=== PATIENT | female | born 1975 | race Caucasian/White ===

== ENCOUNTER → 2016-03-19 | Outpatient (CLI) | payer OTHER ==
--- NOTE | 2016-03-19 15:20 | P.PN ---
Progress Note - Text Patient returns for followup for chronic abdominal pain with some radiation to left flank, and fairly new-onset paravertebral pain that can radiate as high as her mid-thoracic spine and feels like a burning sensation. Patient continues on Marquette medication (1 pill/day) for pain with good relief. Patient denies adverse drug effects from medications. Today, pt denies new-onset weakness, bowel/bladder incontinence, or any other signs or symptoms of cauda equina syndrome. There are no signs of acute intoxication, and no indications of medication diversion or overuse. In addition to above, 13-point review of systems is also negative for chest pain , shortness of breath, changes in vision, changes in hearing, new onset weakness , abdominal pain, diarrhea, extreme fatigue, malaise, fever, skin changes, homicidal or suicidal ideation, or bowel or bladder incontinence. Vital Signs: Reviewed in EMR Gen: WDWN, AAOx3, NAD HEENT: NCAT, EOMI, hearing grossly normal Pulm: resp unlabored Abd: soft, TTP over left abdomen, worst LLQ, no rebound or guarding Neck: supple, trachea midline ROM lumbar spine: full in flexion/extension Facet loading: + R side SIJ tenderness: neg Master's: neg Neuro: CN II-XII grossly intact, muscle strength lower extremities PRESERVED Imaging: Reviewed in EMR Assessment: 1. rectus sheath cutaneous nerve entrapment 2. chronic pain syndrome 3. lumbago Plan: 1. Explanation: Opioid and psychological risk scores were reviewed. Diagnoses , prognoses, and multiple treatment options including but not limited to physical therapy, interventional therapies, adjuvant medical therapies, narcotic medication therapies, and surgery were discussed with the patient and all questions were answered to the patient's satisfaction. 2. Opioid agreement: Patient has previously signed narcotic agreement, and was orally counseled to not overuse, abuse, divert, or cell medications, and to take them as prescribed by only 1 healthcare provider. The patient was also counseled to store opioid medications in a safe and preferably locked location. Patient was also counseled against driving while using narcotic medications and also to not use alcohol or any illicit or recreational drugs. The patient verbalized understanding that lack of compliance with any of the above and likely result in failure to renew narcotic prescriptions, possible discharge from the clinic, and possible legal ramifications thereafter if indicated. 3. Counseling: The patient was counseled extensively on BODY MASS INDEX, EXERCISE. Specifically, the patient was instructed regarding the importance of obesity, and exercise in the context of both chronic pain and overall health. 4. Procedures: none for now 5. Consultations: None 6. Investigations: MRI lumbar spine if pain does not resolve with Zanaflex addition 7. Medications: Marquette #60 for 2 months supply; add zanaflex 4 mg BID for spasm 8. Disposition: f/u 8 weeks for re-eval PQRS measures: 1-Patient's medications are documented in the chart. 2-Tobacco use is negative 3-Patient has had a pneumococcal vaccine. 4-Advanced care planning discussed, patient unable to give. 5-Opioid contract signed with the patient. 6-Pain positive, follow-up visit or procedure scheduled 7-Patient's blood pressure measured and documented, and WNL. 8-Patient's weight was measured, and body mass index ABOVE the normal limits, and counseling was done. Patient instructed to follow up with PCP. 9-Patient WAS NOT identified as an unhealthy alcohol user.
== END ==
CPT/HCPCS: 99211

== ENCOUNTER 2016-03-20 21:54 | Emergency (ER) | payer OTHER ==
[2016-03-20 21:58] VITALS: TEMP 97.2
[2016-03-20] MEDS ORDERED: RX INFO: IV CONTRAST WAS GIVEN 1 EACH MISC MISCELLANE PRN (22:32)
[2016-03-20] MEDS ORDERED: DICYCLOMINE 10 MG/ML 2 ML AMP IM STA (22:32)
[2016-03-20] MEDS ORDERED: SODIUM CHLORIDE 0.9% 1,000 ML IV STA (22:32)
[2016-03-20] MEDS ORDERED: METOCLOPRAMIDE 5 MG/ML 2 ML VIAL IVP STA (22:32)
--- NOTE | 2016-03-20 22:48 | ED ---
Abdominal Pain HPI - General Chief Complaint: Abdominal Pain Stated Complaint: abdominal pain Time Seen by Provider: 03/20/16 22:18 Source: patient, RN notes reviewed Mode of arrival: ambulatory - History of Present Illness Initial Comments: 40-year-old female presents to the emergency department with a chief complaint abdominal pain. Patient states ever since she had a few pieces of chicken and kyrgyz fries she just had this epigastric abdominal pain. Patient states that there is a break in her stomach. Patient states she had a few episodes of vomiting with this. Patient states however this did not seem to make her feel better. Patient does admit to a history of a Renee-en-Y with multiple surgeries following due to complications. Patient states that she has not had any problems since her most recent surgery which was started November but today it just started. Patient denies any fever or chills this. He denies any cough cold runny nose. Patient states she was concerned due to the pain so she thought that she should be evaluated. Patient denies any recent fever, chills, shortness of breath, chest pain, back pain, numbness or tingling, dysuria or hematuria, constipation or diarrhea, headaches or visual changes, or any other current symptoms. - Related Data Home Medications Medication Instructions Recorded Confirmed Dextroamphetamine/Amphetamine 20 mg PO TID 10/05/13 03/19/16 [Adderall] Multivitamins, Thera [Multivitamin] 1 tab PO DAILY 11/22/13 03/19/16 Cyanocobalamin [Vitamin B-12 1,000 mcg SQ QMONTH 03/15/14 03/19/16 Injection] Albuterol Inhaler [Ventolin Hfa 2 puff INHALATION RT-Q6H PRN 04/21/14 03/19/16 Inhaler] Ergocalciferol [Vitamin D2 50,000 unit PO TU 04/22/14 03/19/16 (DRISDOL)] Cyanocobalamin (Vitamin B-12) 2,500 mcg PO DAILY 10/02/15 03/19/16 [Vitamin B12] Previous Rx's Medication Instructions Recorded Calcium Carbonate [Calcium] 600 mg PO BID #60 tablet 04/30/15 Magnesium Oxide [Mag-Ox] 400 mg PO BID #28 tablet 10/08/15 HYDROcodone/APAP 7.5-325MG [[place] 1 tab PO DAILY PRN #60 tab 03/19/16 7.5-325] tiZANidine HCL [Zanaflex] 4 mg PO BID #60 tab 03/19/16 Dicyclomine HCl [Bentyl] 20 mg PO QID #20 tab 03/21/16 Ondansetron Odt [Zofran ODT] 4 mg PO Q8HR PRN #20 tab 03/21/16 predniSONE 50 mg PO DAILY #5 tab 03/21/16 Allergies Allergy/AdvReac Type Severity Reaction Status Date / Time cephalexin monohydrate Allergy Severe Rash/Hives, Verified 03/20/16 21:58 [From Keflex] nausea,sweats,chills morphine Allergy Severe Itching, Verified 03/20/16 21:58 migraines,states "does not help with pain." Penicillins Allergy Severe Rash/Hives, Verified 03/20/16 21:58 nausea,lethargic almond oil Allergy Unknown Verified 03/20/16 21:58 [place] And Derivatives Allergy Unknown Verified 03/20/16 21:58 [[place]] gluten Allergy Unknown Verified 03/20/16 21:58 niacin AdvReac Abdominal Verified 03/20/16 21:58 Pain Review of Systems ROS Statement: Those systems with pertinent positive or pertinent negative responses have been documented in the HPI. ROS Other: All systems not noted in ROS Statement are negative. Past Medical History Past Medical History: Asthma, Cancer, Chest Pain / Angina, GERD/Reflux, Pulmonary Embolus (PE) Additional Past Medical History / Comment(s): HYPOGLYCEMIC. diverticulitis, hypotension, hx pneumonia, migraines, "food getting stuck"-needs balloon dilation every couple months,hx uterine cancer, colitis, urinary retention post op, History of Any Multi-Drug Resistant Organisms: None Reported Past Surgical History: Appendectomy, Bariatric Surgery, Section, Cholecystectomy, Hernia Repair, Hysterectomy, Orthopedic Surgery Additional Past Surgical History / Comment(s): renee-y gastric bypass with adhesions, rt arm-plate and screws, laparoscopy, umbilical hernia repair, I&D of abd wound,SCOPE RT SHOULDER. swallow study 08/29/15, 10/18/15 Revision of RNY r/t complications Past Anesthesia/Blood Transfusion Reactions: Family History of Problems w/ Anesthesia, Motion Sickness, Postoperative Nausea & Vomiting (PONV) Additional Past Anesthesia/Blood Transfusion Reaction / Comment(s): mother has asthma attacks post-op Past Psychological History: ADD/ADHD, Anxiety Smoking Status: Former smoker Past Alcohol Use History: Rare Additional Past Alcohol Use History / Comment(s): quit smoking 2012, started smoking at age 23 Past Drug Use History: None Reported - Past Family History Father Additional Family Medical History / Comment(s): BRAIN ANUERYSM Mother Family Medical History: AFIB, AICD/Pacemaker, Asthma, Cancer Additional Family Medical History / Comment(s): bladder General Exam - General Exam Comments Initial Comments: General: The patient is awake and alert, in no distress, and does not appear acutely ill. Eye: Pupils are equal, round and reactive to light, extra-ocular movements are intact; there is normal conjunctiva bilaterally. No signs of icterus. Ears, nose, mouth and throat: There are moist mucous membranes and no oral lesions. Neck: The neck is supple, there is no tenderness. Cardiovascular: There is a regular rate and rhythm. No murmur, rub or gallop is appreciated. Respiratory: Lungs are clear to auscultation, respirations are non-labored, breath sounds are equal. No wheezes, stridor, rales, or rhonchi. Gastrointestinal: Soft, non-distended, non-tender abdomen without masses or organomegaly noted. There is no rebound or guarding present. No CVA tenderness. Bowel sounds are unremarkable. Back: There is no tenderness to palpation in the midline. There is no obvious deformity. No rashes noted. Musculoskeletal: Normal ROM, no tenderness, There is no pedal edema. There is no calf tenderness or swelling. Sensation intact. Pulses equal bilaterally 2+. Neurological: CN II-XII intact, There are no obvious motor or sensory deficits. Coordination appears grossly intact. Speech is normal. Skin: Skin is warm and dry and no rashes or lesions are noted. Psychiatric: Cooperative, appropriate mood & affect, normal judgment. Course Vital Signs 03/20/16 03/20/16 21:55 23:00 Temperature 97.2 F L Pulse Rate 102 H Respiratory 18 18 Rate Blood Pressure 110/72 O2 Sat by Pulse 97 Oximetry Medical Decision Making - Medical Decision Making 40-year-old female presents to emergency room chief complaint of abdominal pain with history of your Renee-en-Y. At this time the patient for a colitis. Patient is informed of this we'll start her on steroids and Bentyl. We did discuss that she needs to follow-up with GI because she needs to have this colitis investigated. The patient stated that she understood. She was given Dr. Vo's information. We did discuss return parameters. We did discuss that this could worsen and she could need hospitalization. She was offered hospital he said at this time but she states she would like to go home we will resepct the patient's choice. At this time all the patient's questions have been answered. She will discharge. - Lab Data Result diagrams: 03/20/16 22:35 03/20/16 22:35 Lab Results 03/20/16 03/20/16 Range/Units 22:35 22:35 WBC 6.5 (3.8-10.6) k/uL RBC 4.38 (3.80-5.40) m/uL Hgb 12.0 (11.4-16.0) gm/dL Hct 36.7 (34.0-46.0) % MCV 83.7 (80.0-100.0) fL MCH 27.3 (25.0-35.0) pg MCHC 32.6 (31.0-37.0) g/dL RDW 13.7 (11.5-15.5) % Plt Count 299 (150-450) k/uL Neutrophils % 57 % Lymphocytes % 30 % Monocytes % 8 % Eosinophils % 2 % Basophils % 0 % Neutrophils # 3.7 (1.3-7.7) k/uL Lymphocytes # 2.0 (1.0-4.8) k/uL Monocytes # 0.5 (0-1.0) k/uL Eosinophils # 0.1 (0-0.7) k/uL Basophils # 0.0 (0-0.2) k/uL Hyperchromasia Marked Anisocytosis Slight Macrocytosis Marked Sodium 138 (137-145) mmol/L Potassium 4.3 (3.5-5.1) mmol/L Chloride 105 (98-107) mmol/L Carbon Dioxide 24 (22-30) mmol/L Anion Gap 9 mmol/L BUN 9 (7-17) mg/dL Creatinine 0.61 (0.52-1.04) mg/dL Est GFR (MDRD) Af Amer >60 (>60 ml/min/1.73 sqM) Est GFR (MDRD) Non-Af >60 (>60 ml/min/1.73 sqM) Glucose 98 (74-99) mg/dL Calcium 9.0 (8.4-10.2) mg/dL Total Bilirubin 0.3 (0.2-1.3) mg/dL AST 19 (14-36) U/L ALT 37 (9-52) U/L Alkaline Phosphatase 80 (38-126) U/L Total Protein 7.2 (6.3-8.2) g/dL Albumin 4.1 (3.5-5.0) g/dL Amylase 54 (30-110) U/L Lipase 199 (23-300) U/L Disposition Clinical Impression: Colitis, Abdominal pain Disposition: HOME SELF-CARE Condition: Stable Instructions: Colitis (ED) Additional Instructions: Please use medication as discussed. Please follow up with family doctor if symptoms have not improved over the next two days. Please return to the emergency room if your symptoms increase or worsen or for any other concerns. Please follow up with GI as discussed. 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 Prescriptions: Dicyclomine HCl [Bentyl] 20 mg PO QID #20 tab Ondansetron Odt [Zofran ODT] 4 mg PO Q8HR PRN #20 tab PRN Reason: Nausea predniSONE 50 mg PO DAILY #5 tab Referrals: Mikaela Rojas MD [Primary Care Provider] - 1-2 days Ernesto Garcia MD [STAFF PHYSICIAN] - 1-2 days Time of Disposition: 01:06
[2016-03-20 22:58] LABS: Anisocytosis Slight; Hyperchromasia Marked; Immature Gran Flag Marked; Macrocytosis Marked
[2016-03-20 23:00] LABS: Basophils % (A) 0 %; CH 27.5; Eosinophils # (A) 0.1 k/uL (0-0.7); Eosinophils % (A) 2 %; HCT 36.7 % (34.0-46.0); HDW 2.76; Luc # (Auto) 0.19; Luc % (Auto) 3; Lymphocytes % (A) 30 %; MCH 27.3 pg (25.0-35.0); MCHC 32.6 g/dL (31.0-37.0); MCV 83.7 fL (80.0-100.0); Mean Platelet Volume 6.9; Monocytes # (A) 0.5 k/uL (0-1.0); Monocytes % (A) 8 %; Neutrophils # (A) 3.7 k/uL (1.3-7.7); Neutrophils % (A) 57 %; RBC 4.38 m/uL (3.80-5.40); RDW 13.7 % (11.5-15.5); WBC 6.5 k/uL (3.8-10.6); WBC (Perox) 6.55
[2016-03-20 23:02] LABS: ALT 37 U/L (9-52); AST 19 U/L (14-36); Alkaline Phosphatase 80 U/L (38-126); Amylase 54 U/L (30-110); Anion Gap 9 mmol/L; Blood Urea Nitrogen 9 mg/dL (7-17); Carbon Dioxide 24 mmol/L (22-30); Chloride 105 mmol/L (98-107); Glucose 98 mg/dL (74-99); Non-African American GFR(MDRD) >60 (>60 ml/min/1.73 sqM); Potassium 4.3 mmol/L (3.5-5.1); Sodium 138 mmol/L (137-145); Total Bilirubin 0.3 mg/dL (0.2-1.3); Total Protein 7.2 g/dL (6.3-8.2)
--- NOTE | 2016-03-20 23:43 | CT ---
EXAMINATION TYPE: CT abdomen pelvis w con DATE OF EXAM: 03/20/2016 11:22 PM COMPARISON: 10/22/2015 HISTORY: Abd pain after eating. History of bariatric surgery. CT DLP: 501.70 mGycm Automated exposure control for dose reduction was used. TECHNIQUE: Helical acquisition of images was performed from the lung bases through the pelvis. CONTRAST: Performed with Oral Contrast and with IV Contrast, patient injected with 100 mL of Omnipaque 300. FINDINGS: LUNG BASES: No significant abnormality is appreciated. LIVER/GB: No significant abnormality is appreciated in the liver. Cholecystectomy changes are present . PANCREAS: No significant abnormality is seen. SPLEEN: No significant abnormality is seen. ADRENALS: Right adrenal gland appears unremarkable. There is stable mild nodularity in the left adren al gland with small benign-appearing left adrenal adenoma changes. KIDNEYS: There is possibility of tiny nonobstructing stones in both kidneys. No hydronephrosis is not ed bilaterally. REPRODUCTIVE ORGANS: Uterus is not well visualized. Uterus is somewhat tilted towards left. Ovaries a re not well visualized. URINARY BLADDER: No significant abnormality is seen. PELVIC ADENOPATHY: None visualized. OSSEOUS STRUCTURES: No significant abnormality is seen. BOWEL: There is postsurgical changes of Renee-en-Y bariatric surgery changes involving stomach. Contr ast is noted in the small bowel loops without significant small bowel obstruction changes. The termin al ileum showed increasing mucosal wall thickening as visualized in the coronal image 33 and axial im age 59 and is suspicious for inflammatory bowel disease changes or Crohn's disease changes. No signif icant fistula formation or free fluid collections are noted in the area of terminal ileum. Colonic bowel loops showed mild gas and fecal distention without significant obstruction. IMPRESSION: 1. SUSPECTED INFLAMMATORY BOWEL DISEASE OR CROHN'S DISEASE CHANGES INVOLVING TERMINAL ILEUM WITH INCR EASING MUCOSAL THICKENING. 2. Postsurgical changes of Renee-en-Y bariatric surgery without significant bowel obstruction changes. There is only partial opacification of small bowel loops with contrast material. 3. Cholecystectomy changes. 4. 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
[2016-03-21 01:04] VITALS: BP 90/51; PULSE 85; RESP 16
[2016-03-21] MEDS: IOHEXOL 350 MG/ML 25 ML BOTTLE (ORAL USE) PO PRN (01:05)
[2016-03-21] MEDS ORDERED: methylPREDNISolone SOD SUCCI 125 MG/2 ML VIAL IV STA (01:07)
== END 2016-03-21 01:21 | disposition home or self-care (01) ==
LOC: EC 21:54
DX: K52.9 Noninfective gastroenteritis and colitis, unspecified (principal); F90.9 Attention-deficit hyperactivity disorder, unspecified type; J44.9 Chronic obstructive pulmonary disease, unspecified; Z79.899 Other long term (current) drug therapy; Z88.1 Allergy status to other antibiotic agents; Z88.5 Allergy status to narcotic agent; Z88.0 Allergy status to penicillin; Z91.018 Allergy to other foods; Z86.711 Personal history of pulmonary embolism; Z87.891 Personal history of nicotine dependence; Z98.84 Bariatric surgery status
CPT/HCPCS: 96374 ×2; 96372; 96361 ×2; 99284; 36415; 80053; 82150; 83690; 85025; 74177; J0500; J2765; J2930; Q9967

== ENCOUNTER 2016-04-14 18:53 | Emergency (ER) | payer OTHER ==
[2016-04-14] MEDS ORDERED: IPRATROPIUM-ALBUTEROL 3 ML NEB INHALATION STA (20:25)
--- NOTE | 2016-04-14 20:28 | ED ---
URI HPI - General Chief Complaint: Upper Respiratory Infection Stated Complaint: Cough/congestion Time Seen by Provider: 04/14/16 20:11 Source: patient, RN notes reviewed Mode of arrival: ambulatory Limitations: no limitations - History of Present Illness Initial Comments: 40-year-old female presented emergency department with chief complaint cough and congestion last 2 weeks. Patient states progressively getting worse last 6 days. Patient states she's had, fever, chills, sweats. Patient states prior to this last week she took a Z-Ramiro from her primary care physician in which she states helped. She states it started as sinus congestion, runny no sore throat. Patient states that hurts to cough that she's been coughing so much. States her cough is productive. She states that she has to take shallow breaths to help reduce her coughing. She states she's been trying some over-the -counter medication no relief. Patient is a nonsmoker. Patient did she does have a history of exercise-induced asthma. Patient denies any headache, dizziness. Patient had no nausea vomiting. - Related Data Home Medications Medication Instructions Recorded Confirmed Dextroamphetamine/Amphetamine 20 mg PO TID 10/05/13 04/14/16 [Adderall] Multivitamins, Thera [Multivitamin] 1 tab PO DAILY 11/22/13 04/14/16 Cyanocobalamin [Vitamin B-12 1,000 mcg SQ QMONTH 03/15/14 04/14/16 Injection] Albuterol Inhaler [Ventolin Hfa 2 puff INHALATION RT-Q6H PRN 04/21/14 04/14/16 Inhaler] Ergocalciferol [Vitamin D2 50,000 unit PO TU 04/22/14 04/14/16 (DRISDOL)] Cyanocobalamin (Vitamin B-12) 2,500 mcg PO DAILY 10/02/15 04/14/16 [Vitamin B12] Previous Rx's Medication Instructions Recorded Calcium Carbonate [Calcium] 600 mg PO BID #60 tablet 04/30/15 Magnesium Oxide [Mag-Ox] 400 mg PO BID #28 tablet 10/08/15 HYDROcodone/APAP 7.5-325MG [[facility] 1 tab PO DAILY PRN #60 tab 03/19/16 7.5-325] tiZANidine HCL [Zanaflex] 4 mg PO BID #60 tab 03/19/16 Albuterol Sulfate [Proair Hfa] 1 - 2 puff INHALATION Q4HR PRN #1 04/14/16 inhaler CHLORPHEN-HYDROcod 8-10mg/5ml 5 ml PO Q12HR #100 ml 04/14/16 [Tussionex] Levofloxacin [Levaquin] 500 mg PO DAILY #10 tab 04/14/16 Allergies Allergy/AdvReac Type Severity Reaction Status Date / Time cephalexin monohydrate Allergy Severe Rash/Hives, Verified 04/14/16 20:32 [From Keflex] nausea,sweats,chills morphine Allergy Severe Itching, Verified 04/14/16 20:32 migraines,states "does not help with pain." Penicillins Allergy Severe Rash/Hives, Verified 04/14/16 20:32 nausea,lethargic almond oil Allergy Unknown Verified 04/14/16 20:32 [place] And Derivatives Allergy Unknown Verified 04/14/16 20:32 [[place]] gluten Allergy Unknown Verified 04/14/16 20:32 niacin AdvReac Abdominal Verified 04/14/16 20:32 Pain Review of Systems ROS Statement: Those systems with pertinent positive or pertinent negative responses have been documented in the HPI. ROS Other: All systems not noted in ROS Statement are negative. Past Medical History Past Medical History: Asthma, Cancer, Chest Pain / Angina, GERD/Reflux, Pulmonary Embolus (PE) Additional Past Medical History / Comment(s): HYPOGLYCEMIC. diverticulitis, hypotension, hx pneumonia, migraines, "food getting stuck"-needs balloon dilation every couple months,hx uterine cancer, colitis, urinary retention post op, History of Any Multi-Drug Resistant Organisms: None Reported Past Surgical History: Appendectomy, Bariatric Surgery, Section, Cholecystectomy, Hernia Repair, Hysterectomy, Orthopedic Surgery Additional Past Surgical History / Comment(s): reyna-y gastric bypass with adhesions, rt arm-plate and screws, laparoscopy, umbilical hernia repair, I&D of abd wound,SCOPE RT SHOULDER. swallow study 08/29/15, 10/18/15 Revision of RNY r/t complications Past Anesthesia/Blood Transfusion Reactions: Family History of Problems w/ Anesthesia, Motion Sickness, Postoperative Nausea & Vomiting (PONV) Additional Past Anesthesia/Blood Transfusion Reaction / Comment(s): mother has asthma attacks post-op Past Psychological History: ADD/ADHD, Anxiety Smoking Status: Former smoker Past Alcohol Use History: Rare Additional Past Alcohol Use History / Comment(s): quit smoking 2013, started smoking at age 23 Past Drug Use History: None Reported - Past Family History Father Additional Family Medical History / Comment(s): BRAIN ANUERYSM Mother Family Medical History: AFIB, AICD/Pacemaker, Asthma, Cancer Additional Family Medical History / Comment(s): bladder General Exam Limitations: no limitations General appearance: alert, in no apparent distress Head exam: Present: atraumatic, normocephalic, normal inspection Eye exam: Present: normal appearance, PERRL, EOMI. Absent: scleral icterus, conjunctival injection, periorbital swelling ENT exam: Present: normal exam, normal oropharynx, mucous membranes moist, TM's normal bilaterally Neck exam: Present: normal inspection, full ROM. Absent: tenderness, meningismus, lymphadenopathy Respiratory exam: Present: wheezes, rhonchi. Absent: normal lung sounds bilaterally, respiratory distress, rales, stridor Cardiovascular Exam: Present: regular rate, normal rhythm, normal heart sounds. Absent: systolic murmur, diastolic murmur, rubs, gallop, clicks GI/Abdominal exam: Present: soft, normal bowel sounds. Absent: distended, tenderness, guarding, rebound, rigid Course Vital Signs 04/14/16 04/14/16 04/14/16 18:56 20:32 20:33 Temperature 97.5 F L 97.9 F Pulse Rate 88 88 Respiratory 18 22 Rate Blood Pressure 117/81 O2 Sat by Pulse 95 96 Oximetry 04/14/16 04/14/16 20:36 20:43 Temperature Pulse Rate 78 78 Respiratory Rate Blood Pressure O2 Sat by Pulse Oximetry Medical Decision Making - Medical Decision Making 40-year-old female presented for cough congestion. Patient does have early signs of pneumonia on x-ray. Patient does do much improved after DuoNeb treatment. Patient's complaining of lower rib pain from coughing. Patient requested a KUB for possible abdominal issues though there is no acute abnormality. Return parameters were discussed. - Lab Data Lab Results 04/14/16 Range/Units 20:29 Influenza Type A RNA Not Detected (Not Detectd) Influenza Type B (PCR) Not Detected (Not Detectd) Disposition Clinical Impression: Pneumonia Disposition: HOME SELF-CARE Condition: Stable Instructions: Pneumonia (ED) Additional Instructions: Please return to the Emergency Department if symptoms worsen or any other concerns. Prescriptions: Albuterol Sulfate [Proair Hfa] 1 - 2 puff INHALATION Q4HR PRN #1 inhaler PRN Reason: difficulty in breathing CHLORPHEN-HYDROcod 8-10mg/5ml [Tussionex] 5 ml PO Q12HR #100 ml Levofloxacin [Levaquin] 500 mg PO DAILY #10 tab Time of Disposition: 21:52
--- NOTE | 2016-04-14 21:17 | XR ---
EXAMINATION TYPE: XR chest 2V DATE OF EXAM: 04/14/2016 8:58 PM COMPARISON: Prior chest x-ray 27 June 2015 HISTORY: Cough and pain TECHNIQUE: Frontal and lateral views of the chest are obtained. FINDINGS: There is no pleural effusion, or pneumothorax seen. The cardiac silhouette size is within normal limits. Question some minimal airspace disease possibly in the right middle lobe although th e patient is rotated. The osseous structures are intact. IMPRESSION: Difficult to exclude pneumonia. Patient is rotated. Follow-up as indicated.
[2016-04-14] MEDS ORDERED: CHLORPHEN-HYDROcod 8-10mg/5ml 5 ML ORAL.SYRG PO STA (21:31)
--- NOTE | 2016-04-14 21:46 | XR ---
Abdomen HISTORY: Pain Frontal view of the abdomen submitted on 2 images correlated to previous 02 October 2015 No interval change. IMPRESSION: No acute abnormalities evident, postop changes, follow-up as indicated
[2016-04-14 22:01] VITALS: BP 101/52; PULSE 85; RESP 16; TEMP 98.4
== END 2016-04-14 22:05 | disposition home or self-care (01) ==
LOC: EC 18:53
DX: J18.9 Pneumonia, unspecified organism (principal); R07.81 Pleurodynia; J45.990 Exercise induced bronchospasm; F90.9 Attention-deficit hyperactivity disorder, unspecified type; Z79.899 Other long term (current) drug therapy; Z88.0 Allergy status to penicillin; Z88.1 Allergy status to other antibiotic agents; Z88.5 Allergy status to narcotic agent; Z86.711 Personal history of pulmonary embolism; Z87.891 Personal history of nicotine dependence
CPT/HCPCS: 71020; 74000; 87502; 94640; 99284

== ENCOUNTER → 2016-05-28 | Outpatient (CLI) | payer OTHER ==
[2016-05-28 12:58] VITALS: BP 104/75; PULSE 99; TEMP 98.3; BMI 27.8
--- NOTE | 2016-07-02 06:19 | P.PN ---
Progress Note - Text DATE OF SERVICE: 05/28/2016. CHIEF COMPLAINT: Panniculitis. HISTORY OF PRESENT ILLNESS: Dorie Morales is a 41 -year-old female who comes in with history of chronic lower back pain, including chronic pain from her pannus. At her height of 5 foot 5 pounds, her ideal body weight is 149 pounds. Her highest personal weight was actually 268 pounds. Today she comes in weighing 167 pounds. Maintained weight loss is 101 pounds. Her percent excess weight loss lifetime is 85%. Body mass index is reduced from 44.7 down to 27.9. She only 18 pounds overweight. She has been evaluated by the pain specialist. She reports getting a pain shot to control her abdominal pain as well. PAST MEDICAL HISTORY: 1. ADHD. 2. Chronic abdominal pain. 3. History of morbid obesity. 4. Gastroesophageal reflux disease, resolved. 5. Vitamin B12 deficiency. 6. History of uterine tumor. 7. Colitis. 8. Panniculitis. PAST SURGICAL HISTORY: 1. Hysterectomy. 2. Upper endoscopy. 3. Renee-en-Y gastric bypass October 2012. 4. Drainage of abdominal wall abscess. 5. Appendectomy. 6. EGD with balloon dilatation. 7. Diagnostic laparoscopy. 8. Revision of jejunojejunostomy. MEDICATIONS: 1. Zanaflex. 2. Multivitamin. 3. Magnesium oxide. 4. [place] 7.5. 5. Vitamin D. 6. Adderall. 7. Vitamin B12. 8. Calcium. 9. ProAir. 10. Ventolin inhaler. ALLERGIES: 1. KEFLEX. 2. MORPHINE. 3. PENICILLIN. 4. ALMOND OIL. 5. CITRUS. 6. FENTANYL. 7. GLUTEN. SOCIAL HISTORY: Remote tobacco user. Denies any active alcohol use. FAMILY HISTORY: Pertinent for morbid obesity including gastroesophageal reflux disease. REVIEW OF SYSTEMS: CONSTITUTIONAL: Highest personal weight of 268 pounds. Present weight of 167 pounds. Total weight loss of 101 pounds. Percent weight loss 85%. She has lost an additional 8 pounds since her last visit a year ago. Body mass index reduced from 44.7 down to 27.9. Total body mass index point reduction is 16.8. NEURO: History of chronic pain, lower back, including of the pannus. She sees a pain specialist for steroid injections. ENDOCRINE: History of thyroid goiter. GASTROINTESTINAL: Reports intolerance to solid foods. Also reports chronic abdominal pain, location epigastrium and left upper quadrant. HEENT: No troubles with vision or hearing. RESPIRATORY: Denies any dyspnea on exertion or obstructive sleep apnea. CARDIOVASCULAR: Denies any chest pain or palpitations. MUSCULOSKELETAL: History of lower back pain. Denies any joint pain. SKIN: History of erythema including irritation from her pannus. PSYCH: History of ADHD. Denies depression. HEMATOLOGIC: Denies any easy bruising or bleeding. PHYSICAL EXAM: VITAL SIGNS: 98.3, 99, 104/75, 5 foot 5, 167 pounds. Body mass index is a 27.9. ABDOMEN: Moderate-sized pannus which hangs over pubis by over 5 cm. Hyperemia identified and tenderness to touch consistent with panniculitis. GENERAL: Well-developed female no acute distress. HEENT: No scleral icterus. Extraocular movements grossly intact. NECK: Supple without lymphadenopathy. CHEST: Unlabored respirations. Equal bilateral excursions. CARDIOVASCULAR: Regular rate and rhythm. MUSCULOSKELETAL: No clubbing, cyanosis, or edema. NEURO: No focal or lateralizing signs. Cranial nerves II through XII grossly intact. LABS: No new labs at this time. ASSESSMENT: 1. Morbid obesity due to excess calories, resolved. 2. Body mass index reduced from 44.7 down to 27.9. 3. Status post Renee-en-Y gastric bypass. 4. Status post jejunojejunostomy revision. 5. Prior history of chronic abdominal pain. 6. High risk for multiple emergency room admissions. 7. Dietary surveillance and counseling. 8. History of thyroid goiter. 9. History of vitamin B12 deficiency. 10. History of chronic abdominal pain. 11. Overweight. 12. Chronic pain syndrome. 13. Panniculitis of the abdomen. 14. Lifetime weight loss 101 pounds. 15. Lower back pain. PLAN: 1. She has had long-standing history of her pannus including chronic pain. Recommend panniculectomy. 2. With her history of chronic pain, recommend further evaluation with the pain specialist. 3. Panniculectomy packet was reviewed including risk of bleeding, infection, anemia, flap failure, cosmetic deformity, as well as seroma requiring drainage. 4. Inpatient hospitalization overnight advised. 5. Personal history of obstructive uropathy following surgery which will be monitored and treated. 6. Recommend a high protein diet pre-operatively including for her recovery.
== END | disposition home or self-care (01) ==
LOC: BARWHC3 10:31
PROVIDERS: ATTEND Surgery Plastic and Reconstructive Surgery
DX: Z48.815 Encounter for surgical aftercare following surgery on the digestive system (principal); E66.01 Morbid (severe) obesity due to excess calories; Z98.84 Bariatric surgery status; Z68.27 Body mass index [BMI] 27.0-27.9, adult
CPT/HCPCS: 99211

== ENCOUNTER 2016-07-02 16:24 | Emergency (ER) | payer OTHER ==
[2016-07-02 16:36] VITALS: BP 127/84; PULSE 87; RESP 18; TEMP 98.4
--- NOTE | 2016-07-02 16:57 | ED ---
General Adult HPI - General Chief complaint: Extremity Problem,Nontraumatic Stated complaint: rt arm injury Time Seen by Provider: 07/02/16 16:39 Source: patient, RN notes reviewed, old records reviewed Mode of arrival: ambulatory Limitations: no limitations - History of Present Illness Initial comments: Patient is a 41-year-old female with chief complaint of right forearm pain. 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 She states that she's had a plate in her arm before from previous fractures. She states that she wasn't certain way and that is shooting pain went down her forearm to her hand. She reports having difficulty her hand flexing sending her wrist. She denies any specific trauma that could've caused this. Patient states that she's noticed some swelling bruising around the area. She is right-handed.Patient denies any recent fever, chills, shortness of breath, chest pain, back pain, abdominal pain , nausea vomiting, numbness or tingling, dysuria or hematuria, constipation or diarrhea, headaches or visual changes, or any other current symptoms - Related Data Home Medications Medication Instructions Recorded Confirmed Dextroamphetamine/Amphetamine 20 mg PO TID 10/05/13 05/28/16 [Adderall] Multivitamins, Thera [Multivitamin 1 tab PO DAILY 11/22/13 05/28/16 (formulary)] Cyanocobalamin [Vitamin B-12 1,000 mcg SQ QMONTH 03/15/14 05/28/16 Injection] Albuterol Inhaler [Ventolin Hfa 2 puff INHALATION RT-Q6H PRN 04/21/14 05/28/16 Inhaler] Ergocalciferol [Vitamin D2 50,000 unit PO TU 04/22/14 05/28/16 (DRISDOL)] Cyanocobalamin (Vitamin B-12) 2,500 mcg PO DAILY 10/02/15 05/28/16 [Vitamin B12] Previous Rx's Medication Instructions Recorded Calcium Carbonate [Calcium] 600 mg PO BID #60 tablet 04/30/15 Magnesium Oxide [Mag-Ox] 400 mg PO BID #28 tablet 10/08/15 HYDROcodone/APAP 7.5-325MG [[place] 1 tab PO DAILY PRN #60 tab 01/05/17 7.5-325] tiZANidine HCL [Zanaflex] 4 mg PO BID #60 tab 03/19/16 Albuterol Sulfate [Proair Hfa] 1 - 2 puff INHALATION Q4HR PRN #1 04/14/16 inhaler Ibuprofen [Motrin] 800 mg PO Q6HR PRN #20 tab 07/02/16 traMADol HCl [Ultram] 50 mg PO Q4H PRN #12 tab 07/02/16 Allergies Allergy/AdvReac Type Severity Reaction Status Date / Time cephalexin monohydrate Allergy Severe Rash/Hives, Verified 07/02/16 16:36 [From Keflex] nausea,sweats,chills morphine Allergy Severe Itching, Verified 07/02/16 16:36 migraines,states "does not help with pain." Penicillins Allergy Severe Rash/Hives, Verified 07/02/16 16:36 nausea,lethargic almond oil Allergy Unknown Verified 07/02/16 16:36 [place] And Derivatives Allergy Unknown Verified 07/02/16 16:36 [[place]] gluten Allergy Unknown Verified 07/02/16 16:36 niacin AdvReac Abdominal Verified 07/02/16 16:36 Pain Review of Systems ROS Statement: Those systems with pertinent positive or pertinent negative responses have been documented in the HPI. ROS Other: All systems not noted in ROS Statement are negative. Past Medical History Past Medical History: Asthma, Cancer, Chest Pain / Angina, Deep Vein Thrombosis (DVT), GERD/Reflux, Osteoarthritis (OA), Pulmonary Embolus (PE) Additional Past Medical History / Comment(s): HYPOGLYCEMIC. diverticulitis, hypotension, migraines, "food getting stuck"-needs balloon dilation every 6-12 months, hx uterine cancer, colitis, possible crohns, nodule on adrenal gland. History of Any Multi-Drug Resistant Organisms: None Reported Past Surgical History: Appendectomy, Bariatric Surgery, Section, Cholecystectomy, Hernia Repair, Hysterectomy, Orthopedic Surgery Additional Past Surgical History / Comment(s): reyna-y gastric bypass with adhesions, rt arm-plate and screws, laparoscopy, umbilical hernia repair, I&D of abd wound,SCOPE RT SHOULDER. swallow study. Revision of RNY r/t complications Past Anesthesia/Blood Transfusion Reactions: Family History of Problems w/ Anesthesia, Motion Sickness, Postoperative Nausea & Vomiting (PONV) Additional Past Anesthesia/Blood Transfusion Reaction / Comment(s): mother has asthma attacks post-op Past Psychological History: ADD/ADHD, Anxiety Smoking Status: Former smoker Past Alcohol Use History: Rare Additional Past Alcohol Use History / Comment(s): quit smoking 2012, started smoking in 1998. Past Drug Use History: None Reported - Past Family History Father Additional Family Medical History / Comment(s): BRAIN ANUERYSM Mother Family Medical History: AFIB, AICD/Pacemaker, Asthma, Cancer Additional Family Medical History / Comment(s): bladder General Exam - General Exam Comments Initial Comments: Well-appearing 41-year-old female. No distress. Limitations: no limitations General appearance: alert, in no apparent distress Head exam: Present: atraumatic, normocephalic, normal inspection Eye exam: Present: normal appearance, PERRL, EOMI. Absent: scleral icterus, conjunctival injection, periorbital swelling ENT exam: Present: normal exam, mucous membranes moist Neck exam: Present: normal inspection. Absent: tenderness, meningismus, lymphadenopathy Respiratory exam: Present: normal lung sounds bilaterally. Absent: respiratory distress, wheezes, rales, rhonchi, stridor Cardiovascular Exam: Present: regular rate, normal rhythm, normal heart sounds. Absent: systolic murmur, diastolic murmur, rubs, gallop, clicks GI/Abdominal exam: Present: soft, normal bowel sounds. Absent: distended, tenderness, guarding, rebound, rigid Extremities exam: Present: normal inspection, full ROM, normal capillary refill. Absent: tenderness, pedal edema, joint swelling, calf tenderness Back exam: Present: normal inspection Neurological exam: Present: alert, oriented X3, CN II-XII intact Psychiatric exam: Present: normal affect, normal mood Skin exam: Present: warm, dry, intact, normal color. Absent: rash Course Vital Signs 07/02/16 16:33 Temperature 98.4 F Pulse Rate 87 Respiratory 18 Rate Blood Pressure 127/84 O2 Sat by Pulse 98 Oximetry Medical Decision Making - Medical Decision Making Patient is a pleasant 41-year-old female. No distress. Patient states that she has some right arm pain after work today. She states that it occurred. She is having difficulty flexing sending her wrist. She she's had a previous plate and screw. Patient's x-rays reviewed and negative. Patient will be discharged home as directed. Discussed follow-up with orthopedic physician if symptoms continue persist. Patient understands treatment plan will comply. - Radiology Data Radiology results: report reviewed Uncomplicated appearance a plate and screw fixation to the mid and distal third radial shaft. Tiny 2.5 mm bone fragment, probable and accessory ossicle and to her toes at the ulnocarpal joint is unchanged. No acute osseous abnormality seen. Disposition Clinical Impression: Right forearm pain Disposition: HOME SELF-CARE Condition: Good Instructions: Arm Pain (ED), Paresthesia (ED) Additional Instructions: Patient advised to follow-up with orthopedic physician. Return to the emergency department if any alarming signs or symptoms occur. Prescriptions: Ibuprofen [Motrin] 800 mg PO Q6HR PRN #20 tab PRN Reason: Pain traMADol HCl [Ultram] 50 mg PO Q4H PRN #12 tab PRN Reason: Pain Referrals: Mikaela Rojas MD [Primary Care Provider] - 1-2 days Time of Disposition: 17:27
--- NOTE | 2016-07-02 17:08 | XR ---
EXAMINATION TYPE: XR forearm RT DATE OF EXAM: 07/02/2016 4:58 PM COMPARISON: Hand 12/10/2014 HISTORY: 41-year-old female sharp pain today without injury. TECHNIQUE: 2 views FINDINGS: Stable 2.5 mm ossicle interposed at the ulnocarpal joint likely accessory ossicle. Plate and screw fi xation along the lateral mid to distal third radial shaft appears uncomplicated. No periostitis or os teolysis. No acute fracture or dislocation. No significant elbow joint effusion. IMPRESSION: Uncomplicated appearance to the plate and screw fixation of the mid to distal third radial shaft. Tin y 2.5 mm bone fragment, probable an accessory ossicle interposed at the ulnocarpal joint is unchanged . No acute osseous abnormality seen.
== END 2016-07-02 17:30 | disposition home or self-care (01) ==
LOC: EC 16:24
DX: M79.631 Pain in right forearm (principal); F90.9 Attention-deficit hyperactivity disorder, unspecified type; M19.90 Unspecified osteoarthritis, unspecified site; F41.9 Anxiety disorder, unspecified; Z87.891 Personal history of nicotine dependence; Z79.899 Other long term (current) drug therapy; Z88.1 Allergy status to other antibiotic agents; Z88.5 Allergy status to narcotic agent; Z91.018 Allergy to other foods; Z88.8 Allergy status to other drugs, medicaments and biological substances; Z91.048 Other nonmedicinal substance allergy status; Z98.890 Other specified postprocedural states
CPT/HCPCS: 99284

== ENCOUNTER → 2016-08-26 | Outpatient (CLI) | payer OTHER ==
[2016-08-26 13:37] VITALS: BP 117/70; PULSE 95; RESP 16; TEMP 97.6; BMI 25.6
--- NOTE | 2016-09-15 17:02 | P.PN ---
Progress Note - Text DATE OF SERVICE: 08/26/2016. CHIEF COMPLAINT: Panniculitis. HISTORY OF PRESENT ILLNESS: Dorie Morales is a 41 -year-old female who comes in with history of chronic lower back pain, including chronic pain from her pannus. At her height of 5 foot 5 pounds, her ideal body weight is 149 pounds. Her highest personal weight was actually 268 pounds. Today she comes in weighing 154 pounds. She is also on the 14 pounds in 3 months. She reports difficulty eating raw foods. Her portions are fairly small. She has adapted to a gluten-free diet. She reports intermittent abdominal pain including dysphagia. She has a personal history of a gastric bypass from October 2012. She is now almost 4 years out. Maintained weight loss is 114 pounds. Her percent excess weight loss lifetime is 96%. Body mass index is reduced from 44.7 down to 25.6. She 5 pounds overweight. She reports chronic abdominal pain from the weight of her pannus including intermittent ulcers and redness from panniculitis. Now she presents for evaluation for dysphagia as well as for panniculectomy. PAST MEDICAL HISTORY: 1. ADHD. 2. Chronic abdominal pain. 3. History of morbid obesity. 4. Gastroesophageal reflux disease, resolved. 5. Vitamin B12 deficiency. 6. History of uterine tumor. 7. Colitis. 8. Panniculitis. PAST SURGICAL HISTORY: 1. Hysterectomy. 2. Upper endoscopy. 3. Renee-en-Y gastric bypass October 2012. 4. Drainage of abdominal wall abscess. 5. Appendectomy. 6. EGD with balloon dilatation. 7. Diagnostic laparoscopy. 8. Revision of jejunojejunostomy. MEDICATIONS: 1. Zanaflex. 2. Multivitamin. 3. Magnesium oxide. 4. [place] 7.5. 5. Vitamin D. 6. Adderall. 7. Vitamin B12. 8. Calcium. 9. ProAir. 10. Ventolin inhaler. ALLERGIES: 1. KEFLEX. 2. MORPHINE. 3. PENICILLIN. 4. ALMOND OIL. 5. CITRUS. 6. FENTANYL. 7. GLUTEN. SOCIAL HISTORY: Remote tobacco user. Denies any active alcohol use. FAMILY HISTORY: Pertinent for morbid obesity including gastroesophageal reflux disease. REVIEW OF SYSTEMS: CONSTITUTIONAL: At her height of 5 foot 5 pounds, her ideal body weight is 149 pounds. Her highest personal weight was actually 268 pounds. Today she comes in weighing 154 pounds. She is also on the 14 pounds in 3 months. Maintained weight loss is 114 pounds. Her percent excess weight loss lifetime is 96%. Body mass index is reduced from 44.7 down to 25.6. She 5 pounds overweight. NEURO: History of chronic pain, lower back, including of the pannus. She sees a pain specialist for steroid injections. ENDOCRINE: History of thyroid goiter. No reports of diabetes. GASTROINTESTINAL: Reports intolerance to solid foods. Also reports chronic abdominal pain along the pannus epigastrium. HEENT: No troubles with vision or hearing. RESPIRATORY: Denies any dyspnea on exertion or obstructive sleep apnea. CARDIOVASCULAR: Denies any chest pain or palpitations. MUSCULOSKELETAL: History of lower back pain. Denies any joint pain. SKIN: History of erythema including irritation from her pannus. PSYCH: History of ADHD. Denies depression. HEMATOLOGIC: Denies any easy bruising or bleeding. PHYSICAL EXAM: VITAL SIGNS: 5 foot 5, 154 pounds. Body mass index is 25.6. Vital Signs Temp 97.6 F 08/26/16 13:28 Pulse 95 08/26/16 13:28 Resp 16 08/26/16 13:28 BP 117/70 08/26/16 13:28 Pulse Ox ABDOMEN: Moderate-sized pannus which hangs over pubis by over 5 cm. Hyperemia identified and tenderness to touch consistent with panniculitis. GENERAL: Well-developed female no acute distress. HEENT: No scleral icterus. Extraocular movements grossly intact. NECK: Supple without lymphadenopathy. CHEST: Unlabored respirations. Equal bilateral excursions. CARDIOVASCULAR: Regular rate and rhythm. MUSCULOSKELETAL: No clubbing, cyanosis, or edema. NEURO: No focal or lateralizing signs. Cranial nerves II through XII grossly intact. LABS: No new labs at this time. ASSESSMENT: 1. Morbid obesity due to excess calories, resolved. 2. Body mass index reduced from 44.7 down to 25.6. 3. Status post Renee-en-Y gastric bypass. 4. Status post jejunojejunostomy revision. 5. Prior history of chronic abdominal pain. 6. Dysphagia. 7. Dietary surveillance and counseling. 8. History of thyroid goiter. 9. History of vitamin B12 deficiency. 10. Chronic pain syndrome. 11. Panniculitis of the abdomen. 12. Lifetime weight loss 114 pounds. 13. Lower back pain secondary to panniculitis. PLAN: 1. She has dysphagia magically to solid foods. May benefit from upper endoscopy with possible balloon dilatation. 2. Also recommend evaluation for panniculectomy. She has maintained over 100+ pound weight loss in 4 years. She has been severely symptomatic for several years with chronic pain as well as redness and limitations of her pannus. 3. Benefits and risks of panniculectomy including bleeding, infection, pain, risk of flap failure, postoperative seroma, need for further surgery were described in detail. 4. DVT prophylaxis. 5. Antibiotic prophylaxis. 6. Inpatient hospitalization over night described. 7. Recommend correction of nutritional deficiencies prior to proceeding with surgical intervention.
== END | disposition home or self-care (01) ==
LOC: BARWHC3 12:53
PROVIDERS: ATTEND Surgery Plastic and Reconstructive Surgery
DX: M79.3 Panniculitis, unspecified (principal); G89.4 Chronic pain syndrome; F90.9 Attention-deficit hyperactivity disorder, unspecified type; E53.8 Deficiency of other specified B group vitamins; Z98.84 Bariatric surgery status; Z79.899 Other long term (current) drug therapy; Z88.1 Allergy status to other antibiotic agents; Z88.5 Allergy status to narcotic agent; Z88.0 Allergy status to penicillin; Z88.8 Allergy status to other drugs, medicaments and biological substances; Z91.018 Allergy to other foods; Z91.02 Food additives allergy status
CPT/HCPCS: 99211

== ENCOUNTER 2016-08-28 06:53 | Day surgery (SDC) | payer OTHER ==
--- NOTE | 2016-08-28 06:58 | P.GSHP ---
History of Present Illness H&P Date: 08/28/16 CHIEF COMPLAINT: GERD HISTORY OF PRESENT ILLNESS: The patient is a 41-year-old female who presents reports gastroesophageal reflux disease. Upper endoscopy was offered for further evaluation and management. PAST MEDICAL HISTORY: Please see list. PAST SURGICAL HISTORY: Please see list. MEDICATIONS: Please see list. ALLERGIES: Please see list. SOCIAL HISTORY: No illicit drug use FAMILY HISTORY: No reports of Crohn disease or ulcerative colitis. REVIEW OF ORGAN SYSTEMS: CONSTITUTIONAL: No reports of fevers or chills. GI: Denies any blood in stools or constipation. PHYSICAL EXAM: VITAL SIGNS: Stable GENERAL: Well-developed and pleasant in no acute distress. HEENT: No scleral icterus. Extraocular movements grossly intact. Moist buccal mucosa. NECK: Supple without lymphadenopathy. CHEST: Unlabored respirations. Equal bilateral excursions. CARDIOVASCULAR: Regular rate and rhythm. Distal 2+ pulses. ABDOMEN: Soft, nondistended. MUSCULOSKELETAL: No clubbing, cyanosis, or edema. ASSESSMENT: 1. Gastroesophageal reflux disease PLAN: 1. Recommend proceeding with an upper endoscopy Past Medical History Past Medical History: Asthma, Cancer, Chest Pain / Angina, Deep Vein Thrombosis (DVT), GERD/Reflux, Osteoarthritis (OA), Pulmonary Embolus (PE) Additional Past Medical History / Comment(s): HYPOGLYCEMIC. diverticulitis, hypotension, migraines, "food getting stuck"-needs balloon dilation every 6-12 months, hx uterine cancer, colitis, possible crohns, nodule on adrenal gland. History of Any Multi-Drug Resistant Organisms: None Reported Past Surgical History: Appendectomy, Bariatric Surgery, Section, Cholecystectomy, Hernia Repair, Hysterectomy, Orthopedic Surgery Additional Past Surgical History / Comment(s): reyna-y gastric bypass with adhesions, rt arm-plate and screws, laparoscopy, umbilical hernia repair, I&D of abd wound,SCOPE RT SHOULDER. swallow study. Revision of RNY r/t complications Past Anesthesia/Blood Transfusion Reactions: Family History of Problems w/ Anesthesia, Motion Sickness, Postoperative Nausea & Vomiting (PONV) Additional Past Anesthesia/Blood Transfusion Reaction / Comment(s): mother has asthma attacks post-op Smoking Status: Former smoker - Past Family History Father Additional Family Medical History / Comment(s): BRAIN ANUERYSM Mother Family Medical History: AFIB, AICD/Pacemaker, Asthma, Cancer Additional Family Medical History / Comment(s): bladder Medications and Allergies Home Medications Medication Instructions Recorded Confirmed Type Dextroamphetamine/Amphetamine 20 mg PO TID 10/05/13 08/26/16 History [Adderall] Multivitamins, Thera [Multivitamin 1 tab PO DAILY 11/22/13 08/26/16 History (formulary)] Cyanocobalamin [Vitamin B-12 1,000 mcg SQ QMONTH 03/15/14 08/26/16 History Injection] Albuterol Inhaler [Ventolin Hfa 2 puff INHALATION RT-Q6H PRN 04/21/14 08/26/16 History Inhaler] Ergocalciferol [Vitamin D2 50,000 unit PO TU 04/22/14 08/26/16 History (DRISDOL)] Cyanocobalamin (Vitamin B-12) 2,500 mcg PO DAILY 10/02/15 08/26/16 History [Vitamin B12] Allergies Allergy/AdvReac Type Severity Reaction Status Date / Time cephalexin monohydrate Allergy Severe Rash/Hives, Verified 08/26/16 13:28 [From Keflex] nausea,sweats,chills morphine Allergy Severe Itching, Verified 08/26/16 13:28 migraines,states "does not help with pain." Penicillins Allergy Severe Rash/Hives, Verified 08/26/16 13:28 nausea,lethargic almond oil Allergy Unknown Verified 08/26/16 13:28 [place] And Derivatives Allergy Unknown Verified 08/26/16 13:28 [[place]] gluten Allergy Unknown Verified 08/26/16 13:28 niacin AdvReac Abdominal Verified 08/26/16 13:28 Pain
[2016-08-28 07:04] VITALS: RESP 16; TEMP 98
[2016-08-28] MEDS ORDERED: LACTATED RINGERS 1,000 ML IV ONE (07:12)
[2016-08-28] MEDS ORDERED: PROPOFOL 10 MG/ML 20 ML VIAL IV ONE (07:28)
--- NOTE | 2016-08-28 07:42 | P.PCN ---
Date of Procedure: 08/28/16 Preoperative Diagnosis: Postoperative Diagnosis: Procedure(s) Performed: Implants: Indications for Procedure: Operative Findings: Description of Procedure: PREOPERATIVE DIAGNOSIS: Dysphagia. Epigastric abdominal pain. Nausea with vomiting. POSTOPERATIVE DIAGNOSIS: Dysphagia. Epigastric abdominal pain. Nausea with vomiting. OPERATION: Esophagogastrojejunoscopy with balloon dilatation, 20 mm. SURGEON: Hortencia Bangura MD ANESTHESIA: MAC. INDICATIONS: The patient is a 41-year-old female who presents with a history of dysphagia, gastric bypass including epigastric abdominal pain. Benefits and risks of the procedure were described. Informed consent was obtained. DESCRIPTION: The patient was brought into the endoscopy suite and laid in the left lateral decubitus position. After a timeout was confirmed, the procedure was initiated. An Olympus gastroscope was passed along the posterior oropharynx down to the distal esophagus where the squamocolumnar junction was unremarkable. The gastric pouch was entered. 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 A WhoJam balloon dilator was placed through the scope. Final insufflation up to 20 mm was performed with a total of 2 minutes. The scope was advanced up to 60 cm from the incisors into the Renee limb. The mucosa of the gastrojejunal anastomosis was intact. No chronic gastrojejunal marginal ulcer was encountered. No full-thickness injury was encountered. The GI tract was desufflated. The patient tolerated the procedure well. FINDINGS: [place] grade A erosive esophagitis. 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 No chronic gastrojejunal ulceration encountered. Successful balloon dilatation to 20 mm. RECOMMENDATIONS: Upper endoscopy as needed. Plan - Discharge Summary New Discharge Prescriptions: No Action Dextroamphetamine/Amphetamine [Adderall] 20 mg PO TID Multivitamins, Thera [Multivitamin (formulary)] 1 tab PO DAILY Cyanocobalamin [Vitamin B-12 Injection] 1,000 mcg SQ QMONTH Albuterol Inhaler [Ventolin Hfa Inhaler] 2 puff INHALATION RT-Q6H PRN PRN Reason: Shortness Of Breath Ergocalciferol [Vitamin D2 (DRISDOL)] 50,000 unit PO TU Calcium Carbonate [Calcium] 600 mg PO BID #60 tablet Cyanocobalamin (Vitamin B-12) [Vitamin B12] 2,500 mcg PO DAILY Magnesium Oxide [Mag-Ox] 400 mg PO BID #28 tablet HYDROcodone/APAP 7.5-325MG [[place] 7.5-325] 1 tab PO DAILY PRN #60 tab PRN Reason: Pain tiZANidine HCL [Zanaflex] 4 mg PO BID #60 tab Albuterol Sulfate [Proair Hfa] 1 - 2 puff INHALATION Q4HR PRN #1 inhaler PRN Reason: difficulty in breathing traMADol HCl [Ultram] 50 mg PO Q4H PRN #12 tab PRN Reason: Pain Discharge Medication List Dextroamphetamine/Amphetamine [Adderall] 20 mg PO TID 10/05/13 [History] Multivitamins, Thera [Multivitamin (formulary)] 1 tab PO DAILY 11/22/13 [History ] Cyanocobalamin [Vitamin B-12 Injection] 1,000 mcg SQ QMONTH 03/15/14 [History] Albuterol Inhaler [Ventolin Hfa Inhaler] 2 puff INHALATION RT-Q6H PRN 04/21/14 [ History] Ergocalciferol [Vitamin D2 (DRISDOL)] 50,000 unit PO TU 04/22/14 [History] Calcium Carbonate [Calcium] 600 mg PO BID #60 tablet 04/30/15 [Rx] Cyanocobalamin (Vitamin B-12) [Vitamin B12] 2,500 mcg PO DAILY 10/02/15 [History ] Magnesium Oxide [Mag-Ox] 400 mg PO BID #28 tablet 10/08/15 [Rx] HYDROcodone/APAP 7.5-325MG [[place] 7.5-325] 1 tab PO DAILY PRN #60 tab 03/19/16 [ Rx] tiZANidine HCL [Zanaflex] 4 mg PO BID #60 tab 03/19/16 [Rx] Albuterol Sulfate [Proair Hfa] 1 - 2 puff INHALATION Q4HR PRN #1 inhaler [Rx] traMADol HCl [Ultram] 50 mg PO Q4H PRN #12 tab 07/02/16 [Rx]
[2016-08-28 08:00] VITALS: BP 102/74; PULSE 78
== END 2016-08-28 09:08 | disposition home or self-care (01) ==
LOC: ORWHC2ENDO 06:53
PROVIDERS: ATTEND Surgery Plastic and Reconstructive Surgery
DX: K31.89 Other diseases of stomach and duodenum (principal); K21.0 Gastro-esophageal reflux disease with esophagitis; K22.2 Esophageal obstruction; Z98.84 Bariatric surgery status; J45.909 Unspecified asthma, uncomplicated; M19.90 Unspecified osteoarthritis, unspecified site; F90.9 Attention-deficit hyperactivity disorder, unspecified type; Z86.718 Personal history of other venous thrombosis and embolism; Z86.711 Personal history of pulmonary embolism; Z79.891 Long term (current) use of opiate analgesic; Z79.899 Other long term (current) drug therapy; Z88.1 Allergy status to other antibiotic agents; Z88.5 Allergy status to narcotic agent; Z88.0 Allergy status to penicillin; Z91.018 Allergy to other foods; Z87.891 Personal history of nicotine dependence
CPT/HCPCS: 43249; J2704

== ENCOUNTER 2016-11-11 05:26 | Emergency (ER) | payer OTHER ==
[2016-11-11] MEDS ORDERED: ONDANSETRON 4 MG/2 ML VIAL IVP STA (06:17)
[2016-11-11] MEDS ORDERED: HYDROmorphone 1 MG/ML 1 ML SYRINGE IVP STA ×2 (06:17→07:50)
[2016-11-11 06:19] LABS: Basophils % (A) 1 %; CH 25.9; CHCM 32.3; Eosinophils # (A) 0.2 k/uL (0-0.7); Eosinophils % (A) 3 %; HCT 41.5 % (34.0-46.0); HDW 2.93; HGB 13.9 gm/dL (11.4-16.0); Luc # (Auto) 0.16; Luc % (Auto) 3; Lymphocytes # (A) 2.5 k/uL (1.0-4.8); Lymphocytes % (A) 47 %; MCHC 33.4 g/dL (31.0-37.0); MCV 80.8 fL (80.0-100.0); Mean Platelet Volume 7.2; Monocytes # (A) 0.4 k/uL (0-1.0); Monocytes % (A) 7 %; Neutrophils # (A) 2.1 k/uL (1.3-7.7); Neutrophils % (A) 40 %; RBC 5.14 m/uL (3.80-5.40); RDW 14.6 % (11.5-15.5); WBC 5.3 k/uL (3.8-10.6); WBC (Perox) 5.32
[2016-11-11 06:21] LABS: Appearance,Urine Clear (Clear); Bilirubin,Urine Negative (Negative); Glucose,Urine (UA) Negative (Negative); Ketones,Urine Negative (Negative); Leukocyte Esterase,Urine Negative (Negative); Nitrite,Urine Negative (Negative); PH, Urine 5.5 (5.0-8.0); Protein,Urine Negative (Negative); Specific Gravity,Urine 1.009 (1.001-1.035); UA Billing (MACRO vs. MICRO) CHEM; Urobilinogen,Urine <2.0 mg/dL (<2.0)
--- NOTE | 2016-11-11 06:23 | ED ---
Abdominal Pain HPI - General Chief Complaint: Abdominal Pain Stated Complaint: Abd pain Time Seen by Provider: 11/11/16 06:02 Source: patient Mode of arrival: ambulatory Limitations: no limitations - History of Present Illness Initial Comments: This patient is a 41-year-old woman who presents with left upper quadrant pain, nausea and vomiting. She states that these symptoms have been going on since yesterday in the afternoon or evening and they have worsened over the course of the night. She states that she was trying to stay home to go see Dr. Gamez 1 her clinic opened, but the pain and vomiting worsened. She states this reminds her of previous episodes in which she has had complications related to her Renee-en-Y surgery. She describes having "scar tissue," removed from her abdomen on a couple of occasions. MD Complaint: abdominal pain Onset/Timin -: days(s) Location: [facility] Radiation: none Migration to: no migration Severity: severe Quality: cramping, aching Consistency: constant Improves With: nothing Worsens With: nothing Associated Symptoms: nausea, vomiting - Related Data Home Medications Medication Instructions Recorded Confirmed Dextroamphetamine/Amphetamine 20 mg PO TID 10/05/13 08/28/16 [Adderall] Multivitamins, Thera [Multivitamin 1 tab PO DAILY 11/22/13 08/28/16 (formulary)] Cyanocobalamin [Vitamin B-12 1,000 mcg SQ QMONTH 03/15/14 08/28/16 Injection] Albuterol Inhaler [Ventolin Hfa 2 puff INHALATION RT-Q6H PRN 04/21/14 08/28/16 Inhaler] Ergocalciferol [Vitamin D2 50,000 unit PO TU 04/22/14 08/28/16 (DRISDOL)] Cyanocobalamin (Vitamin B-12) 2,500 mcg PO DAILY 10/02/15 08/28/16 [Vitamin B12] Previous Rx's Medication Instructions Recorded Calcium Carbonate [Calcium] 600 mg PO BID #60 tablet 04/30/15 Magnesium Oxide [Mag-Ox] 400 mg PO BID #28 tablet 10/08/15 HYDROcodone/APAP 7.5-325MG [[place] 1 tab PO DAILY PRN #60 tab 03/19/16 7.5-325] tiZANidine HCL [Zanaflex] 4 mg PO BID #60 tab 03/19/16 Albuterol Sulfate [Proair Hfa] 1 - 2 puff INHALATION Q4HR PRN #1 04/14/16 inhaler traMADol HCl [Ultram] 50 mg PO Q4H PRN #12 tab 07/02/16 Ondansetron Odt [Zofran ODT] 4 mg PO Q8HR PRN #10 tab 11/11/16 Allergies Allergy/AdvReac Type Severity Reaction Status Date / Time cephalexin monohydrate Allergy Severe Rash/Hives, Verified 11/11/16 05:33 [From Keflex] nausea,sweats,chills morphine Allergy Severe Itching, Verified 11/11/16 05:33 migraines,states "does not help with pain." Penicillins Allergy Severe Rash/Hives, Verified 11/11/16 05:33 nausea,lethargic almond oil Allergy Unknown Verified 11/11/16 05:33 [place] And Derivatives Allergy Unknown Verified 11/11/16 05:33 [[place]] gluten Allergy Unknown Verified 11/11/16 05:33 niacin AdvReac Abdominal Verified 11/11/16 05:33 Pain Review of Systems ROS Statement: Those systems with pertinent positive or pertinent negative responses have been documented in the HPI. ROS Other: All systems not noted in ROS Statement are negative. Constitutional: Denies: fever, chills Respiratory: Denies: cough, dyspnea Cardiovascular: Denies: chest pain, palpitations, syncope Gastrointestinal: Reports: abdominal pain, nausea, vomiting. Denies: diarrhea, constipation, hematemesis, melena, hematochezia Genitourinary: Denies: dysuria, hematuria Musculoskeletal: Denies: back pain Skin: Denies: rash Neurological: Denies: headache, weakness, numbness Past Medical History Past Medical History: Asthma, Cancer, Chest Pain / Angina, Deep Vein Thrombosis (DVT), GERD/Reflux, Osteoarthritis (OA), Pulmonary Embolus (PE) Additional Past Medical History / Comment(s): HYPOGLYCEMIC. diverticulitis, hypotension, migraines, "food getting stuck"-needs balloon dilation every 6-12 months, hx uterine cancer, colitis, possible crohns, nodule on adrenal gland. History of Any Multi-Drug Resistant Organisms: None Reported Past Surgical History: Appendectomy, Bariatric Surgery, Section, Cholecystectomy, Hernia Repair, Hysterectomy, Orthopedic Surgery Additional Past Surgical History / Comment(s): renee-y gastric bypass with adhesions, rt arm-plate and screws, laparoscopy, umbilical hernia repair, I&D of abd wound,SCOPE RT SHOULDER. swallow study. Revision of RNY r/t complications Past Anesthesia/Blood Transfusion Reactions: Family History of Problems w/ Anesthesia, Motion Sickness, Postoperative Nausea & Vomiting (PONV) Additional Past Anesthesia/Blood Transfusion Reaction / Comment(s): mother has asthma attacks post-op Past Psychological History: ADD/ADHD, Anxiety Smoking Status: Current some day smoker Past Alcohol Use History: Rare Past Drug Use History: None Reported - Past Family History Father Additional Family Medical History / Comment(s): BRAIN ANUERYSM Mother Family Medical History: AFIB, AICD/Pacemaker, Asthma, Cancer Additional Family Medical History / Comment(s): bladder General Exam Limitations: no limitations General appearance: alert, in no apparent distress Head exam: Present: atraumatic, normocephalic Eye exam: Present: normal appearance. Absent: scleral icterus, conjunctival injection ENT exam: Present: normal oropharynx Respiratory exam: Present: normal lung sounds bilaterally. Absent: respiratory distress, wheezes, rales, rhonchi, stridor Cardiovascular Exam: Present: regular rate, normal rhythm, normal heart sounds. Absent: systolic murmur, diastolic murmur, rubs, gallop GI/Abdominal exam: Present: soft, tenderness (Mild left upper quadrant tenderness without rebound or guarding), diminished bowel sounds. Absent: distended, guarding, rebound, hyperactive bowel sounds, hypoactive bowel sounds , pulsatile mass, hernia Extremities exam: Present: normal inspection, normal capillary refill. Absent: pedal edema, calf tenderness Back exam: Present: normal inspection. Absent: CVA tenderness (R), CVA tenderness (L) Neurological exam: Present: alert Skin exam: Present: warm, dry, intact, normal color. Absent: rash Course Vital Signs 11/11/16 11/11/16 05:28 06:29 Temperature 97.3 F L Pulse Rate 79 76 Respiratory 16 17 Rate Blood Pressure 106/71 106/58 O2 Sat by Pulse 98 96 Oximetry Medical Decision Making - Lab Data Result diagrams: 11/11/16 05:51 11/11/16 05:51 Lab Results 11/11/16 11/11/16 11/11/16 Range/Units 05:51 05:51 05:51 WBC 5.3 (3.8-10.6) k/uL RBC 5.14 (3.80-5.40) m/uL Hgb 13.9 (11.4-16.0) gm/dL Hct 41.5 (34.0-46.0) % MCV 80.8 (80.0-100.0) fL MCH 27.0 (25.0-35.0) pg MCHC 33.4 (31.0-37.0) g/dL RDW 14.6 (11.5-15.5) % Plt Count 340 (150-450) k/uL Neutrophils % 40 % Lymphocytes % 47 % Monocytes % 7 % Eosinophils % 3 % Basophils % 1 % Neutrophils # 2.1 (1.3-7.7) k/uL Lymphocytes # 2.5 (1.0-4.8) k/uL Monocytes # 0.4 (0-1.0) k/uL Eosinophils # 0.2 (0-0.7) k/uL Basophils # 0.0 (0-0.2) k/uL Sodium 141 (137-145) mmol/L Potassium 4.4 (3.5-5.1) mmol/L Chloride 108 H (98-107) mmol/L Carbon Dioxide 23 (22-30) mmol/L Anion Gap 10 mmol/L BUN 5 L (7-17) mg/dL Creatinine 0.67 (0.52-1.04) mg/dL Est GFR (MDRD) Af Amer >60 (>60 ml/min/1.73 sqM) Est GFR (MDRD) Non-Af >60 (>60 ml/min/1.73 sqM) Glucose 80 (74-99) mg/dL Calcium 9.1 (8.4-10.2) mg/dL Total Bilirubin 0.5 (0.2-1.3) mg/dL AST 19 (14-36) U/L ALT 28 (9-52) U/L Alkaline Phosphatase 61 (38-126) U/L Total Protein 7.3 (6.3-8.2) g/dL Albumin 4.2 (3.5-5.0) g/dL Amylase 43 (30-110) U/L Lipase 140 (23-300) U/L Urine Color Yellow Urine Appearance Clear (Clear) Urine pH 5.5 (5.0-8.0) Ur Specific [place] 1.009 (1.001-1.035) Urine Protein Negative (Negative) Urine Glucose (UA) Negative (Negative) Urine Ketones Negative (Negative) Urine Blood Negative (Negative) Urine Nitrite Negative (Negative) Urine Bilirubin Negative (Negative) Urine Urobilinogen <2.0 (<2.0) mg/dL Ur Leukocyte Esterase Negative (Negative) Urine HCG, Qual (Not Detectd) 11/11/16 Range/Units 05:51 WBC (3.8-10.6) k/uL RBC (3.80-5.40) m/uL Hgb (11.4-16.0) gm/dL Hct (34.0-46.0) % MCV (80.0-100.0) fL MCH (25.0-35.0) pg MCHC (31.0-37.0) g/dL RDW (11.5-15.5) % Plt Count (150-450) k/uL Neutrophils % % Lymphocytes % % Monocytes % % Eosinophils % % Basophils % % Neutrophils # (1.3-7.7) k/uL Lymphocytes # (1.0-4.8) k/uL Monocytes # (0-1.0) k/uL Eosinophils # (0-0.7) k/uL Basophils # (0-0.2) k/uL Sodium (137-145) mmol/L Potassium (3.5-5.1) mmol/L Chloride (98-107) mmol/L Carbon Dioxide (22-30) mmol/L Anion Gap mmol/L BUN (7-17) mg/dL Creatinine (0.52-1.04) mg/dL Est GFR (MDRD) Af Amer (>60 ml/min/1.73 sqM) Est GFR (MDRD) Non-Af (>60 ml/min/1.73 sqM) Glucose (74-99) mg/dL Calcium (8.4-10.2) mg/dL Total Bilirubin (0.2-1.3) mg/dL AST (14-36) U/L ALT (9-52) U/L Alkaline Phosphatase (38-126) U/L Total Protein (6.3-8.2) g/dL Albumin (3.5-5.0) g/dL Amylase (30-110) U/L Lipase (23-300) U/L Urine Color Urine Appearance (Clear) Urine pH (5.0-8.0) Ur Specific [place] (1.001-1.035) Urine Protein (Negative) Urine Glucose (UA) (Negative) Urine Ketones (Negative) Urine Blood (Negative) Urine Nitrite (Negative) Urine Bilirubin (Negative) Urine Urobilinogen (<2.0) mg/dL Ur Leukocyte Esterase (Negative) Urine HCG, Qual Not Detected (Not Detectd) Disposition Clinical Impression: Abdominal pain, Nausea and vomiting in adult Disposition: HOME SELF-CARE Condition: Fair Instructions: Abdominal Pain (ED) Prescriptions: Ondansetron Odt [Zofran ODT] 4 mg PO Q8HR PRN #10 tab PRN Reason: Nausea Referrals: Mikaela Rojas MD [Primary Care Provider] - 1-2 days Hortencia Bangura MD [STAFF PHYSICIAN] - 1-2 days
[2016-11-11 06:29] LABS: ALT 28 U/L (9-52); AST 19 U/L (14-36); Alkaline Phosphatase 61 U/L (38-126); Amylase 43 U/L (30-110); Anion Gap 10 mmol/L; Blood Urea Nitrogen 5 mg/dL (7-17); Calcium 9.1 mg/dL (8.4-10.2); Carbon Dioxide 23 mmol/L (22-30); Chloride 108 mmol/L (98-107); Glucose 80 mg/dL (74-99); Non-African American GFR(MDRD) >60 (>60 ml/min/1.73 sqM); Potassium 4.4 mmol/L (3.5-5.1); Sodium 141 mmol/L (137-145); Total Bilirubin 0.5 mg/dL (0.2-1.3); Total Protein 7.3 g/dL (6.3-8.2)
--- NOTE | 2016-11-11 07:20 | XR ---
PROCEDURE: FILM KUB HISTORY: 41-year-old male with abdominal pain. COMPARISON: Abdominal radiograph 04/14/2016 TECHNIQUE: Frontal upright view of the abdomen was obtained. FINDINGS: Lung bases are clear. No evidence of free air under the diaphragm. Nonobstructive bowel gas pattern. Surgical clips project over the right upper quadrant. Surgical suture projects over the left upper quadrant and left mid abdomen. Bones are unremarkable for age. IMPRESSION: No evidence of free air under the diaphragm. Nonobstructive bowel gas pattern.
[2016-11-11 07:59] VITALS: BP 97/65; PULSE 70; RESP 20; TEMP 97.5
== END 2016-11-11 07:59 | disposition home or self-care (01) ==
LOC: EC 05:26
DX: R10.12 Left upper quadrant pain (principal); R11.2 Nausea with vomiting, unspecified; J45.909 Unspecified asthma, uncomplicated; M19.90 Unspecified osteoarthritis, unspecified site; F90.9 Attention-deficit hyperactivity disorder, unspecified type; F17.200 Nicotine dependence, unspecified, uncomplicated; Z88.5 Allergy status to narcotic agent; Z88.0 Allergy status to penicillin; Z91.018 Allergy to other foods; Z79.899 Other long term (current) drug therapy; Z98.84 Bariatric surgery status; Z85.42 Personal history of malignant neoplasm of other parts of uterus; Z86.718 Personal history of other venous thrombosis and embolism
CPT/HCPCS: 36415; 80053; 82150; 83690; 85025; 81003; 81025; 74000; 99284; 96374; 96375; 96376; J2405; J1170

== ENCOUNTER → 2016-11-25 | Outpatient (CLI) | payer OTHER ==
[2016-11-25 14:23] VITALS: BP 110/69; PULSE 97; RESP 16; TEMP 98.9; BMI 25.0
--- NOTE | 2016-12-12 23:52 | P.PN ---
Progress Note - Text DATE OF SERVICE: 11/25/2016. CHIEF COMPLAINT: Abdominal pain. HISTORY OF PRESENT ILLNESS: Dorie Morales is a 41 -year-old female with history of a gastric bypass in October 2012. She presented to the ER approximately 1 month ago with left upper abdominal pain. She came off her previous pain meds such asNorco. She had gone to the pain clinic for localized pain treatment however she's discontinue that. She reports severe pain along her pannus from panniculitis. Despite conservative treatment with prescription powders, she has functional debilitation from her pannus that interferes with her work. In the last 7 years she has achieved 100 pound weight loss as her highest personal weight was 268 pounds. She reports lower back pain from her pannus as well. At her height of 5 foot 5 pounds, her ideal body weight is 149 pounds. Her highest personal weight was 268 pounds. Today she comes in weighing 150 pounds. She lost 4 pounds in 3 months. She reports troubles with eating dried meats. Maintained weight loss is 118 pounds. Her percent excess weight loss lifetime is 99%. Body mass index is reduced from 44.7 down to 25.0. She presents for evaluation of her abdominal pain including panniculitis. PAST MEDICAL HISTORY: 1. ADHD. 2. Chronic abdominal pain. 3. History of morbid obesity. 4. Gastroesophageal reflux disease, resolved. 5. Vitamin B12 deficiency. 6. History of uterine tumor. 7. Colitis. 8. Panniculitis. PAST SURGICAL HISTORY: 1. Hysterectomy. 2. Upper endoscopy. 3. Renee-en-Y gastric bypass October 2012. 4. Drainage of abdominal wall abscess. 5. Appendectomy. 6. EGD with balloon dilatation. 7. Diagnostic laparoscopy. 8. Revision of jejunojejunostomy. MEDICATIONS: 1. Zanaflex. 2. Multivitamin. 3. Magnesium oxide. 4. [place] 7.5, discontinued. 5. Vitamin D. 6. Adderall. 7. Vitamin B12. 8. Calcium. 9. ProAir. 10. Ventolin inhaler. ALLERGIES: 1. KEFLEX. 2. MORPHINE. 3. PENICILLIN. 4. ALMOND OIL. 5. CITRUS. 6. FENTANYL. 7. GLUTEN. SOCIAL HISTORY: Remote tobacco user. Denies any active alcohol use. FAMILY HISTORY: Pertinent for morbid obesity including gastroesophageal reflux disease. REVIEW OF SYSTEMS: CONSTITUTIONAL: At her height of 5 foot 5 pounds, her ideal body weight is 149 pounds. Her highest personal weight was 268 pounds. Today she comes in weighing 150 pounds. Maintained weight loss is 118 pounds. Her percent excess weight loss lifetime is 99%. Body mass index is reduced from 44.7 down to 25.0. She lost 4 pounds in 3 months. NEURO: History of chronic pain, lower back, including of the pannus. She sees a pain specialist for steroid injections. ENDOCRINE: History of thyroid goiter. No reports of diabetes. GASTROINTESTINAL: Reports intolerance to solid foods. Also reports chronic abdominal pain along the pannus epigastrium. HEENT: No troubles with vision or hearing. RESPIRATORY: Denies any dyspnea on exertion or obstructive sleep apnea. CARDIOVASCULAR: Denies any chest pain or palpitations. MUSCULOSKELETAL: History of lower back pain. Denies any joint pain. SKIN: History of erythema including irritation from her pannus. PSYCH: History of ADHD. Denies depression. HEMATOLOGIC: Denies any easy bruising or bleeding. PHYSICAL EXAM: VITAL SIGNS: 5 foot 5, 150 pounds. Body mass index is 25.0. Vital Signs Temp 98.9 F 11/25/16 14:21 Pulse 97 11/25/16 14:21 Resp 16 11/25/16 14:21 BP 110/69 11/25/16 14:21 Pulse Ox ABDOMEN: Moderate-sized pannus which hangs over pubis by over 5 cm. Hyperemia identified and tenderness to touch consistent with panniculitis. GENERAL: Well-developed female no acute distress. HEENT: No scleral icterus. Extraocular movements grossly intact. NECK: Supple without lymphadenopathy. CHEST: Unlabored respirations. Equal bilateral excursions. CARDIOVASCULAR: Regular rate and rhythm. MUSCULOSKELETAL: No clubbing, cyanosis, or edema. NEURO: No focal or lateralizing signs. Cranial nerves II through XII grossly intact. SKIN: Well perfused. Good skin turgor. LABS: No new labs at this time. ASSESSMENT: 1. Morbid obesity due to excess calories, resolved. 2. Body mass index reduced from 44.7 down to 25.0. 3. Status post Renee-en-Y gastric bypass. 4. Status post jejunojejunostomy revision. 5. Prior history of chronic abdominal pain. 6. Dysphagia. 7. Dietary surveillance and counseling. 8. History of thyroid goiter. 9. History of vitamin B12 deficiency. 10. Chronic pain syndrome. 11. Panniculitis of the abdomen. 12. Lifetime weight loss 118 pounds. 13. Lower back pain secondary to panniculitis. PLAN: 1. Recommend upper GI for evaluation of jejunojejunostomy and left upper quadrant abdominal pain. 2. She has had chronic panniculitis for over 34 years. She has achieved over 100 pound weight loss including long-standing treatment for panniculitis. Recommend surgical evaluation with panniculectomy. Anticipated skin removal of over 5 pounds. 3. DVT prophylaxis. 4. Antibiotic prophylaxis. 5. Benefits and risks of panniculectomy including bleeding, infection, chronic pain, postoperative seroma, flap failure, and cosmetic deformity were reviewed. 6. No lifting over 4 pounds in 4 weeks advised.
== END | disposition home or self-care (01) ==
LOC: BARWHC3 14:08
PROVIDERS: ATTEND Surgery Plastic and Reconstructive Surgery
DX: R10.9 Unspecified abdominal pain (principal); R13.10 Dysphagia, unspecified; G89.4 Chronic pain syndrome; M79.3 Panniculitis, unspecified; Z71.3 Dietary counseling and surveillance; Z79.899 Other long term (current) drug therapy; Z88.1 Allergy status to other antibiotic agents; Z88.0 Allergy status to penicillin; Z98.84 Bariatric surgery status
CPT/HCPCS: 99211

== ENCOUNTER → 2016-11-27 | Outpatient (CLI) | payer OTHER ==
--- NOTE | 2016-11-27 12:06 | FL ---
EXAMINATION TYPE: FL small bowel follow through DATE OF EXAM: 11/27/2016 CLINICAL HISTORY: Abdominal pain after eating. Prior Renee-en-Y gastric bypass and revision. TECHNIQUE: A single contrast small bowel follow through is performed utilizing barium. COMPARISON: None FINDINGS: Custom Seamstress image of the abdomen shows no dilated loops of bowel. Cholecystectomy clips and anas tomotic sutures are seen within the abdomen. The small bowel study shows normal transit to the colon in less than 60 minutes. There is a normal m ucosal fold pattern throughout the small bowel. There is no evidence of any stricture or filling def ect noted. Copious amount of stool throughout the colon limits evaluation of the cecum for polyps or masses. The terminal ileum is spotted and appears unremarkable. IMPRESSION: Postsurgical change of Renee-en-Y procedure and revision with normal small bowel fold apple roxane and motility.
== END ==
LOC: RADFLMAIN 08:53
PROVIDERS: ATTEND Surgery Plastic and Reconstructive Surgery
DX: R13.10 Dysphagia, unspecified (principal); R10.84 Generalized abdominal pain; Z87.19 Personal history of other diseases of the digestive system
CPT/HCPCS: 74250

== ENCOUNTER → 2017-05-05 | Outpatient (CLI) | payer OTHER ==
[2017-05-05 16:27] VITALS: BP 116/78; PULSE 87; RESP 16; TEMP 98.2; BMI 26.4
--- NOTE | 2017-07-08 14:16 | P.PN ---
Subjective Progress Note Date: 05/05/17 DATE OF SERVICE: 05/05/2017 CHIEF COMPLAINT: Follow up gastric bypass HISTORY OF PRESENT ILLNESS: Dorie Morales is a 42-year-old female with history of a gastric bypass in October 2012, now almost 5 years ago. She going to the emergency room over 2 months ago after eating textured foods. Her pain however did resolve. She complains mostly of pain of the left upper quadrant at her previous scar and from the weight of her pannus. She's had multiple abdominal surgeries with exception of panniculectomy. She reports a symptomatic pannus which causes chronic lower abdominal pain and back pain. Overall pain from her pannus affects her daily living. Separately, she reports increased difficulty with eating textured foods. At her height of 5 foot 5 pounds, her ideal body weight is 149 pounds. Her highest personal weight was 268 pounds. Today she comes in weighing 158 pounds. She gained 8 pounds in 5 months. Maintained weight loss is 110 pounds. Her percent excess weight loss lifetime is 92%. Body mass index is reduced from 44.7 down to 26.4. PAST MEDICAL HISTORY: 1. ADHD. 2. Chronic abdominal pain. 3. History of morbid obesity. 4. Gastroesophageal reflux disease, resolved. 5. Vitamin B12 deficiency. 6. History of uterine tumor. 7. Colitis. 8. Panniculitis. PAST SURGICAL HISTORY: 1. Hysterectomy. 2. Upper endoscopy. 3. Renee-en-Y gastric bypass October 2012. 4. Drainage of abdominal wall abscess. 5. Appendectomy. 6. EGD with balloon dilatation. 7. Diagnostic laparoscopy. 8. Revision of jejunojejunostomy. MEDICATIONS: 1. Zanaflex. 2. Multivitamin. 3. Magnesium oxide. 4. [place] 7.5, discontinued. 5. Vitamin D. 6. Adderall. 7. Vitamin B12. 8. Calcium. 9. ProAir. 10. Ventolin inhaler. ALLERGIES: 1. KEFLEX. 2. MORPHINE. 3. PENICILLIN. 4. ALMOND OIL. 5. CITRUS. 6. FENTANYL. 7. GLUTEN. SOCIAL HISTORY: Remote tobacco user. Denies any active alcohol use. FAMILY HISTORY: Pertinent for morbid obesity including gastroesophageal reflux disease. REVIEW OF SYSTEMS: CONSTITUTIONAL: At her height of 5 foot 5 pounds, her ideal body weight is 149 pounds. Her highest personal weight was 268 pounds. Today she comes in weighing 158 pounds. She gained 8 pounds in 5 months. Maintained weight loss is 110 pounds. Her percent excess weight loss lifetime is 92%. Body mass index is reduced from 44.7 down to 26.4. NEURO: History of chronic pain, lower back, from her pannus. ENDOCRINE: History of thyroid goiter. No reports of diabetes. GASTROINTESTINAL: Reports intolerance to solid foods. No dumping syndrome. HEENT: No troubles with vision or hearing. RESPIRATORY: Denies any dyspnea on exertion or obstructive sleep apnea. CARDIOVASCULAR: Denies any chest pain or palpitations. MUSCULOSKELETAL: History of lower back pain. Denies any joint pain. SKIN: History of erythema including irritation from her pannus. PSYCH: History of ADHD. Denies depression. HEMATOLOGIC: Denies any easy bruising or bleeding. PHYSICAL EXAM: VITAL SIGNS: 5 foot 5, 158 pounds. Body mass index is 26.4 Vital Signs Temp 98.2 F 05/05/17 16:24 Pulse 87 05/05/17 16:24 Resp 16 05/05/17 16:24 BP 116/78 05/05/17 16:24 Pulse Ox ABDOMEN: Moderate-sized pannus with hyperemia. Weight of pannus over 5 pounds. Soft, nondistended. Minimal tenderness epigastrium. GENERAL: Well-developed female no acute distress. HEENT: No scleral icterus. Extraocular movements grossly intact. NECK: Supple without lymphadenopathy. CHEST: Unlabored respirations. Equal bilateral excursions. CARDIOVASCULAR: Regular rate and rhythm. MUSCULOSKELETAL: No clubbing, cyanosis, or edema. NEURO: No focal or lateralizing signs. Cranial nerves II through XII grossly intact. SKIN: Well perfused. Good skin turgor. ASSESSMENT: 1. Morbid obesity due to excess calories, resolved. 2. Body mass index reduced from 44.7 down to 26.4. 3. Status post Renee-en-Y gastric bypass. 4. Status post jejunojejunostomy revision. 5. Prior history of chronic abdominal pain. 6. Dysphagia. 7. Dietary surveillance and counseling. 8. History of thyroid goiter. 9. History of vitamin B12 deficiency. 10. Chronic pain syndrome. 11. Panniculitis of the abdomen. 12. Lower back pain secondary to panniculitis. PLAN: 1. Recommend upper endoscopy for evaluation of gastrojejunal stricture 2. She has maintained moderate weight loss over 100 pounds from her procedure over 5+ years ago. Additionally, she has symptomatic lower back pain affecting her daily living including moderate-sized pannus. Local skin care as well as nystatin powder therapies have been completed for over 3+ years. Recommend panniculectomy. 3. Will need correction of any nutritional deficiencies prior to panniculectomy. 4. DVT prophylaxis. 5. Antibiotic prophylaxis. Objective - Vital Signs Vital signs: Vital Signs Temp 98.2 F 05/05/17 16:24 Pulse 87 05/05/17 16:24 Resp 16 05/05/17 16:24 BP 116/78 05/05/17 16:24 Pulse Ox Intake & Output 05/04/17 05/05/17 05/05/17 18:59 06:59 18:59 Weight 71.923 kg
== END | disposition home or self-care (01) ==
LOC: BARWHC3 14:36
PROVIDERS: ATTEND Surgery Plastic and Reconstructive Surgery
DX: Z09 Encounter for follow-up examination after completed treatment for conditions other than malignant neoplasm (principal); R13.10 Dysphagia, unspecified; Z86.39 Personal history of other endocrine, nutritional and metabolic disease; G89.4 Chronic pain syndrome; E65 Localized adiposity; M54.5 Low back pain; Z98.84 Bariatric surgery status; Z71.3 Dietary counseling and surveillance; Z88.1 Allergy status to other antibiotic agents; Z88.0 Allergy status to penicillin; Z91.048 Other nonmedicinal substance allergy status; Z88.8 Allergy status to other drugs, medicaments and biological substances; Z88.5 Allergy status to narcotic agent; Z79.899 Other long term (current) drug therapy
CPT/HCPCS: 99211

== ENCOUNTER 2017-05-13 11:15 | Day surgery (SDC) | payer OTHER ==
[2017-05-12 09:26] VITALS: BMI 24.6
[~2017-05-13 11:15] MED LIST: LACTATED RINGERS 1,000 ML IV SCH
[2017-05-13 11:52] VITALS: RESP 16; TEMP 98.1
--- NOTE | 2017-05-13 12:25 | P.GSHP ---
History of Present Illness H&P Date: 05/13/17 CHIEF COMPLAINT: GERD HISTORY OF PRESENT ILLNESS: The patient is a 42-year-old female who presents reports gastroesophageal reflux disease. Upper endoscopy was offered for further evaluation and management. PAST MEDICAL HISTORY: Please see list. PAST SURGICAL HISTORY: Please see list. MEDICATIONS: Please see list. ALLERGIES: Please see list. SOCIAL HISTORY: No illicit drug use FAMILY HISTORY: No reports of Crohn disease or ulcerative colitis. REVIEW OF ORGAN SYSTEMS: CONSTITUTIONAL: No reports of fevers or chills. GI: Denies any blood in stools or constipation. PHYSICAL EXAM: VITAL SIGNS: Stable GENERAL: Well-developed and pleasant in no acute distress. HEENT: No scleral icterus. Extraocular movements grossly intact. Moist buccal mucosa. NECK: Supple without lymphadenopathy. CHEST: Unlabored respirations. Equal bilateral excursions. CARDIOVASCULAR: Regular rate and rhythm. Distal 2+ pulses. ABDOMEN: Soft, nondistended. MUSCULOSKELETAL: No clubbing, cyanosis, or edema. ASSESSMENT: 1. Gastroesophageal reflux disease PLAN: 1. Recommend proceeding with an upper endoscopy Past Medical History Past Medical History: Asthma, Cancer, Chest Pain / Angina, Deep Vein Thrombosis (DVT), GERD/Reflux, Osteoarthritis (OA), Pulmonary Embolus (PE) Additional Past Medical History / Comment(s): HYPOGLYCEMIC. diverticulitis, hypotension, migraines, "food getting stuck"-needs balloon dilation every 6-12 months, hx uterine cancer, colitis, possible crohns, nodule on adrenal gland. History of Any Multi-Drug Resistant Organisms: None Reported Past Surgical History: Appendectomy, Bariatric Surgery, Section, Cholecystectomy, Hernia Repair, Hysterectomy, Orthopedic Surgery Additional Past Surgical History / Comment(s): reyna-y gastric bypass with adhesions, rt arm-plate and screws, laparoscopy, umbilical hernia repair, I&D of abd wound,SCOPE RT SHOULDER. swallow study. Revision of RNY r/t complications Past Anesthesia/Blood Transfusion Reactions: Family History of Problems w/ Anesthesia, Motion Sickness, Postoperative Nausea & Vomiting (PONV) Additional Past Anesthesia/Blood Transfusion Reaction / Comment(s): mother has asthma attacks post-op Smoking Status: Current some day smoker - Past Family History Father Additional Family Medical History / Comment(s): BRAIN ANUERYSM Mother Family Medical History: AFIB, AICD/Pacemaker, Asthma, Cancer Additional Family Medical History / Comment(s): bladder Medications and Allergies Home Medications Medication Instructions Recorded Confirmed Type Dextroamphetamine/Amphetamine 20 mg PO TID 10/05/13 05/12/17 History [Adderall] Multivitamins, Thera [Multivitamin 1 tab PO DAILY 11/22/13 05/12/17 History (formulary)] Cyanocobalamin [Vitamin B-12 1,000 mcg SQ QMONTH 03/15/14 05/12/17 History Injection] Ergocalciferol [Vitamin D2 50,000 unit PO TU 04/22/14 05/12/17 History (DRISDOL)] Ondansetron Odt [Zofran ODT] 4 mg PO Q8HR PRN #10 tab 11/11/16 05/12/17 Rx Albuterol Inhaler [Ventolin Hfa 2 puff INHALATION RT-Q6H PRN 02/14/17 05/13/17 History Inhaler] Magnesium 200 mg PO DAILY 02/14/17 05/12/17 History Cyanocobalamin (Vitamin B-12) 2,500 mcg PO DAILY 05/12/17 05/12/17 History [Vitamin B12] Allergies Allergy/AdvReac Type Severity Reaction Status Date / Time cephalexin monohydrate Allergy Severe Rash/Hives, Verified 05/13/17 11:59 [From Keflex] nausea,sweats,chills morphine Allergy Severe Itching, Verified 05/13/17 11:59 migraines,states "does not help with pain." Penicillins Allergy Severe Rash/Hives, Verified 05/13/17 11:59 nausea,lethargic almond Allergy Anaphylaxis Verified 05/13/17 11:59 almond oil Allergy Anaphylaxis Verified 05/13/17 11:59 Victoria And Derivatives Allergy Nausea & Verified 05/13/17 11:59 [Victoria] Vomiting gluten Allergy Abdominal Verified 05/13/17 11:59 Pain mustard Allergy Anaphylaxis Verified 05/13/17 11:59 walnut Allergy Anaphylaxis Verified 05/13/17 11:59 niacin AdvReac hives to Verified 05/13/17 11:59 face Surgical - Exam Vital Signs Temp Pulse Resp BP Pulse Ox 98.1 F 97 16 101/71 98 05/13/17 11:51 05/13/17 11:51 05/13/17 11:51 05/13/17 11:51 05/13/17 11:51
--- NOTE | 2017-05-13 12:35 | P.PCN ---
Date of Procedure: 05/13/17 Description of Procedure: PREOPERATIVE DIAGNOSIS: Dysphagia. Epigastric abdominal pain. Nausea with vomiting. POSTOPERATIVE DIAGNOSIS: Dysphagia. Epigastric abdominal pain. Nausea with vomiting. OPERATION: Esophagogastrojejunoscopy with balloon dilatation, 20 mm. SURGEON: Hortencia Bangura MD ANESTHESIA: MAC. INDICATIONS: The patient is a 42-year-old female who presents with a history of dysphagia, gastric bypass including epigastric abdominal pain. Benefits and risks of the procedure were described. Informed consent was obtained. DESCRIPTION: The patient was brought into the endoscopy suite and laid in the left lateral decubitus position. After a timeout was confirmed, the procedure was initiated. An Olympus gastroscope was passed along the posterior oropharynx down to the distal esophagus where the squamocolumnar junction was unremarkable. The gastric pouch was entered. 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 A [employer] balloon dilator was placed through the scope. Final insufflation up to 20 mm was performed with a total of 2 minutes. The scope was advanced up to 50 cm from the incisors into the Renee limb. The mucosa of the gastrojejunal anastomosis was intact. No chronic gastrojejunal marginal ulcer was encountered. No full-thickness injury was encountered. The GI tract was desufflated. The patient tolerated the procedure well. 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 No chronic gastrojejunal ulceration encountered. Successful balloon dilatation to 20 mm. RECOMMENDATIONS: Upper endoscopy as needed. Plan - Discharge Summary New Discharge Prescriptions: No Action Dextroamphetamine/Amphetamine [Adderall] 20 mg PO TID Multivitamins, Thera [Multivitamin (formulary)] 1 tab PO DAILY Cyanocobalamin [Vitamin B-12 Injection] 1,000 mcg SQ QMONTH Ergocalciferol [Vitamin D2 (DRISDOL)] 50,000 unit PO TU Ondansetron Odt [Zofran ODT] 4 mg PO Q8HR PRN #10 tab PRN Reason: Nausea Magnesium 200 mg PO DAILY Albuterol Inhaler [Ventolin Hfa Inhaler] 2 puff INHALATION RT-Q6H PRN PRN Reason: Shortness Of Breath Cyanocobalamin (Vitamin B-12) [Vitamin B12] 2,500 mcg PO DAILY Discharge Medication List Dextroamphetamine/Amphetamine [Adderall] 20 mg PO TID 10/05/13 [History] Multivitamins, Thera [Multivitamin (formulary)] 1 tab PO DAILY 11/22/13 [History ] Cyanocobalamin [Vitamin B-12 Injection] 1,000 mcg SQ QMONTH 03/15/14 [History] Ergocalciferol [Vitamin D2 (DRISDOL)] 50,000 unit PO TU 04/22/14 [History] Ondansetron Odt [Zofran ODT] 4 mg PO Q8HR PRN #10 tab 11/11/16 [Rx] Albuterol Inhaler [Ventolin Hfa Inhaler] 2 puff INHALATION RT-Q6H PRN 02/14/17 [ History] Magnesium 200 mg PO DAILY 02/14/17 [History] Cyanocobalamin (Vitamin B-12) [Vitamin B12] 2,500 mcg PO DAILY 05/12/17 [History ]
[2017-05-13 12:54] VITALS: BP 94/63; PULSE 94
== END 2017-05-13 13:48 | disposition home or self-care (01) ==
LOC: ORWHC2ENDO 11:15
PROVIDERS: ATTEND Surgery Plastic and Reconstructive Surgery
DX: K31.89 Other diseases of stomach and duodenum (principal); K21.9 Gastro-esophageal reflux disease without esophagitis; F17.200 Nicotine dependence, unspecified, uncomplicated; J45.909 Unspecified asthma, uncomplicated; M19.90 Unspecified osteoarthritis, unspecified site; Z88.1 Allergy status to other antibiotic agents; Z88.0 Allergy status to penicillin; Z88.5 Allergy status to narcotic agent; Z86.711 Personal history of pulmonary embolism; Z86.718 Personal history of other venous thrombosis and embolism; Z98.84 Bariatric surgery status; Z85.42 Personal history of malignant neoplasm of other parts of uterus; Z90.49 Acquired absence of other specified parts of digestive tract; Z79.899 Other long term (current) drug therapy; Z90.710 Acquired absence of both cervix and uterus; Z82.5 Family history of asthma and other chronic lower respiratory diseases; Z91.018 Allergy to other foods; Z91.048 Other nonmedicinal substance allergy status
CPT/HCPCS: 43245; C1726

== ENCOUNTER → 2017-05-26 | Outpatient (CLI) | payer OTHER ==
[2017-05-26 13:23] VITALS: BP 104/74; PULSE 83; TEMP 98.2; BMI 26.9
[2017-05-26 15:08] VITALS: RESP 15
--- NOTE | 2017-07-08 18:58 | P.PN ---
Subjective Progress Note Date: 05/26/17 DATE OF SERVICE: 05/26/2017 CHIEF COMPLAINT: Follow up gastric bypass HISTORY OF PRESENT ILLNESS: Dorie Morales is a 42-year-old female with history of a gastric bypass in October 2012, over 4 to 5 years ago. She reported epigastric abdominal pain with textured food. She completed her upper endoscopy with improvement of her symptoms. Epigastric abdominal pain is resolved. She comes in with persistent complaints of increasing difficulty with her pannus. She reports a functional deficit with working including bending, squatting, and performing activities of daily living. The pain from her pannus has become increasingly debilitative. She reports moderate pulling of the skin. She is no longer able to exercise as a result. She reports her pannus also affects her posture as she cannot raise her hands over her head without severe pain from her pannus. At her height of 5 foot 5 pounds, her ideal body weight is 149 pounds. Her highest personal weight was 268 pounds. Today she comes in weighing 162 pounds. She gained 3 pounds in 1 month. Maintained weight loss is 106 pounds for the last 4 going on 5 years. Her percent excess weight loss lifetime is 89%. Body mass index is reduced from 44.7 down to 26.9. PAST MEDICAL HISTORY: 1. ADHD. 2. Chronic abdominal pain. 3. History of morbid obesity. 4. Gastroesophageal reflux disease, resolved. 5. Vitamin B12 deficiency. 6. History of uterine tumor. 7. Colitis. 8. Panniculitis. PAST SURGICAL HISTORY: 1. Hysterectomy. 2. Upper endoscopy. 3. Renee-en-Y gastric bypass October 2012. 4. Drainage of abdominal wall abscess. 5. Appendectomy. 6. EGD with balloon dilatation. 7. Diagnostic laparoscopy. 8. Revision of jejunojejunostomy. MEDICATIONS: 1. Zanaflex. 2. Multivitamin. 3. Magnesium oxide. 4. [place] 7.5, discontinued. 5. Vitamin D. 6. Adderall. 7. Vitamin B12. 8. Calcium. 9. ProAir. 10. Ventolin inhaler. ALLERGIES: 1. KEFLEX. 2. MORPHINE. 3. PENICILLIN. 4. ALMOND OIL. 5. CITRUS. 6. FENTANYL. 7. GLUTEN. SOCIAL HISTORY: Remote tobacco user. Denies any active alcohol use. FAMILY HISTORY: Pertinent for morbid obesity including gastroesophageal reflux disease. REVIEW OF SYSTEMS: CONSTITUTIONAL: At her height of 5 foot 5 pounds, her ideal body weight is 149 pounds. Her highest personal weight was 268 pounds. Today she comes in weighing 162 pounds. She gained 3 pounds in 1 month. Maintained weight loss is 106 pounds for the last 4 going on 5 years. Her percent excess weight loss lifetime is 89%. Body mass index is reduced from 44.7 down to 26.9. NEURO: History of chronic pain, lower back, from her pannus. ENDOCRINE: History of thyroid goiter. No reports of diabetes. GASTROINTESTINAL: Reports intolerance to solid foods. No dumping syndrome. HEENT: No troubles with vision or hearing. RESPIRATORY: Denies any dyspnea on exertion or obstructive sleep apnea. CARDIOVASCULAR: Denies any chest pain or palpitations. MUSCULOSKELETAL: History of lower back pain. Denies any joint pain. SKIN: History of erythema including irritation from her pannus. Limited activities of daily living secondary to chronic pain from pannus. PSYCH: History of ADHD. Denies depression. HEMATOLOGIC: Denies any easy bruising or bleeding. PHYSICAL EXAM: VITAL SIGNS: 5 foot 5, 162 pounds. Body mass index is 26.9 Vital Signs Temp 98.2 F 05/26/17 15:00 Pulse 83 05/26/17 15:00 Resp 15 05/26/17 15:00 BP 104/74 05/26/17 15:00 Pulse Ox ABDOMEN: Moderate-sized pannus tenderness along skin indentation at left upper quadrant. Soft, nondistended. Pannus hangs over pubis. Weight of pannus over 5 pounds. GENERAL: Well-developed female no acute distress. HEENT: No scleral icterus. Extraocular movements grossly intact. NECK: Supple without lymphadenopathy. CHEST: Unlabored respirations. Equal bilateral excursions. CARDIOVASCULAR: Regular rate and rhythm. MUSCULOSKELETAL: No clubbing, cyanosis, or edema. NEURO: No focal or lateralizing signs. Cranial nerves II through XII grossly intact. SKIN: Well perfused. Good skin turgor. ASSESSMENT: 1. Morbid obesity due to excess calories, resolved. 2. Body mass index reduced from 44.7 down to 26.9 3. Status post Renee-en-Y gastric bypass. 4. Status post jejunojejunostomy revision. 5. Prior history of chronic abdominal pain. 6. Dysphagia, resolved. 7. Dietary surveillance and counseling. 8. History of thyroid goiter. 9. History of vitamin B12 deficiency. 10. Chronic pain syndrome. 11. Panniculitis of the abdomen, refractory to treatment. 12. Lower back pain secondary to panniculitis. PLAN: 1. She completed an upper endoscopy with dilatation with improvement of her epigastric abdominal pain and dysphagia. 2. She has been closely followed for 4 to 5 years where her pannus is severely limiting her daily activities. Despite treatments including pain management and local skin care, recommend panniculectomy. 3. Benefits and risks including bleeding, infection, need for further surgery, Yang May deformity were reviewed. Placement of drains were also described. 4. DVT prophylaxis. 5. Antibiotic prophylaxis. Objective - Vital Signs Vital signs: Vital Signs Temp 98.2 F 05/26/17 13:17 Pulse 83 05/26/17 13:17 Resp BP 104/74 05/26/17 13:17 Pulse Ox Intake & Output 05/25/17 05/26/17 05/26/17 18:59 06:59 18:59 Weight 73.437 kg
== END | disposition home or self-care (01) ==
LOC: BARWHC3 13:00
PROVIDERS: ATTEND Surgery Plastic and Reconstructive Surgery
DX: Z09 Encounter for follow-up examination after completed treatment for conditions other than malignant neoplasm (principal); M79.3 Panniculitis, unspecified; M54.5 Low back pain; G89.4 Chronic pain syndrome; Z86.39 Personal history of other endocrine, nutritional and metabolic disease; Z98.84 Bariatric surgery status; Z88.1 Allergy status to other antibiotic agents; Z88.5 Allergy status to narcotic agent; Z88.0 Allergy status to penicillin; Z91.09 Other allergy status, other than to drugs and biological substances; Z88.8 Allergy status to other drugs, medicaments and biological substances; Z79.899 Other long term (current) drug therapy
CPT/HCPCS: 99211

== ENCOUNTER 2017-06-08 22:45 | Observation (INO) | payer OTHER ==
[2017-06-08] MEDS ORDERED: RX INFO: IV CONTRAST WAS GIVEN 1 EACH MISC MISCELLANE PRN (23:18)
[2017-06-08] MEDS ORDERED: SODIUM CHLORIDE 0.9% 1,000 ML IV STA (23:18)
[2017-06-08] MEDS ORDERED: ONDANSETRON 4 MG/2 ML VIAL IVP STA (23:18)
[2017-06-08] MEDS ORDERED: FAMOTIDINE 20 MG/2 ML VIAL IV STA (23:18)
--- NOTE | 2017-06-08 23:25 | ED ---
General Adult HPI - General Source: patient, RN notes reviewed Mode of arrival: ambulatory Limitations: no limitations <Negra Spencer - Last Filed: 06/08/17 23:38> <Kelechi Moya - Last Filed: 06/09/17 01:52> - General Chief complaint: Abdominal Pain Stated complaint: Abd pain Time Seen by Provider: 06/08/17 23:10 - History of Present Illness Initial comments: 42-year-old female presents to the emergency department with a chief complaint of left-sided abdominal pain. She's had abdominal pain for the last week. She states she's had nausea vomiting and she is only able to tolerate a few crackers. She states every time she eats she vomits. She states that she has been passing gas with normal bowel movements. She denies any fever chills with this. She's had multiple surgeries on the abdomen by Dr. Gamez multiple scar tissue surgeries. She states this is different than her normal abdominal pain. She states that she just does not seem to know is going on and tender she touches the left side of the abdomen as well so she thought that she should be seen. She tried calling the physician but she never received a phone call back. Patient states she has a history of terrible acid reflux as well but doesn't seem like that. Patient denies any recent fever, chills, shortness of breath, chest pain, back pain, numbness or tingling, dysuria or hematuria, constipation or diarrhea, headaches or visual changes, or any other current symptoms. (Negra Spencer) - Related Data Home Medications Medication Instructions Recorded Confirmed Dextroamphetamine/Amphetamine 20 mg PO TID 10/05/13 06/08/17 [Adderall] Multivitamins, Thera [Multivitamin 1 tab PO DAILY 11/22/13 06/08/17 (formulary)] Cyanocobalamin [Vitamin B-12 1,000 mcg SQ QMONTH 03/15/14 06/08/17 Injection] Ergocalciferol [Vitamin D2 50,000 unit PO TU 04/22/14 06/08/17 (DRISDOL)] Magnesium 200 mg PO DAILY 02/14/17 06/08/17 Cyanocobalamin (Vitamin B-12) 2,500 mcg PO DAILY 02/28/18 03/27/18 [Vitamin B12] Allergies Allergy/AdvReac Type Severity Reaction Status Date / Time cephalexin monohydrate Allergy Severe Rash/Hives, Verified 06/08/17 23:19 [From Keflex] nausea,sweats,chills morphine Allergy Severe Itching, Verified 06/08/17 23:19 migraines,states "does not help with pain." Penicillins Allergy Severe Rash/Hives, Verified 06/08/17 23:19 nausea,lethargic almond Allergy Anaphylaxis Verified 06/08/17 23:19 almond oil Allergy Anaphylaxis Verified 06/08/17 23:19 Henry And Derivatives Allergy Nausea & Verified 06/08/17 23:19 [Henry] Vomiting gluten Allergy Abdominal Verified 06/08/17 23:19 Pain mustard Allergy Anaphylaxis Verified 06/08/17 23:19 walnut Allergy Anaphylaxis Verified 06/08/17 23:19 niacin AdvReac hives to Verified 06/08/17 23:19 face Review of Systems ROS Other: All systems not noted in ROS Statement are negative. <Negra Spencer - Last Filed: 06/08/17 23:38> ROS Other: All systems not noted in ROS Statement are negative. <Kelechi Moya - Last Filed: 06/09/17 01:52> ROS Statement: Those systems with pertinent positive or pertinent negative responses have been documented in the HPI. Past Medical History Past Medical History: Asthma, Cancer, Chest Pain / Angina, Deep Vein Thrombosis (DVT), GERD/Reflux, Osteoarthritis (OA), Pulmonary Embolus (PE) Additional Past Medical History / Comment(s): HYPOGLYCEMIC. diverticulitis, hypotension, migraines, "food getting stuck"-needs balloon dilation every 6-12 months, hx uterine cancer, colitis, possible crohns, nodule on adrenal gland. History of Any Multi-Drug Resistant Organisms: None Reported Past Surgical History: Appendectomy, Bariatric Surgery, Section, Cholecystectomy, Hernia Repair, Hysterectomy, Orthopedic Surgery Additional Past Surgical History / Comment(s): reyna-y gastric bypass with adhesions, rt arm-plate and screws, laparoscopy, umbilical hernia repair, I&D of abd wound,SCOPE RT SHOULDER. swallow study. Revision of RNY r/t complications Past Anesthesia/Blood Transfusion Reactions: Family History of Problems w/ Anesthesia, Motion Sickness, Postoperative Nausea & Vomiting (PONV) Additional Past Anesthesia/Blood Transfusion Reaction / Comment(s): mother has asthma attacks post-op Past Psychological History: ADD/ADHD, Anxiety Smoking Status: Current some day smoker Past Alcohol Use History: Rare Past Drug Use History: None Reported - Past Family History Father Additional Family Medical History / Comment(s): BRAIN ANUERYSM Mother Family Medical History: AFIB, AICD/Pacemaker, Asthma, Cancer Additional Family Medical History / Comment(s): bladder <Negra Spencer - Last Filed: 06/08/17 23:38> General Exam Limitations: no limitations <Negra Spencer - Last Filed: 06/08/17 23:38> <Kelechi Moya - Last Filed: 06/09/17 01:52> - General Exam Comments Initial Comments: General: The patient is awake and alert, in no distress, and does not appear acutely ill. Eye: Pupils are equal, round and reactive to light, extra-ocular movements are intact; there is normal conjunctiva bilaterally. No signs of icterus. Ears, nose, mouth and throat: There are moist mucous membranes. Neck: The neck is supple, there is no tenderness. Cardiovascular: There is a regular rate and rhythm. No murmur, rub or gallop is appreciated. Respiratory: Lungs are clear to auscultation, respirations are non-labored, breath sounds are equal. No wheezes, stridor, rales, or rhonchi. Gastrointestinal: Soft, non-distended, mild tenderness to left side of the abdomen without masses or organomegaly noted. There is no rebound or guarding present. No CVA tenderness. Bowel sounds are unremarkable. Back: There is no tenderness to palpation in the midline. There is no obvious deformity. No rashes noted. Musculoskeletal: Normal ROM, no tenderness, There is no pedal edema. There is no calf tenderness or swelling. Sensation intact. Pulses equal bilaterally 2+. Neurological: CN II-XII intact, There are no obvious motor or sensory deficits. Coordination appears grossly intact. Speech is normal. Skin: Skin is warm and dry and no rashes or lesions are noted. Psychiatric: Cooperative, appropriate mood & affect, normal judgment. (Negra Spencer) Course <Negra Spencer - Last Filed: 06/08/17 23:38> <Kelechi Moya - Last Filed: 06/09/17 01:52> Vital Signs 06/08/17 06/09/17 22:48 00:36 Temperature 98.7 F Pulse Rate 100 80 Respiratory 18 16 Rate Blood Pressure 101/73 90/55 O2 Sat by Pulse 97 97 Oximetry - Reevaluation(s) Reevaluation #1: 06/08/17 23:38 This case will be signed out to Dr. Moya. (Negra Spencer) Medical Decision Making <Negra Spencer - Last Filed: 06/08/17 23:38> - Lab Data Result diagrams: 06/08/17 23:40 06/08/17 23:40 - Radiology Data Radiology results: image reviewed (Computed tomography scan shows postoperative changes without acute abnormality) <Kelechi Moya - Last Filed: 06/09/17 01:52> - Medical Decision Making 42-year-old female presents for left-sided abdominal pain. (Negra Spencer) Patient reevaluated and resting comfortably in bed. Nausea has resolved however patient still has discomfort. Abdomen is soft with mild tenderness in the epigastrium. Patient updated on results and plan. Case was discussed in detail with Dr. Donald, no admit for Dr. Gamez. (Kelechi Moya) - Lab Data Lab Results 06/08/17 06/08/17 06/08/17 Range/Units 23:40 23:40 23:40 WBC 5.9 (3.8-10.6) k/uL RBC 4.51 (3.80-5.40) m/uL Hgb 11.5 (11.4-16.0) gm/dL Hct 35.8 (34.0-46.0) % MCV 79.6 L (80.0-100.0) fL MCH 25.4 (25.0-35.0) pg MCHC 31.9 (31.0-37.0) g/dL RDW 13.6 (11.5-15.5) % Plt Count 290 (150-450) k/uL Neutrophils % 54 % Lymphocytes % 34 % Monocytes % 7 % Eosinophils % 3 % Basophils % 0 % Neutrophils # 3.2 (1.3-7.7) k/uL Lymphocytes # 2.0 (1.0-4.8) k/uL Monocytes # 0.4 (0-1.0) k/uL Eosinophils # 0.2 (0-0.7) k/uL Basophils # 0.0 (0-0.2) k/uL PT (9.0-12.0) sec INR (<1.2) APTT (22.0-30.0) sec Sodium 138 (137-145) mmol/L Potassium 4.0 (3.5-5.1) mmol/L Chloride 105 (98-107) mmol/L Carbon Dioxide 22 (22-30) mmol/L Anion Gap 11 mmol/L BUN 15 (7-17) mg/dL Creatinine 0.50 L (0.52-1.04) mg/dL Est GFR (CKD-EPI)AfAm >90 (>60 ml/min/1.73 sqM) Est GFR (CKD-EPI)NonAf >90 (>60 ml/min/1.73 sqM) Glucose 96 (74-99) mg/dL Plasma Lactic Acid Shlomo <0.5 L (0.7-2.0) mmol/L Calcium 9.2 (8.4-10.2) mg/dL Phosphorus 4.4 (2.5-4.5) mg/dL Magnesium 1.8 (1.6-2.3) mg/dL Total Bilirubin 0.3 (0.2-1.3) mg/dL AST 20 (14-36) U/L ALT 28 (9-52) U/L Alkaline Phosphatase 63 (38-126) U/L Total Protein 6.7 (6.3-8.2) g/dL Albumin 3.8 (3.5-5.0) g/dL Amylase 54 (30-110) U/L Lipase 161 (23-300) U/L Urine Color Urine Appearance (Clear) Urine pH (5.0-8.0) Ur Specific [place] (1.001-1.035) Urine Protein (Negative) Urine Glucose (UA) (Negative) Urine Ketones (Negative) Urine Blood (Negative) Urine Nitrite (Negative) Urine Bilirubin (Negative) Urine Urobilinogen (<2.0) mg/dL Ur Leukocyte Esterase (Negative) 06/09/17 06/09/17 Range/Units 00:35 01:24 WBC (3.8-10.6) k/uL RBC (3.80-5.40) m/uL Hgb (11.4-16.0) gm/dL Hct (34.0-46.0) % MCV (80.0-100.0) fL MCH (25.0-35.0) pg MCHC (31.0-37.0) g/dL RDW (11.5-15.5) % Plt Count (150-450) k/uL Neutrophils % % Lymphocytes % % Monocytes % % Eosinophils % % Basophils % % Neutrophils # (1.3-7.7) k/uL Lymphocytes # (1.0-4.8) k/uL Monocytes # (0-1.0) k/uL Eosinophils # (0-0.7) k/uL Basophils # (0-0.2) k/uL PT 9.6 (9.0-12.0) sec INR 1.0 (<1.2) APTT 21.9 L (22.0-30.0) sec Sodium (137-145) mmol/L Potassium (3.5-5.1) mmol/L Chloride (98-107) mmol/L Carbon Dioxide (22-30) mmol/L Anion Gap mmol/L BUN (7-17) mg/dL Creatinine (0.52-1.04) mg/dL Est GFR (CKD-EPI)AfAm (>60 ml/min/1.73 sqM) Est GFR (CKD-EPI)NonAf (>60 ml/min/1.73 sqM) Glucose (74-99) mg/dL Plasma Lactic Acid Shlomo (0.7-2.0) mmol/L Calcium (8.4-10.2) mg/dL Phosphorus (2.5-4.5) mg/dL Magnesium (1.6-2.3) mg/dL Total Bilirubin (0.2-1.3) mg/dL AST (14-36) U/L ALT (9-52) U/L Alkaline Phosphatase (38-126) U/L Total Protein (6.3-8.2) g/dL Albumin (3.5-5.0) g/dL Amylase (30-110) U/L Lipase (23-300) U/L Urine Color Yellow Urine Appearance Clear (Clear) Urine pH 6.0 (5.0-8.0) Ur Specific [place] 1.049 H (1.001-1.035) Urine Protein Negative (Negative) Urine Glucose (UA) Negative (Negative) Urine Ketones Negative (Negative) Urine Blood Negative (Negative) Urine Nitrite Negative (Negative) Urine Bilirubin Negative (Negative) Urine Urobilinogen <2.0 (<2.0) mg/dL Ur Leukocyte Esterase Negative (Negative) Disposition <Negra Spencer - Last Filed: 06/08/17 23:38> Decision Time: 01:52 <Kelechi Moya - Last Filed: 06/09/17 01:52> Clinical Impression: Abdominal pain Disposition: ADMITTED IP TO THIS HOSP Referrals: Mikaela Rojas MD [Primary Care Provider] - 1-2 days
[2017-06-09 00:05] LABS: Basophils % (A) 0 %; Eosinophils # (A) 0.2 k/uL (0-0.7); Eosinophils % (A) 3 %; HCT 35.8 % (34.0-46.0); HGB 11.5 gm/dL (11.4-16.0); Lymphocytes % (A) 34 %; MCH 25.4 pg (25.0-35.0); MCHC 31.9 g/dL (31.0-37.0); MCV 79.6 fL (80.0-100.0); Mean Platelet Volume 7.5; Monocytes # (A) 0.4 k/uL (0-1.0); Monocytes % (A) 7 %; Neutrophils # (A) 3.2 k/uL (1.3-7.7); Neutrophils % (A) 54 %; Platelet Count 290 k/uL (150-450); RBC 4.51 m/uL (3.80-5.40); RDW 13.6 % (11.5-15.5); WBC 5.9 k/uL (3.8-10.6)
[2017-06-09 00:16] LABS: ALT 28 U/L (9-52); AST 20 U/L (14-36); Albumin 3.8 g/dL (3.5-5.0); Alkaline Phosphatase 63 U/L (38-126); Amylase 54 U/L (30-110); Anion Gap 11 mmol/L; Blood Urea Nitrogen 15 mg/dL (7-17); Calcium 9.2 mg/dL (8.4-10.2); Carbon Dioxide 22 mmol/L (22-30); Chloride 105 mmol/L (98-107); Glucose 96 mg/dL (74-99); Lipase 161 U/L (23-300); Magnesium 1.8 mg/dL (1.6-2.3); Phosphorus 4.4 mg/dL (2.5-4.5); Sodium 138 mmol/L (137-145); Total Bilirubin 0.3 mg/dL (0.2-1.3); Total Protein 6.7 g/dL (6.3-8.2)
--- NOTE | 2017-06-09 00:48 | CT ---
EXAMINATION TYPE: CT abdomen pelvis w con DATE OF EXAM: 06/09/2017 COMPARISON: 10/22/2015 HISTORY: Left flank pain CT DLP: 630.50 mGycm Automated exposure control for dose reduction was used. TECHNIQUE: Helical acquisition of images was performed from the lung bases through the pelvis. CONTRAST: Performed with Oral Contrast and with IV Contrast, patient injected with 100 mL of Isovue 300. FINDINGS: Lung bases are clear. There is no pleural effusion. Heart size is normal. There is no pericardial eff usion. Liver spleen pancreas appear normal. There are clips from cholecystectomy. Bile ducts are not dilated . There is no adrenal mass. Kidneys show satisfactory contrast opacification. There is no hydronephro sis. Ureters are not dilated. There is no retroperitoneal adenopathy. There is no ascites. There is n o intestinal wall thickening. There is no sign of free air. Bladder distends smoothly. There is no ev idence of a pelvic mass. I see no bony destructive process. There are surgical clips at the gastric f undus. Appendix is not definitely seen. There is no sign of appendicitis. I see no evidence of a rebeka l obstruction. There is no intestinal wall thickening. IMPRESSION: PREVIOUS BARIATRIC SURGERY. NO SIGN OF ACUTE ABDOMEN AND PELVIS. NO ADVERSE CHANGE COMPARED TO OLD EX AM. NO EVIDENCE OF RENAL OBSTRUCTION.
[2017-06-09 01:04] LABS: Appearance,Urine Clear (Clear); Bilirubin,Urine Negative (Negative); Blood,Urine Negative (Negative); Color,Urine Yellow; Glucose,Urine (UA) Negative (Negative); Ketones,Urine Negative (Negative); Leukocyte Esterase,Urine Negative (Negative); Nitrite,Urine Negative (Negative); Protein,Urine Negative (Negative); Urobilinogen,Urine <2.0 mg/dL (<2.0)
[2017-06-09 01:06] LABS: Specific Gravity,Urine 1.049 (1.001-1.035)
[2017-06-09 01:37] LABS: Partial Thromboplastin Time 21.9 sec (22.0-30.0); Prothrombin Time 9.6 sec (9.0-12.0)
[2017-06-09] MEDS ORDERED: fentaNYL (PF) 50 MCG/ML 2 ML AMP IV PRN ×2 (01:48→01:51)
[2017-06-09] MEDS ORDERED: ONDANSETRON 4 MG/2 ML VIAL IVP PRN (01:53)
[2017-06-09] MEDS ORDERED: NALOXONE 0.4 MG/ML 1 ML VIAL IV PRN (01:53)
[2017-06-09] MEDS: fentaNYL (PF) 50 MCG/ML 2 ML AMP IM PRN ×2 (02:18→08:16)
[2017-06-09] MEDS: SODIUM CHLORIDE 0.9% 1,000 ML IV SCH ×4 (02:19→13:01)
[2017-06-09 03:26] VITALS: BMI 25.6
[2017-06-09 07:58] VITALS: BP 89/54; PULSE 76; RESP 12; TEMP 98.8
[2017-06-09] MEDS ORDERED: PANTOPRAZOLE 40 MG/10 ML VIAL IV SCH (09:00)
--- NOTE | 2017-06-09 12:19 | P.GSHP ---
<Sofia Corral - Last Filed: 06/09/17 11:55> History of Present Illness H&P Date: 06/09/17 Chief Complaint: Left-sided abdominal pain with nausea vomiting inability to keep fluids yumiko Very pleasant 42-year-old female presented on the day of admission to the emergency room to be evaluated for a chief complaint of having left-sided abdominal pain. Patient stated the pain originally started a week ago felt nauseated with no appetite with persistent pain in the midepigastric area radiating to the left upper quadrant. Patient stated became nauseated started vomiting could not keep any liquids down had a difficult time eating would vomit. Patient stated this had been ongoing for at least a week. The day that she came into the emergency room felt dizzy lightheaded felt that it was due to "I was dehydrated had not been eating. Patient stated the day she came into the emergency room "I knew I had to get something in so I drank 4 ounces of muscle milk and ate a few crackers started to vomit could not keep it down decided I needed to come into the emergency room to be evaluated. Fluid bolus was given patient indicates a noted improvement. White count 5.9 afebrile heart rate in the 80s Patient does have a significant surgical history [id number] bypass, cholecystectomy, , orthopedic procedures, hernia repair a recent esophageal dilatation done 2-3 weeks ago Past medical history significant for esophageal reflux disease, diverticulosis, osteoarthritis, pulmonary emboli Computed tomography scan of the abdomen pelvis with contrast report reviewed indicates previous bariatric surgery. No signs of an acute abdomen or pelvis no evidence of obstruction - Review of Systems Comment: Essentially unremarkable except mentioned in the present illness Past Medical History Past Medical History: Asthma, Cancer, Chest Pain / Angina, Deep Vein Thrombosis (DVT), GERD/Reflux, Osteoarthritis (OA), Pulmonary Embolus (PE) Additional Past Medical History / Comment(s): HYPOGLYCEMIC. diverticulitis, hypotension, migraines, "food getting stuck"-needs balloon dilation every 6-12 months, hx uterine cancer, colitis, possible crohns, nodule on adrenal gland. History of Any Multi-Drug Resistant Organisms: None Reported Past Surgical History: Appendectomy, Bariatric Surgery, Section, Cholecystectomy, Hernia Repair, Hysterectomy, Orthopedic Surgery Additional Past Surgical History / Comment(s): reyna-y gastric bypass with adhesions, rt arm-plate and screws, laparoscopy, umbilical hernia repair, I&D of abd wound,SCOPE RT SHOULDER. swallow study. Revision of RNY r/t complications Past Anesthesia/Blood Transfusion Reactions: Family History of Problems w/ Anesthesia, Motion Sickness, Postoperative Nausea & Vomiting (PONV) Additional Past Anesthesia/Blood Transfusion Reaction / Comment(s): mother has asthma attacks post-op Past Psychological History: ADD/ADHD, Anxiety Smoking Status: Current some day smoker Past Alcohol Use History: Rare Additional Past Alcohol Use History / Comment(s): quit smoking 2012, started smoking in 1998. Past Drug Use History: None Reported - Past Family History Father Additional Family Medical History / Comment(s): BRAIN ANUERYSM Mother Family Medical History: AFIB, AICD/Pacemaker, Asthma, Cancer Additional Family Medical History / Comment(s): bladder Medications and Allergies Home Medications Medication Instructions Recorded Confirmed Type Dextroamphetamine/Amphetamine 20 mg PO TID 10/05/13 06/08/17 History [Adderall] Multivitamins, Thera [Multivitamin 1 tab PO DAILY 11/22/13 06/08/17 History (formulary)] Cyanocobalamin [Vitamin B-12 1,000 mcg SQ QMONTH 03/15/14 06/08/17 History Injection] Ergocalciferol [Vitamin D2 50,000 unit PO TU 04/22/14 06/08/17 History (DRISDOL)] Magnesium 200 mg PO DAILY 02/14/17 06/08/17 History Cyanocobalamin (Vitamin B-12) 2,500 mcg PO DAILY 05/12/17 06/08/17 History [Vitamin B12] Allergies Allergy/AdvReac Type Severity Reaction Status Date / Time cephalexin monohydrate Allergy Severe Rash/Hives, Verified 06/08/17 23:19 [From Keflex] nausea,sweats,chills morphine Allergy Severe Itching, Verified 06/08/17 23:19 migraines,states "does not help with pain." Penicillins Allergy Severe Rash/Hives, Verified 06/08/17 23:19 nausea,lethargic almond Allergy Anaphylaxis Verified 06/08/17 23:19 almond oil Allergy Anaphylaxis Verified 06/08/17 23:19 Marathon And Derivatives Allergy Nausea & Verified 06/08/17 23:19 [Marathon] Vomiting gluten Allergy Abdominal Verified 06/08/17 23:19 Pain mustard Allergy Anaphylaxis Verified 06/08/17 23:19 walnut Allergy Anaphylaxis Verified 06/08/17 23:19 niacin AdvReac hives to Verified 06/08/17 23:19 face Surgical - Exam Vital Signs Temp Pulse Resp BP Pulse Ox 98.7 F 100 18 101/73 97 06/08/17 22:48 06/08/17 22:48 06/08/17 22:48 06/08/17 22:48 06/08/17 22:48 GENERAL APPEARANCE: 42 year old female is alert, oriented in no acute distress. Sitting up in bed VITAL SIGNS: Reviewed HEENT: Head is normocephalic and atraumatic. Pupils are equal and reactive. The nares are patent. Oropharynx is clear without lesions. NECK: Supple without lymphadenopathy. Traches midline. HEART: S1, S2. Regular rate and rhythm. No murmur noted denying chest pain LUNGS: No crackles or wheezes are heard. On room air sats 93% ABDOMEN: Soft, mild tenderness left upper quadrant states that has improved nondistended with good bowel sounds. No peritoneal signs. No palpable organomegaly or masses. Reports nausea sensation improving EXTREMITIES: Normal skin color and turgor. No cyanosis, rash, ulceration, clubbing or edema. Radial pedal pulses are 2/4 bilaterally. NEUROLOGICAL: No focal deficits. Strength and sensation are grossly intact. Results - Labs 06/08/17 23:40 06/08/17 23:40 Abnormal Lab Results - Last 24 Hours (Table) 06/08/17 06/08/17 06/08/17 Range/Units 23:40 23:40 23:40 MCV 79.6 L (80.0-100.0) fL APTT (22.0-30.0) sec Creatinine 0.50 L (0.52-1.04) mg/dL Plasma Lactic Acid Shlomo <0.5 L (0.7-2.0) mmol/L Ur Specific [place] (1.001-1.035) 06/09/17 06/09/17 Range/Units 00:35 01:24 MCV (80.0-100.0) fL APTT 21.9 L (22.0-30.0) sec Creatinine (0.52-1.04) mg/dL Plasma Lactic Acid Shlomo (0.7-2.0) mmol/L Ur Specific [place] 1.049 H (1.001-1.035) Microbiology - Last 24 Hours (Table) 06/09/17 00:35 Urine Culture - Preliminary Urine,Voided Diabetes panel 06/08/17 Range/Units 23:40 Sodium 138 (137-145) mmol/L Potassium 4.0 (3.5-5.1) mmol/L Chloride 105 (98-107) mmol/L Carbon Dioxide 22 (22-30) mmol/L BUN 15 (7-17) mg/dL Creatinine 0.50 L (0.52-1.04) mg/dL Glucose 96 (74-99) mg/dL Calcium 9.2 (8.4-10.2) mg/dL AST 20 (14-36) U/L ALT 28 (9-52) U/L Alkaline Phosphatase 63 (38-126) U/L Total Protein 6.7 (6.3-8.2) g/dL Albumin 3.8 (3.5-5.0) g/dL Calcium panel 06/08/17 Range/Units 23:40 Calcium 9.2 (8.4-10.2) mg/dL Phosphorus 4.4 (2.5-4.5) mg/dL Albumin 3.8 (3.5-5.0) g/dL Pituitary panel 06/08/17 Range/Units 23:40 Sodium 138 (137-145) mmol/L Potassium 4.0 (3.5-5.1) mmol/L Chloride 105 (98-107) mmol/L Carbon Dioxide 22 (22-30) mmol/L BUN 15 (7-17) mg/dL Creatinine 0.50 L (0.52-1.04) mg/dL Glucose 96 (74-99) mg/dL Calcium 9.2 (8.4-10.2) mg/dL Adrenal panel 06/08/17 Range/Units 23:40 Sodium 138 (137-145) mmol/L Potassium 4.0 (3.5-5.1) mmol/L Chloride 105 (98-107) mmol/L Carbon Dioxide 22 (22-30) mmol/L BUN 15 (7-17) mg/dL Creatinine 0.50 L (0.52-1.04) mg/dL Glucose 96 (74-99) mg/dL Calcium 9.2 (8.4-10.2) mg/dL Total Bilirubin 0.3 (0.2-1.3) mg/dL AST 20 (14-36) U/L ALT 28 (9-52) U/L Alkaline Phosphatase 63 (38-126) U/L Total Protein 6.7 (6.3-8.2) g/dL Albumin 3.8 (3.5-5.0) g/dL Assessment and Plan Assessment: Impression Present on admission left sided abdominal pain onset 1 week prior Present on admission dizziness lightheadedness suspect due to dehydration poor oral intake secondary to persistent nausea vomiting Recent balloon dilatation esophageal 2 weeks prior History of bariatric surgery [id number] bypass with adhesions done in 2013 Chronic abdominal pain status post multiple abdominal surgeries Plan 2 L fluid bolus now hydration Home meds as appropriate DVT and GI prophylaxis Further recommendations pending No evidence of an acute surgical abdomen at this time The above impression and plan of care have been discussed and directed by signing physician. Sofia Corral nurse practitioner acting as scribe for signing physician. <Hortencia Bangura N - Last Filed: 06/09/17 15:56> Surgical - Exam Vital Signs Temp Pulse Resp BP Pulse Ox 98.7 F 100 18 101/73 97 06/08/17 22:48 06/08/17 22:48 06/08/17 22:48 06/08/17 22:48 06/08/17 22:48 Results - Labs 06/08/17 23:40 06/08/17 23:40 Abnormal Lab Results - Last 24 Hours (Table) 06/08/17 06/08/17 06/08/17 Range/Units 23:40 23:40 23:40 MCV 79.6 L (80.0-100.0) fL APTT (22.0-30.0) sec Creatinine 0.50 L (0.52-1.04) mg/dL Plasma Lactic Acid Shlomo <0.5 L (0.7-2.0) mmol/L Ur Specific [place] (1.001-1.035) 06/09/17 06/09/17 Range/Units 00:35 01:24 MCV (80.0-100.0) fL APTT 21.9 L (22.0-30.0) sec Creatinine (0.52-1.04) mg/dL Plasma Lactic Acid Shlomo (0.7-2.0) mmol/L Ur Specific [place] 1.049 H (1.001-1.035) Microbiology - Last 24 Hours (Table) 06/09/17 00:35 Urine Culture - Preliminary Urine,Voided Diabetes panel 06/08/17 Range/Units 23:40 Sodium 138 (137-145) mmol/L Potassium 4.0 (3.5-5.1) mmol/L Chloride 105 (98-107) mmol/L Carbon Dioxide 22 (22-30) mmol/L BUN 15 (7-17) mg/dL Creatinine 0.50 L (0.52-1.04) mg/dL Glucose 96 (74-99) mg/dL Calcium 9.2 (8.4-10.2) mg/dL AST 20 (14-36) U/L ALT 28 (9-52) U/L Alkaline Phosphatase 63 (38-126) U/L Total Protein 6.7 (6.3-8.2) g/dL Albumin 3.8 (3.5-5.0) g/dL Calcium panel 06/08/17 Range/Units 23:40 Calcium 9.2 (8.4-10.2) mg/dL Phosphorus 4.4 (2.5-4.5) mg/dL Albumin 3.8 (3.5-5.0) g/dL Pituitary panel 06/08/17 Range/Units 23:40 Sodium 138 (137-145) mmol/L Potassium 4.0 (3.5-5.1) mmol/L Chloride 105 (98-107) mmol/L Carbon Dioxide 22 (22-30) mmol/L BUN 15 (7-17) mg/dL Creatinine 0.50 L (0.52-1.04) mg/dL Glucose 96 (74-99) mg/dL Calcium 9.2 (8.4-10.2) mg/dL Adrenal panel 06/08/17 Range/Units 23:40 Sodium 138 (137-145) mmol/L Potassium 4.0 (3.5-5.1) mmol/L Chloride 105 (98-107) mmol/L Carbon Dioxide 22 (22-30) mmol/L BUN 15 (7-17) mg/dL Creatinine 0.50 L (0.52-1.04) mg/dL Glucose 96 (74-99) mg/dL Calcium 9.2 (8.4-10.2) mg/dL Total Bilirubin 0.3 (0.2-1.3) mg/dL AST 20 (14-36) U/L ALT 28 (9-52) U/L Alkaline Phosphatase 63 (38-126) U/L Total Protein 6.7 (6.3-8.2) g/dL Albumin 3.8 (3.5-5.0) g/dL
--- NOTE | 2017-06-09 13:54 | P.DS ---
Providers Date of admission: 06/09/17 01:52 Expected date of discharge: 06/09/17 Attending physician: Hortencia Bangura Primary care physician: [facility] [place] [facility] Course: A 42-year-old female well known to Dr. Bangura service presented on the day of admission to the emergency room with a chief complaint of developing intractable nausea vomiting and inability to keep fluids down for 7 days. . Patient states she normally has chronic discomfort in the left area. There were no other sick members in the family. Patient stated that she could not advance her diet without getting sick came into the emergency room stated that she'll most passed out at home patient came into the emergency room was given a fluid bolus 1 L and [address] to Dr[address] Bangura service. Another 2 L of fluid were given. Patient stated that she felt significantly improved was anxious to be discharged patient was tolerating clear liquids no nausea no vomiting. Patient stated that she had not been experiencing any fever chills at home and was not experiencing any loose stools patient was seen by Dr. Bangura felt to be stable and appropriate proceed with a discharge to home Impression Present on admission left sided abdominal pain onset 1 week prior Present on admission dizziness lightheadedness suspect due to dehydration related to poor oral intake secondary to persistent nausea vomiting Recent balloon dilatation esophageal 2 weeks prior History of bariatric surgery [id number] bypass with adhesions done in 2012 Chronic abdominal pain status post multiple abdominal surgeries The above impression and plan of care have been discussed and directed by signing physician. Sofia Corral nurse practitioner acting as scribe for signing physician. Plan - Discharge Summary Discharge Rx Participant: Yes New Discharge Prescriptions: Continue RX: Dextroamphetamine/Amphetamine [Adderall] 20 mg PO TID RX: Multivitamins, Thera [Multivitamin (formulary)] 1 tab PO DAILY RX: Cyanocobalamin [Vitamin B-12 Injection] 1,000 mcg SQ QMONTH RX: Ergocalciferol [Vitamin D2 (DRISDOL)] 50,000 unit PO TU RX: Magnesium 200 mg PO DAILY RX: Cyanocobalamin (Vitamin B-12) [Vitamin B12] 2,500 mcg PO DAILY Discharge Medication List RX: Dextroamphetamine/Amphetamine [Adderall] 20 mg PO TID 10/05/13 [History] RX: Multivitamins, Thera [Multivitamin (formulary)] 1 tab PO DAILY 11/22/13 [ History] RX: Cyanocobalamin [Vitamin B-12 Injection] 1,000 mcg SQ QMONTH 03/15/14 [ History] RX: Ergocalciferol [Vitamin D2 (DRISDOL)] 50,000 unit PO TU 04/22/14 [History] RX: Magnesium 200 mg PO DAILY 02/14/17 [History] RX: Cyanocobalamin (Vitamin B-12) [Vitamin B12] 2,500 mcg PO DAILY 05/12/17 [ History] Follow up Appointment(s)/Referral(s): Mikaela Rojas MD [Primary Care Provider] - 06/10/17 11:50 am Hortencia Bangura MD [STAFF PHYSICIAN] - 06/16/17 1:20 pm Patient Instructions/Handouts: Dehydration (DC) Activity/Diet/Wound Care/Special Instructions: Patient is to follow-up in the [facility] June Resume diet as directed Discharge Disposition: HOME SELF-CARE
== END 2017-06-09 14:19 | disposition home or self-care (01) ==
LOC: EC 22:45 → 3SUR 06-09 01:52
PROVIDERS: ADMIT Surgery Plastic and Reconstructive Surgery; ATTEND Surgery Plastic and Reconstructive Surgery
DX: R10.9 Unspecified abdominal pain (principal); R11.2 Nausea with vomiting, unspecified; R42 Dizziness and giddiness; G89.29 Other chronic pain; K21.9 Gastro-esophageal reflux disease without esophagitis; F17.200 Nicotine dependence, unspecified, uncomplicated; F90.9 Attention-deficit hyperactivity disorder, unspecified type; F41.9 Anxiety disorder, unspecified; G43.909 Migraine, unspecified, not intractable, without status migrainosus; M19.90 Unspecified osteoarthritis, unspecified site; K57.90 Diverticulosis of intestine, part unspecified, without perforation or abscess without bleeding; Z85.42 Personal history of malignant neoplasm of other parts of uterus; Z98.84 Bariatric surgery status; Z90.49 Acquired absence of other specified parts of digestive tract; Z88.0 Allergy status to penicillin; Z88.1 Allergy status to other antibiotic agents; Z88.5 Allergy status to narcotic agent; Z91.018 Allergy to other foods; Z88.8 Allergy status to other drugs, medicaments and biological substances; Z91.048 Other nonmedicinal substance allergy status; Z98.890 Other specified postprocedural states; Z79.899 Other long term (current) drug therapy; Z86.711 Personal history of pulmonary embolism; Z86.718 Personal history of other venous thrombosis and embolism; Z82.5 Family history of asthma and other chronic lower respiratory diseases; Z82.49 Family history of ischemic heart disease and other diseases of the circulatory system; Z80.9 Family history of malignant neoplasm, unspecified; J45.909 Unspecified asthma, uncomplicated
CPT/HCPCS: 96372 ×3; 96374 ×2; 96375 ×3; 99285 ×2; 36415; 80053; 82150; 83605; 83690; 83735; 84100; 85025; 85610; 85730; 81003; 87040; 87086; 74177; G0378; J2405; J3010; C9113; Q9967; 96365

== ENCOUNTER 2017-11-28 14:09 | Emergency (ER) | payer OTHER ==
[2017-11-28 14:22] VITALS: BP 120/81; PULSE 99; RESP 16; TEMP 97.7
--- NOTE | 2017-11-28 14:50 | ED ---
General Adult HPI - General Chief complaint: Dental/Oral Stated complaint: Dental pain Time Seen by Provider: 11/28/17 14:24 Source: patient, RN notes reviewed Mode of arrival: ambulatory Limitations: no limitations - History of Present Illness Initial comments: 42-year-old female presents to the emergency department for a chief complaint of thumb pain 6 days. Patient states that 6 days ago she had 6 front teeth pulled. She states she also had a frenulectomy at that time. She denies pain in the teeth but states where she had the frenectomy has been painful. Patient states she has been taking Motrin 600 and Tylenol for the pain. Patient states that yesterday pain worsened and she started to notice a purulent material. Patient is concerned that she may have infection of the site. Patient states she has had a fever of 100 over the past 2 days. Patient denies headache. Patient denies neck pain or stiffness. Patient states all pain is over frenectomy site. Patient has a appointment with the oral surgeon in 3 days. She states she is planning on contacting the surgeon tomorrow about this problem. However, she wanted to start antibiotics before then. Patient did drive to the emergency department today and last had Motrin 600 3 hours ago. Patient has no other complaints at this time including shortness of breath, chest pain, abdominal pain, nausea or vomiting, headache, or visual changes. - Related Data Home Medications Medication Instructions Recorded Confirmed Dextroamphetamine/Amphetamine 20 mg PO TID 10/05/13 06/08/17 [Adderall] Multivitamins, Thera [Multivitamin 1 tab PO DAILY 11/22/13 06/08/17 (formulary)] Cyanocobalamin [Vitamin B-12 1,000 mcg SQ QMONTH 03/15/14 06/08/17 Injection] Ergocalciferol [Vitamin D2 50,000 unit PO TU 04/22/14 06/08/17 (DRISDOL)] Magnesium 200 mg PO DAILY 02/14/17 06/08/17 Cyanocobalamin (Vitamin B-12) 2,500 mcg PO DAILY 05/12/17 06/08/17 [Vitamin B12] Previous Rx's Medication Instructions Recorded Clindamycin [Cleocin] 450 mg PO Q8H 10 Days capsule 11/28/17 Allergies Allergy/AdvReac Type Severity Reaction Status Date / Time cephalexin monohydrate Allergy Severe Rash/Hives, Verified 11/28/17 14:22 [From Keflex] nausea,sweats,chills morphine Allergy Severe Itching, Verified 11/28/17 14:22 migraines,states "does not help with pain." Penicillins Allergy Severe Rash/Hives, Verified 11/28/17 14:22 nausea,lethargic almond Allergy Anaphylaxis Verified 11/28/17 14:22 almond oil Allergy Anaphylaxis Verified 11/28/17 14:22 [place] And Derivatives Allergy Nausea & Verified 11/28/17 14:22 [[place]] Vomiting gluten Allergy Abdominal Verified 11/28/17 14:22 Pain mustard Allergy Anaphylaxis Verified 11/28/17 14:22 walnut Allergy Anaphylaxis Verified 11/28/17 14:22 niacin AdvReac hives to Verified 11/28/17 14:22 face Review of Systems ROS Statement: Those systems with pertinent positive or pertinent negative responses have been documented in the HPI. ROS Other: All systems not noted in ROS Statement are negative. Past Medical History Past Medical History: Asthma, Cancer, Chest Pain / Angina, Deep Vein Thrombosis (DVT), GERD/Reflux, Osteoarthritis (OA), Pulmonary Embolus (PE) Additional Past Medical History / Comment(s): HYPOGLYCEMIC. diverticulitis, hypotension, migraines, "food getting stuck"-needs balloon dilation every 6-12 months, hx uterine cancer, colitis, possible crohns, nodule on adrenal gland. History of Any Multi-Drug Resistant Organisms: None Reported Past Surgical History: Appendectomy, Bariatric Surgery, Section, Cholecystectomy, Hernia Repair, Hysterectomy, Orthopedic Surgery Additional Past Surgical History / Comment(s): reyna-y gastric bypass with adhesions, rt arm-plate and screws, laparoscopy, umbilical hernia repair, I&D of abd wound,SCOPE RT SHOULDER. swallow study. Revision of RNY r/t complications, Oral surgery Past Anesthesia/Blood Transfusion Reactions: Family History of Problems w/ Anesthesia, Motion Sickness, Postoperative Nausea & Vomiting (PONV) Additional Past Anesthesia/Blood Transfusion Reaction / Comment(s): mother has asthma attacks post-op Past Psychological History: ADD/ADHD, Anxiety Smoking Status: Former smoker Past Alcohol Use History: Rare Past Drug Use History: None Reported - Past Family History Father Additional Family Medical History / Comment(s): BRAIN ANUERYSM Mother Family Medical History: AFIB, AICD/Pacemaker, Asthma, Cancer Additional Family Medical History / Comment(s): bladder General Exam Limitations: no limitations General appearance: alert, in no apparent distress Head exam: Present: atraumatic, normocephalic, normal inspection Eye exam: Present: normal appearance, PERRL, EOMI. Absent: scleral icterus, conjunctival injection ENT exam: Present: mucous membranes moist, TM's normal bilaterally, normal external ear exam. Absent: normal oropharynx (Patient refuses to take out plate containing false teeth. Patient does appear to have purulent material around frenectomy about 0.5 cm x 0.5 cm. otherwise normal exam of tongue, lower mouth. Unable to visualize upper gum line and palate as patient refuses to remove plate.) Neck exam: Present: normal inspection, full ROM. Absent: tenderness, meningismus, lymphadenopathy Respiratory exam: Present: normal lung sounds bilaterally. Absent: respiratory distress, wheezes, rales, rhonchi, stridor Cardiovascular Exam: Present: regular rate, normal rhythm, normal heart sounds. Absent: systolic murmur, diastolic murmur, rubs, gallop, clicks Neurological exam: Present: alert, oriented X3, CN II-XII intact, normal gait, other (Normal speech). Absent: motor sensory deficit, reflexes normal Psychiatric exam: Present: normal affect, normal mood Skin exam: Present: warm, dry, intact, normal color. Absent: rash Course Vital Signs 11/28/17 14:18 Temperature 97.7 F Pulse Rate 99 Respiratory 16 Rate Blood Pressure 120/81 O2 Sat by Pulse 97 Oximetry Medical Decision Making - Medical Decision Making 42-year-old female presents to the emergency department for a chief complaint of oral pain 6 days. Patient had a frenulectomy 6 days ago as well as 6 teeth extracted. Patient denies pain at extraction sites but states the frenulectomy site is painful. She states she noticed a purulent material to it 2 days ago. She did admit to a temp of 100 at home, no fever in the emergency department. Patient refuses to take out dentures as she states it is painful to replace. I did tell patient that it was important for me to be able to see the entire mouth but she refuses to remove plate and states it is just the frenulectomy that is painful. There is a purulent material over frenulectomy site that is likely consistent with healing of mucous membranes. However as patient did have a fever and is concerned for infection she will be treated with clindamycin as she is penicillin ALLERGIC. She will continue Motrin and Tylenol. She will call her dentist tomorrow and attend her appointment on Wednesday with her dentist. She will return if she has any worsening symptoms or high fevers. Disposition Clinical Impression: History of lingual frenulectomy Disposition: HOME SELF-CARE Condition: Good Instructions: Toothache (ED) Additional Instructions: Please take antibiotic as directed. Please follow-up with dentist tomorrow. Attend your scheduled appointment Wednesday. Return to the emergency department if you've any worsening symptoms or high fevers. Prescriptions: Clindamycin [Cleocin] 450 mg PO Q8H 10 Days capsule Is patient prescribed a controlled substance at d/c from ED?: No Referrals: Mikaela Rojas MD [Primary Care Provider] - 1-2 days Time of Disposition: 15:03
[2017-11-28] MEDS ORDERED: CLINDAMYCIN 150 MG CAP PO STA (15:00)
== END 2017-11-28 15:14 | disposition home or self-care (01) ==
LOC: EC 14:09
DX: K13.79 Other lesions of oral mucosa (principal); R50.9 Fever, unspecified; F90.9 Attention-deficit hyperactivity disorder, unspecified type; Z87.891 Personal history of nicotine dependence; Z88.0 Allergy status to penicillin; Z88.1 Allergy status to other antibiotic agents; Z88.5 Allergy status to narcotic agent; Z88.8 Allergy status to other drugs, medicaments and biological substances; Z91.02 Food additives allergy status; Z91.018 Allergy to other foods; Z79.899 Other long term (current) drug therapy; Z98.890 Other specified postprocedural states; Z85.42 Personal history of malignant neoplasm of other parts of uterus; Z90.710 Acquired absence of both cervix and uterus
CPT/HCPCS: 99282

== ENCOUNTER → 2018-02-16 | Outpatient (CLI) | payer OTHER ==
[2018-02-16 13:21] VITALS: BP 136/70; PULSE 109; RESP 16; TEMP 98.2; BMI 26.9
--- NOTE | 2018-02-16 13:22 | P.PN ---
Subjective Progress Note Date: 02/16/18 HPI: She was down to a size 4 in August, now 6 months ago. She has been trying to gain weight. She has gained 12 pounds from last year. She reports stricture. She has pain at the epigastrium. She is smoking. ABDOMEN: Pain along the left upper quadrant. A/P: 1. Recommend tobacco cessation 2. Recommend upper endoscopy for stricture.
== END ==
LOC: BARWHC3 12:50
PROVIDERS: ATTEND Surgery Plastic and Reconstructive Surgery
DX: R10.13 Epigastric pain (principal); R10.12 Left upper quadrant pain; R63.5 Abnormal weight gain; F17.200 Nicotine dependence, unspecified, uncomplicated
CPT/HCPCS: 99211

== ENCOUNTER → 2018-12-09 | Outpatient (CLI) | payer OTHER ==
--- NOTE | 2018-12-09 14:33 | CT ---
EXAMINATION TYPE: CT abdomen pelvis w con DATE OF EXAM: 12/09/2018 COMPARISON: CT 06/09/2017 HISTORY: History of small bowel obstruction. CT DLP: 1115 mGycm Automated exposure control for dose reduction was used. TECHNIQUE: Helical acquisition of images from the lung bases through the pelvis have been completed. CONTRAST: Performed with Oral Contrast and with IV Contrast, patient injected with 100 mL of Isovue M300. FINDINGS: Postop changes are noted at the gastroesophageal junction, stomach, suspect gastric bypass surgery. LUNG BASES: No significant abnormality is appreciated. AORTA: No significant abnormality is appreciated. LIVER/GB: No significant interval change is appreciated. Patient is post cholecystectomy. Liver shows a stable appearance. PANCREAS: No significant abnormality is seen. SPLEEN: No significant abnormality is seen. ADRENALS: Stable, there is possibly adrenal adenoma associated with the left gland. KIDNEYS: No significant abnormality is seen. REPRODUCTIVE ORGANS: Uterus is not seen, suspect the ovary on the left is present along the sidewall of the pelvis, right ovary not seen definitively. BOWEL: There is some dilated loops of small bowel in the left upper quadrant. Contrast is coursing t hrough the small bowel to the level of the terminal ileum. Small bowel also shows postop change, sutu re line. FREE AIR: No Free Air visible. ASCITES: Minimal free fluid present in the cul-de-sac region.. PELVIC ADENOPATHY: None visualized. RETROPERITONEAL ADENOPATHY: No Retroperitoneal Adenopathy visible. URINARY BLADDER: No significant abnormality is seen. OSSEOUS STRUCTURES: No significant abnormality is seen. IMPRESSION: POSTOP CHANGES. MILDLY PROMINENT SMALL BOWEL LOOP LEFT UPPER QUADRANT.
== END | disposition home or self-care (01) ==
LOC: RADCTMAIN 12:18
PROVIDERS: ATTEND Surgery Plastic and Reconstructive Surgery
DX: K56.600 Partial intestinal obstruction, unspecified as to cause (principal); Z98.890 Other specified postprocedural states; Z88.0 Allergy status to penicillin; Z88.1 Allergy status to other antibiotic agents
CPT/HCPCS: 74177; Q9967 ×2

== ENCOUNTER 2018-12-28 08:25 | Day surgery (SDC) | payer OTHER ==
[2018-12-26 10:31] VITALS: BMI 25.6
--- NOTE | 2018-12-28 08:19 | P.GSHP ---
History of Present Illness H&P Date: 12/28/18 CHIEF COMPLAINT: GERD HISTORY OF PRESENT ILLNESS: The patient is a 43-year-old female who presents reports gastroesophageal reflux disease. Upper endoscopy was offered for further evaluation and management. PAST MEDICAL HISTORY: Please see list. PAST SURGICAL HISTORY: Please see list. MEDICATIONS: Please see list. ALLERGIES: Please see list. SOCIAL HISTORY: No illicit drug use FAMILY HISTORY: No reports of Crohn disease or ulcerative colitis. REVIEW OF ORGAN SYSTEMS: CONSTITUTIONAL: No reports of fevers or chills. GI: Denies any blood in stools or constipation. PHYSICAL EXAM: VITAL SIGNS: Stable GENERAL: Well-developed and pleasant in no acute distress. HEENT: No scleral icterus. Extraocular movements grossly intact. Moist buccal mucosa. NECK: Supple without lymphadenopathy. CHEST: Unlabored respirations. Equal bilateral excursions. CARDIOVASCULAR: Regular rate and rhythm. Distal 2+ pulses. ABDOMEN: Soft, nondistended. MUSCULOSKELETAL: No clubbing, cyanosis, or edema. ASSESSMENT: 1. Gastroesophageal reflux disease PLAN: 1. Recommend proceeding with an upper endoscopy Past Medical History Past Medical History: Asthma, Cancer, Chest Pain / Angina, Deep Vein Thrombosis (DVT), GERD/Reflux, Osteoarthritis (OA), Pulmonary Embolus (PE) Additional Past Medical History / Comment(s): HYPOGLYCEMIC. diverticulitis, hypotension, migraines, "food getting stuck"-needs balloon dilation every 6-12 months, hx uterine cancer, colitis, possible crohns, nodule on adrenal gland. History of Any Multi-Drug Resistant Organisms: None Reported Past Surgical History: Appendectomy, Bariatric Surgery, Section, Cholecystectomy, Hernia Repair, Hysterectomy, Orthopedic Surgery Additional Past Surgical History / Comment(s): reyan-y gastric bypass with adhesions, rt arm-plate and screws, laparoscopy, umbilical hernia repair, I&D of abd wound,SCOPE RT SHOULDER, swallow study. Revision of RNY r/t complications, Oral surgery Past Anesthesia/Blood Transfusion Reactions: Family History of Problems w/ Anesthesia, Motion Sickness, Postoperative Nausea & Vomiting (PONV) Additional Past Anesthesia/Blood Transfusion Reaction / Comment(s): mother has asthma attacks post-op Smoking Status: Former smoker - Past Family History Father Additional Family Medical History / Comment(s): BRAIN ANUERYSM Mother Family Medical History: AFIB, AICD/Pacemaker, Asthma, Cancer Additional Family Medical History / Comment(s): bladder Medications and Allergies Home Medications Medication Instructions Recorded Confirmed Type Dextroamphetamine/Amphetamine 20 mg PO TID 10/05/13 12/26/18 History [Adderall] Albuterol Sulfate [Ventolin HFA] 1 - 2 puff INHALATION Q6H PRN 12/26/18 12/26/18 History Allergies Allergy/AdvReac Type Severity Reaction Status Date / Time cephalexin monohydrate Allergy Severe Rash/Hives, Verified 12/26/18 10:25 [From Keflex] nausea,sweats,chills morphine Allergy Severe Itching, Verified 12/26/18 10:25 migraines,states "does not help with pain." Penicillins Allergy Severe Rash/Hives, Verified 12/26/18 10:25 nausea,lethargic almond Allergy Anaphylaxis Verified 12/26/18 10:25 almond oil Allergy Anaphylaxis Verified 12/26/18 10:25 [place] And Derivatives Allergy Nausea & Verified 12/26/18 10:25 [[place]] Vomiting gluten Allergy Abdominal Verified 12/26/18 10:25 Pain mustard Allergy Anaphylaxis Verified 12/26/18 10:25 walnut Allergy Anaphylaxis Verified 12/26/18 10:25 niacin AdvReac hives to Verified 12/26/18 10:25 face
[~2018-12-28 08:25] MED LIST changes: +LIDOCAINE 1% 20 ML VIAL (10MG/ML) FOR IV START INTRADERMA PRN
[2018-12-28 08:50] VITALS: RESP 16; TEMP 97.6
[2018-12-28] MEDS ORDERED: PROPOFOL 10 MG/ML 20 ML VIAL IV ONE (09:23)
[2018-12-28] MEDS ORDERED: LIDOCAINE 1% INJ 10MG/ML (20 ML MDV) ONE (09:23)
[2018-12-28 09:41] VITALS: BP 103/69; PULSE 86
--- NOTE | 2018-12-28 09:50 | P.PCN ---
Date of Procedure: 12/28/18 Description of Procedure: PREOPERATIVE DIAGNOSIS: Dysphagia. History of gastrojejunal stricture Epigastric abdominal pain POSTOPERATIVE DIAGNOSIS: Dysphagia. Epigastric abdominal pain Gastrojejunal stricture without chronic ulcer without perforation Gastritis OPERATION: Esophagogastrojejunoscopy with balloon dilatation from 18 to 20 mm. Esophagogastrojejunoscopy with cold forceps biopsy gastric pouch. SURGEON: Hortencia Bangura MD ANESTHESIA: MAC. INDICATIONS: The patient is a 43-year-old female who presents with a history of dysphagia and epigastric abdominal pain. Benefits and risks of the procedure were described. Informed consent was obtained. DESCRIPTION: The patient was brought into the endoscopy suite and laid in the left lateral decubitus position. After a timeout was confirmed, the procedure was initiated. An Olympus gastroscope was passed along the posterior oropharynx down to the distal esophagus where the squamocolumnar junction was unremarkable. The gastric pouch was entered. 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 A Simraceway balloon dilator was placed through the scope. Final insufflation up to 20 mm was performed with a total of 2 minutes. The scope was advanced up to 60 cm from the incisors into the Renee limb. The mucosa of the gastrojejunal anastomosis was intact. NO chronic gastrojejunal marginal ulcer was encountered. Gastritis was identified and biopsies obtained with cold forceps. No full-thickness injury was encountered. The GI tract was desufflated. The patient tolerated the procedure well. FINDINGS: No chronic gastrojejunal ulceration encountered. Successful balloon dilatation 18 to 20 mm. Gastritis Gastric pouch 3 cm. Lower esophageal valve loose RECOMMENDATIONS: Upper endoscopy as needed Plan - Discharge Summary Discharge Rx Participant: No New Discharge Prescriptions: No Action Dextroamphetamine/Amphetamine [Adderall] 20 mg PO TID Albuterol Sulfate [Ventolin HFA] 1 - 2 puff INHALATION Q6H PRN PRN Reason: EXERCISE INDUCED ASTHMA Discharge Medication List Dextroamphetamine/Amphetamine [Adderall] 20 mg PO TID 10/05/13 [History] Albuterol Sulfate [Ventolin HFA] 1 - 2 puff INHALATION Q6H PRN 12/26/18 [History] Follow up Appointment(s)/Referral(s): Hortencia Bangura MD [STAFF PHYSICIAN] - 01/11/19 Patient Instructions/Handouts: Esophageal Dilation (GEN), Gastritis (DC) Activity/Diet/Wound Care/Special Instructions: Diet as tolerated Discharge Disposition: HOME SELF-CARE
== END 2018-12-28 10:25 | disposition home or self-care (01) ==
LOC: ORWHC2ENDO 08:25
PROVIDERS: ATTEND Surgery Plastic and Reconstructive Surgery
DX: K95.89 Other complications of other bariatric procedure (principal); K29.50 Unspecified chronic gastritis without bleeding; K22.8 Other specified diseases of esophagus; K21.9 Gastro-esophageal reflux disease without esophagitis; J45.909 Unspecified asthma, uncomplicated; I20.9 Angina pectoris, unspecified; M19.90 Unspecified osteoarthritis, unspecified site; E16.2 Hypoglycemia, unspecified; I95.9 Hypotension, unspecified; K57.92 Diverticulitis of intestine, part unspecified, without perforation or abscess without bleeding; K52.9 Noninfective gastroenteritis and colitis, unspecified; G43.909 Migraine, unspecified, not intractable, without status migrainosus; E27.8 Other specified disorders of adrenal gland; Z87.891 Personal history of nicotine dependence; Z90.49 Acquired absence of other specified parts of digestive tract; Z90.710 Acquired absence of both cervix and uterus; Z86.718 Personal history of other venous thrombosis and embolism; Z86.711 Personal history of pulmonary embolism; Z85.89 Personal history of malignant neoplasm of other organs and systems; Z85.42 Personal history of malignant neoplasm of other parts of uterus; Z82.5 Family history of asthma and other chronic lower respiratory diseases; Z80.52 Family history of malignant neoplasm of bladder; Z84.89 Family history of other specified conditions; Z79.899 Other long term (current) drug therapy; Z88.1 Allergy status to other antibiotic agents; Z88.5 Allergy status to narcotic agent; Z91.018 Allergy to other foods; Z88.0 Allergy status to penicillin; Z91.09 Other allergy status, other than to drugs and biological substances
CPT/HCPCS: 88305; 43239; 43245; J2001; J2704; C1726

== ENCOUNTER 2019-05-12 12:29 | Emergency (ER) | payer OTHER ==
[2019-05-12 12:38] VITALS: RESP 18
[2019-05-12] MEDS ORDERED: KETOROLAC 30 MG/ML 1 ML VIAL IM STA (13:12)
--- NOTE | 2019-05-12 13:37 | XR ---
EXAMINATION TYPE: XR hand complete RT DATE OF EXAM: 05/12/2019 COMPARISON: Forearm 07/02/2016 HISTORY: 44-year-old female fall, second and third digit pain TECHNIQUE: 3 views FINDINGS: Partially visualized distal aspect of a fixation plate along the radial shaft. Tiny ossific density j ust beyond the ulnar styloid process was present back in 2017 compatible with sequela of remote injur y. No acute fracture, subluxation, dislocation. IMPRESSION: No acute osseous abnormality seen.
--- NOTE | 2019-05-12 14:12 | ED ---
Upper Extremity HPI - General Chief Complaint: Extremity Injury, Upper Stated Complaint: rt hand injury Time Seen by Provider: 05/12/19 12:47 Source: patient Mode of arrival: ambulatory Limitations: no limitations - History of Present Illness Initial Comments: Patient is a 44-year-old female presenting to emergency department with a chief complaint of right hand injury. Patient states incident occurred about 45 minutes prior to ED arrival. Patient states she slipped on a hardwood floor and landed on her right hand. Doesn't recall whether it was on an extended or flexed hand. Patient reports pain mostly located in her second and third digit. Does report occasional [place] sensation in the middle finger. Does report some swelling in the region which has since resolved. Denies any skin discoloration. The reports limited range of motion with flexion and extension. States the pain is exacerbated whenever she attempts to move the fingers. Denies any pain over the anatomical snuffbox. Denies any head injury. No blood thinners. - Related Data Home Medications Medication Instructions Recorded Confirmed Dextroamphetamine/Amphetamine 20 mg PO TID 10/05/13 12/28/18 [Adderall] Albuterol Sulfate [Ventolin HFA] 1 - 2 puff INHALATION Q6H PRN 12/26/18 12/28/18 Allergies Allergy/AdvReac Type Severity Reaction Status Date / Time cephalexin monohydrate Allergy Severe Rash/Hives, Verified 12/28/18 08:42 [From Keflex] nausea,sweats,chills morphine Allergy Severe Itching, Verified 12/28/18 08:42 migraines,states "does not help with pain." Penicillins Allergy Severe Rash/Hives, Verified 12/28/18 08:42 nausea,lethargic almond Allergy Anaphylaxis Verified 12/28/18 08:42 almond oil Allergy Anaphylaxis Verified 12/28/18 08:42 [place] And Derivatives Allergy Nausea & Verified 12/28/18 08:42 [[place]] Vomiting gluten Allergy Abdominal Verified 12/28/18 08:42 Pain mustard Allergy Anaphylaxis Verified 12/28/18 08:42 walnut Allergy Anaphylaxis Verified 12/28/18 08:42 niacin AdvReac hives to Verified 12/28/18 08:42 face Review of Systems ROS Statement: Those systems with pertinent positive or pertinent negative responses have been documented in the HPI. ROS Other: All systems not noted in ROS Statement are negative. Past Medical History Past Medical History: Asthma, Cancer, Chest Pain / Angina, Deep Vein Thrombosis (DVT), GERD/Reflux, Osteoarthritis (OA), Pulmonary Embolus (PE) Additional Past Medical History / Comment(s): HYPOGLYCEMIC. diverticulitis, hypotension, migraines, "food getting stuck"-needs balloon dilation every 6-12 months, hx uterine cancer, colitis, possible crohns, nodule on adrenal gland. History of Any Multi-Drug Resistant Organisms: None Reported Past Surgical History: Hysterectomy Additional Past Surgical History / Comment(s): reyna-y gastric bypass with adhesions, rt arm-plate and screws, laparoscopy, umbilical hernia repair, I&D of abd wound,SCOPE RT SHOULDER. swallow study. Revision of RNY r/t complications, Oral surgery Past Anesthesia/Blood Transfusion Reactions: Family History of Problems w/ Anesthesia, Motion Sickness, Postoperative Nausea & Vomiting (PONV) Additional Past Anesthesia/Blood Transfusion Reaction / Comment(s): mother has asthma attacks post-op Past Psychological History: ADD/ADHD, Anxiety Smoking Status: Former smoker - Past Family History Father Additional Family Medical History / Comment(s): BRAIN ANUERYSM Mother Family Medical History: AFIB, AICD/Pacemaker, Asthma, Cancer Additional Family Medical History / Comment(s): bladder General Exam Limitations: no limitations General appearance: alert, in no apparent distress Head exam: Present: atraumatic, normocephalic, normal inspection Eye exam: Present: normal appearance Pupils: Present: normal accommodation ENT exam: Present: normal exam Neck exam: Present: normal inspection, full ROM Respiratory exam: Present: normal lung sounds bilaterally Cardiovascular Exam: Present: regular rate, normal rhythm, normal heart sounds Extremities exam: Present: normal inspection (She has slight discolored hands and nails due to working in [employer] shop without wearing gloves.), tenderness (Tetanus along the PIP and DIP joints of the second and third digits. No tenderness over the anatomical snuffbox.), normal capillary refill, other (+2 ulnar radial pulses bilaterally.). Absent: full ROM (Limited range of motion of flexion and extension and the second and third digit.), pedal edema, joint swelling Back exam: Present: normal inspection, full ROM Neurological exam: Present: alert, oriented X3 Psychiatric exam: Present: normal affect, normal mood Skin exam: Present: warm, dry, intact, normal color Course Vital Signs 05/12/19 05/12/19 05/12/19 12:34 13:31 14:31 Temperature 97.8 F 97.7 F 98.1 F Pulse Rate 107 H 77 93 Respiratory 18 18 18 Rate Blood Pressure 122/71 100/79 104/78 O2 Sat by Pulse 98 98 95 Oximetry Medical Decision Making - Medical Decision Making Patient is a 44-year-old female presenting to the emergency department with a chief complaint of right hand injury. 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 On exam patient is vascularly intact. 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 Has limited range of motion. Does report an occasional ti ngling sensation in the middle finger but it is not always present. No swelling or ecchymosis in the region. Patient was given 30 mg of Toradol and ice was applied. X-rays negative for acute fractures or dislocations. I suspect the patient several contusion to the region causing her to have the limited range of motion and pain. Patient advised to alternate between Tylenol and Motrin for pain control. She was advised follow-up with civil design specialist. She was advised to apply ice compress and keep the region of injury elevated to alleviate some of his symptoms. Return parameters were thoroughly discussed with patient was understanding and agreeable. Case discussed with physician. Disposition Clinical Impression: Injury of right hand, Fall Disposition: HOME SELF-CARE Condition: Stable Instructions (If sedation given, give patient instructions): Hand Sprain (ED) Additional Instructions: Alternate between Tylenol and Motrin for pain control. Apply ice compress to minimize symptoms. Return to emergency department if symptoms worsen. Follow- up with civil design specialist if symptoms not improved. Is patient prescribed a controlled substance at d/c from ED?: No Referrals: Mikaela Rojas MD [Primary Care Provider] - 1-2 days Jose Alberto Shetty DO [Doctor of Osteopathic Medicine] - 1-2 days Time of Disposition: 14:12
[2019-05-12 14:33] VITALS: BP 104/78; PULSE 93; TEMP 98.1
== END 2019-05-12 14:35 | disposition home or self-care (01) ==
LOC: EC 12:29
DX: S69.91XA Unspecified injury of right wrist, hand and finger(s), initial encounter (principal); R23.8 Other skin changes; F90.9 Attention-deficit hyperactivity disorder, unspecified type; J45.909 Unspecified asthma, uncomplicated; Z79.899 Other long term (current) drug therapy; Z88.0 Allergy status to penicillin; Z88.1 Allergy status to other antibiotic agents; Z88.5 Allergy status to narcotic agent; Z91.018 Allergy to other foods; Z88.8 Allergy status to other drugs, medicaments and biological substances; Z87.891 Personal history of nicotine dependence; Z98.84 Bariatric surgery status; Z86.718 Personal history of other venous thrombosis and embolism; Z86.711 Personal history of pulmonary embolism; Z85.42 Personal history of malignant neoplasm of other parts of uterus; W01.0XXA Fall on same level from slipping, tripping and stumbling without subsequent striking against object, initial encounter
CPT/HCPCS: 73130; 99283; 96372; J1885

== ENCOUNTER → 2019-07-17 | Outpatient (CLI) | payer OTHER | END | disposition home or self-care (01) | LOC: LABWHC1 10:42 | PROVIDERS: ATTEND Surgery Plastic and Reconstructive Surgery | DX: U07.1 COVID-19 (principal) | CPT/HCPCS: 87635 ==

== ENCOUNTER → 2019-07-20 | Day surgery (SDC) | payer OTHER ==
[2019-07-18 11:56] VITALS: BMI 25.7
[~2019-07-20] MED LIST changes: +LIDOCAINE 1% (10MG/ML) FOR IV START INTRADERMA ONE; -LIDOCAINE 1% 20 ML VIAL (10MG/ML) FOR IV START INTRADERMA PRN; +PROPOFOL 10 MG/ML 20 ML VIAL IV ONE
--- NOTE | 2019-07-20 09:12 | P.GSHP ---
History of Present Illness H&P Date: 07/20/19 CHIEF COMPLAINT: Dysphagia HISTORY OF PRESENT ILLNESS: The patient is a 44-year-old female who presents reports dysphagia. She has history of esophageal obstruction. Upper endoscopy was offered for further evaluation and management. PAST MEDICAL HISTORY: Please see list. PAST SURGICAL HISTORY: Please see list. MEDICATIONS: Please see list. ALLERGIES: Please see list. SOCIAL HISTORY: No illicit drug use FAMILY HISTORY: No reports of Crohn disease or ulcerative colitis. REVIEW OF ORGAN SYSTEMS: CONSTITUTIONAL: No reports of fevers or chills. GI: Denies any blood in stools or constipation. PHYSICAL EXAM: VITAL SIGNS: Stable GENERAL: Well-developed and pleasant in no acute distress. HEENT: No scleral icterus. Extraocular movements grossly intact. Moist buccal mucosa. NECK: Supple without lymphadenopathy. CHEST: Unlabored respirations. Equal bilateral excursions. CARDIOVASCULAR: Regular rate and rhythm. Distal 2+ pulses. ABDOMEN: Soft, nondistended. MUSCULOSKELETAL: No clubbing, cyanosis, or edema. ASSESSMENT: 1. Dysphagia 2. History of esophageal obstruction. PLAN: 1. Recommend proceeding with an upper endoscopy with dilation Past Medical History Past Medical History: Asthma, Cancer, Chest Pain / Angina, Deep Vein Thrombosis (DVT), GERD/Reflux, Osteoarthritis (OA), Pulmonary Embolus (PE) Additional Past Medical History / Comment(s): HYPOGLYCEMIC. diverticulitis, hypotension, migraines, "food getting stuck"-needs balloon dilation every 6-12 months, hx uterine cancer, colitis, possible crohns, nodule on adrenal gland. History of Any Multi-Drug Resistant Organisms: None Reported Past Surgical History: Appendectomy, Bariatric Surgery, Cholecystectomy, Hysterectomy, Orthopedic Surgery Additional Past Surgical History / Comment(s): reyna-y gastric bypass with adhesions, rt arm-plate and screws, laparoscopy, umbilical hernia repair, I&D of abd wound,SCOPE RT SHOULDER. swallow study. Revision of RNY r/t complications, Oral surgery Past Anesthesia/Blood Transfusion Reactions: Family History of Problems w/ Anesthesia, Motion Sickness, Postoperative Nausea & Vomiting (PONV) Additional Past Anesthesia/Blood Transfusion Reaction / Comment(s): mother has asthma attacks post-op Smoking Status: Former smoker - Past Family History Father Additional Family Medical History / Comment(s): BRAIN ANUERYSM Mother Family Medical History: AFIB, AICD/Pacemaker, Asthma, Cancer Additional Family Medical History / Comment(s): bladder Medications and Allergies Home Medications Medication Instructions Recorded Confirmed Type Dextroamphetamine/Amphetamine 20 mg PO TID 10/05/13 07/18/19 History [Adderall] Albuterol Sulfate [Ventolin HFA] 1 - 2 puff INHALATION Q6H PRN 12/26/18 07/18/19 History Ondansetron HCl [Zofran] 4 mg PO Q8H PRN 07/18/19 07/18/19 History Allergies Allergy/AdvReac Type Severity Reaction Status Date / Time cephalexin monohydrate Allergy Severe Rash/Hives, Verified 07/18/19 11:44 [From Keflex] nausea,sweats,chills morphine Allergy Severe Itching, Verified 07/18/19 11:44 migraines,states "does not help with pain." Penicillins Allergy Severe Rash/Hives, Verified 07/18/19 11:44 nausea,lethargic almond Allergy Anaphylaxis Verified 07/18/19 11:44 almond oil Allergy Anaphylaxis Verified 07/18/19 11:44 Zihlman And Derivatives Allergy Nausea & Verified 07/18/19 11:44 [Zihlman] Vomiting gluten Allergy Abdominal Verified 07/18/19 11:44 Pain mustard Allergy Anaphylaxis Verified 07/18/19 11:44 walnut Allergy Anaphylaxis Verified 07/18/19 11:44 niacin AdvReac hives to Verified 07/18/19 11:44 face
[2019-07-20 09:18] VITALS: TEMP 98.3
[2019-07-20 09:30] LABS: Glucose,Whole Blood 110 mg/dL (75-99)
--- NOTE | 2019-07-20 09:59 | P.PCN ---
Date of Procedure: 07/20/19 Description of Procedure: PREOPERATIVE DIAGNOSIS: Dysphagia. Nausea with vomiting. POSTOPERATIVE DIAGNOSIS: Dysphagia. Nausea with vomiting. Gastrojejunal stricture Esophageal dysmotility OPERATION: Esophagogastrojejunoscopy with balloon dilatation from 20 mm for gastrojejunal anastomosis and esophagus SURGEON: Hortencia Bangura MD ANESTHESIA: MAC. INDICATIONS: The patient is a 44-year-old female who presents with a history of dysphagia, epigastric pain nausea and vomiting. Benefits and risks of the procedure were described. Informed consent was obtained. DESCRIPTION: The patient was brought into the endoscopy suite and laid in the left lateral decubitus position. After a timeout was confirmed, the procedure was initiated. An Olympus gastroscope was passed along the posterior oropharynx down to the distal esophagus where the squamocolumnar junction was unremarkable. The gastric pouch was entered. 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 A PawSpot balloon dilator was placed through the scope. Final insufflation up to 20 mm was performed with a total of 2 minutes. Esophageal dysmotility was also identified of the distal esophagus and similarly dilated with the balloon 20 mm for 1 minute. The scope was advanced up to 60 cm from the incisors into the Renee limb. The mucosa of the gastrojejunal anastomosis was intact. No chronic gastrojejunal marginal ulcer was encountered. No full-thickness injury was encountered. The GI tract was desufflated. The patient tolerated the procedure well. FINDINGS: Stricture of approximately 15 mm encountered. No chronic gastrojejunal ulceration encountered. Esophageal dysmotility distal esophagus dilated. Successful balloon dilatation to 20 mm. RECOMMENDATIONS: Upper endoscopy as needed. Recommend warm beverages for esophageal spasm Plan - Discharge Summary Discharge Rx Participant: No New Discharge Prescriptions: Continue Dextroamphetamine/Amphetamine [Adderall] 20 mg PO TID Albuterol Sulfate [Ventolin HFA] 1 - 2 puff INHALATION Q6H PRN PRN Reason: EXERCISE INDUCED ASTHMA Ondansetron HCl [Zofran] 4 mg PO Q8H PRN PRN Reason: Nausea And Vomiting Discharge Medication List Dextroamphetamine/Amphetamine [Adderall] 20 mg PO TID 10/05/13 [History] Albuterol Sulfate [Ventolin HFA] 1 - 2 puff INHALATION Q6H PRN 12/26/18 [History] Ondansetron HCl [Zofran] 4 mg PO Q8H PRN 07/18/19 [History] Follow up Appointment(s)/Referral(s): Hortencia Bangura MD [STAFF PHYSICIAN] - 07/25/19 (Telemedicine) Patient Instructions/Handouts: Esophageal Dilation (DC) Activity/Diet/Wound Care/Special Instructions: Regular diet. Recommend warm beverages. Discharge Disposition: HOME SELF-CARE
[2019-07-20 10:19] VITALS: BP 97/65; PULSE 89; RESP 16
== END | disposition home or self-care (01) ==
LOC: ORWHC2ENDO 08:56
PROVIDERS: ATTEND Surgery Plastic and Reconstructive Surgery
DX: K22.4 Dyskinesia of esophagus (principal); K91.89 Other postprocedural complications and disorders of digestive system; K31.89 Other diseases of stomach and duodenum; K21.9 Gastro-esophageal reflux disease without esophagitis; J45.909 Unspecified asthma, uncomplicated; K52.9 Noninfective gastroenteritis and colitis, unspecified; M19.90 Unspecified osteoarthritis, unspecified site; Z98.84 Bariatric surgery status; Z88.0 Allergy status to penicillin; Z88.1 Allergy status to other antibiotic agents; Z88.5 Allergy status to narcotic agent; Z90.710 Acquired absence of both cervix and uterus; Z86.711 Personal history of pulmonary embolism; Z87.891 Personal history of nicotine dependence; Z86.718 Personal history of other venous thrombosis and embolism; Z90.49 Acquired absence of other specified parts of digestive tract; Z98.890 Other specified postprocedural states; Z91.018 Allergy to other foods; Z85.42 Personal history of malignant neoplasm of other parts of uterus; Z82.49 Family history of ischemic heart disease and other diseases of the circulatory system; Z82.5 Family history of asthma and other chronic lower respiratory diseases; Z80.52 Family history of malignant neoplasm of bladder
CPT/HCPCS: 43249

== ENCOUNTER → 2019-07-28 | Outpatient (CLI) | payer OTHER | END | disposition home or self-care (01) | LOC: LABWHC1 09:54 | PROVIDERS: ATTEND Surgery Plastic and Reconstructive Surgery | DX: U07.1 COVID-19 (principal) | CPT/HCPCS: 87635 ==

== ENCOUNTER 2019-07-31 09:09 | Day surgery (SDC) | payer OTHER ==
[2019-07-28 08:38] VITALS: BMI 28.3
--- NOTE | 2019-07-30 21:22 | P.GSHP ---
History of Present Illness H&P Date: 07/31/19 CHIEF COMPLAINT: History of intra-abdominal adhesions HISTORY OF PRESENT ILLNESS: The patient is a 44-year-old female who presents with history of intra-abdominal adhesions from multiple prior surgeries including increasing abdominal pain. She now presents for diagnostic laparoscopy including lysis of adhesions. PAST MEDICAL HISTORY: Please see list. PAST SURGICAL HISTORY: Please see list. MEDICATIONS: Please see list. ALLERGIES: Please see list. SOCIAL HISTORY: No illicit drug use FAMILY HISTORY: No reports of Crohn disease or ulcerative colitis. REVIEW OF ORGAN SYSTEMS: CONSTITUTIONAL: No reports of fevers or chills. GI: Denies any blood in stools or constipation. PHYSICAL EXAM: VITAL SIGNS: Stable GENERAL: Well-developed pleasant and in no acute distress. HEENT: No scleral icterus. Extraocular movements grossly intact. Moist buccal mucosa. NECK: Supple without lymphadenopathy. CHEST: Unlabored respirations. Equal bilateral excursions. CARDIOVASCULAR: Regular rate and rhythm. Distal 2+ pulses. ABDOMEN: Soft, diffuse abdominal tenderness. No peritonitis. MUSCULOSKELETAL: No clubbing, cyanosis, or edema. ASSESSMENT: 1. Diffuse abdominal pain. 2. History of multiple abdominal surgeries. 3. Intra-abdominal adhesions. PLAN: 1. Robotic lysis of adhesions were described in detail including risk of injury to the intestine, need for further surgery, and open technique. 2. DVT prophylaxis. 3. Antibiotic prophylaxis. Past Medical History Past Medical History: Asthma, Cancer, Chest Pain / Angina, Deep Vein Thrombosis (DVT), GERD/Reflux, Osteoarthritis (OA), Pulmonary Embolus (PE) Additional Past Medical History / Comment(s): HYPOGLYCEMIC. diverticulitis, hypotension, migraines, "food getting stuck"-needs balloon dilation every 6-12 months, hx uterine cancer, colitis, possible crohns, nodule on adrenal gland. History of Any Multi-Drug Resistant Organisms: None Reported Past Surgical History: Appendectomy, Bariatric Surgery, Cholecystectomy, Hernia Repair, Hysterectomy, Orthopedic Surgery Additional Past Surgical History / Comment(s): reyna-y gastric bypass with adhesions, rt arm-plate and screws, laparoscopy, umbilical hernia repair, I&D of abd wound,SCOPE RT SHOULDER, swallow study. Revision of RNY r/t complications, Oral surgery Past Anesthesia/Blood Transfusion Reactions: Family History of Problems w/ Anesthesia, Motion Sickness, Postoperative Nausea & Vomiting (PONV) Additional Past Anesthesia/Blood Transfusion Reaction / Comment(s): mother has asthma attacks post-op Smoking Status: Former smoker - Past Family History Father Additional Family Medical History / Comment(s): BRAIN ANUERYSM Mother Family Medical History: AFIB, AICD/Pacemaker, Asthma, Cancer Additional Family Medical History / Comment(s): bladder Medications and Allergies Home Medications Medication Instructions Recorded Confirmed Type Dextroamphetamine/Amphetamine 20 mg PO TID 10/05/13 07/28/19 History [Adderall] Albuterol Sulfate [Ventolin HFA] 1 - 2 puff INHALATION Q6H PRN 12/26/18 07/28/19 History Ondansetron HCl [Zofran] 4 mg PO Q8H PRN 07/18/19 07/28/19 History hydrOXYzine PAMOATE [Vistaril] 25 - 50 mg PO BID PRN 07/28/19 07/28/19 History Allergies Allergy/AdvReac Type Severity Reaction Status Date / Time cephalexin monohydrate Allergy Severe Rash/Hives, Verified 07/28/19 08:19 [From Keflex] nausea,sweats,chills morphine Allergy Severe Itching, Verified 07/28/19 08:19 migraines,states "does not help with pain." Penicillins Allergy Severe Rash/Hives, Verified 07/28/19 08:19 nausea,lethargic almond Allergy Anaphylaxis Verified 07/28/19 08:19 almond oil Allergy Anaphylaxis Verified 07/28/19 08:19 Toole And Derivatives Allergy Nausea & Verified 07/28/19 08:19 [Toole] Vomiting gluten Allergy Abdominal Verified 07/28/19 08:19 Pain mustard Allergy Anaphylaxis Verified 07/28/19 08:19 walnut Allergy Anaphylaxis Verified 07/28/19 08:19 niacin AdvReac hives to Verified 07/28/19 08:19 face
[~2019-07-31 09:09] MED LIST changes: +ACETAMINOPHEN TAB 500 MG TAB PO STA; +CLINDAMYCIN 900 MG in DEXTROSE 5% IN WATER 50 ML IVPB STA; +DEXAMETHASONE SOD PHOSPHATE 10 MG/ML 1 ML VIAL IV ONE; +GABAPENTIN 300 MG CAP PO STA; +HEPARIN SODIUM,PORCINE 5,000 UNIT/ML 1 ML VIAL SQ STA; -LIDOCAINE 1% (10MG/ML) FOR IV START INTRADERMA ONE; +MIDAZOLAM 2 MG/2 ML VIAL IV PRN; +ONDANSETRON 4 MG/2 ML VIAL IVP ONE; -PROPOFOL 10 MG/ML 20 ML VIAL IV ONE; +Pre Op ABX Message 1 EACH MISC MISCELLANE ONE; +TAMSULOSIN 0.4 MG CAP.ER.24H PO STA
[2019-07-31 09:45] LABS: Anisocytosis Slight; Basophils % (A) 0 %; Eosinophils # (A) 0.2 k/uL (0-0.7); Eosinophils % (A) 4 %; HCT 35.1 % (34.0-46.0); HGB 10.8 gm/dL (11.4-16.0); Hypochromasia Moderate; Lymphocytes # (A) 1.3 k/uL (1.0-4.8); Lymphocytes % (A) 23 %; MCH 22.1 pg (25.0-35.0); MCHC 30.7 g/dL (31.0-37.0); Mean Platelet Volume 7.5; Microcytosis Moderate; Monocytes # (A) 0.4 k/uL (0-1.0); Monocytes % (A) 7 %; Neutrophils # (A) 3.4 k/uL (1.3-7.7); Neutrophils % (A) 63 %; Platelet Count 350 k/uL (150-450); Poikilocytosis Slight; RBC 4.87 m/uL (3.80-5.40); RDW 16.1 % (11.5-15.5); WBC 5.4 k/uL (3.8-10.6)
[2019-07-31] MEDS ORDERED: SUCCINYLCHOLINE CHLORIDE 100 MG/5 ML SYR IV ONE (10:55)
[2019-07-31] MEDS ORDERED: NEOSTIGMINE 1 MG/ML 10 ML VIAL ONE (10:55)
[2019-07-31] MEDS ORDERED: KETAMINE 10 MG/ML 20 ML VIAL ONE (10:55)
[2019-07-31] MEDS ORDERED: PROPOFOL 10 MG/ML 20 ML VIAL IV ONE (10:55)
[2019-07-31] MEDS ORDERED: ROCURONIUM BROMIDE 10 MG/ML 5 ML VIAL IV ONE (10:55)
[2019-07-31] MEDS ORDERED: MIDAZOLAM 2 MG/2 ML VIAL ONE (10:55)
[2019-07-31] MEDS ORDERED: LIDOCAINE 1% INJ 10MG/ML (20 ML MDV) ONE (10:55)
[2019-07-31] MEDS ORDERED: GLYCOPYRROLATE 0.2 MG/ML 2 ML VIAL ONE (10:55)
[2019-07-31] MEDS ORDERED: fentaNYL (PF) 50 MCG/ML 2 ML AMP ONE (10:55)
[2019-07-31] MEDS ORDERED: LACTATED RINGERS 1,000 ML IV ONE ×2 (11:23→13:50)
[2019-07-31 12:46] VITALS: TEMP 98.1
[2019-07-31] MEDS: HYDROmorphone 0.5 MG/0.5 ML SYRINGE IVP PRN ×3 (12:54→13:50)
[2019-07-31] MEDS ORDERED: diphenhydrAMINE 50 MG/ML 1 ML VIAL IVP ONE (12:54)
--- NOTE | 2019-07-31 13:35 | P.OP ---
Date of Procedure: 07/31/19 Description of Procedure: Small bowel volvulus detorsed Interloop adhesions renee limb, gastrojejunostomy, distal ileum distal jejunum lysed No enterotomies. Right abdominal wall docking with 5 Higgins port left upper quadrant SURGEON: ALEXANDRIA RENTERIA MD PREOPERATIVE DIAGNOSES: 1. Epigastric and left upper quadrant abdominal pain 2. History of peritoneal adhesion 3. History of gastric bypass 4. ADD with ADHD 5. Gastroesophageal reflux disease 7. Past history of uterine cancer status post hysterectomy 8. Multiple abdominal surgeries POSTOPERATIVE DIAGNOSES: 1. Epigastric and left upper quadrant abdominal pain 2. History of peritoneal adhesion 3. History of gastric bypass 4. ADD with ADHD 5. Gastroesophageal reflux disease 7. Past history of uterine cancer status post hysterectomy 8. Multiple abdominal surgeries 9. Small bowel volvulus 10. Peritoneal adhesions with interloop small bowel adhesions OPERATION: 1. Robotic-assisted da Shazia Xi laparoscopic with extensive lysis of adhesions 1 hr 2. Robotic-assisted da Shazia Xi laparoscopic reduction of small bowel volvulus ESTIMATED BLOOD LOSS: 5 mL. SPECIMENS REMOVED: None. COMPLICATIONS: None. OPERATIVE FINDINGS: 1. No ventral hernias identified. 2. Adhesions along the epigastrium and left upper quadrant of gastrojejunal anastomosis to the liver and interloop adhesions of left upper quadrant involving renee limb 3. Long mesentery of the small bowel with small bowel volvulus reduced 4. Complete scarring of Evans defect and jejunojejunostomy mesenteric defect 5. Adhesion of gastrojejunal anastomosis to the anterior abdominal wall released 6. Abnormal adhesions of biliopancreatic limb jejunostomy to renee limb divided 7. Normal terminal ileum and cecum unremarkable. INDICATIONS: The patient is a 44-year-old female who presents with epigastric abdominal pain including left upper quadrant abdominal pain. Surgical intervention with diagnostic laparoscopy, lysis of adhesions were described. Informed consent was obtained. Robotic assisted laparoscopic approach was described. Benefits and risks of the procedure including but not limited to bleeding, infection, injury to the small bowel was described. Informed consent was obtained. DESCRIPTION OF PROCEDURE: Patient was brought to the operating room, placed in supine position. After general induction, the abdomen had been prepped and draped in standard sterile fashion. The robotic da Shazia XI system was primed. After a timeout protocol was performed, the patient had been prepped and draped in standard sterile fashion. The robot was docked along the right lateral abdomen. The patient was repositioned in with right side up. Please note prior to docking of the robot; however, a 5 mm 0 degrees laparoscopic trocar entry was performed along the left upper quadrant. The abdomen was insufflated to 15 mmHg pressure which she tolerated well. Diagnostic laparoscopy was performed. Next, three 8 mm robotic ports were placed along the right lateral abdominal wall. The camera 8-mm port was maintained along mid-lateral abdomen. Please note that the ports were placed at least 10 to 15 cm away from the target anatomy. Instruments including graspers and vessel sealer were interchanged by the embalmer assistant. I had sat at the console. No evidence of incisional hernia was identified. The small bowel from the renee limb to distal ileum was inspected. The small bowel was investigated from the terminal ileum to the ligament of Treitz with finding of redundant mesentery with active small bowel volvulus involving the jejunum to the jejunojejunostomy mesenteric defect. Abnormal adhesions to the jejunojejunostomy was identified and divided. Interloop adhesions of the Renee limb at the left upper quadrant was also lysed using scissors. Along the distal jejunum and ileum, interloop adhesions were similarly lysed using scissors. The mesentery small bowel volvulus were reduced. No herniation of bowel was found along the Evans defect or jejunojejunostomy mesenteric defect. Adhesion of gastrojejunal an astomosis to the anterior abdominal wall was released. The terminal ileum and cecum was unremarkable. Extensive lysis of adhesions 1 hr was performed. The small bowel was viable.The robot was undocked. All pneumoperitoneum instruments were evacuated from the abdominal cavity. The incisions were reapproximated using 4-0 Monocryl in an interrupted subcuticular fashion. Please note along the trocar sites, local anesthetic was placed as a field block prior to insertion of all instruments. Exofin was applied to the skin. At the end of the procedure needle, sponge, and instrument count had been verified correct by the director medical surgical. The patient was transferred to postanesthesia care unit in stable condition. Plan - Discharge Summary Discharge Rx Participant: No New Discharge Prescriptions: New Acetaminophen Tab [Tylenol Tab] 1,000 mg PO Q6HR PRN #30 tablet PRN Reason: Pain Ibuprofen [Motrin] 600 mg PO Q8HR PRN #20 tab PRN Reason: Pain Omeprazole [PriLOSEC] 40 mg PO DAILY #14 cap Tamsulosin [Flomax] 0.4 mg PO DAILY #5 cap.er.24h Continue Dextroamphetamine/Amphetamine [Adderall] 20 mg PO TID Albuterol Sulfate [Ventolin HFA] 1 - 2 puff INHALATION Q6H PRN PRN Reason: EXERCISE INDUCED ASTHMA Ondansetron HCl [Zofran] 4 mg PO Q8H PRN PRN Reason: Nausea And Vomiting hydrOXYzine PAMOATE [Vistaril] 25 - 50 mg PO BID PRN PRN Reason: Anxiety Discharge Medication List Dextroamphetamine/Amphetamine [Adderall] 20 mg PO TID 10/05/13 [History] Albuterol Sulfate [Ventolin HFA] 1 - 2 puff INHALATION Q6H PRN 12/26/18 [History] Ondansetron HCl [Zofran] 4 mg PO Q8H PRN 07/18/19 [History] hydrOXYzine PAMOATE [Vistaril] 25 - 50 mg PO BID PRN 07/28/19 [History] Acetaminophen Tab [Tylenol Tab] 1,000 mg PO Q6HR PRN #30 tablet 07/31/19 [Rx] Ibuprofen [Motrin] 600 mg PO Q8HR PRN #20 tab 07/31/19 [Rx] Omeprazole [PriLOSEC] 40 mg PO DAILY #14 cap 07/31/19 [Rx] Tamsulosin [Flomax] 0.4 mg PO DAILY #5 cap.er.24h 07/31/19 [Rx] [facility]ment([facility] [facility] [place] [facility] Patient Instructions/Handouts: *Surgery [facility] - (Anesthesia) Discharge Instructions Outpatient Surgery, Lysis of Abdominal Adhesions (IP) Activity/Diet/Wound Care/Special Instructions: No lifting over 10 pounds in 2 weeks until August 13. July shower. No bath tub soaks for two weeks until August 13 Diet as tolerated. No driving while on narcotics. Use Tylenol and ibuprofen or Aleve scheduled for the next 24-48 hours for best pain relief. Use ice along incisions for the today to prevent swelling. Discharge Disposition: HOME SELF-CARE
[2019-07-31] MEDS ORDERED: KETOROLAC 30 MG/ML 1 ML VIAL IVP ONE (13:44)
[2019-07-31 14:11] VITALS: RESP 16
[2019-07-31 14:26] VITALS: BP 92/51; PULSE 95
== END 2019-07-31 16:14 | disposition home or self-care (01) ==
LOC: OR 09:09
PROVIDERS: ATTEND Surgery Plastic and Reconstructive Surgery
DX: K66.0 Peritoneal adhesions (postprocedural) (postinfection) (principal); K56.2 Volvulus; K91.89 Other postprocedural complications and disorders of digestive system; J45.909 Unspecified asthma, uncomplicated; G43.909 Migraine, unspecified, not intractable, without status migrainosus; K21.9 Gastro-esophageal reflux disease without esophagitis; F90.9 Attention-deficit hyperactivity disorder, unspecified type; M19.90 Unspecified osteoarthritis, unspecified site; Z98.84 Bariatric surgery status; Z90.710 Acquired absence of both cervix and uterus; Z85.42 Personal history of malignant neoplasm of other parts of uterus; Z79.899 Other long term (current) drug therapy; Z88.0 Allergy status to penicillin; Z88.1 Allergy status to other antibiotic agents; Z88.5 Allergy status to narcotic agent; Z91.018 Allergy to other foods; Z86.711 Personal history of pulmonary embolism; Z86.718 Personal history of other venous thrombosis and embolism; Z87.891 Personal history of nicotine dependence; Z82.5 Family history of asthma and other chronic lower respiratory diseases; Z82.49 Family history of ischemic heart disease and other diseases of the circulatory system; Z80.52 Family history of malignant neoplasm of bladder
CPT/HCPCS: 85025; 44180; 44238; J2250; J1200; J1644; J1100; J2710; J2405; J2001; J3010; J1885; J0330; J2704; J1170

== ENCOUNTER → 2020-02-07 | Outpatient (CLI) | payer OTHER ==
[2020-02-07 15:03] VITALS: BP 118/73; PULSE 86; RESP 18; TEMP 99.2; BMI 32.1
--- NOTE | 2020-02-07 15:40 | P.PN ---
Subjective Progress Note Date: 02/07/20 DATE OF SERVICE: 02/07/2020 CHIEF COMPLAINT: Follow up gastric bypass HISTORY OF PRESENT ILLNESS: Dorie Morales is a 44-year-old female with history of a gastric bypass in October 2012. She is 7 years out. She has left upper abdominal pain. She reports eating food and getting a stomach ache. She reports fish gives her abdominal pain. She gained 30 pounds in 2 years. She can drink thick fluids well. At her height of 5 foot 5 pounds, her ideal body weight is 149 pounds. Her highest personal weight was 268 pounds. Today she comes in weighing 193 pounds from 162 pounds. She gained 31 pounds from 2 years ago. Her lifetime weight loss is 75 pounds. Her percent excess weight loss lifetime is 63 %. Body mass index is reduced from 44.7 down to 32.1 PHYSICAL EXAM: VITAL SIGNS: 5 foot 5, 162 pounds. Body mass index is 32.1 Vital Signs Temp 99.2 F 02/07/20 14:49 Pulse 86 02/07/20 14:49 Resp 18 02/07/20 14:49 BP 118/73 02/07/20 14:49 Pulse Ox ABDOMEN: Pain along the left upper quadrant. GENERAL: Well-developed female no acute distress. HEENT: No scleral icterus. Extraocular movements grossly intact. NECK: Supple without lymphadenopathy. CHEST: Unlabored respirations. Equal bilateral excursions. CARDIOVASCULAR: 2+ pulses MUSCULOSKELETAL: No clubbing, cyanosis, or edema. NEURO: No focal or lateralizing signs. Cranial nerves II through XII grossly intact. SKIN: Well perfused. Good skin turgor. ASSESSMENT: 1. Morbid obesity due to excess calories, resolved. 2. Body mass index reduced from 44.7 down to 32.1 3. Status post Renee-en-Y gastric bypass. 4. Status post jejunojejunostomy revision. 5. Prior history of chronic abdominal pain. 6. Dysphagia, resolved. 7. Dietary surveillance and counseling. 8. History of thyroid goiter. 9. History of vitamin B12 deficiency. 10. Chronic pain syndrome. 11. Panniculitis of the abdomen, refractory to treatment. 12. Lower back pain secondary to panniculitis. 13. Tobacco use 14. Dysphagia PLAN: 1. She has left upper abdominal pain with dysphagia. 2. Recommend esophogram with small bowel follow through Objective - Vital Signs Vital signs: Vital Signs Temp 99.2 F 02/07/20 14:49 Pulse 86 02/07/20 14:49 Resp 18 02/07/20 14:49 BP 118/73 02/07/20 14:49 Pulse Ox Intake & Output 02/06/20 02/07/20 02/07/20 18:59 06:59 18:59 Weight 87.543 kg - Labs CBC & Chem 7: 02/07/20 16:18 02/07/20 16:18
[2020-02-07 17:06] LABS: Anisocytosis Slight; HCT 32.9 % (34.0-46.0); HGB 9.9 gm/dL (11.4-16.0); Hypochromasia Marked; Mean Platelet Volume 7.1; Microcytosis Marked; Platelet Count 386 k/uL (150-450); Poikilocytosis Slight; RDW 16.5 % (11.5-15.5); WBC 7.3 k/uL (3.8-10.6)
[2020-02-08 00:31] LABS: % Iron Saturation 1.97 (12.00-45.00); African American GFR (CKD) 123.9 (60.0-200.0); Albumin 4.5 g/dL (3.80-4.90); Albumin/Globulin Ratio 1.67 (1.60-3.17); BUN/Creat Ratio 11.43 Ratio (12.00-20.00); Calcium 9.5 mg/dL (8.7-10.3); Chol/HDL Ratio 2.42; Ferritin 1.3 ng/mL (10.0-291.0); Folate, Serum 7.5 ng/mL; Globulin 2.7 g/dL (1.6-3.3); LDL Cholesterol,Calculated 102.4 mg/dL (0.0-131.0); Magnesium 2.2 mg/dL (1.5-2.4); Non-African American GFR(CKD) 106.9 (60.0-200.0); Phosphorus 4.1 mg/dL (2.4-5.1); Potassium 4.6 mmol/L (3.5-5.5); Total Bilirubin 0.2 mg/dL (0.2-1.2); Total Protein 7.2 g/dL (6.2-8.2); VLDL Calculation 19.6 mg/dL (5.00-40.00)
[2020-02-08 03:23] LABS: INR <0.90 (0.90-1.11); Partial Thromboplastin Time 25.1 sec (23.5-31.0); Prothrombin Time <9.9 sec (9.9-11.9)
[2020-02-09 13:53] LABS: Zinc, Serum 62 ug/dL (60-130)
[2020-02-10 19:05] LABS: Selenium 111 mcg/L (63-160)
[2020-02-12 06:29] LABS: Vit B1(Thiamine) 50 ug/L (38-122)
[2020-02-12 06:48] LABS: Vitamin A 45 ug/dL (38-106)
== END | disposition home or self-care (01) ==
LOC: BARWHC3 14:09
PROVIDERS: ATTEND Surgery Plastic and Reconstructive Surgery
DX: E66.01 Morbid (severe) obesity due to excess calories (principal); G89.4 Chronic pain syndrome; M79.3 Panniculitis, unspecified; R13.10 Dysphagia, unspecified; Z68.32 Body mass index [BMI] 32.0-32.9, adult; Z98.84 Bariatric surgery status; Z71.3 Dietary counseling and surveillance; Z86.2 Personal history of diseases of the blood and blood-forming organs and certain disorders involving the immune mechanism; D50.8 Other iron deficiency anemias; E44.0 Moderate protein-calorie malnutrition; E55.9 Vitamin D deficiency, unspecified; K74.1 Hepatic sclerosis; N19 Unspecified kidney failure; K50.90 Crohn's disease, unspecified, without complications
CPT/HCPCS: 84255; 84425; 80061; 80053; 82607; 82728; 82525; 82746; 83540; 83550; 83735; 84100; 84443; 84590; 84630; 85027; 85610; 85730; 83970; 83036; G0463; 99211

== ENCOUNTER → 2020-03-20 | Outpatient (CLI) | payer OTHER ==
--- NOTE | 2020-03-21 07:26 | FL ---
EXAMINATION TYPE: FL barium swallow w SBFT DATE OF EXAM: 03/20/2020 COMPARISON: None HISTORY: Dysphasia TECHNIQUE: Single contrast technique is utilized to evaluate the esophagus and small bowel follow-thr ough. FINDINGS: Fluoroscopy time: 0.32 minutes. Images: 20. Esophagram: Single contrast imaging of the esophagus appears unremarkable. The esophagus dilates norm al caliber has normal contour to the gastroesophageal junction. Gastroesophageal junction opens to no rmal caliber. No focal stenosis is evident. No intraluminal or extramural defects are evident. Small bowel follow-through is performed immediately following the esophagram. There is a Renee-en-Y an astomosis. Sequential images were obtained. At approximately 4 hours patient had to the leave for home life requ irements and monitoring could not be performed. The patient returned at 9 hours for a final image. Small bowel loops visualized with contrast appear normal. Fold pattern appears normal. At 3.5 hours c ontrast extends to the proximal to mid abdomen region. Additional imaging cannot be performed at this point. However, a final 9 hour image does demonstrate contrast to be entirely within the colon. IMPRESSION: 1. No obvious obstruction. There is some slow transit through the small bowel loops to at least the mid abdomen, likely the proximal to mid ileum.
== END | disposition home or self-care (01) ==
LOC: RADFLMAIN 08:53
PROVIDERS: ATTEND Surgery Plastic and Reconstructive Surgery
DX: R13.10 Dysphagia, unspecified (principal)
CPT/HCPCS: 74220

== ENCOUNTER → 2020-05-08 | Outpatient (CLI) | payer OTHER ==
[2020-05-08 17:07] VITALS: BP 113/84; PULSE 81; RESP 16; TEMP 98.2; BMI 33.3
--- NOTE | 2020-06-02 20:37 | P.PN ---
Subjective Progress Note Date: 05/08/20 DATE OF SERVICE: 05/08/2020 CHIEF COMPLAINT: Follow up gastric bypass HISTORY OF PRESENT ILLNESS: Dorie Morales is a 45-year-old female with history of a gastric bypass in October 2012. She is over 7 years out. She comes in with trouble with swallowing including crampy moderate to severe left upper quadrant abdominal pain going on for over 3 months. She was feeling very well over 9 months ago. She reports no change in bowel habits. She reports nausea. She has intolerance to textured foods. She can tolerate liquids. She presents for abdominal pain. At her height of 5 foot 5 pounds, her ideal body weight is 149 pounds. Her highest personal weight was 268 pounds. Today she comes in weighing 200 pounds from 193 pounds. She gained 7 pounds, 3 months ago. Her lifetime weight loss is 68 pounds. Her percent excess weight loss lifetime is 57 %. Body mass index is reduced from 44.7 down to 33.1. PAST MEDICAL HISTORY: 1. ADHD. 2. Chronic abdominal pain. 3. History of morbid obesity. 4. Gastroesophageal reflux disease, resolved. 5. Vitamin B12 deficiency. 6. History of uterine tumor. 7. Colitis. 8. Panniculitis. 9. Morbid obesity due to excess calories, BMI 44.7 10. Asthma PAST SURGICAL HISTORY: 1. Hysterectomy. 2. Upper endoscopy. 3. Renee-en-Y gastric bypass October 2012. 4. Drainage of abdominal wall abscess. 5. Appendectomy. 6. EGD with balloon dilatation. 7. Diagnostic laparoscopy. 8. Revision of jejunojejunostomy. MEDICATIONS: Home Medications Medication Instructions Recorded Confirmed Albuterol Sulfate [Ventolin HFA] 1 - 2 puff INHALATION Q6H PRN 12/26/18 05/29/20 Ondansetron HCl [Zofran] 4 mg PO Q8H PRN 07/18/19 05/29/20 hydrOXYzine pamoate [Vistaril] 50 mg PO QID 07/28/19 05/29/20 Gabapentin [Neurontin] 300 mg PO TID 02/07/20 05/29/20 Fluticasone/Salmeterol [Advair 1 inhalation PO DAILY 02/21/20 05/29/20 100-50 Diskus] Dextroamphetamine/Amphetamine 20 mg PO TID 05/29/20 05/29/20 [Adderall] ALLERGIES: Allergies Allergy/AdvReac Type Severity Reaction Status Date / Time cephalexin monohydrate Allergy Severe Rash/Hives, Verified 05/29/20 16:17 [From Keflex] nausea,sweats,chills morphine Allergy Severe Itching, Verified 05/29/20 16:17 migraines,states "does not help with pain." Penicillins Allergy Severe Rash/Hives, Verified 05/29/20 16:17 nausea,lethargic almond Allergy Anaphylaxis Verified 05/29/20 16:17 almond oil Allergy Anaphylaxis Verified 05/29/20 16:17 [place] And Derivatives Allergy Nausea & Verified 05/29/20 16:17 [[place]] Vomiting gluten Allergy Abdominal Verified 05/29/20 16:17 Pain mustard Allergy Anaphylaxis Verified 05/29/20 16:17 walnut Allergy Anaphylaxis Verified 05/29/20 16:17 niacin AdvReac hives to Verified 05/29/20 16:17 face SOCIAL HISTORY: Remote tobacco user. Denies any active alcohol use. FAMILY HISTORY: Pertinent for morbid obesity including gastroesophageal reflux disease. REVIEW OF SYSTEMS: CONSTITUTIONAL: At her height of 5 foot 5 pounds, her ideal body weight is 149 pounds. Her highest personal weight was 268 pounds. Body mass index is reduced from 44.7. NEURO: History of chronic pain, lower back, from her pannus. ENDOCRINE: History of thyroid goiter. No reports of diabetes. GASTROINTESTINAL: Reports intolerance to solid foods. No dumping syndrome. HEENT: No troubles with vision or hearing. RESPIRATORY: Denies any dyspnea on exertion or obstructive sleep apnea. CARDIOVASCULAR: Denies any chest pain or palpitations. MUSCULOSKELETAL: History of lower back pain. Denies any joint pain. SKIN: History of erythema including irritation from her pannus. Limited activities of daily living secondary to chronic pain from pannus. PSYCH: History of ADHD. Denies depression. HEMATOLOGIC: Denies any easy bruising or bleeding. PHYSICAL EXAM: VITAL SIGNS: 5 foot 5, 200 pounds. Body mass index is 33.1 Vital Signs Temp 98.2 F 05/08/20 17:04 Pulse 81 05/08/20 17:04 Resp 16 05/08/20 17:04 BP 113/84 05/08/20 17:04 Pulse Ox ABDOMEN: Pain along the left upper quadrant. GENERAL: Well-developed female no acute distress. HEENT: No scleral icterus. Extraocular movements grossly intact. NECK: Supple without lymphadenopathy. CHEST: Unlabored respirations. Equal bilateral excursions. CARDIOVASCULAR: 2+ pulses MUSCULOSKELETAL: No clubbing, cyanosis, or edema. NEURO: No focal or lateralizing signs. Cranial nerves II through XII grossly intact. SKIN: Well perfused. Good skin turgor. STUDIES: UGI with small bowel follow through reviewed with low lying splenic flexure in the left lower quadrant. Has hiatal hernia with gastroesophageal reflux disease. REPORTS: Small bowel transit time delayed but unremarkable LABS: Reviewed with Hgb low with anemia, iron and ferritin is low, AST and ALT is elevated, Cholesterol is elevated. ASSESSMENT: 1. Morbid obesity due to excess calories 2. Body mass index reduced from 44.7 down to 33.3 3. Status post Renee-en-Y gastric bypass. 4. Status post jejunojejunostomy revision. 5. Prior history of chronic abdominal pain. 6. Dysphagia, resolved. 7. Dietary surveillance and counseling. 8. History of thyroid goiter. 9. History of vitamin B12 deficiency. 10. Chronic pain syndrome. 11. Panniculitis of the abdomen, refractory to treatment. 12. Lower back pain secondary to panniculitis. 13. Tobacco use 14. Dysphagia 15. Hypercholesterolemia 16. Elevated liver enzymes 17. Iron deficiency anemia PLAN: 1. Recommend upper endoscopy with dilation for dysphagia 2. Recommend iron infusion for iron deficiency anemia. Objective - Vital Signs Vital signs: Vital Signs Temp 98.2 F 05/08/20 17:04 Pulse 81 05/08/20 17:04 Resp 16 05/08/20 17:04 BP 113/84 05/08/20 17:04 Pulse Ox
== END | disposition home or self-care (01) ==
LOC: BARWHC3 15:51
PROVIDERS: ATTEND Surgery Plastic and Reconstructive Surgery
DX: E66.01 Morbid (severe) obesity due to excess calories (principal); G89.4 Chronic pain syndrome; M79.3 Panniculitis, unspecified; M54.5 Low back pain; R13.10 Dysphagia, unspecified; D50.9 Iron deficiency anemia, unspecified; R74.8 Abnormal levels of other serum enzymes; E78.00 Pure hypercholesterolemia, unspecified; Z88.0 Allergy status to penicillin; Z91.018 Allergy to other foods; Z91.02 Food additives allergy status; Z68.33 Body mass index [BMI] 33.0-33.9, adult; Z98.84 Bariatric surgery status; Z71.3 Dietary counseling and surveillance; Z88.5 Allergy status to narcotic agent; Z86.39 Personal history of other endocrine, nutritional and metabolic disease; Z88.1 Allergy status to other antibiotic agents; Z79.51 Long term (current) use of inhaled steroids; Z79.899 Other long term (current) drug therapy; Z79.891 Long term (current) use of opiate analgesic
CPT/HCPCS: 99211

== ENCOUNTER 2020-05-20 06:31 | Day surgery (SDC) | payer OTHER ==
[2020-05-15 10:15] VITALS: BMI 33.3
[~2020-05-20 06:31] MED LIST changes: -ACETAMINOPHEN TAB 500 MG TAB PO STA; -CLINDAMYCIN 900 MG in DEXTROSE 5% IN WATER 50 ML IVPB STA; -DEXAMETHASONE SOD PHOSPHATE 10 MG/ML 1 ML VIAL IV ONE; -GABAPENTIN 300 MG CAP PO STA; -HEPARIN SODIUM,PORCINE 5,000 UNIT/ML 1 ML VIAL SQ STA; +LIDOCAINE 1% (10MG/ML) FOR IV START INTRADERMA PRN; -MIDAZOLAM 2 MG/2 ML VIAL IV PRN; -ONDANSETRON 4 MG/2 ML VIAL IVP ONE; -Pre Op ABX Message 1 EACH MISC MISCELLANE ONE; -TAMSULOSIN 0.4 MG CAP.ER.24H PO STA
[2020-05-20 07:01] LABS: Glucose,Whole Blood 103 mg/dL (75-99)
[2020-05-20 07:04] VITALS: TEMP 97.8
[2020-05-20] MEDS ORDERED: LACTATED RINGERS 1,000 ML IV ONE (07:06)
[2020-05-20] MEDS ORDERED: LIDOCAINE 1% INJ 10MG/ML (20 ML MDV) ONE (07:26)
[2020-05-20] MEDS ORDERED: PROPOFOL 10 MG/ML 20 ML VIAL IV ONE (07:26)
--- NOTE | 2020-05-20 07:44 | P.GSHP ---
History of Present Illness H&P Date: 05/20/20 CHIEF COMPLAINT: Esophageal stricture HISTORY OF PRESENT ILLNESS: The patient is a 45-year-old female who presents reports dysphagia including substernal epigastric abdominal pain. Upper endoscopy was offered for further evaluation and management. PAST MEDICAL HISTORY: Please see list. PAST SURGICAL HISTORY: Please see list. MEDICATIONS: Please see list. ALLERGIES: Please see list. SOCIAL HISTORY: No illicit drug use FAMILY HISTORY: No reports of Crohn disease or ulcerative colitis. REVIEW OF ORGAN SYSTEMS: CONSTITUTIONAL: No reports of fevers or chills. GI: Denies any blood in stools or constipation. PHYSICAL EXAM: VITAL SIGNS: Stable GENERAL: Well-developed and pleasant in no acute distress. HEENT: No scleral icterus. Extraocular movements grossly intact. Moist buccal mucosa. NECK: Supple without lymphadenopathy. CHEST: Unlabored respirations. Equal bilateral excursions. CARDIOVASCULAR: Regular rate and rhythm. Distal 2+ pulses. ABDOMEN: Soft, nondistended. MUSCULOSKELETAL: No clubbing, cyanosis, or edema. ASSESSMENT: 1. Esophageal stricture PLAN: 1. Recommend proceeding with an upper endoscopy with rigid dilators. Past Medical History Past Medical History: Asthma, Cancer, Chest Pain / Angina, Deep Vein Thrombosis (DVT), GERD/Reflux, Osteoarthritis (OA), Pulmonary Embolus (PE) Additional Past Medical History / Comment(s): HYPOGLYCEMIC. diverticulitis, hypotension, migraines, "food getting stuck"-needs balloon dilation every 6-12 months, hx uterine cancer, colitis, possible crohns, nodule on adrenal gland. History of Any Multi-Drug Resistant Organisms: None Reported Past Surgical History: Hysterectomy Additional Past Surgical History / Comment(s): reyna-y gastric bypass with adhesions, rt arm-plate and screws, laparoscopy, umbilical hernia repair, I&D of abd wound,SCOPE RT SHOULDER. swallow study. Revision of RNY r/t complications, Oral surgery Past Anesthesia/Blood Transfusion Reactions: Family History of Problems w/ Anesthesia, Motion Sickness, Postoperative Nausea & Vomiting (PONV) Additional Past Anesthesia/Blood Transfusion Reaction / Comment(s): mother has asthma attacks post-op Smoking Status: Former smoker - Past Family History Father Additional Family Medical History / Comment(s): BRAIN ANUERYSM Mother Family Medical History: AFIB, AICD/Pacemaker, Asthma, Cancer Additional Family Medical History / Comment(s): bladder Medications and Allergies Home Medications Medication Instructions Recorded Confirmed Type Dextroamphetamine/Amphetamine 20 mg PO TID 10/05/13 05/15/20 History [Adderall] Albuterol Sulfate [Ventolin HFA] 1 - 2 puff INHALATION Q6H PRN 12/26/18 05/15/20 History Ondansetron HCl [Zofran] 4 mg PO Q8H PRN 07/18/19 05/15/20 History hydrOXYzine pamoate [Vistaril] 50 mg PO QID 07/28/19 05/15/20 History Omeprazole [PriLOSEC] 40 mg PO DAILY #14 cap 07/31/19 05/15/20 Rx Gabapentin [Neurontin] 300 mg PO TID 02/07/20 05/15/20 History rOPINIRole HCL [Requip] 2 mg PO HS 02/07/20 05/15/20 History Fluticasone/Salmeterol [Advair 1 inhalation PO DAILY 02/21/20 05/15/20 History 100-50 Diskus] Allergies Allergy/AdvReac Type Severity Reaction Status Date / Time cephalexin monohydrate Allergy Severe Rash/Hives, Verified 05/15/20 10:08 [From Keflex] nausea,sweats,chills morphine Allergy Severe Itching, Verified 05/15/20 10:08 migraines,states "does not help with pain." Penicillins Allergy Severe Rash/Hives, Verified 05/15/20 10:08 nausea,lethargic almond Allergy Anaphylaxis Verified 05/15/20 10:08 almond oil Allergy Anaphylaxis Verified 05/15/20 10:08 [place] And Derivatives Allergy Nausea & Verified 05/15/20 10:08 [[place]] Vomiting gluten Allergy Abdominal Verified 05/15/20 10:08 Pain mustard Allergy Anaphylaxis Verified 05/15/20 10:08 walnut Allergy Anaphylaxis Verified 05/15/20 10:08 niacin AdvReac hives to Verified 05/15/20 10:08 face Surgical - Exam Vital Signs Temp Pulse Resp BP Pulse Ox 97.8 F 96 18 124/74 96 05/20/20 07:03 05/20/20 07:03 05/20/20 07:03 05/20/20 07:03 05/20/20 07:03 Results - Labs Abnormal Lab Results - Last 24 Hours (Table) 05/20/20 Range/Units 06:57 POC Glucose (mg/dL) 103 H (75-99) mg/dL
[2020-05-20 07:52] VITALS: RESP 16
--- NOTE | 2020-05-20 07:54 | P.PCN ---
Date of Procedure: 05/20/20 Description of Procedure: PREOPERATIVE DIAGNOSIS: Dysphagia. Substernal pain Epigastric abdominal pain Nausea with vomiting. POSTOPERATIVE DIAGNOSIS: Dysphagia. Substernal pain Epigastric abdominal pain Nausea with vomiting. Esophageal dysmotility OPERATION: Esophagogastrojejunoscopy with rigid dilatation, 57 Fr SURGEON: Hortencia Bangura MD ANESTHESIA: MAC. INDICATIONS: The patient is a 45-year-old female who presents with a history of dysphagia, nausea and vomiting, substernal epigastric abdominal pain. Benefits and risks of the procedure were described. Informed consent was obtained. DESCRIPTION: The patient was brought into the endoscopy suite and laid in the left lateral decubitus position. After a timeout was confirmed, the procedure was initiated. An Olympus gastroscope was passed along the posterior oropharynx down to the distal esophagus where the squamocolumnar junction was unremarkable. The gastric pouch was entered. Additional findings below. Esophageal dysmotility was found as the adult gastroscope was 9.5 mm in size. A guidewire was placed through the scope. The scope was removed. A rigid dilator 57-Setswana placed for dilation performed for 2 minutes. The patient tolerated the procedure well. FINDINGS: Esophageal dysmotility addressed with rigid dilator, 57-Setswana No chronic gastrojejunal ulceration encountered. RECOMMENDATIONS: Medication review for chronic abdominal pain. Plan - Discharge Summary Discharge Rx Participant: No New Discharge Prescriptions: Continue Dextroamphetamine/Amphetamine [Adderall] 20 mg PO TID Albuterol Sulfate [Ventolin HFA] 1 - 2 puff INHALATION Q6H PRN PRN Reason: EXERCISE INDUCED ASTHMA Ondansetron HCl [Zofran] 4 mg PO Q8H PRN PRN Reason: Nausea And Vomiting hydrOXYzine pamoate [Vistaril] 50 mg PO QID Gabapentin [Neurontin] 300 mg PO TID Fluticasone/Salmeterol [Advair 100-50 Diskus] 1 inhalation PO DAILY Discontinued Omeprazole [PriLOSEC] 40 mg PO DAILY #14 cap rOPINIRole HCL [Requip] 2 mg PO HS Discharge Medication List Dextroamphetamine/Amphetamine [Adderall] 20 mg PO TID 10/05/13 [History] Albuterol Sulfate [Ventolin HFA] 1 - 2 puff INHALATION Q6H PRN 12/26/18 [History] Ondansetron HCl [Zofran] 4 mg PO Q8H PRN 07/18/19 [History] hydrOXYzine pamoate [Vistaril] 50 mg PO QID 07/28/19 [History] Gabapentin [Neurontin] 300 mg PO TID 02/07/20 [History] Fluticasone/Salmeterol [Advair 100-50 Diskus] 1 inhalation PO DAILY 02/21/20 [History] [facility]ment[facility]Ref[facility] [place] [facility] Patient Instructions/Handouts: Esophageal Dilation (DC) Activity/Diet/Wound Care/Special Instructions: Recommend warm beverages today. Pure diet tomorrow Discharge Disposition: HOME SELF-CARE
[2020-05-20 08:06] VITALS: BP 100/64; PULSE 84
== END 2020-05-20 08:34 | disposition home or self-care (01) ==
LOC: ORWHC2ENDO 06:31
PROVIDERS: ATTEND Surgery Plastic and Reconstructive Surgery
DX: K22.2 Esophageal obstruction (principal); K22.4 Dyskinesia of esophagus; K21.9 Gastro-esophageal reflux disease without esophagitis; M19.90 Unspecified osteoarthritis, unspecified site; Z79.899 Other long term (current) drug therapy; Z79.51 Long term (current) use of inhaled steroids; Z86.711 Personal history of pulmonary embolism; Z86.718 Personal history of other venous thrombosis and embolism; Z98.84 Bariatric surgery status; Z87.891 Personal history of nicotine dependence; Z82.5 Family history of asthma and other chronic lower respiratory diseases; Z80.52 Family history of malignant neoplasm of bladder; Z82.49 Family history of ischemic heart disease and other diseases of the circulatory system; Z88.0 Allergy status to penicillin; Z88.1 Allergy status to other antibiotic agents; Z88.5 Allergy status to narcotic agent; Z91.018 Allergy to other foods; Z88.8 Allergy status to other drugs, medicaments and biological substances; Z85.42 Personal history of malignant neoplasm of other parts of uterus
CPT/HCPCS: 43248; J2001; J2704; 43249

== ENCOUNTER → 2020-05-29 | Outpatient (CLI) | payer OTHER ==
[2020-05-29 16:22] VITALS: BP 128/87; PULSE 105; RESP 18; TEMP 98.4; BMI 33.2
--- NOTE | 2020-05-29 16:50 | P.PN ---
Subjective Progress Note Date: 05/29/20 She still reports abdominal pain. Recommend food allergies Stop smoking Referral to pain specialist Labs post Lysis of adhesion volvulus Had blood transfusion Food allergy referral advised Objective - Vital Signs Vital signs: Vital Signs Temp 98.4 F 05/29/20 16:16 Pulse 105 H 05/29/20 16:16 Resp 18 05/29/20 16:16 BP 128/87 05/29/20 16:16 Pulse Ox Intake & Output 05/28/20 05/29/20 05/29/20 18:59 06:59 18:59 Weight 90.537 kg
== END ==
LOC: BARWHC3 14:57
PROVIDERS: ATTEND Surgery Plastic and Reconstructive Surgery
DX: E66.01 Morbid (severe) obesity due to excess calories (principal); Z87.891 Personal history of nicotine dependence
CPT/HCPCS: 99211

== ENCOUNTER → 2020-06-05 | Outpatient (CLI) | payer OTHER ==
[2020-06-05 15:12] LABS: HCT 38.5 % (37.2-46.3); HGB 12.2 g/dL (12.0-15.0); MCH 25.5 pg (27.0-32.0); MCHC 31.7 g/dL (32.0-37.0); MCV 80.4 fL (80.0-97.0); Mean Platelet Volume 10.3 fL (9.5-12.2); Platelet Count 330 X 10*3/uL (140-440); RBC 4.79 X 10*6/uL (4.10-5.20); RDW 18.4 % (11.5-14.5); WBC 4.33 X 10*3/uL (4.50-10.00)
[2020-06-05 17:12] LABS: Folate, Serum 7.4 ng/mL
[2020-06-05 17:42] LABS: % Iron Saturation 8.4 (12.00-45.00); Albumin 4.4 g/dL (3.80-4.90); Anion Gap 4.8 mmol/L (4.00-12.00); BUN/Creat Ratio 12.86 Ratio (12.00-20.00); Calcium 8.9 mg/dL (8.7-10.3); Carbon Dioxide 24.2 mmol/L (21.6-31.8); Chol/HDL Ratio 3.01; Globulin 2.2 g/dL (1.6-3.3); LDL Cholesterol,Calculated 129.4 mg/dL (0.0-131.0); Magnesium 2.3 mg/dL (1.5-2.4); Non-African American GFR(CKD) 106.1 (60.0-200.0); Phosphorus 3.6 mg/dL (2.4-5.1); Potassium 4.5 mmol/L (3.5-5.5); Total Bilirubin 0.3 mg/dL (0.3-1.2); Total Protein 6.6 g/dL (6.2-8.2); VLDL Calculation 13.6 mg/dL (5.00-40.00)
[2020-06-05 17:45] LABS: Hemoglobin A1C 5.9 % (4.0-6.0)
[2020-06-05 18:58] LABS: INR 0.88 (0.90-1.11); Partial Thromboplastin Time 27.1 sec (23.5-31.0); Prothrombin Time 9.7 sec (9.9-11.9)
[2020-06-06 13:13] LABS: Zinc, Serum 71 ug/dL (60-130)
[2020-06-07 08:34] LABS: Vit B1(Thiamine) 45 ug/L (38-122)
[2020-06-07 08:36] LABS: Vitamin A 37 ug/dL (38-106)
== END | disposition home or self-care (01) ==
LOC: LABWHC1 08:14
PROVIDERS: ATTEND Surgery Plastic and Reconstructive Surgery
DX: E55.9 Vitamin D deficiency, unspecified (principal); E66.01 Morbid (severe) obesity due to excess calories; E89.1 Postprocedural hypoinsulinemia; D50.8 Other iron deficiency anemias; K90.89 Other intestinal malabsorption; K50.90 Crohn's disease, unspecified, without complications; K74.1 Hepatic sclerosis; N19 Unspecified kidney failure
CPT/HCPCS: 36415; 80053; 80061; 82306; 82525; 82607; 82728; 82746; 83036; 83540; 83550; 83735; 83970; 84100; 84134; 84255; 84425; 84443; 84590; 84630; 85027; 85610; 85730

== ENCOUNTER 2020-09-04 19:37 | Inpatient (IN) | payer OTHER ==
[2020-09-04] MEDS ORDERED: HYDROmorphone 1 MG/ML 1 ML SYRINGE IVP STA (20:33)
[2020-09-04] MEDS ORDERED: SODIUM CHLORIDE 0.9% 1,000 ML IV STA (20:33)
[2020-09-04] MEDS ORDERED: diphenhydrAMINE 50 MG/ML 1 ML VIAL IVP STA (20:34)
[2020-09-04] MEDS ORDERED: METOCLOPRAMIDE 5 MG/ML 2 ML VIAL IVP STA (20:34)
[2020-09-04 21:08] LABS: Basophils % (A) 1 %; Eosinophils # (A) 0.2 k/uL (0-0.7); Eosinophils % (A) 3 %; HGB 12.4 gm/dL (11.4-16.0); Lymphocytes # (A) 2.1 k/uL (1.0-4.8); Lymphocytes % (A) 34 %; MCH 26.5 pg (25.0-35.0); MCHC 33.5 g/dL (31.0-37.0); Mean Platelet Volume 7.3; Monocytes # (A) 0.6 k/uL (0-1.0); Monocytes % (A) 9 %; Neutrophils # (A) 3.1 k/uL (1.3-7.7); Neutrophils % (A) 51 %; Platelet Count 337 k/uL (150-450); RBC 4.68 m/uL (3.80-5.40); RDW 14.7 % (11.5-15.5); WBC 6.2 k/uL (3.8-10.6)
[2020-09-04 21:23] LABS: ALT 12 U/L (4-34); AST 21 U/L (14-36); African American GFR (CKD) >90 (>60 ml/min/1.73 sqM); Albumin 4.2 g/dL (3.5-5.0); Alkaline Phosphatase 67 U/L (38-126); Anion Gap 6 mmol/L; Blood Urea Nitrogen 11 mg/dL (7-17); Calcium 9.6 mg/dL (8.4-10.2); Carbon Dioxide 25 mmol/L (22-30); Chloride 107 mmol/L (98-107); Glucose 95 mg/dL (74-99); Lipase 201 U/L (23-300); Non-African American GFR(CKD) >90 (>60 ml/min/1.73 sqM); Potassium 4.7 mmol/L (3.5-5.1); Sodium 138 mmol/L (137-145); Total Bilirubin 0.1 mg/dL (0.2-1.3); Total Protein 7.2 g/dL (6.3-8.2)
--- NOTE | 2020-09-04 21:56 | CT ---
EXAMINATION TYPE: CT abdomen pelvis w con DATE OF EXAM: 09/04/2020 COMPARISON: 12/09/2018 HISTORY: Abdomen pain, vomiting. Hx bariatric sx. CT DLP: 1415.9 mGycm Automated exposure control for dose reduction was used. CONTRAST: Performed with IV Contrast, patient injected with 100 mL of Isovue 300. Images obtained from the diaphragm to the floor the pelvis with IV contrast. Lung bases are clear. There is no pleural effusion. There is previous gastric surgery. Liver spleen p ancreas appear intact. There are clips from cholecystectomy. The bile ducts are not dilated. There is no adrenal mass. Kidneys show satisfactory contrast opacification. There is no hydronephrosi s. Ureters are not dilated. Delayed images show normal renal excretion. There is no retroperitoneal a denopathy. Bladder distends smoothly. There is no inguinal hernia. There are multiple fluid-filled loops of small bowel in the mid abdomen. There are small bowel surgic al clips in the left upper quadrant consistent with bypass. Small bowel measures up to 3.7 cm. There is no mesenteric edema. There is no ascites or free air. There is no bowel obstruction. The lum bar vertebra have normal alignment. There is no compression fracture. Posterior elements are intact. The hip joints are intact. There is no hip dysplasia. IMPRESSION: Previous bariatric surgery. There is evidence for some small bowel ileus or partial mechanical small bowel obstruction in the left upper quadrant. Small bowel distention is slightly more than old CT sca n of 12/09/2018.
--- NOTE | 2020-09-04 22:05 | ED ---
Abdominal Pain HPI - General Chief Complaint: Abdominal Pain Stated Complaint: ABD pain Time Seen by Provider: 09/04/20 20:17 Source: patient Mode of arrival: ambulatory Limitations: no limitations - History of Present Illness Initial Comments: 45 year-old female patient with history significant for R[place] gastric bypass and multiple abdominal surgeries presents today for evaluation of increased abdominal pain and vomiting. Patient states that she has only been able to have liquids orally since Jan 2020. States that she did try to have solid foods today and she had increase in abdominal pain and has felt very nauseated. Did have one episode of vomiting which increased her pain. States "it feels like a grenade went off in my stomach". She denies any fever or chills. States she has been having very minimal bowel movements due to not eating. Denies urinary symptoms. States she was told by Dr. Bangura to come in for evaluation. Patient denies any recent rash, cough, shortness of breath, chest pain, back pain, numbness, tingling, dizziness, weakness, hematuria, dysuria, urinary urgency, urinary frequency, headache, visual changes, or any other complaints. - Related Data Home Medications Medication Instructions Recorded Confirmed hydrOXYzine pamoate [Vistaril] 50 mg PO BID 07/28/19 09/04/20 Gabapentin [Neurontin] 300 mg PO BID PRN 02/07/20 09/04/20 Fluticasone/Salmeterol [Advair 1 puff INHALATION RT-DAILY 02/21/20 09/04/20 100-50 Diskus] Dextroamphetamine/Amphetamine 20 mg PO TID 05/29/20 09/04/20 [Adderall] Albuterol Sulfate [Proair Hfa] 2 puff INHALATION RT-QID PRN 09/04/20 09/04/20 rOPINIRole HCL [Requip] 1 mg PO HS 09/04/20 09/04/20 traMADol HCL [Ultram] 50 mg PO DAILY PRN 09/04/20 09/04/20 Allergies Allergy/AdvReac Type Severity Reaction Status Date / Time cephalexin monohydrate Allergy Severe Rash/Hives, Verified 09/04/20 22:38 [From Keflex] nausea,sweats,chills morphine Allergy Severe Itching, Verified 09/04/20 22:38 migraines,states "does not help with pain." Penicillins Allergy Severe Rash/Hives, Verified 09/04/20 22:38 nausea,lethargic almond Allergy Anaphylaxis Verified 09/04/20 22:38 almond oil Allergy Anaphylaxis Verified 09/04/20 22:38 [place] And Derivatives Allergy Nausea & Verified 09/04/20 22:38 [[place]] Vomiting gluten Allergy Abdominal Verified 09/04/20 22:38 Pain mustard Allergy Anaphylaxis Verified 09/04/20 22:38 walnut Allergy Anaphylaxis Verified 09/04/20 22:38 niacin AdvReac hives to Verified 09/04/20 22:38 face Review of Systems ROS Statement: Those systems with pertinent positive or pertinent negative responses have been documented in the HPI. ROS Other: All systems not noted in ROS Statement are negative. Past Medical History Past Medical History: Asthma, Cancer, Chest Pain / Angina, Deep Vein Thrombosis (DVT), GERD/Reflux, Osteoarthritis (OA), Pulmonary Embolus (PE) Additional Past Medical History / Comment(s): HYPOGLYCEMIC. diverticulitis, hypotension, migraines, "food getting stuck"-needs balloon dilation every 6-12 months, hx uterine cancer, colitis, possible crohns, nodule on adrenal gland. History of Any Multi-Drug Resistant Organisms: None Reported Past Surgical History: Hysterectomy Additional Past Surgical History / Comment(s): renee-y gastric bypass with adhesions, rt arm-plate and screws, laparoscopy, umbilical hernia repair, I&D of abd wound,SCOPE RT SHOULDER. swallow study. Revision of RNY r/t complications, Oral surgery Past Anesthesia/Blood Transfusion Reactions: Family History of Problems w/ Anesthesia, Motion Sickness, Postoperative Nausea & Vomiting (PONV) Additional Past Anesthesia/Blood Transfusion Reaction / Comment(s): mother has asthma attacks post-op Past Psychological History: ADD/ADHD, Anxiety Smoking Status: Former smoker Past Alcohol Use History: Rare Past Drug Use History: None Reported - Past Family History Father Additional Family Medical History / Comment(s): BRAIN ANUERYSM Mother Family Medical History: AFIB, AICD/Pacemaker, Asthma, Cancer Additional Family Medical History / Comment(s): bladder General Exam Limitations: no limitations General appearance: alert, in no apparent distress, other (This is a well-developed Female patient in no acute distress. Vital signs upon presentation are temperature 98.0F, pulse 87, respirations 20, blood pressure 122/75, pulse ox 97% on room air.) Eye exam: Present: normal appearance, PERRL, EOMI. Absent: scleral icterus, conjunctival injection, periorbital swelling ENT exam: Present: normal exam, normal oropharynx, mucous membranes moist Respiratory exam: Present: normal lung sounds bilaterally. Absent: respiratory distress, wheezes, rales, rhonchi, stridor Cardiovascular Exam: Present: regular rate, normal rhythm, normal heart sounds. Absent: systolic murmur, diastolic murmur, rubs, gallop, clicks GI/Abdominal exam: Present: soft, tenderness (Generalized), normal bowel sounds. Absent: distended, guarding, rebound, rigid Neurological exam: Present: alert, oriented X3, CN II-XII intact Psychiatric exam: Present: normal affect, normal mood Skin exam: Present: warm, dry, intact, normal color. Absent: rash Course Vital Signs 09/04/20 09/04/20 20:08 23:16 Temperature 98.0 F Pulse Rate 87 78 Respiratory 20 16 Rate Blood Pressure 122/75 96/62 O2 Sat by Pulse 97 95 Oximetry Medical Decision Making - Medical Decision Making 45-year-old female patient past history significant for gastric bypass surgery presents to the emergency department today for evaluation of abdominal pain and vomiting that worsened for her this morning. Physical examination did reveal some abdominal tenderness. Labs reviewed and are relatively unremarkable. CT abdomen and pelvis was obtained and did show evidence for possible mechanical bowel obstruction. Case was discussed with Dr. Bangura who accepts admission. She'll be admitted with IV fluids, made NPO. Case discussed with my attending Dr. Pino. - Lab Data Result diagrams: 09/04/20 20:44 09/04/20 20:44 Lab Results 09/04/20 09/04/20 09/04/20 Range/Units 20:44 20:44 20:44 WBC 6.2 (3.8-10.6) k/uL RBC 4.68 (3.80-5.40) m/uL Hgb 12.4 (11.4-16.0) gm/dL Hct 37.0 (34.0-46.0) % MCV 79.0 L (80.0-100.0) fL MCH 26.5 (25.0-35.0) pg MCHC 33.5 (31.0-37.0) g/dL RDW 14.7 (11.5-15.5) % Plt Count 337 (150-450) k/uL MPV 7.3 Neutrophils % 51 % Lymphocytes % 34 % Monocytes % 9 % Eosinophils % 3 % Basophils % 1 % Neutrophils # 3.1 (1.3-7.7) k/uL Lymphocytes # 2.1 (1.0-4.8) k/uL Monocytes # 0.6 (0-1.0) k/uL Eosinophils # 0.2 (0-0.7) k/uL Basophils # 0.0 (0-0.2) k/uL Sodium 138 (137-145) mmol/L Potassium 4.7 (3.5-5.1) mmol/L Chloride 107 (98-107) mmol/L Carbon Dioxide 25 (22-30) mmol/L Anion Gap 6 mmol/L BUN 11 (7-17) mg/dL Creatinine 0.67 (0.52-1.04) mg/dL Est GFR (CKD-EPI)AfAm >90 (>60 ml/min/1.73 sqM) Est GFR (CKD-EPI)NonAf >90 (>60 ml/min/1.73 sqM) Glucose 95 (74-99) mg/dL Plasma Lactic Acid Shlomo (0.7-2.0) mmol/L Calcium 9.6 (8.4-10.2) mg/dL Total Bilirubin 0.1 L (0.2-1.3) mg/dL AST 21 (14-36) U/L ALT 12 (4-34) U/L Alkaline Phosphatase 67 (38-126) U/L Total Protein 7.2 (6.3-8.2) g/dL Albumin 4.2 (3.5-5.0) g/dL Lipase 201 (23-300) U/L Urine Color Yellow Urine Appearance Clear (Clear) Urine pH 5.5 (5.0-8.0) Ur Specific [place] >1.050 H (1.001-1.035) Urine Protein Negative (Negative) Urine Glucose (UA) Negative (Negative) Urine Ketones Negative (Negative) Urine Blood Negative (Negative) Urine Nitrite Negative (Negative) Urine Bilirubin Negative (Negative) Urine Urobilinogen <2.0 (<2.0) mg/dL Ur Leukocyte Esterase Negative (Negative) 09/04/20 Range/Units 20:44 WBC (3.8-10.6) k/uL RBC (3.80-5.40) m/uL Hgb (11.4-16.0) gm/dL Hct (34.0-46.0) % MCV (80.0-100.0) fL MCH (25.0-35.0) pg MCHC (31.0-37.0) g/dL RDW (11.5-15.5) % Plt Count (150-450) k/uL MPV Neutrophils % % Lymphocytes % % Monocytes % % Eosinophils % % Basophils % % Neutrophils # (1.3-7.7) k/uL Lymphocytes # (1.0-4.8) k/uL Monocytes # (0-1.0) k/uL Eosinophils # (0-0.7) k/uL Basophils # (0-0.2) k/uL Sodium (137-145) mmol/L Potassium (3.5-5.1) mmol/L Chloride (98-107) mmol/L Carbon Dioxide (22-30) mmol/L Anion Gap mmol/L BUN (7-17) mg/dL Creatinine (0.52-1.04) mg/dL Est GFR (CKD-EPI)AfAm (>60 ml/min/1.73 sqM) Est GFR (CKD-EPI)NonAf (>60 ml/min/1.73 sqM) Glucose (74-99) mg/dL Plasma Lactic Acid Shlomo 0.8 (0.7-2.0) mmol/L Calcium (8.4-10.2) mg/dL Total Bilirubin (0.2-1.3) mg/dL AST (14-36) U/L ALT (4-34) U/L Alkaline Phosphatase (38-126) U/L Total Protein (6.3-8.2) g/dL Albumin (3.5-5.0) g/dL Lipase (23-300) U/L Urine Color Urine Appearance (Clear) Urine pH (5.0-8.0) Ur Specific [place] (1.001-1.035) Urine Protein (Negative) Urine Glucose (UA) (Negative) Urine Ketones (Negative) Urine Blood (Negative) Urine Nitrite (Negative) Urine Bilirubin (Negative) Urine Urobilinogen (<2.0) mg/dL Ur Leukocyte Esterase (Negative) - Radiology Data Radiology results: report reviewed, image reviewed CT abdomen and pelvis with contrast was obtained. Report reviewed in its en tirety. Impression by Dr. Mclain shows previous bariatric surgery. There is evidence for some small bowel ileus or partial mechanical small bowel obstruction a left upper quadrant. Small bowel distention is slightly more than old CT scanner 12/09/2018. Disposition Clinical Impression: Partial small bowel obstruction Disposition: ADMITTED IP TO THIS [facility] Condition: Serious Decision to Admit Reason: Admit from EC Decision Date: 09/04/20 Decision Time: 22:21
[2020-09-04] MEDS ORDERED: NALOXONE 0.4 MG/ML 1 ML VIAL IV PRN (22:21)
--- NOTE | 2020-09-04 22:29 | P.GSHP ---
History of Present Illness H&P Date: 09/04/20 Patient seen and evaluated. Patient presents with new onset intractable nausea and vomiting and severe abdominal pain tonight. CT reviewed. Consistent with mechanical bowel obstruction and history of gastric bypass. Recommend admission. IV fluid hydration. Possible need for surgical exploration described. Past Medical History Past Medical History: Asthma, Cancer, Chest Pain / Angina, Deep Vein Thrombosis (DVT), GERD/Reflux, Osteoarthritis (OA), Pulmonary Embolus (PE) Additional Past Medical History / Comment(s): HYPOGLYCEMIC. diverticulitis, hypotension, migraines, "food getting stuck"-needs balloon dilation every 6-12 months, hx uterine cancer, colitis, possible crohns, nodule on adrenal gland. History of Any Multi-Drug Resistant Organisms: None Reported Past Surgical History: Hysterectomy Additional Past Surgical History / Comment(s): reyna-y gastric bypass with adhesions, rt arm-plate and screws, laparoscopy, umbilical hernia repair, I&D of abd wound,SCOPE RT SHOULDER. swallow study. Revision of RNY r/t complications, Oral surgery Past Anesthesia/Blood Transfusion Reactions: Family History of Problems w/ Ane sthesia, Motion Sickness, Postoperative Nausea & Vomiting (PONV) Additional Past Anesthesia/Blood Transfusion Reaction / Comment(s): mother has asthma attacks post-op Past Psychological History: ADD/ADHD, Anxiety Smoking Status: Former smoker Past Alcohol Use History: Rare Past Drug Use History: None Reported - Past Family History Father Additional Family Medical History / Comment(s): BRAIN ANUERYSM Mother Family Medical History: AFIB, AICD/Pacemaker, Asthma, Cancer Additional Family Medical History / Comment(s): bladder Medications and Allergies Home Medications Medication Instructions Recorded Confirmed Type Albuterol Sulfate [Ventolin HFA] 1 - 2 puff INHALATION Q6H PRN 12/26/18 05/29/20 History Ondansetron HCl [Zofran] 4 mg PO Q8H PRN 07/18/19 05/29/20 History hydrOXYzine pamoate [Vistaril] 50 mg PO QID 07/28/19 05/29/20 History Gabapentin [Neurontin] 300 mg PO TID 02/07/20 05/29/20 History Fluticasone/Salmeterol [Advair 1 inhalation PO DAILY 02/21/20 05/29/20 History 100-50 Diskus] Dextroamphetamine/Amphetamine 20 mg PO TID 05/29/20 05/29/20 History [Adderall] Allergies Allergy/AdvReac Type Severity Reaction Status Date / Time cephalexin monohydrate Allergy Severe Rash/Hives, Verified 09/04/20 20:13 [From Keflex] nausea,sweats,chills morphine Allergy Severe Itching, Verified 09/04/20 20:13 migraines,states "does not help with pain." Penicillins Allergy Severe Rash/Hives, Verified 09/04/20 20:13 nausea,lethargic almond Allergy Anaphylaxis Verified 09/04/20 20:13 almond oil Allergy Anaphylaxis Verified 09/04/20 20:13 [place] And Derivatives Allergy Nausea & Verified 09/04/20 20:13 [[place]] Vomiting gluten Allergy Abdominal Verified 09/04/20 20:13 Pain mustard Allergy Anaphylaxis Verified 09/04/20 20:13 walnut Allergy Anaphylaxis Verified 09/04/20 20:13 niacin AdvReac hives to Verified 09/04/20 20:13 face Surgical - Exam Vital Signs Temp Pulse Resp BP Pulse Ox 98.0 F 87 20 122/75 97 09/04/20 20:08 09/04/20 20:08 09/04/20 20:08 09/04/20 20:08 09/04/20 20:08 Results - Labs 09/04/20 20:44 09/04/20 20:44 Abnormal Lab Results - Last 24 Hours (Table) 09/04/20 09/04/20 Range/Units 20:44 20:44 MCV 79.0 L (80.0-100.0) fL Total Bilirubin 0.1 L (0.2-1.3) mg/dL Diabetes panel 09/04/20 Range/Units 20:44 Sodium 138 (137-145) mmol/L Potassium 4.7 (3.5-5.1) mmol/L Chloride 107 (98-107) mmol/L Carbon Dioxide 25 (22-30) mmol/L BUN 11 (7-17) mg/dL Creatinine 0.67 (0.52-1.04) mg/dL Glucose 95 (74-99) mg/dL Calcium 9.6 (8.4-10.2) mg/dL AST 21 (14-36) U/L ALT 12 (4-34) U/L Alkaline Phosphatase 67 (38-126) U/L Total Protein 7.2 (6.3-8.2) g/dL Albumin 4.2 (3.5-5.0) g/dL Calcium panel 09/04/20 Range/Units 20:44 Calcium 9.6 (8.4-10.2) mg/dL Albumin 4.2 (3.5-5.0) g/dL Pituitary panel 09/04/20 Range/Units 20:44 Sodium 138 (137-145) mmol/L Potassium 4.7 (3.5-5.1) mmol/L Chloride 107 (98-107) mmol/L Carbon Dioxide 25 (22-30) mmol/L BUN 11 (7-17) mg/dL Creatinine 0.67 (0.52-1.04) mg/dL Glucose 95 (74-99) mg/dL Calcium 9.6 (8.4-10.2) mg/dL Adrenal panel 09/04/20 Range/Units 20:44 Sodium 138 (137-145) mmol/L Potassium 4.7 (3.5-5.1) mmol/L Chloride 107 (98-107) mmol/L Carbon Dioxide 25 (22-30) mmol/L BUN 11 (7-17) mg/dL Creatinine 0.67 (0.52-1.04) mg/dL Glucose 95 (74-99) mg/dL Calcium 9.6 (8.4-10.2) mg/dL Total Bilirubin 0.1 L (0.2-1.3) mg/dL AST 21 (14-36) U/L ALT 12 (4-34) U/L Alkaline Phosphatase 67 (38-126) U/L Total Protein 7.2 (6.3-8.2) g/dL Albumin 4.2 (3.5-5.0) g/dL
[2020-09-04] MEDS: SODIUM CHLORIDE 0.9% 1,000 ML IV SCH (22:39)
[2020-09-04] MEDS: HYDROmorphone 1 MG/ML 1 ML SYRINGE IVP PRN (22:39)
[2020-09-04 23:42] LABS: Appearance,Urine Clear (Clear); Bilirubin,Urine Negative (Negative); Blood,Urine Negative (Negative); Color,Urine Yellow; Glucose,Urine (UA) Negative (Negative); Ketones,Urine Negative (Negative); Leukocyte Esterase,Urine Negative (Negative); Nitrite,Urine Negative (Negative); PH, Urine 5.5 (5.0-8.0); Protein,Urine Negative (Negative); Urobilinogen,Urine <2.0 mg/dL (<2.0)
[2020-09-04 23:44] LABS: Specific Gravity,Urine >1.050 (1.001-1.035)
[2020-09-05] MEDS: hydrOXYzine pamoate 25 MG CAP PO SCH ×3 (01:13→21:07)
[2020-09-05] MEDS: HYDROmorphone 1 MG/ML 1 ML SYRINGE IVP PRN ×7 (01:15→21:11)
[2020-09-05] MEDS: ONDANSETRON 4 MG/2 ML VIAL IVP PRN ×2 (04:14→14:37)
[2020-09-05] MEDS: SODIUM CHLORIDE 0.9% 1,000 ML IV SCH ×2 (10:46→23:26)
--- NOTE | 2020-09-05 13:23 | P.PN ---
Subjective Progress Note Date: 09/05/20 CHIEF COMPLAINT: Abdominal pain HISTORY OF PRESENT ILLNESS: Patient is being followed for mechanical bowel obstruction. She is reporting abdominal pain. Requiring pain medication. No further episodes of vomiting. She was still having nausea which does improve with the antiemetics. She has a history of gastric bypass. Afebrile. BP 90/61. Patient has been hypotensive. She reports that her blood pressures are always on the lower side. She denies any dizziness or lightheadedness. She is currently nothing by mouth. WBC is 6.2 hemoglobin 12.4 PHYSICAL EXAM: VITAL SIGNS: Reviewed GENERAL: Well-developed in no acute distress. HEENT: No sclera icterus. Extraocular movements grossly intact. Moist buccal mucosa. Head is atraumatic, normocephalic. Hears conversational speech. No nasal sarah inage. NECK: Supple without lymphadenopathy. CHEST: Non-labored respirations and equal bilateral excursions. CARDIOVASCULAR: Palpable 2+ radial pulses. ABDOMEN: Soft. Nondistended. Diffuse tenderness MUSCULOSKELETAL: No clubbing or cyanosis. NEUROLOGIC: No focal or lateralizing signs. Cranial nerves II through XII grossly intact. PSYCH: Appropriate affect. Alert and oriented to person, place and time. SKIN: Well perfused. Good skin turgor. ASSESSMENT: 1. Mechanical small bowel obstruction 2. History of gastric bypass PLAN: -Patient is scheduled for robotic lysis of adhesions on 09/06/[address] Bangura -Keep patient nothing by mouth after midnight -Can have clear liquid diet today -Continue IV fluids -Continue pain medication as needed -Encourage patient to ambulate Physician Jig Fitter note has been reviewed by physician. Signing provider agrees with the documented findings, assessment, and plan of care. Objective - Vital Signs Vital signs: Vital Signs Temp 98.5 F 09/05/20 07:02 Pulse 83 09/05/20 09:04 Resp 18 09/05/20 09:04 BP 90/61 09/05/20 10:42 Pulse Ox 98 09/05/20 07:02 Intake & Output 09/04/20 09/05/20 09/05/20 18:59 06:59 18:59 Weight 91.217 kg Other: # Voids 1 - Labs CBC & Chem 7: 09/04/20 20:44 09/04/20 20:44 Labs: Abnormal Lab Results - Last 24 Hours (Table) 09/04/20 09/04/20 09/04/20 Range/Units 20:44 20:44 20:44 MCV 79.0 L (80.0-100.0) fL Total Bilirubin 0.1 L (0.2-1.3) mg/dL Ur Specific [place] >1.050 H (1.001-1.035)
[2020-09-05] MEDS ORDERED: DEXAMETHASONE SOD PHOSPHATE 4 MG/ML 1 ML VIAL IV ONE (14:14)
[2020-09-05] MEDS ORDERED: LIDOCAINE 1% (10MG/ML) FOR IV START INTRADERMA PRN (14:14)
[2020-09-05] MEDS ORDERED: ONDANSETRON 4 MG/2 ML VIAL IVP ONE (14:14)
[2020-09-05] MEDS: LACTATED RINGERS 1,000 ML IV SCH (15:43)
[2020-09-06] MEDS: ONDANSETRON 4 MG/2 ML VIAL IVP PRN ×4 (00:41→23:50)
[2020-09-06] MEDS: HYDROmorphone 1 MG/ML 1 ML SYRINGE IVP PRN ×7 (00:42→23:47)
[2020-09-06] MEDS: hydrOXYzine pamoate 25 MG CAP PO SCH ×2 (07:13→20:25)
[2020-09-06] MEDS: LACTATED RINGERS 1,000 ML IV SCH (07:14)
[2020-09-06] MEDS: SODIUM CHLORIDE 0.9% 1,000 ML IV SCH (13:17)
--- NOTE | 2020-09-06 13:47 | P.PN ---
Subjective Progress Note Date: 09/06/20 She reports epigastric including diffuse abdominal pain. She has pre-existing history of peritoneal adhesions. Will proceed with lysis of adhesions. Possible bowel resection also reviewed. Objective - Vital Signs Vital signs: Vital Signs Temp 98.1 F 09/06/20 07:53 Pulse 77 09/06/20 07:53 Resp 18 09/06/20 09:51 BP 95/65 09/06/20 07:53 Pulse Ox 94 L 09/06/20 07:53 Intake & Output 09/05/20 09/06/20 09/06/20 18:59 06:59 18:59 Intake Total 500 Balance 500 Intake: Oral 500 Other: Voiding Method Toilet Toilet # Voids 2 2 - Labs CBC & Chem 7: 09/04/20 20:44 09/04/20 20:44
[2020-09-06] MEDS ORDERED: IV FLUID CONTINUATION 800 ML IV ONE (15:20)
[2020-09-06] MEDS ORDERED: HEPARIN SODIUM,PORCINE/PF 5,000 UNIT/0.5 ML SYRINGE SQ ONE (15:36)
[2020-09-06] MEDS ORDERED: MIDAZOLAM 2 MG/2 ML VIAL IV ONE (15:45)
[2020-09-06] MEDS ORDERED: DEXAMETHASONE SOD PHOSPHATE 4 MG/ML 1 ML VIAL IV ONE (15:46)
[2020-09-06] MEDS ORDERED: CLINDAMYCIN 900 MG in DEXTROSE 5% IN WATER 50 ML IVPB STA ×2 (15:50)
[2020-09-06] MEDS ORDERED: HEPARIN SODIUM,PORCINE 5,000 UNIT/ML 1 ML VIAL SQ ONE (15:54)
[2020-09-06] MEDS ORDERED: fentaNYL (PF) 50 MCG/ML 2 ML AMP ONE (16:02)
[2020-09-06] MEDS ORDERED: SUCCINYLCHOLINE CHLORIDE 100 MG/5 ML SYR IV ONE (16:02)
[2020-09-06] MEDS ORDERED: PROPOFOL 10 MG/ML 20 ML VIAL IV ONE (16:02)
[2020-09-06] MEDS ORDERED: GLYCOPYRROLATE 0.2 MG/ML 2 ML VIAL ONE (16:02)
[2020-09-06] MEDS ORDERED: MIDAZOLAM 2 MG/2 ML VIAL ONE (16:02)
[2020-09-06] MEDS ORDERED: NEOSTIGMINE 1 MG/ML 10 ML VIAL ONE (16:02)
[2020-09-06] MEDS ORDERED: ROCURONIUM 10 MG/ML (5 ML VIAL) IV ONE (16:02)
[2020-09-06] MEDS ORDERED: LIDOCAINE 1% INJ 10MG/ML (20 ML MDV) ONE (16:02)
[2020-09-06] MEDS ORDERED: LACTATED RINGERS 1,000 ML IV ONE (16:59)
[2020-09-06] MEDS ORDERED: GABAPENTIN 300 MG CAP PO PRN (18:29)
[2020-09-06] MEDS ORDERED: traMADol 50 MG TAB PO PRN (18:29)
--- NOTE | 2020-09-06 18:33 | P.OP ---
Date of Procedure: 09/06/20 Preoperative Diagnosis: Small bowel obstruction Postoperative Diagnosis: Small bowel obstruction, closed loop Procedure(s) Performed: Robotic lysis of adhesions, extensive over 1.5 hrs Anesthesia: GETA, local Surgeon: Hortencia Bangura Estimated Blood Loss (ml): 5 Pathology: none sent Condition: stable Disposition: floor Operative Findings: Closed loop obstruction from adhesions at LUQ, lysed. All small bowel viable.
[2020-09-06] MEDS ORDERED: HYDROmorphone 0.2 MG/1 ML SYRINGE IM ONE (18:38)
[2020-09-06] MEDS ORDERED: HYDROmorphone 0.5 MG/0.5 ML SYRINGE IVP ONE (18:38)
[2020-09-06] MEDS ORDERED: KETOROLAC 15 MG/ML 1 ML VIAL IVP ONE (19:11)
[2020-09-06] MEDS: NON FORMULARY DRUG (Dextroamphetamine/Amphetamine [Adderall] 20 MG Tablet) PO SCH (20:38)
[2020-09-07] MEDS: HYDROmorphone 1 MG/ML 1 ML SYRINGE IVP PRN ×8 (02:37→23:30)
[2020-09-07] MEDS: SODIUM CHLORIDE 0.9% 1,000 ML IV SCH ×2 (04:52→15:30)
[2020-09-07] MEDS: NON FORMULARY DRUG (Dextroamphetamine/Amphetamine [Adderall] 20 MG Tablet) PO SCH ×3 (07:59→20:56)
[2020-09-07] MEDS: ONDANSETRON 4 MG/2 ML VIAL IVP PRN ×2 (07:59→17:35)
[2020-09-07] MEDS: PANTOPRAZOLE 40 MG/10 ML VIAL IV SCH (08:03)
[2020-09-07] MEDS: ENOXAPARIN 30 MG/0.3 ML SYRINGE SQ SCH (08:08)
[2020-09-07] MEDS: ALBUTEROL HFA INHALER INHALATION PRN ×3 (08:50→21:02)
[2020-09-07] MEDS: SYMBICORT 80-4.5 MCG INHALER INHALATION SCH ×2 (08:50→21:02)
[2020-09-07] MEDS: hydrOXYzine pamoate 25 MG CAP PO SCH ×2 (09:20→20:33)
[2020-09-07] MEDS: LACTATED RINGERS 1,000 ML IV SCH (10:23)
[2020-09-07] MEDS: TAMSULOSIN 0.4 MG CAP.ER.24H PO SCH (11:15)
--- NOTE | 2020-09-07 13:22 | P.PN ---
Subjective Progress Note Date: 09/07/20 Patient is status post lysis of adhesions for closed loop bowel obstruction. Her abdominal pain is improved. Labs reviewed with multiple vitamin deficiencies for which she is symptomatic. Repeat labs performed. Trial of diet described. Flomax for pre-existing urinary retention following surgery. Objective - Vital Signs Vital signs: Vital Signs Temp 98.2 F 09/07/20 07:40 Pulse 72 09/07/20 07:40 Resp 18 09/07/20 07:40 BP 94/69 09/07/20 07:40 Pulse Ox 95 09/07/20 07:40 Intake & Output 09/06/20 09/07/20 09/07/20 18:59 06:59 18:59 Intake Total 1256 1200 Output Total 5 800 1000 Balance 1251 400 -1000 Intake: IV 1256 400 Intake, IV Titration 800 Amount Sodium Chloride 0.9% 1, 800 000 ml @ 75 mls/hr IV . [id number] [facility] Rx#:[id number] Output: Urine 800 1000 Straight 800 Estimated Blood Loss 5 Other: Voiding Method Toilet Toilet - Labs CBC & Chem 7: 09/04/20 20:44 09/04/20 20:44
[2020-09-07 23:42] LABS: % Iron Saturation 11.2 (12.00-45.00)
[2020-09-07 23:56] LABS: Ferritin 6.6 ng/mL (10.0-291.0)
[2020-09-08] MEDS: SODIUM CHLORIDE 0.9% 1,000 ML IV SCH ×2 (01:32→17:35)
[2020-09-08] MEDS: ONDANSETRON 4 MG/2 ML VIAL IVP PRN ×3 (01:32→17:35)
[2020-09-08] MEDS: HYDROmorphone 1 MG/ML 1 ML SYRINGE IVP PRN ×8 (02:20→23:24)
[2020-09-08] MEDS: ALBUTEROL HFA INHALER INHALATION PRN (07:46)
[2020-09-08] MEDS: SYMBICORT 80-4.5 MCG INHALER INHALATION SCH ×2 (07:48→22:01)
[2020-09-08] MEDS: hydrOXYzine pamoate 25 MG CAP PO SCH ×2 (08:11→20:25)
[2020-09-08] MEDS: PANTOPRAZOLE 40 MG/10 ML VIAL IV SCH (08:11)
[2020-09-08] MEDS: TAMSULOSIN 0.4 MG CAP.ER.24H PO SCH (08:12)
[2020-09-08] MEDS: ENOXAPARIN 30 MG/0.3 ML SYRINGE SQ SCH (08:12)
[2020-09-08] MEDS: NON FORMULARY DRUG (Dextroamphetamine/Amphetamine [Adderall] 20 MG Tablet) PO SCH ×3 (09:16→20:30)
[2020-09-08] MEDS: LACTATED RINGERS 1,000 ML IV SCH (09:26)
[2020-09-08] MEDS ORDERED: CYANOCOBALAMIN 1,000 MCG/ML 1 ML VIAL IM ONE (13:06)
[2020-09-08] MEDS: SODIUM FERRIC GLUCONAT-SUCROSE 125 MG in SODIUM CHLORIDE 0.9% 100 ML IVPB SCH (13:27)
--- NOTE | 2020-09-08 15:11 | P.PN ---
Subjective Progress Note Date: 09/08/20 Principal diagnosis: She is able to tolerate more food. She complains of moderate incisional pain to be expected from recent surgery She is voiding spontaneously. LABS: Reviewed. TSH low. Iron low. Vit B-12 low ASSESSMENT: 1. Closed loop small bowel obstruction PLAN: 1. Iron infusion 2. Pain management 3. Vitamin B-12 administered 4. Disposition home in 24 to 48 hrs. Objective - Vital Signs Vital signs: Vital Signs Temp 98.1 F 09/08/20 08:00 Pulse 66 09/08/20 08:00 Resp 18 09/08/20 08:00 BP 91/61 09/08/20 08:00 Pulse Ox 94 L 09/08/20 08:00 Intake & Output 09/07/20 09/08/20 09/08/20 18:59 06:59 18:59 Intake Total 200 120 Output Total 1800 Balance -1600 120 Intake: Oral 200 120 Output: Urine 1800 Other: Voiding Method Toilet Toilet # Voids 1 1 - Labs CBC & Chem 7: 09/04/20 20:44 09/04/20 20:44 Labs: Abnormal Lab Results - Last 24 Hours (Table) 09/07/20 Range/Units 14:30 Iron 40 L (50-170) ug/dL % Saturation 11.20 L (12.00-45.00) Ferritin 6.6 L (10.0-291.0) ng/mL TSH 0.267 L (0.465-4.680) mIU/L
[2020-09-09] MEDS: ONDANSETRON 4 MG/2 ML VIAL IVP PRN (01:29)
[2020-09-09] MEDS: HYDROmorphone 1 MG/ML 1 ML SYRINGE IVP PRN ×2 (02:28→05:22)
[2020-09-09] MEDS: SODIUM CHLORIDE 0.9% 1,000 ML IV SCH (05:23)
[2020-09-09] MEDS: PANTOPRAZOLE 40 MG/10 ML VIAL IV SCH (07:41)
[2020-09-09] MEDS: TAMSULOSIN 0.4 MG CAP.ER.24H PO SCH (07:41)
[2020-09-09] MEDS: ENOXAPARIN 30 MG/0.3 ML SYRINGE SQ SCH (07:41)
[2020-09-09] MEDS: NON FORMULARY DRUG (Dextroamphetamine/Amphetamine [Adderall] 20 MG Tablet) PO SCH (07:42)
[2020-09-09] MEDS: hydrOXYzine pamoate 25 MG CAP PO SCH (07:42)
[2020-09-09 07:50] VITALS: BP 89/59; PULSE 64; RESP 18; TEMP 98.2
[2020-09-09] MEDS: SODIUM FERRIC GLUCONAT-SUCROSE 125 MG in SODIUM CHLORIDE 0.9% 100 ML IVPB SCH (08:12)
[2020-09-09] MEDS: SYMBICORT 80-4.5 MCG INHALER INHALATION SCH (08:54)
[2020-09-09] MEDS: ALBUTEROL HFA INHALER INHALATION PRN (08:54)
--- NOTE | 2020-09-09 10:40 | P.DS ---
Providers Date of admission: 09/04/20 22:11 Expected date of discharge: 09/09/20 Attending physician: Hortencia Bangura Primary care physician: Bob Al Hospital Course: Discharge diagnosis 1. Closed loop small bowel obstruction status post robotic lysis of adhesions 2. Iron deficiency 3. Low B12 level Hospital course This is a 45-year-old female presented with intractable nausea and vomiting and severe abdominal pain. Computed tomography scan had shown mechanical bowel obstruction. Patient does have history of gastric bypass. Patient is status post robotic lysis of adhesions for closed loop small bowel distraction. P sol tolerated surgery well. Her pain is controlled. She is tolerating diet. She is having bowel movements and flatus. She has been up and ambulating. She is afebrile. She is stable for discharge. Physician Bomb Squad Commander note has been reviewed by physician. Signing provider agrees with the documented findings, assessment, and plan of care. Patient Condition at Discharge: Stable Plan - Discharge Summary Discharge Rx Participant: Yes New Discharge Prescriptions: New Acetaminophen Tab [Tylenol Tab] 650 mg PO Q4H PRN #30 tablet PRN Reason: Pain Continue hydrOXYzine pamoate [Vistaril] 50 mg PO BID Gabapentin [Neurontin] 300 mg PO BID PRN PRN Reason: Pain Fluticasone/Salmeterol [Advair 100-50 Diskus] 1 puff INHALATION RT-DAILY Dextroamphetamine/Amphetamine [Adderall] 20 mg PO TID traMADol HCL [Ultram] 50 mg PO DAILY PRN PRN Reason: Pain rOPINIRole HCL [Requip] 1 mg PO HS Albuterol Sulfate [Proair Hfa] 2 puff INHALATION RT-QID PRN PRN Reason: Shortness Of Breath Discharge Medication List hydrOXYzine pamoate [Vistaril] 50 mg PO BID 07/28/19 [History] Gabapentin [Neurontin] 300 mg PO BID PRN 02/07/20 [History] Fluticasone/Salmeterol [Advair 100-50 Diskus] 1 puff INHALATION RT-DAILY 02/21/20 [History] Dextroamphetamine/Amphetamine [Adderall] 20 mg PO TID 05/29/20 [History] Albuterol Sulfate [Proair Hfa] 2 puff INHALATION RT-QID PRN 09/04/20 [History] rOPINIRole HCL [Requip] 1 mg PO HS 09/04/20 [History] traMADol HCL [Ultram] 50 mg PO DAILY PRN 09/04/20 [History] Acetaminophen Tab [Tylenol Tab] 650 mg PO Q4H PRN #30 tablet 09/09/20 [Rx] Follow up Appointment(s)/Referral(s): Mikaela Rojas MD [Primary Care Provider] - 1-2 days Bariatric [place], [place] [NON-STAFF] - 09/18/20 Activity/Diet/Wound Care/Special Instructions: No lifting over 4 pounds in 4 weeks until October 04July shower. No bath tub soaks for two weeks until September 20 Avoid steak, tough meats and seeds such as raspberry seeds. Use Tylenol scheduled for the next 24-48 hours for best pain relief. Use ice along incisions for the today to prevent swelling. Discharge Disposition: HOME SELF-CARE
[2020-09-09 19:59] LABS: Vitamin D, 1, 25-Dihydroxy 97 pg/mL (20 - 79)
[2020-09-10 07:57] LABS: Vitamin A 33 ug/dL (38-106)
[2020-09-11 14:45] LABS: Vit B1(Thiamine) 48 ug/L (38-122)
== END 2020-09-09 11:35 | disposition home or self-care (01) | DRG 337 ==
LOC: EC 19:37 → 4SSUR 22:11 → 6PED 09-06 12:01
PROVIDERS: ADMIT Surgery Plastic and Reconstructive Surgery; ATTEND Surgery Plastic and Reconstructive Surgery
PROC: 8E0W4CZ Robotic Assisted Procedure of Trunk Region, Percutaneous Endoscopic Approach (ICD-10-PCS; 2020-09-06)
PROC: 0DN84ZZ Release Small Intestine, Percutaneous Endoscopic Approach (ICD-10-PCS; principal; 2020-09-06 12:45)
DX: K56.50 Intestinal adhesions [bands], unspecified as to partial versus complete obstruction (principal); E61.1 Iron deficiency; F41.9 Anxiety disorder, unspecified; F90.9 Attention-deficit hyperactivity disorder, unspecified type; J45.909 Unspecified asthma, uncomplicated; Z20.822 Contact with and (suspected) exposure to COVID-19; Z79.899 Other long term (current) drug therapy; Z82.5 Family history of asthma and other chronic lower respiratory diseases; Z86.711 Personal history of pulmonary embolism; Z87.891 Personal history of nicotine dependence; Z90.710 Acquired absence of both cervix and uterus; Z98.84 Bariatric surgery status; Z86.718 Personal history of other venous thrombosis and embolism; Z82.49 Family history of ischemic heart disease and other diseases of the circulatory system; Z80.52 Family history of malignant neoplasm of bladder; Z88.1 Allergy status to other antibiotic agents; Z88.5 Allergy status to narcotic agent; Z88.0 Allergy status to penicillin; E27.8 Other specified disorders of adrenal gland; Z85.42 Personal history of malignant neoplasm of other parts of uterus
CPT/HCPCS: 36415; 74177; 80053; 81003; 82607; 82652; 82728; 83540; 83550; 83605; 83690; 84425; 84439; 84443; 84590; 85025; 86850; 86900; 86901; 87635; 94640; 96374; 96375; 99285

== ENCOUNTER → 2020-09-18 | Outpatient (CLI) | payer OTHER ==
--- NOTE | 2020-09-18 15:39 | P.PN ---
Subjective Progress Note Date: 09/18/20 DATE OF SERVICE: 09/18/2020 CHIEF COMPLAINT: Follow up gastric bypass HISTORY OF PRESENT ILLNESS: Dorie Morales is a 45-year-old female with history of a gastric bypass in October 2012. She is over 8 years out. She is status post lysis of adhesions, 3 weeks ago. She is feeling better. Her abdominal pain is better. She is drinking her protein intake. At her height of 5 foot 5 pounds, her ideal body weight is 149 pounds. Her highest personal weight was 268 pounds. Today she comes in weighing 194 pounds from 199 pounds, 4 months ago. She lost 6 pounds in 4 months. Her lifetime weight loss is 74 pounds. Her percent excess weight loss lifetime is 68 %. Body mass index is reduced from 44.7 down to 32.3. PHYSICAL EXAM: VITAL SIGNS: 5 foot 5, 199 pounds. Body mass index is 33.2 Vital Signs Temp 98.3 F 09/18/20 16:28 Pulse 105 H 09/18/20 16:28 Resp 16 09/18/20 16:28 BP 111/84 09/18/20 16:28 Pulse Ox ABDOMEN: Pain along the left upper quadrant. GENERAL: Well-developed female no acute distress. HEENT: No scleral icterus. Extraocular movements grossly intact. NECK: Supple without lymphadenopathy. CHEST: Unlabored respirations. Equal bilateral excursions. CARDIOVASCULAR: 2+ pulses. Tachycardic MUSCULOSKELETAL: No clubbing, cyanosis, or edema. NEURO: No focal or lateralizing signs. Cranial nerves II through XII grossly intact. SKIN: Well perfused. Good skin turgor. ASSESSMENT: 1. Morbid obesity due to excess calories 2. Body mass index reduced from 44.7 down to 32.3 3. Status post Renee-en-Y gastric bypass. 4. Status post jejunojejunostomy revision. 5. Prior history of chronic abdominal pain. 6. Dysphagia 7. Dietary surveillance and counseling. 8. History of thyroid goiter. 9. History of vitamin B12 deficiency. 10. Chronic pain syndrome. 11. Panniculitis of the abdomen, refractory to treatment. 12. Lower back pain secondary to panniculitis. 13. Tobacco use 14. Dysphagia 15. Hypercholesterolemia 16. Elevated liver enzymes 17. Iron deficiency anemia 18. Left upper quadrant abdominal pain. 19. Peritoneal adhesions PLAN: 1. Recommend full recovery as she reports chronic panniculitis. 2. Follow-up as needed.
[2020-09-18 16:30] VITALS: BP 111/84; PULSE 105; RESP 16; TEMP 98.3; BMI 32.3
== END ==
LOC: BARWHC3 14:54
PROVIDERS: ATTEND Surgery Plastic and Reconstructive Surgery
DX: E66.01 Morbid (severe) obesity due to excess calories (principal); R13.10 Dysphagia, unspecified; Z71.3 Dietary counseling and surveillance; G89.4 Chronic pain syndrome; M79.3 Panniculitis, unspecified; M54.5 Low back pain; E78.00 Pure hypercholesterolemia, unspecified; R74.01 Elevation of levels of liver transaminase levels; D50.9 Iron deficiency anemia, unspecified; K66.0 Peritoneal adhesions (postprocedural) (postinfection); Z72.0 Tobacco use; Z86.39 Personal history of other endocrine, nutritional and metabolic disease; Z98.84 Bariatric surgery status; Z98.890 Other specified postprocedural states; Z68.32 Body mass index [BMI] 32.0-32.9, adult; Z88.0 Allergy status to penicillin; Z88.5 Allergy status to narcotic agent; Z91.018 Allergy to other foods; Z88.8 Allergy status to other drugs, medicaments and biological substances
CPT/HCPCS: 99211

== ENCOUNTER → 2020-10-21 | Outpatient (CLI) | payer OTHER | END | disposition home or self-care (01) | LOC: LABWHC1 08:28 | PROVIDERS: ATTEND Surgery Plastic and Reconstructive Surgery | DX: Z53.9 Procedure and treatment not carried out, unspecified reason (principal) ==

== ENCOUNTER → 2021-05-28 | Outpatient (CLI) | payer OTHER ==
[2021-05-28 15:39] VITALS: BP 124/77; PULSE 104; RESP 16; TEMP 98.2; BMI 31.8
--- NOTE | 2021-05-28 15:53 | P.BASOAP ---
Subjective Progress Note Date: 05/28/21 DATE OF SERVICE: 05/28/2021 CHIEF COMPLAINT: Follow up gastric bypass HISTORY OF PRESENT ILLNESS: Dorie Morales is a 46-year-old female with history of a gastric bypass in October 2012. She is over 9 years out. She comes in with panniculitis. She reports Bentyl is helping with intermittent abdominal cramps. She reports smoking recently. She is self tattooing. She is looking into panniculectomy. At her height of 5 foot 5 pounds, her ideal body weight is 149 pounds. Her highest personal weight was 268 pounds. Today she comes in weighing 191 pounds from 201 pounds, 2 months ago. She lost 11 pounds in 2 months. Her lifetime weight loss is 77 pounds. Her percent excess weight loss lifetime is 65 %. Body mass index is reduced from 44.7 down to 31.8. PHYSICAL EXAM: VITAL SIGNS: 5 foot 5, 191 pounds. Body mass index is 31.8 Vital Signs Temp 98.2 F 05/28/21 15:37 Pulse 104 H 05/28/21 15:37 Resp 16 05/28/21 15:37 BP 124/77 05/28/21 15:37 Pulse Ox ABDOMEN: Protuberant. Indentation at left upper quadrant. No peritonitis. GENERAL: Well-developed female no acute distress. HEENT: No scleral icterus. Extraocular movements grossly intact. NECK: Supple without lymphadenopathy. CHEST: Unlabored respirations. Equal bilateral excursions. CARDIOVASCULAR: 2+ pulses. Tachycardic MUSCULOSKELETAL: No clubbing, cyanosis, or edema. NEURO: No focal or lateralizing signs. Cranial nerves II through XII grossly intact. SKIN: Well perfused. Good skin turgor. ASSESSMENT: 1. Morbid obesity due to excess calories 2. Body mass index reduced from 44.7 down to 31.8 3. Status post Renee-en-Y gastric bypass. 4. Status post jejunojejunostomy revision. 5. Prior history of chronic abdominal pain. 6. Dysphagia 7. Dietary surveillance and counseling. 8. History of thyroid goiter. 9. History of vitamin B12 deficiency. 10. Chronic pain syndrome. 11. Panniculitis of the abdomen, refractory to treatment. 12. Lower back pain secondary to panniculitis. 13. Tobacco use 14. Dysphagia 15. Hypercholesterolemia 16. Elevated liver enzymes 17. Iron deficiency anemia 18. Left upper quadrant abdominal pain. 19. Peritoneal adhesions PLAN: 1. She reports improvement of her abdominal pain with bentyl and continue. 2. She comes in with panniculitis. [employer] referral advised as she is looking into panniculectomy. 3. She has tobacco use with risks of ulcers. Recommend urine nicotine. 4. May benefit from lysis of adhesions with removal left upper qadrant scar in the future. Objective - Vital Signs Vital signs: Vital Signs Temp 98.2 F 05/28/21 15:37 Pulse 104 H 05/28/21 15:37 Resp 16 05/28/21 15:37 BP 124/77 05/28/21 15:37 Pulse Ox Intake & Output 05/27/21 05/28/21 05/28/21 18:59 06:59 18:59 Weight 86.636 kg Assessment/Plan Plan: Date: 05/28/21 Initial Weight: 91.807 kg Initial BMI: 33.7 Current Weight: 86.636 kg Current BMI: 31.8 Type of Surgery: Renee-en-Y Gastric Bypass Total Volume in Band: Previous Volume: Volume Removed: Volume Added: Band Size:
== END ==
LOC: BARWHC3 14:57
PROVIDERS: ATTEND Surgery Plastic and Reconstructive Surgery
DX: E66.01 Morbid (severe) obesity due to excess calories (principal); Z68.31 Body mass index [BMI] 31.0-31.9, adult; Z98.84 Bariatric surgery status; R13.10 Dysphagia, unspecified; Z71.3 Dietary counseling and surveillance; Z86.39 Personal history of other endocrine, nutritional and metabolic disease; Z87.19 Personal history of other diseases of the digestive system; Z98.890 Other specified postprocedural states; G89.4 Chronic pain syndrome; M79.3 Panniculitis, unspecified; Z72.0 Tobacco use; E78.00 Pure hypercholesterolemia, unspecified; R94.5 Abnormal results of liver function studies; E61.1 Iron deficiency; K66.0 Peritoneal adhesions (postprocedural) (postinfection); Z88.1 Allergy status to other antibiotic agents; Z88.5 Allergy status to narcotic agent; Z88.0 Allergy status to penicillin; Z91.018 Allergy to other foods
CPT/HCPCS: 99211

== ENCOUNTER 2021-05-31 09:04 | Emergency (ER) | payer OTHER ==
[2021-05-31] MEDS ORDERED: HYDROmorphone 0.5 MG/0.5 ML SYRINGE IVP STA (09:27)
[2021-05-31] MEDS ORDERED: ONDANSETRON 4 MG/2 ML VIAL IVP STA ×2 (09:27→12:07)
[2021-05-31] MEDS ORDERED: SODIUM CHLORIDE 0.9% 1,000 ML IV STA (09:27)
[2021-05-31] MEDS ORDERED: IOPAMIDOL CONTRAST (ORAL USE) VIAL PO PRN (09:27)
[2021-05-31 09:49] LABS: Basophils % (A) 1 %; Eosinophils # (A) 0.2 k/uL (0-0.7); Eosinophils % (A) 3 %; HGB 14.7 gm/dL (11.4-16.0); Lymphocytes # (A) 1.2 k/uL (1.0-4.8); Lymphocytes % (A) 19 %; MCH 27.5 pg (25.0-35.0); MCHC 32.7 g/dL (31.0-37.0); Mean Platelet Volume 7.8; Monocytes # (A) 0.4 k/uL (0-1.0); Monocytes % (A) 7 %; Neutrophils # (A) 4.1 k/uL (1.3-7.7); Neutrophils % (A) 68 %; Platelet Count 340 k/uL (150-450); RBC 5.36 m/uL (3.80-5.40); RDW 14.4 % (11.5-15.5); WBC 6.1 k/uL (3.8-10.6)
[2021-05-31 10:38] LABS: ALT 14 U/L (4-34); AST 20 U/L (14-36); African American GFR (CKD) >90 (>60 ml/min/1.73 sqM); Albumin 4.5 g/dL (3.5-5.0); Alkaline Phosphatase 72 U/L (38-126); Amylase 60 U/L (30-110); Anion Gap 4 mmol/L; Blood Urea Nitrogen 8 mg/dL (7-17); Calcium 9.6 mg/dL (8.4-10.2); Carbon Dioxide 25 mmol/L (22-30); Chloride 108 mmol/L (98-107); Glucose 130 mg/dL (74-99); Lipase 117 U/L (23-300); Non-African American GFR(CKD) >90 (>60 ml/min/1.73 sqM); Potassium 4.1 mmol/L (3.5-5.1); Sodium 137 mmol/L (137-145); Total Bilirubin 0.6 mg/dL (0.2-1.3); Total Protein 8.1 g/dL (6.3-8.2)
--- NOTE | 2021-05-31 11:38 | CT ---
EXAMINATION TYPE: CT abdomen pelvis w con DATE OF EXAM: 05/31/2021 HISTORY: Pain, history of gastric surgery CT DLP: 1299.4mGycm Automated Exposure Control for Dose Reduction was Utilized. CONTRAST: CT scan of the abdomen and pelvis is performed with IV Contrast, patient injected with 100 mL of Isov ue 300. COMPARISON: Most recent CT September 04, 2020 and older CTs FINDINGS: LUNG BASES: No significant abnormality is appreciated. LIVER/GB: Prominent right hepatic lobe redemonstrated cholecystectomy clips again seen.. PANCREAS: No significant abnormality is seen. SPLEEN: No significant abnormality is seen. ADRENALS: Persistent low dense thickening to left adrenal gland favoring benign lipid rich hyperplasi a. KIDNEYS: Symmetric cortical atrophy uptake and excretion without hydronephrosis seen bilaterally. BOWEL: Surgical changes epigastric region from gastric bypass procedure. There is new dilated fluid-f illed stomach and duodenal sweep extending into proximal small bowel loops where there are additional surgical sutures in the left mid to lower abdomen there is abrupt transition in the mid to lower abd omen near level of sutures axial image 58. Fecal material seen in nondistended colon along the periph rosy. Nondistended fluid-filled small bowel loops in the pelvis are present. No free air currently. UTERUS/ADNEXA: Uterus surgically absent or markedly atrophic. LYMPH NODES: No greater than 1cm abdominal or pelvic lymph nodes are appreciated. OSSEOUS STRUCTURES: No significant abnormality is seen. OTHER: No significant additional abnormality is seen. IMPRESSION: Findings consistent with new high-grade proximal to mid small bowel obstruction likely on the basis of adhesions near level of surgical sutures in the mid to lower abdomen as detailed above.
[2021-05-31] MEDS ORDERED: HYDROmorphone 1 MG/ML 1 ML SYRINGE IVP STA (12:00)
[2021-05-31] MEDS ORDERED: SODIUM CHLORIDE 0.9% 1,000 ML IV ONE (12:12)
--- NOTE | 2021-05-31 12:14 | ED ---
Abdominal Pain HPI - General Chief Complaint: Abdominal Pain Stated Complaint: abd pain Time Seen by Provider: 05/31/21 09:08 Source: patient, EMS Mode of arrival: EMS Limitations: no limitations - History of Present Illness Initial Comments: This is a 46 year old female presents to the ER via EMS for complaint of abdominal pain. Patients pain started yesterday increasing pain in epigastric with nausea and vomiting. Patient states he has history of gastric bypass, appendectomy , cholecystectomy, and ahesion removal by Dr Arnett. Patient was placed on bentyl for abdominal pain by surgeon. Patient denies dysuria, diarrhea, chest pain, fever, or any other complaints, - Related Data Home Medications Medication Instructions Recorded Confirmed hydrOXYzine pamoate [Vistaril] 50 mg PO BID 07/28/19 05/28/21 Gabapentin [Neurontin] 300 mg PO BID PRN 02/07/20 05/28/21 Fluticasone/Salmeterol [Advair 1 puff INHALATION RT-DAILY 02/21/20 05/28/21 100-50 Diskus] Dextroamphetamine/Amphetamine 20 mg PO TID 05/29/20 05/28/21 [Adderall] Albuterol Sulfate [Proair Hfa] 2 puff INHALATION RT-QID PRN 09/04/20 05/28/21 rOPINIRole HCL [Requip] 1 mg PO HS 09/04/20 05/28/21 traMADol HCL [Ultram] 50 mg PO DAILY PRN 09/04/20 05/28/21 Previous Rx's Medication Instructions Recorded Dicyclomine [Bentyl] 10 mg PO TID #30 capsule 04/09/21 Dicyclomine [Bentyl] 20 mg PO QID #120 tablet 04/18/21 Dicyclomine [Bentyl] 20 mg PO QID #120 tablet 05/28/21 Allergies Allergy/AdvReac Type Severity Reaction Status Date / Time cephalexin monohydrate Allergy Severe Rash/Hives, Verified 05/31/21 09:19 [From Keflex] nausea,sweats,chills morphine Allergy Severe Itching, Verified 05/31/21 09:19 migraines,states "does not help with pain." Penicillins Allergy Severe Rash/Hives, Verified 05/31/21 09:19 nausea,lethargic almond Allergy Anaphylaxis Verified 05/31/21 09:19 almond oil Allergy Anaphylaxis Verified 05/31/21 09:19 [place] And Derivatives Allergy Nausea & Verified 05/31/21 09:19 [[place]] Vomiting gluten Allergy Abdominal Verified 05/31/21 09:19 Pain mustard Allergy Anaphylaxis Verified 05/31/21 09:19 walnut Allergy Anaphylaxis Verified 05/31/21 09:19 niacin AdvReac hives to Verified 05/31/21 09:19 face Review of Systems ROS Statement: Those systems with pertinent positive or pertinent negative responses have been documented in the HPI. ROS Other: All systems not noted in ROS Statement are negative. Past Medical History Past Medical History: Asthma, Cancer, Chest Pain / Angina, Deep Vein Thrombosis (DVT), GERD/Reflux, Osteoarthritis (OA), Pulmonary Embolus (PE) Additional Past Medical History / Comment(s): HYPOGLYCEMIC. diverticulitis, hypotension, migraines, "food getting stuck"-needs balloon dilation every 6-12 months, hx uterine cancer, colitis, possible crohns, nodule on adrenal gland. History of Any Multi-Drug Resistant Organisms: None Reported Past Surgical History: Cholecystectomy, Hysterectomy Additional Past Surgical History / Comment(s): reyna-y gastric bypass with adhesions, rt arm-plate and screws, laparoscopy, umbilical hernia repair, I&D of abd wound,SCOPE RT SHOULDER. swallow study. Revision of RNY r/t complications, Oral surgery Past Anesthesia/Blood Transfusion Reactions: Family History of Problems w/ Anesthesia, Motion Sickness, Postoperative Nausea & Vomiting (PONV) Additional Past Anesthesia/Blood Transfusion Reaction / Comment(s): mother has asthma attacks post-op Past Psychological History: ADD/ADHD, Anxiety Smoking Status: Former smoker Past Alcohol Use History: None Reported Past Drug Use History: None Reported - Past Family History Father Additional Family Medical History / Comment(s): BRAIN ANUERYSM Mother Family Medical History: AFIB, AICD/Pacemaker, Asthma, Cancer Additional Family Medical History / Comment(s): bladder General Exam Limitations: no limitations General appearance: alert, in no apparent distress Head exam: Present: atraumatic, normocephalic, normal inspection Eye exam: Present: normal appearance, PERRL, EOMI. Absent: scleral icterus, conjunctival injection, periorbital swelling ENT exam: Present: mucous membranes moist. Absent: normal exam, normal oropharynx Neck exam: Present: normal inspection, full ROM. Absent: tenderness, meningis mus, lymphadenopathy Respiratory exam: Present: normal lung sounds bilaterally. Absent: respiratory distress, wheezes, rales, rhonchi, stridor Cardiovascular Exam: Present: regular rate, normal rhythm, normal heart sounds. Absent: systolic murmur, diastolic murmur, rubs, gallop, clicks GI/Abdominal exam: Present: soft, tenderness (epigastric), normal bowel sounds. Absent: distended, guarding, rebound, rigid Back exam: Absent: CVA tenderness (R), CVA tenderness (L) Skin exam: Present: warm, dry, intact, normal color. Absent: rash Course Vital Signs 05/31/21 09:13 Temperature 97.5 F L Pulse Rate 65 Respiratory 20 Rate Blood Pressure 99/74 O2 Sat by Pulse 95 Oximetry Medical Decision Making - Medical Decision Making patient presented for abdominal pain x [address] shows SBO with adhesions. Labs do not reveal any significant findings. Case discusses with Dr Yanez who is covering Dr. Arnett's patients states he does not perfrom gastric bypass procedures and states patient needs surgery, advises to transfer patient to another facility. Case discussed with Dr. Lucas at [facility] accepts admission. - Lab Data Result diagrams: 05/31/21 09:44 05/31/21 10:08 Lab Results 05/31/21 05/31/21 05/31/21 Range/Units 09:44 10:00 10:08 WBC 6.1 (3.8-10.6) k/uL RBC 5.36 (3.80-5.40) m/uL Hgb 14.7 (11.4-16.0) gm/dL Hct 45.0 (34.0-46.0) % MCV 84.0 (80.0-100.0) fL MCH 27.5 (25.0-35.0) pg MCHC 32.7 (31.0-37.0) g/dL RDW 14.4 (11.5-15.5) % Plt Count 340 (150-450) k/uL MPV 7.8 Neutrophils % 68 % Lymphocytes % 19 % Monocytes % 7 % Eosinophils % 3 % Basophils % 1 % Neutrophils # 4.1 (1.3-7.7) k/uL Lymphocytes # 1.2 (1.0-4.8) k/uL Monocytes # 0.4 (0-1.0) k/uL Eosinophils # 0.2 (0-0.7) k/uL Basophils # 0.0 (0-0.2) k/uL Sodium 137 (137-145) mmol/L Potassium 4.1 (3.5-5.1) mmol/L Chloride 108 H (98-107) mmol/L Carbon Dioxide 25 (22-30) mmol/L Anion Gap 4 mmol/L BUN 8 (7-17) mg/dL Creatinine 0.67 (0.52-1.04) mg/dL Est GFR (CKD-EPI)AfAm >90 (>60 ml/min/1.73 sqM) Est GFR (CKD-EPI)NonAf >90 (>60 ml/min/1.73 sqM) Glucose 130 H (74-99) mg/dL Plasma Lactic Acid Shlomo 0.7 (0.7-2.0) mmol/L Calcium 9.6 (8.4-10.2) mg/dL Total Bilirubin 0.6 (0.2-1.3) mg/dL AST 20 (14-36) U/L ALT 14 (4-34) U/L Alkaline Phosphatase 72 (38-126) U/L Total Protein 8.1 (6.3-8.2) g/dL Albumin 4.5 (3.5-5.0) g/dL Amylase 60 (30-110) U/L Lipase 117 (23-300) U/L Disposition Clinical Impression: Small bowel obstruction due to adhesions, History of Reyna-en-Y gastric bypass Disposition: OTHER INSTITUTION NOT DEFINED Referrals: Mikaela Rojas MD [Primary Care Provider] - 1-2 days Time of Disposition: 12:13 - Out of Hospital Transfer - Req. Specs Out of Hospital Transfer - Requested Specifics: Other Emergency Center ([facility])
[2021-05-31 12:22] VITALS: RESP 18
[2021-05-31 13:47] VITALS: BP 104/71; PULSE 78; TEMP 97.7
== END 2021-05-31 13:10 | disposition other institution (70) ==
LOC: EC 09:04
DX: K56.50 Intestinal adhesions [bands], unspecified as to partial versus complete obstruction (principal); J45.909 Unspecified asthma, uncomplicated; K21.9 Gastro-esophageal reflux disease without esophagitis; M19.90 Unspecified osteoarthritis, unspecified site; F90.9 Attention-deficit hyperactivity disorder, unspecified type; F41.9 Anxiety disorder, unspecified; Z87.891 Personal history of nicotine dependence; Z98.0 Intestinal bypass and anastomosis status; Z88.5 Allergy status to narcotic agent; Z88.0 Allergy status to penicillin; Z88.1 Allergy status to other antibiotic agents; Z86.718 Personal history of other venous thrombosis and embolism; Z86.711 Personal history of pulmonary embolism; Z85.41 Personal history of malignant neoplasm of cervix uteri; Z90.49 Acquired absence of other specified parts of digestive tract; Z90.710 Acquired absence of both cervix and uterus
CPT/HCPCS: 99285; 96374; 96375; 96376 ×2; 96361 ×2; 36415; 80053; 82150; 83605; 83690; 85025; 74177; J2405; J1170 ×2; Q9967

== ENCOUNTER 2021-06-08 20:37 | Observation (INO) | payer OTHER ==
[2021-06-08] MEDS ORDERED: SODIUM CHLORIDE 0.9% 1,000 ML IV STA (23:30)
[2021-06-08] MEDS ORDERED: ONDANSETRON 4 MG/2 ML VIAL IVP STA (23:30)
[2021-06-08] MEDS ORDERED: HYDROmorphone 1 MG/ML 1 ML SYRINGE IVP STA (23:30)
[2021-06-08] MEDS ORDERED: PANTOPRAZOLE 40 MG/10 ML VIAL IVP STA (23:30)
--- NOTE | 2021-06-08 23:32 | ED ---
Abdominal Pain HPI - General Chief Complaint: Abdominal Pain Stated Complaint: Post-Surgery Pain, Nausea, Dizziness Time Seen by Provider: 06/08/21 23:30 Source: patient, family, RN notes reviewed, old records reviewed Mode of arrival: ambulatory Limitations: no limitations - History of Present Illness Initial Comments: This is a 46-year-old female to the ER for evaluation. Patient is presented today for evaluation regards to abdominal pain patient has significant medical history for abdominal surgeries does follow with Dr. Gamez here at this [facility]ital for all medical issues and emergency's. Patient recently had surgery for incarcerated hernia a week ago at [facility] as Dr Bangura was not here at this hospital. Patient states she developed worsening pain yesterday and throughout the day today with nausea and vomiting. MD Complaint: abdominal pain -: days(s) Location: diffuse, RLQ, epigastric, suprapubic Radiation: RUQ, RLQ, epigastric Migration to: periumbilical, RUQ Severity: severe Severity scale (1-10): 10 Consistency: constant Improves With: nothing Worsens With: nothing Context: recent surgery/procedure Associated Symptoms: nausea, vomiting Treatments Prior to Arrival: prescription analgesics - Related Data Home Medications Medication Instructions Recorded Confirmed hydrOXYzine pamoate [Vistaril] 50 mg PO BID 07/28/19 05/28/21 Gabapentin [Neurontin] 300 mg PO BID PRN 02/07/20 05/28/21 Fluticasone/Salmeterol [Advair 1 puff INHALATION RT-DAILY 02/21/20 05/28/21 100-50 Diskus] Dextroamphetamine/Amphetamine 20 mg PO TID 05/29/20 05/28/21 [Adderall] Albuterol Sulfate [Proair Hfa] 2 puff INHALATION RT-QID PRN 09/04/20 05/28/21 rOPINIRole HCL [Requip] 1 mg PO HS 09/04/20 05/28/21 traMADol HCL [Ultram] 50 mg PO DAILY PRN 09/04/20 05/28/21 Previous Rx's Medication Instructions Recorded Dicyclomine [Bentyl] 10 mg PO TID #30 capsule 04/09/21 Dicyclomine [Bentyl] 20 mg PO QID #120 tablet 04/18/21 Dicyclomine [Bentyl] 20 mg PO QID #120 tablet 05/28/21 Allergies Allergy/AdvReac Type Severity Reaction Status Date / Time cephalexin monohydrate Allergy Severe Rash/Hives, Verified 06/08/21 20:48 [From Keflex] nausea,sweats,chills morphine Allergy Severe Itching, Verified 06/08/21 20:48 migraines,states "does not help with pain." Penicillins Allergy Severe Rash/Hives, Verified 06/08/21 20:48 nausea,lethargic almond Allergy Anaphylaxis Verified 06/08/21 20:48 almond oil Allergy Anaphylaxis Verified 06/08/21 20:48 [place] And Derivatives Allergy Nausea & Verified 06/08/21 20:48 [[place]] Vomiting gluten Allergy Abdominal Verified 06/08/21 20:48 Pain mustard Allergy Anaphylaxis Verified 06/08/21 20:48 walnut Allergy Anaphylaxis Verified 06/08/21 20:48 niacin AdvReac hives to Verified 06/08/21 20:48 face Review of Systems ROS Statement: Those systems with pertinent positive or pertinent negative responses have been documented in the HPI. ROS Other: All systems not noted in ROS Statement are negative. Past Medical History Past Medical History: Asthma, Cancer, Chest Pain / Angina, Deep Vein Thrombosis (DVT), GERD/Reflux, Osteoarthritis (OA), Pulmonary Embolus (PE) Additional Past Medical History / Comment(s): HYPOGLYCEMIC. diverticulitis, hypotension, migraines, "food getting stuck"-needs balloon dilation every 6-12 months, hx uterine cancer, colitis, possible crohns, nodule on adrenal gland. History of Any Multi-Drug Resistant Organisms: None Reported Past Surgical History: Cholecystectomy, Hysterectomy Additional Past Surgical History / Comment(s): reyna-y gastric bypass with adhesions, rt arm-plate and screws, laparoscopy, umbilical hernia repair, I&D of abd wound,SCOPE RT SHOULDER. swallow study. Revision of RNY r/t complications, Oral surgery Past Anesthesia/Blood Transfusion Reactions: Family History of Problems w/ Anest hesia, Motion Sickness, Postoperative Nausea & Vomiting (PONV) Additional Past Anesthesia/Blood Transfusion Reaction / Comment(s): mother has asthma attacks post-op Past Psychological History: ADD/ADHD, Anxiety, PTSD Smoking Status: Current some day smoker Past Alcohol Use History: None Reported Past Drug Use History: None Reported - Past Family History Father Additional Family Medical History / Comment(s): BRAIN ANUERYSM Mother Family Medical History: AFIB, AICD/Pacemaker, Asthma, Cancer Additional Family Medical History / Comment(s): bladder General Exam Limitations: no limitations General appearance: alert, in no apparent distress Head exam: Present: atraumatic, normocephalic, normal inspection Eye exam: Present: normal appearance, PERRL, EOMI. Absent: scleral icterus, conjunctival injection, periorbital swelling ENT exam: Present: normal exam, mucous membranes moist Neck exam: Present: normal inspection. Absent: tenderness, meningismus, lymphadenopathy Respiratory exam: Present: normal lung sounds bilaterally. Absent: respiratory distress, wheezes, rales, rhonchi, stridor Cardiovascular Exam: Present: regular rate, normal rhythm, normal heart sounds. Absent: systolic murmur, diastolic murmur, rubs, gallop, clicks GI/Abdominal exam: Present: soft, normal bowel sounds. Absent: distended, tenderness, guarding, rebound, rigid Extremities exam: Present: normal inspection, full ROM, normal capillary refill. Absent: tenderness, pedal edema, joint swelling, calf tenderness Back exam: Present: normal inspection Neurological exam: Present: alert, oriented X3, CN II-XII intact Psychiatric exam: Present: normal affect, normal mood Skin exam: Present: warm, dry, intact, normal color. Absent: rash Course Vital Signs 06/08/21 06/09/21 06/09/21 20:42 00:22 01:51 Temperature 98.7 F Pulse Rate 95 78 65 Respiratory 22 18 18 Rate Blood Pressure 125/91 112/85 97/72 O2 Sat by Pulse 98 98 96 Oximetry - Reevaluation(s) Reevaluation #1: 06/09/21 00:05 Medical record is reviewed Reevaluation #2: 06/09/21 02:14 Patient denies any improvement in symptoms at this time Reevaluation #3: 06/09/21 02:14 Patient informed results and questions answered - Consultations Consultation #1: Spoke with sound physicians agree to admit this patient Medical Decision Making - Medical Decision Making 46 female DF for evaluation. Patient presents today for evaluation regards to severe abdominal pain. Intractable abdominal pain history is multiple bariatric other abdominal surgeries with recent incarcerated hernia surgery. Patient will be admitted for pain control and Dr. Gamez to see regarding abdominal pain - Lab Data Result diagrams: 06/08/21 23:49 06/08/21 23:49 Lab Results 06/08/21 06/08/21 06/08/21 Range/Units 23:49 23:49 23:49 WBC 6.6 (3.8-10.6) k/uL RBC 4.62 (3.80-5.40) m/uL Hgb 12.8 (11.4-16.0) gm/dL Hct 39.6 (34.0-46.0) % MCV 85.7 (80.0-100.0) fL MCH 27.8 (25.0-35.0) pg MCHC 32.4 (31.0-37.0) g/dL RDW 15.0 (11.5-15.5) % Plt Count 347 (150-450) k/uL MPV 7.5 Neutrophils % 51 % Lymphocytes % 35 % Monocytes % 6 % Eosinophils % 3 % Basophils % 0 % Neutrophils # 3.4 (1.3-7.7) k/uL Lymphocytes # 2.3 (1.0-4.8) k/uL Monocytes # 0.4 (0-1.0) k/uL Eosinophils # 0.2 (0-0.7) k/uL Basophils # 0.0 (0-0.2) k/uL Sodium 132 L (137-145) mmol/L Potassium 4.5 (3.5-5.1) mmol/L Chloride 106 (98-107) mmol/L Carbon Dioxide 20 L (22-30) mmol/L Anion Gap 6 mmol/L BUN 10 (7-17) mg/dL Creatinine 0.54 (0.52-1.04) mg/dL Est GFR (CKD-EPI)AfAm >90 (>60 ml/min/1.73 sqM) Est GFR (CKD-EPI)NonAf >90 (>60 ml/min/1.73 sqM) Glucose 97 (74-99) mg/dL Plasma Lactic Acid Shlomo 0.8 (0.7-2.0) mmol/L Calcium 8.7 (8.4-10.2) mg/dL Total Bilirubin 0.6 (0.2-1.3) mg/dL AST 43 H (14-36) U/L ALT 42 H (4-34) U/L Alkaline Phosphatase 79 (38-126) U/L Total Protein 6.9 (6.3-8.2) g/dL Albumin 3.8 (3.5-5.0) g/dL Amylase 40 (30-110) U/L Lipase 94 (23-300) U/L - Radiology Data Radiology results: report reviewed (CT of the abdomen and pelvis negative for acute disease), image reviewed Disposition Clinical Impression: Abdominal pain, Intractable abdominal pain Disposition: ADMITTED IP TO THIS [facility] Condition: Good Is patient prescribed a controlled substance at d/c from ED?: No Referrals: Mikaela Rojas MD [Primary Care Provider] - 1-2 days
[2021-06-09 00:20] LABS: Basophils % (A) 0 %; Eosinophils # (A) 0.2 k/uL (0-0.7); Eosinophils % (A) 3 %; HCT 39.6 % (34.0-46.0); HGB 12.8 gm/dL (11.4-16.0); Lymphocytes # (A) 2.3 k/uL (1.0-4.8); Lymphocytes % (A) 35 %; MCH 27.8 pg (25.0-35.0); MCHC 32.4 g/dL (31.0-37.0); MCV 85.7 fL (80.0-100.0); Mean Platelet Volume 7.5; Monocytes # (A) 0.4 k/uL (0-1.0); Monocytes % (A) 6 %; Neutrophils # (A) 3.4 k/uL (1.3-7.7); Neutrophils % (A) 51 %; Platelet Count 347 k/uL (150-450); RBC 4.62 m/uL (3.80-5.40); WBC 6.6 k/uL (3.8-10.6)
[2021-06-09 00:22] LABS: ALT 42 U/L (4-34); African American GFR (CKD) >90 (>60 ml/min/1.73 sqM); Albumin 3.8 g/dL (3.5-5.0); Amylase 40 U/L (30-110); Anion Gap 6 mmol/L; Blood Urea Nitrogen 10 mg/dL (7-17); Calcium 8.7 mg/dL (8.4-10.2); Carbon Dioxide 20 mmol/L (22-30); Chloride 106 mmol/L (98-107); Glucose 97 mg/dL (74-99); Lipase 94 U/L (23-300); Non-African American GFR(CKD) >90 (>60 ml/min/1.73 sqM); Sodium 132 mmol/L (137-145); Total Bilirubin 0.6 mg/dL (0.2-1.3); Total Protein 6.9 g/dL (6.3-8.2)
[2021-06-09 00:32] LABS: AST 43 U/L (14-36); Alkaline Phosphatase 79 U/L (38-126); Potassium 4.5 mmol/L (3.5-5.1)
--- NOTE | 2021-06-09 01:20 | CT ---
EXAMINATION TYPE: CT abdomen pelvis w con DATE OF EXAM: 06/09/2021 COMPARISON: 05/31/2021 HISTORY: pain CT DLP: 1118.50 mGycm Automated exposure control for dose reduction was used. CONTRAST: Performed with IV Contrast, patient injected with 100 mL of Isovue 300. Images obtained from the diaphragm to the floor the pelvis with IV contrast. The lung bases are clear. There is no pleural effusion. There are clips from gastric bariatric surger y. Heart size is normal. There is no pericardial effusion. Liver is intact. Liver is large and measures 24 cm in length. The bile ducts are not dilated. There a re clips from cholecystectomy. Spleen is intact. There is no pancreatic mass. Stomach is intact. Ther e are multiple surgical clips in the left upper quadrant. There is distended jejunum up to 3.2 cm in the left upper quadrant. There is 1 cm nodule in the left adrenal gland. Kidneys show satisfactory contrast opacification. The re is no hydronephrosis. Delayed images show normal renal excretion. Ureters are not dilated. There i s no retroperitoneal adenopathy. The bladder distends smoothly. There is no inguinal hernia. No free fluid in the pelvis. No evidence of a pelvic mass. There is hysterectomy. The lumbar vertebrae have normal alignment. Posterior elements are intact. There is no compression fr acture. Bony pelvis is intact. Hip joints appear normal. There is no mesenteric edema. No ascites or free air. No bowel obstruction. Appendix not identified. No sign of thickened appendix. IMPRESSION: Previous gastric bariatric surgery. There is clearing of the obstructive changes to a large extent in volving the stomach and the proximal small bowel compared to old exam. There is some residual jejunal loops measuring up to 3.2 cm. Appendix not seen. Hepatomegaly without focal liver defect.
[2021-06-09] MEDS ORDERED: NALOXONE 0.4 MG/ML 1 ML VIAL IV PRN (02:13)
[2021-06-09] MEDS ORDERED: LORazepam 2 MG/ML INJ IV PRN (02:13)
[2021-06-09] MEDS ORDERED: SODIUM CHLORIDE 0.9% 1,000 ML IV STA (02:13)
[2021-06-09] MEDS: SODIUM CHLORIDE 0.9% 1,000 ML IV SCH ×3 (03:09→20:02)
--- NOTE | 2021-06-09 03:21 | P.HPIM ---
History of Present Illness H&P Date: 06/09/21 Patient is a 46-year-old female with a PMH of multiple abdominal surgeries who presents to the emergency room with complaints of abdominal pain and nausea. The patient was previously seen on 05/31 at [place] emergency room for abdominal pain, at which time she was diagnosed with a high-grade small bowel obstruction and was transferred to [facility] for immediate surgery. The patient reports that she was eventually discharged from the hospital 2 days later and was at home recovering until about 48 hours ago when she developed worsening diffuse abdominal pain. She reports the pain is largely in the right upper quadrant but radiates throughout the entire abdomen with associated nausea. She reports that it gets worse with movement, 10 out of 10 on maximal intensity, aching and cramping like in nature, without alleviating features. She denies resting chest discomfort, shortness of breath, diarrhea, fever, chills. She requested for dilated by name in the emergency room and states that it is the only thing that alleviates her pain and that she is ALLERGIC to morphine. She reports routinely following up with Dr. Gamez who has performed a large number of her abdominal surgeries in the past. CT abdomen and pelvis in the emergency room today did not reveal any acute abnormalities. The ED provider attempted to contact Dr. Gamez but was unable to reach her. The patient is thereby being admitted to the medicine service for intractable abdominal pain with surgery on consult. Review of systems: Pertinent positives and negatives as discussed in HPI, a complete review of systems was performed and all other systems are negative. Physical examination: General: non toxic, no distress, appears at stated age, obese Derm: no unusual rashes/lesions no unusual ecchymoses, warm, dry Head: atraumatic, normocephalic, symmetric Eyes: EOMI, no lid lag, anicteric sclera, pupils equal round reactive to light ENT: Nose and ears atraumatic, no thrush, no pharyngeal erythema Neck: No thyromegaly, no cervical lymphadenopathy, trachea midline, supple Mouth: no lip lesion, mucus membranes moist Cardiovascular: S1S2 reg, no murmur, positive posterior tibial pulse bilateral, no edema, capillary refill less than 2 seconds Lungs: CTA bilateral, no rhonchi, no rales , no accessory muscle use Abdominal: soft, left. Incisions noted on the abdomen healing, diffuse mild tenderness to palpation, no guarding, no appreciable organomegaly, normal bowel sounds Ext: no gross muscle atrophy, muscle strength 5 out of 5 in all 4 extremities grossly, no contractures, Neuro: CN II-XI grossly intact, light touch intact all 4 extremities, finger to nose within normal limits, Psych: Alert, oriented, appropriate affect Assessment/plan Intractable abdominal pain with nausea -Pain control -Antiemetics -IV fluids -Surgery consult -Nothing by mouth for now DVT prophylaxis -Heparin subcu The patient is admitted with an anticipated less than 2 midnight stay for evaluation of abdominal pain CODE STATUS: Full Code Discussed with: Patient Anticipated discharge date: in am Anticipated discharge place: Home Past Medical History Past Medical History: Asthma, Cancer, Chest Pain / Angina, Deep Vein Thrombosis (DVT), GERD/Reflux, Osteoarthritis (OA), Pulmonary Embolus (PE) Additional Past Medical History / Comment(s): HYPOGLYCEMIC. diverticulitis, hypotension, migraines, "food getting stuck"-needs balloon dilation every 6-12 months, hx uterine cancer, colitis, possible crohns, nodule on adrenal gland. History of Any Multi-Drug Resistant Organisms: None Reported Past Surgical History: Cholecystectomy, Hysterectomy Additional Past Surgical History / Comment(s): reyna-y gastric bypass with adhesions, rt arm-plate and screws, laparoscopy, umbilical hernia repair, I&D of abd wound,SCOPE RT SHOULDER. swallow study. Revision of RNY r/t complications, Oral surgery Past Anesthesia/Blood Transfusion Reactions: Family History of Problems w/ Anesthesia, Motion Sickness, Postoperative Nausea & Vomiting (PONV) Additional Past Anesthesia/Blood Transfusion Reaction / Comment(s): mother has asthma attacks post-op Past Psychological History: ADD/ADHD, Anxiety, PTSD Smoking Status: Current some day smoker Past Alcohol Use History: None Reported Past Drug Use History: None Reported - Past Family History Father Additional Family Medical History / Comment(s): BRAIN ANUERYSM Mother Family Medical History: AFIB, AICD/Pacemaker, Asthma, Cancer Additional Family Medical History / Comment(s): bladder Medications and Allergies Home Medications Medication Instructions Recorded Confirmed Type hydrOXYzine pamoate [Vistaril] 50 mg PO BID 07/28/19 05/28/21 History Gabapentin [Neurontin] 300 mg PO BID PRN 02/07/20 05/28/21 History Fluticasone/Salmeterol [Advair 1 puff INHALATION RT-DAILY 02/21/20 05/28/21 History 100-50 Diskus] Dextroamphetamine/Amphetamine 20 mg PO TID 05/29/20 05/28/21 History [Adderall] Albuterol Sulfate [Proair Hfa] 2 puff INHALATION RT-QID PRN 09/04/20 05/28/21 History rOPINIRole HCL [Requip] 1 mg PO HS 09/04/20 05/28/21 History traMADol HCL [Ultram] 50 mg PO DAILY PRN 09/04/20 05/28/21 History Dicyclomine [Bentyl] 10 mg PO TID #30 capsule 04/09/21 05/28/21 Rx Dicyclomine [Bentyl] 20 mg PO QID #120 tablet 04/18/21 05/28/21 Rx Dicyclomine [Bentyl] 20 mg PO QID #120 tablet 05/28/21 Rx Allergies Allergy/AdvReac Type Severity Reaction Status Date / Time cephalexin monohydrate Allergy Severe Rash/Hives, Verified 06/08/21 20:48 [From Keflex] nausea,sweats,chills morphine Allergy Severe Itching, Verified 06/08/21 20:48 migraines,states "does not help with pain." Penicillins Allergy Severe Rash/Hives, Verified 06/08/21 20:48 nausea,lethargic almond Allergy Anaphylaxis Verified 06/08/21 20:48 almond oil Allergy Anaphylaxis Verified 06/08/21 20:48 [place] And Derivatives Allergy Nausea & Verified 06/08/21 20:48 [[place]] Vomiting gluten Allergy Abdominal Verified 06/08/21 20:48 Pain mustard Allergy Anaphylaxis Verified 06/08/21 20:48 walnut Allergy Anaphylaxis Verified 06/08/21 20:48 niacin AdvReac hives to Verified 06/08/21 20:48 face Physical Exam Vitals: Vital Signs Temp Pulse Resp BP Pulse Ox 06/09/21 01:51 65 18 97/72 96 06/09/21 00:22 78 18 112/85 98 06/08/21 20:42 98.7 F 95 22 125/91 98 Intake and Output 06/08/21 06/08/21 06/09/21 14:59 22:59 06:59 Other: Weight 82.554 kg Results CBC & Chem 7: 06/08/21 23:49 06/08/21 23:49 Labs: Abnormal Lab Results - Last 24 Hours (Table) 06/08/21 Range/Units 23:49 Sodium 132 L (137-145) mmol/L Carbon Dioxide 20 L (22-30) mmol/L AST 43 H (14-36) U/L ALT 42 H (4-34) U/L
[2021-06-09] MEDS: HYDROmorphone 1 MG/ML 1 ML SYRINGE IVP PRN ×4 (04:14→20:01)
[2021-06-09] MEDS: ONDANSETRON 4 MG/2 ML VIAL IVP PRN ×2 (07:45→19:57)
[2021-06-09] MEDS: HEPARIN SODIUM,PORCINE/PF 5,000 UNIT/0.5 ML SYRINGE SQ SCH ×3 (07:50→20:02)
--- NOTE | 2021-06-09 10:33 | P.PN ---
Subjective Progress Note Date: 06/09/21 Hospital course: Patient is a very pleasant 46-year-old female with a past medical history of gastric bypass with reports of complication resulting in multiple abdominal surgeries. She presented to the emergency department with the chief complaint of abdominal pain and nausea. Patient recently diagnosed with a small bowel obstruction and transferred to [facility] on 05/31/21 where she underwent lysis of abdominal adhesions and discharged on 06/01/21. She reports that since her discharge she has again been experiencing nausea, decreased appetite, cold sweats, and right upper quadrant abdominal pain. She reports having normal bowel function and denied experiencing any vomiting or fever. Patient was seen and fully evaluated in the emergency department where she underwent CT abdomen and pelvis with contrast, this revealed clearing of the obstructive changes to a large extent involving the stomach and proximal small bowel compared to previous exam on 05/31/21, it was reported there was some residual jejunal loops measuring up to 3.2 cm with no other abnormalities reported. CBC and CMP unremarkable with the exception of mild hyponatremia with sodium of 132 and mild elevation of AST and ALT with AST of 43 and ALT of 42. Patient was admitted under our services with consultation to general surgery. Physical exam: Patient seen and fully evaluated at the bedside. She has not had any further episodes of vomiting since arrival to our facility. She reports pain is currently being managed by current pain medication regimen but states she remains sensitive to right upper quadrant of abdomen. Patient denies having any dizziness, lightheadedness, chest pain, palpitations, or shortness of breath. Vital signs reviewed and stable. General: Nontoxic, no distress and appears stated age. Laparoscopic incisions to abdomen well approximated intact with no noted drainage, erythema, or signs of infection. Derm: Skin warm and dry, normal coloration for ethnicity. Head: Atraumatic, normocephalic and symmetric. Eyes: EOMs intact, no lid lag, and anicteric sclera Mouth: no lip lesions, mucus membranes moist Cardiovascular: regular rate and rhythm with normal S1S2, no murmur, positive posterior tibial pulses bilaterally, and cap refill < 2 seconds. Lungs: Respirations even, regular, and unlabored on room air. Lungs CTA bilaterally, no rhonchi, no rales, no wheezing, and no accessory muscle usage. Abdominal: soft, mild tenderness to right upper, right lower, and left upper quadrant upon palpation with no guarding, no appreciable organomegaly Ext: ROM intact. No gross muscle atrophy, no edema, no contractures Neuro: Speech clear, face symmetrical and CN II-XII grossly intact with no noted focal neuro deficits Psych: Alert and oriented to person, place, time, and situation. Appropriate and pleasant affect. Assessment and Plan of Care: Intractable abdominal pain with nausea History of Renee-en-Y gastric bypass General surgery following, no plan for surgical intervention at this time. Recommending full liquid diet overnight monitoring with possible discharge tomorrow morning. Continue antibiotics as needed. Symptomatic care and pain management Gentle hydration with IV fluid Advance diet as recommended by general surgery team. CODE STATUS: Full code DVT prophylaxis: heparin Discussed with: patient and RN Anticipated discharge date: likely tomorrow morning Anticipated discharge place: home A total of 34 minutes was spent on the care of this complex patient more than 50% of the time was spent in counseling and care coordination Objective - Vital Signs Vital signs: Vital Signs Temp 97.5 F L 06/09/21 08:00 Pulse 74 06/09/21 08:00 Resp 20 06/09/21 08:00 BP 101/67 06/09/21 08:00 Pulse Ox 96 06/09/21 08:00 Intake & Output 06/08/21 06/09/21 06/09/21 18:59 06:59 18:59 Weight 82.554 kg - Labs CBC & Chem 7: 06/08/21 23:49 06/08/21 23:49 Labs: Abnormal Lab Results - Last 24 Hours (Table) 06/08/21 Range/Units 23:49 Sodium 132 L (137-145) mmol/L Carbon Dioxide 20 L (22-30) mmol/L AST 43 H (14-36) U/L ALT 42 H (4-34) U/L
--- NOTE | 2021-06-09 11:46 | P.GSCN ---
History of Present Illness Consult date: 06/09/21 History of present illness: CHIEF COMPLAINT: Abdominal pain HISTORY OF PRESENT ILLNESS: This is a 46-year-old female who presented to the hospital with complaints of abdominal pain. She reports that she initially presented to the ER last Wednesday on 05/31/2021 with abdominal pain and was found to have evidence to have a small bowel distraction due to adhesions and a history of Renee-en-Y. She was transferred to [facility] and underwent surgery on 05/31/2021. Patient was then discharged home on that 06/01/2021. She reports that at that time her pain was tolerable and she was having bowel movements. However throughout this past week she was having increased pain with severe nausea. She reduce complains of pain more in the right upper quadrant and umbilicus area that she reports is deep pain and went into her back. She's been fatigued and very clammy with hot and cold sweats. She denies any actual fever. Patient reports that she has had bowel movements and flatus. She had a computed tomography scan abdomen and pelvis that showed evidence of previous gastric bariatric surgery. There is clearing of the obstructive changes to the large extent involving the stomach and the proximal small bowel compared to old exam. There is some residual jejunal loops measuring up to 3.2 cm. Appendix not seen. Hepatomegaly without focal liver defect. Patient reports that she just does not feel quite right. Past surgical history includes Renee-en-Y, cholecystectomy, appendectomy and lysis of adhesions. PAST MEDICAL HISTORY: See list. PAST SURGICAL HISTORY: See list. MEDICATIONS: See list. ALLERGIES: See list. SOCIAL HISTORY: No illicit drug use. REVIEW OF SYSTEMS: CONSTITUTIONAL: Denies fever or chills. HEENT: Denies blurred vision, vision changes, or eye pain. Denies hemoptysis ENDOCRINE: Denies heat or cold intolerance. CARDIOVASCULAR: Denies chest pain or pressure. RESPIRATORY: No shortness of breath. GASTROINTESTINAL: Please refer to HPI NEURO: Denies history of seizures. PSYCH: No depression or suicidal ideation HEMATOLOGIC: Denies bleeding disorders. LYMPHATIC: The patient denies any lumps and bumps around the neck. GENITOURINARY: Denies any blood in urine or increased urinary frequency. MUSCULOSKELETAL: Denies myalgias. Denies joint swelling. Denies decreased range of motion beyond patients baseline. SKIN: Denies pruitis. Denies rash. PHYSICAL EXAM: VITAL SIGNS: Reviewed GENERAL: Well-developed in no acute distress. HEENT: No sclera icterus. Extraocular movements grossly intact. Moist buccal mucosa. Head is atraumatic, normocephalic. Hears conversational speech. No nasal drainag e. NECK: Supple without lymphadenopathy. CHEST: Non-labored respirations and equal bilateral excursions. CARDIOVASCULAR: Palpable 2+ radial pulses. ABDOMEN: Soft. Nondistended. Tenderness with palpation in the right upper quadrant and umbilicus area. Mildly distended. Incision sites clean dry and intact. MUSCULOSKELETAL: No clubbing or cyanosis. NEUROLOGIC: No focal or lateralizing signs. Cranial nerves II through XII grossly intact. PSYCH: Appropriate affect. Alert and oriented to person, place and time. SKIN: Well perfused. Good skin turgor. LABORATORY DATA: WBC is 6.6 Hgb 12.8 platelets 347 Sodium 132 potassium 4.5 creatinine 0.54 Lactic acid 0.8 Total bilirubin 0.6 AST 43 ALT 42 alk phos 79 Lipase 94 IMAGING: computed tomography scan abdomen and pelvis that showed evidence of previous gastric bariatric surgery. There is clearing of the obstructive changes to the large extent involving the stomach and the proximal small bowel compared to old exam. There is some residual jejunal loops measuring up to 3.2 cm. Appendix not seen. Hepatomegaly without focal liver defect. ASSESSMENT: 1. Abdominal pain 2. Recent abdominal surgery at [facility] for bowel obstruction 3. Prior history of Renee-en-Y 4. Multiple abdominal surgeries PLAN: -Continue supportive care -We will obtain postop records from [facility] -Start bariatric Full liquid diet -Start gabapentin 300 mg 3 times a day for pain -Abdominal binder ordered for support to help with pain Thank you for this consultation Physician Roastmaster note has been reviewed by physician. Signing provider agrees with the documented findings, assessment, and plan of care. Past Medical History Past Medical History: Asthma, Cancer, Chest Pain / Angina, Deep Vein Thrombosis (DVT), GERD/Reflux, Osteoarthritis (OA), Pulmonary Embolus (PE) Additional Past Medical History / Comment(s): HYPOGLYCEMIC. diverticulitis, hypotension, migraines, "food getting stuck"-needs balloon dilation every 6-12 months, hx uterine cancer, colitis, possible crohns, nodule on adrenal gland. History of Any Multi-Drug Resistant Organisms: None Reported Past Surgical History: Cholecystectomy, Hysterectomy Additional Past Surgical History / Comment(s): renee-y gastric bypass with adhesions, rt arm-plate and screws, laparoscopy, umbilical hernia repair, I&D of abd wound,SCOPE RT SHOULDER. swallow study. Revision of RNY r/t complications, Oral surgery Past Anesthesia/Blood Transfusion Reactions: Family History of Problems w/ Anesthesia, Motion Sickness, Postoperative Nausea & Vomiting (PONV) Additional Past Anesthesia/Blood Transfusion Reaction / Comm: mother has asthma attacks post-op Past Psychological History: ADD/ADHD, Anxiety, PTSD Smoking Status: Current some day smoker Past Alcohol Use History: None Reported Past Drug Use History: None Reported - Past Family History Father Additional Family Medical History / Comment(s): BRAIN ANUERYSM Mother Family Medical History: AFIB, AICD/Pacemaker, Asthma, Cancer Additional Family Medical History / Comment(s): bladder Medications and Allergies Home Medications Medication Instructions Recorded Confirmed Type hydrOXYzine pamoate [Vistaril] 50 mg PO BID PRN 07/28/19 06/09/21 History Dextroamphetamine/Amphetamine 20 mg PO TID 05/29/20 06/09/21 History [Adderall] Albuterol Sulfate [Proair Hfa] 2 puff INHALATION RT-QID PRN 09/04/20 06/09/21 History rOPINIRole HCL [Requip] 1 mg PO HS 09/04/20 06/09/21 History traMADol HCL [Ultram] 50 mg PO DAILY PRN 09/04/20 06/09/21 History Dicyclomine [Bentyl] 20 mg PO QID #120 tablet 05/28/21 06/09/21 Rx Gabapentin [Neurontin] 200 mg PO HS 06/09/21 06/09/21 History Ondansetron Odt [Zofran Odt] 4 mg PO Q12HR PRN 06/09/21 06/09/21 History Allergies Allergy/AdvReac Type Severity Reaction Status Date / Time cephalexin monohydrate Allergy Severe Rash/Hives, Verified 06/09/21 06:50 [From Keflex] nausea,sweats,chills morphine Allergy Severe Itching, Verified 06/09/21 06:50 migraines,states "does not help with pain." Penicillins Allergy Severe Rash/Hives, Verified 06/09/21 06:50 nausea,lethargic almond Allergy Anaphylaxis Verified 06/09/21 06:50 almond oil Allergy Anaphylaxis Verified 06/09/21 06:50 mustard Allergy Anaphylaxis Verified 06/09/21 06:50 niacin Allergy hives to Verified 06/09/21 06:50 face walnut Allergy Anaphylaxis Verified 06/09/21 06:50 [place] And Derivatives AdvReac Nausea & Verified 06/09/21 06:50 [[place]] Vomiting gluten AdvReac Abdominal Verified 06/09/21 06:50 Pain Surgical - Exam Vital Signs Temp Pulse Resp BP Pulse Ox 98.7 F 95 22 125/91 98 06/08/21 20:42 06/08/21 20:42 06/08/21 20:42 06/08/21 20:42 06/08/21 20:42 Results - Labs 06/08/21 23:49 06/08/21 23:49 Abnormal Lab Results - Last 24 Hours (Table) 06/08/21 Range/Units 23:49 Sodium 132 L (137-145) mmol/L Carbon Dioxide 20 L (22-30) mmol/L AST 43 H (14-36) U/L ALT 42 H (4-34) U/L Diabetes panel 06/08/21 Range/Units 23:49 Sodium 132 L (137-145) mmol/L Potassium 4.5 (3.5-5.1) mmol/L Chloride 106 (98-107) mmol/L Carbon Dioxide 20 L (22-30) mmol/L BUN 10 (7-17) mg/dL Creatinine 0.54 (0.52-1.04) mg/dL Glucose 97 (74-99) mg/dL Calcium 8.7 (8.4-10.2) mg/dL AST 43 H (14-36) U/L ALT 42 H (4-34) U/L Alkaline Phosphatase 79 (38-126) U/L Total Protein 6.9 (6.3-8.2) g/dL Albumin 3.8 (3.5-5.0) g/dL Calcium panel 06/08/21 Range/Units 23:49 Calcium 8.7 (8.4-10.2) mg/dL Albumin 3.8 (3.5-5.0) g/dL Pituitary panel 06/08/21 Range/Units 23:49 Sodium 132 L (137-145) mmol/L Potassium 4.5 (3.5-5.1) mmol/L Chloride 106 (98-107) mmol/L Carbon Dioxide 20 L (22-30) mmol/L BUN 10 (7-17) mg/dL Creatinine 0.54 (0.52-1.04) mg/dL Glucose 97 (74-99) mg/dL Calcium 8.7 (8.4-10.2) mg/dL Adrenal panel 06/08/21 Range/Units 23:49 Sodium 132 L (137-145) mmol/L Potassium 4.5 (3.5-5.1) mmol/L Chloride 106 (98-107) mmol/L Carbon Dioxide 20 L (22-30) mmol/L BUN 10 (7-17) mg/dL Creatinine 0.54 (0.52-1.04) mg/dL Glucose 97 (74-99) mg/dL Calcium 8.7 (8.4-10.2) mg/dL Total Bilirubin 0.6 (0.2-1.3) mg/dL AST 43 H (14-36) U/L ALT 42 H (4-34) U/L Alkaline Phosphatase 79 (38-126) U/L Total Protein 6.9 (6.3-8.2) g/dL Albumin 3.8 (3.5-5.0) g/dL
[2021-06-09] MEDS: GABAPENTIN 300 MG CAP PO SCH ×2 (14:53→19:57)
[2021-06-09] MEDS ORDERED: ALBUTEROL NEBULIZED 2.5 MG/3 ML INHALATION PRN (15:11)
[2021-06-09] MEDS: DICYCLOMINE 20 MG TAB PO SCH ×2 (18:15→20:01)
[2021-06-10] MEDS: HYDROmorphone 1 MG/ML 1 ML SYRINGE IVP PRN ×4 (00:23→20:47)
[2021-06-10] MEDS: SODIUM CHLORIDE 0.9% 1,000 ML IV SCH ×3 (02:58→18:17)
[2021-06-10] MEDS: ONDANSETRON 4 MG/2 ML VIAL IVP PRN (05:17)
[2021-06-10] MEDS: GABAPENTIN 300 MG CAP PO SCH ×3 (07:44→21:45)
[2021-06-10] MEDS: DICYCLOMINE 20 MG TAB PO SCH ×4 (07:44→21:45)
[2021-06-10] MEDS: HEPARIN SODIUM,PORCINE/PF 5,000 UNIT/0.5 ML SYRINGE SQ SCH ×3 (07:44→20:49)
[2021-06-10 09:13] LABS: Basophils # (A) 0.02 X 10*3/uL (0.00-0.10); Basophils % (A) 0.4 %; Eosinophils # (A) 0.12 X 10*3/uL (0.04-0.35); Eosinophils % (A) 2.5 %; HCT 35.2 % (37.2-46.3); HGB 10.8 g/dL (12.0-15.0); Immature Grans, Automated 0.4 %; Lymphocytes # (A) 1.68 X 10*3/uL (0.90-5.00); Lymphocytes % (A) 35.4 %; MCH 26.6 pg (27.0-32.0); MCHC 30.7 g/dL (32.0-37.0); MCV 86.7 fL (80.0-97.0); Mean Platelet Volume 10.3 fL (9.5-12.2); Monocytes # (A) 0.48 X 10*3/uL (0.20-1.00); Monocytes % (A) 10.1 %; NRBC Per 100 WBC 0 /100 WBCS (0.0-0.0); Neutrophils # (A) 2.43 X 10*3/uL (1.80-7.70); Neutrophils % (A) 51.2 %; Platelet Count 293 X 10*3/uL (140-440); RBC 4.06 X 10*6/uL (4.10-5.20); RDW 15.5 % (11.5-14.5); WBC 4.75 X 10*3/uL (4.50-10.00)
[2021-06-10 09:37] LABS: African American GFR (CKD) 136.4 (60.0-200.0); Albumin 3.1 g/dL (3.8-4.9); Albumin/Globulin Ratio 1.55 (1.60-3.17); Calcium 8.3 mg/dL (8.7-10.3); Non-African American GFR(CKD) 117.7 (60.0-200.0); Potassium 4.6 mmol/L (3.5-5.5); Total Bilirubin 0.2 mg/dL (0.30-1.20); Total Protein 5.1 g/dL (6.2-8.2)
--- NOTE | 2021-06-10 12:48 | P.PN ---
Subjective Progress Note Date: 06/10/21 CHIEF COMPLAINT: Abdominal pain HISTORY OF PRESENT ILLNESS: Patient complains that she still having abdominal pain. She reports a slight improvement in her pain compared to yesterday. She is still requiring the IV Dilaudid. She did have some nausea and required some Zofran. She is having flatus. No bowel movement. Appetite is slightly decreased she has been taking in the protein drinks. Afebrile. WBC is 4.75 hemoglobin 10.8 Surgical op note reviewed patient had laparoscopy completed with 2 mesenteric defects noted and closed. Patient still reports that she feels bloated. PHYSICAL EXAM: VITAL SIGNS: Reviewed GENERAL: Well-developed in no acute distress. HEENT: No sclera icterus. Extraocular movements grossly intact. Moist buccal mucosa. Head is atraumatic, normocephalic. Hears conversational speech. No nasal drainage. NECK: Supple without lymphadenopathy. CHEST: Non-labored respirations and equal bilateral excursions. CARDIOVASCULAR: Palpable 2+ radial pulses. ABDOMEN: Soft. Mildly distended. Tenderness right upper abdomen. Incision sites clean dry and intact MUSCULOSKELETAL: No clubbing or cyanosis. NEUROLOGIC: No focal or lateralizing signs. Cranial nerves II through XII grossly intact. PSYCH: Appropriate affect. Alert and oriented to person, place and time. SKIN: Well perfused. Good skin turgor. ASSESSMENT: 1. Postoperative abdominal pain 2. Recent laparoscopy with closure of 2 mesenteric defects for small bowel obstruction 3. Prior history of Renee-en-Y 4. Multiple abdominal surgeries PLAN: -Continue on pain management -Continue bariatric full liquid diet -Continue gabapentin -Continue abdominal binder -Encouraged patient to ambulate -Further recommendations forthcoming per surgeon Physician Telephone Instrument Supervisor note has been reviewed by physician. Signing provider agrees with the documented findings, assessment, and plan of care. Patient has complex medical surgical history. Operative report from outside institution reviewed with findings of closed loop obstruction and internal hernia repaired. Patient reports intolerance to [place] loss. She does report improvement with Dilaudid. She is tolerating full liquid diet. Advance low fiber diet. Continue gabapentin. Scopolamine for nausea. Objective - Vital Signs Vital signs: Vital Signs Temp 97.8 F 06/10/21 07:05 Pulse 66 06/10/21 07:05 Resp 18 06/10/21 07:05 BP 96/63 06/10/21 07:05 Pulse Ox 98 06/10/21 07:05 Intake & Output 06/09/21 06/10/21 06/10/21 18:59 06:59 18:59 Weight 82.554 kg Other: # Voids 1 - Labs CBC & Chem 7: 06/10/21 05:32 06/10/21 05:32 Labs: Abnormal Lab Results - Last 24 Hours (Table) 06/10/21 06/10/21 Range/Units 05:32 05:32 RBC 4.06 L (4.10-5.20) X 10*6/uL Hgb 10.8 L (12.0-15.0) g/dL Hct 35.2 L (37.2-46.3) % MCH 26.6 L (27.0-32.0) pg MCHC 30.7 L (32.0-37.0) g/dL RDW 15.5 H (11.5-14.5) % Anion Gap 8.00 L (10.00-18.00) mmol/L BUN 6.0 L (9.0-27.0) mg/dL Creatinine 0.5 L (0.6-1.5) mg/dL Calcium 8.3 L (8.7-10.3) mg/dL Total Bilirubin 0.20 L (0.30-1.20) mg/dL Total Protein 5.1 L (6.2-8.2) g/dL Albumin 3.1 L (3.8-4.9) g/dL Albumin/Globulin Ratio 1.55 L (1.60-3.17) g/dL
--- NOTE | 2021-06-10 16:09 | P.PN ---
Subjective Progress Note Date: 06/10/21 Hospital course: Patient is a very pleasant 46-year-old female with a past medical history of gastric bypass with reports of complication resulting in multiple abdominal surgeries. She presented to the emergency department with the chief complaint of abdominal pain and nausea. Patient recently diagnosed with a small bowel obstruction and transferred to [facility] on 05/31/21 where she underwent lysis of abdominal adhesions and discharged on 06/01/21. She reports that since her discharge she has again been experiencing nausea, decreased appetite, cold sweats, and right upper quadrant abdominal pain. She reports having normal bowel function and denied experiencing any vomiting or fever. Patient was seen and fully evaluated in the emergency department where she underwent CT abdomen and pelvis with contrast, this revealed clearing of the obstructive changes to a large extent involving the stomach and proximal small bowel compared to previous exam on 05/31/21, it was reported there was some residual jejunal loops measuring up to 3.2 cm with no other abnormalities reported. CBC and CMP unremarkable with the exception of mild hyponatremia with sodium of 132 and mild elevation of AST and ALT with AST of 43 and ALT of 42. Normal amylase and lipase. Patient was admitted under our services with consultation to general surgery. Physical exam: Patient seen and fully evaluated at the bedside. Patient eating breakfast and appears to be doing well. Patient has tolerated bariatric full liquid diet and has had no episodes of vomiting since arrival to our facility. She reports last bowel movement being Wednesday06/08/21 but reports passing flatus without d ifficulties. She reports continued discomfort in the right upper and lower quadrants but reports managed with current pain medication regimen. Patient denies having any other complaints including fevers, chills, headache, lightheadedness, chest pain, palpitations, shortness of breath, nausea, or v omiting. General surgery following with no plans for surgical intervention. Patient is medically stable at this time, general surgery recommending continued full liquid bariatric diet and another night of overnight monitoring with pain control with plans for discharge tomorrow morning. Vital signs reviewed and stable. General: Nontoxic, no distress and appears stated age. Laparoscopic incisions to abdomen well approximated intact with no noted drainage, erythema, or signs of infection. Derm: Skin warm and dry, normal coloration for ethnicity. Head: Atraumatic, normocephalic and symmetric. Eyes: EOMs intact, no lid lag, and anicteric sclera Mouth: no lip lesions, mucus membranes moist Cardiovascular: regular rate and rhythm with normal S1S2, no murmur, positive posterior tibial pulses bilaterally, and cap refill < 2 seconds. Lungs: Respirations even, regular, and unlabored on room air. Lungs CTA bilaterally, no rhonchi, no rales, no wheezing, and no accessory muscle usage. Abdominal: soft, slight tenderness to right upper quadrant upon palpation with no guarding, no appreciable organomegaly. Ext: ROM intact. No gross muscle atrophy, no edema, no contractures Neuro: Speech clear, face symmetrical and CN II-XII grossly intact with no noted focal neuro deficits Psych: Alert and oriented to person, place, time, and situation. Appropriate and pleasant affect. Assessment and Plan of Care: Intractable abdominal pain with nausea History of Renee-en-Y gastric bypass General surgery following, no plan for surgical intervention at this time. Recommending full liquid diet overnight monitoring with pain control and plans for discharge tomorrow morning. Patient tolerating bariatric full liquid diet and has had no episodes of vomiting since arrival. Patient reports last bowel movement being Wednesday06/08/21. Symptomatic care and pain management Gentle hydration with IV fluid Advance diet as recommended by general surgery team. Hyponatremia, resolved CODE STATUS: Full code DVT prophylaxis: heparin Discussed with: patient and RN Anticipated discharge date: Tomorrow morning Anticipated discharge place: home A total of 31 minutes was spent on the care of this complex patient more than 50% of the time was spent in counseling and care coordination I reviewed the documentation as provided by the THAD above, who is the original author of this note. I agree with the documented assessment and plan, with the following changes: None Objective - Vital Signs Vital signs: Vital Signs Temp 97.8 F 06/10/21 13:38 Pulse 62 06/10/21 13:38 Resp 16 06/10/21 13:38 BP 106/69 06/10/21 13:38 Pulse Ox 97 06/10/21 13:38 Intake & Output 06/09/21 06/10/21 06/10/21 18:59 06:59 18:59 Weight 82.554 kg Other: # Voids 1 - Labs CBC & Chem 7: 06/10/21 05:32 06/10/21 05:32 Labs: Abnormal Lab Results - Last 24 Hours (Table) 06/10/21 06/10/21 Range/Units 05:32 05:32 RBC 4.06 L (4.10-5.20) X 10*6/uL Hgb 10.8 L (12.0-15.0) g/dL Hct 35.2 L (37.2-46.3) % MCH 26.6 L (27.0-32.0) pg MCHC 30.7 L (32.0-37.0) g/dL RDW 15.5 H (11.5-14.5) % Anion Gap 8.00 L (10.00-18.00) mmol/L BUN 6.0 L (9.0-27.0) mg/dL Creatinine 0.5 L (0.6-1.5) mg/dL Calcium 8.3 L (8.7-10.3) mg/dL Total Bilirubin 0.20 L (0.30-1.20) mg/dL Total Protein 5.1 L (6.2-8.2) g/dL Albumin 3.1 L (3.8-4.9) g/dL Albumin/Globulin Ratio 1.55 L (1.60-3.17) g/dL
[2021-06-10] MEDS ORDERED: SCOPOLAMINE 1 MG/72 HR PATCH TRANSDERM ONE (22:15)
[2021-06-11] MEDS: ACETAMINOPHEN TAB 325 MG TAB PO SCH ×2 (00:21→05:19)
[2021-06-11] MEDS: SODIUM CHLORIDE 0.9% 1,000 ML IV SCH ×2 (00:21→08:00)
[2021-06-11] MEDS: HYDROmorphone 1 MG/ML 1 ML SYRINGE IVP PRN ×2 (03:23→07:59)
[2021-06-11 07:08] VITALS: BP 99/67; PULSE 56; RESP 16; TEMP 98.1
[2021-06-11] MEDS: DICYCLOMINE 20 MG TAB PO SCH (07:59)
[2021-06-11] MEDS: HEPARIN SODIUM,PORCINE/PF 5,000 UNIT/0.5 ML SYRINGE SQ SCH (07:59)
[2021-06-11] MEDS: GABAPENTIN 300 MG CAP PO SCH (07:59)
--- NOTE | 2021-06-11 08:32 | P.DS ---
Providers Date of admission: 06/09/21 02:13 Expected date of discharge: 06/11/21 Attending physician: Isela Hess MD Consults: 06/09/21 02:13 Consult Physician Routine Consulting Provider: Hortencia Bangura Consult Reason/Comments: known Do you want consulting provider notified?: Yes Primary care physician: Bob Rodriguez [place] Hospital Course: Discharge Diagnosis: Intractable abdominal pain with nausea, patient received IV hydration, antiemetics, and pain control throughout hospitalization. Patient discharged home with 3 day supply of [place] and to follow up as scheduled with her general surgeon from [facility], Dr. Cary. History of Renee-en-Y gastric bypass status post laparoscopic adhesion removal on 05/31/21 Hyponatremia, resolved Hospital Course: Patient is a very pleasant 46-year-old female with a past medical history of gastric bypass with reports of complication resulting in multiple abdominal surgeries. She presented to the emergency department with the chief complaint of abdominal pain and nausea. Patient recently diagnosed with a small bowel obstruction and transferred to [facility] on 05/31/21 where she underwent lysis of abdominal adhesions and discharged on 06/01/21. She reports that since her discharge she has again been experiencing nausea, decreased appetite, cold sweats, and right upper quadrant abdominal pain. She reports having normal bowel function and denied experiencing any vomiting or fever. Patient was seen and fully evaluated in the emergency department where she underwent CT abdomen and pelvis with contrast, this revealed clearing of the obstructive changes to a large extent involving the stomach and proximal small bowel compared to previous exam on 05/31/21, it was reported there was some r esidual jejunal loops measuring up to 3.2 cm with no other abnormalities reported. CBC and CMP unremarkable with the exception of mild hyponatremia with sodium of 132 and mild elevation of AST and ALT with AST of 43 and ALT of 42. Normal amylase and lipase. Patient was admitted under our services with consultation to general surgery. Patient was treated with clear liquid diet, anti-emetics and pain control. She was evaluated by general surgery and CT reviewed by surgeon recommending no need for surgical interventions at this time. Patient's pain improved and reports only exacerbated with movement. Patient reports postoperative incisional pain near right upper quadrant mild but worsens with movement. Laparoscopic Incision well approximated and intact with no surrounding erythema, drainage, or edema. Patient's diet slowly advanced throughout hospitalization and she is tolerating a low fiber diet and has had no episodes of vomiting since arrival to our facility. Patient is medically stable for discharge at this time. Patient to follow-up this week as scheduled with Dr. Cary, general surgeon at [facility] and her PCP. May continue to follow up outpatient with her bariatric surgeon, Dr. Bangura. Physical exam: Vital signs reviewed and stable. General: Nontoxic, no distress and appears stated age. Laparoscopic incisions to abdomen well approximated intact with no noted drainage, erythema, or signs of infection. Derm: Skin warm and dry, normal coloration for ethnicity. Head: Atraumatic, normocephalic and symmetric. Eyes: EOMs intact, no lid lag, and anicteric sclera Mouth: no lip lesions, mucus membranes moist Cardiovascular: regular rate and rhythm with normal S1S2, no murmur, positive posterior tibial pulses bilaterally, and cap refill < 2 seconds. Lungs: Respirations even, regular, and unlabored on room air. Lungs CTA bilaterally, no rhonchi, no rales, no wheezing, and no accessory muscle usage. Abdominal: soft, slight tenderness to right upper quadrant upon palpation with no guarding, no appreciable organomegaly. Ext: ROM intact. No gross muscle atrophy, no edema, no contractures Neuro: Speech clear, face symmetrical and CN II-XII grossly intact with no noted focal neuro deficits Psych: Alert and oriented to person, place, time, and situation. Appropriate and pleasant affect. A total of 39 minutes of time were spent preparing this complex discharge summary. I reviewed the documentation as provided by the THAD above, who is the original author of this note. I agree with the documented assessment and plan, with the following changes: None Patient Condition at Discharge: Stable Plan - Discharge Summary Discharge Rx Participant: No New Discharge Prescriptions: New HYDROcodone/APAP 7.5-325MG [Cropwell 7.5-325] 1 tab PO Q4H PRN 3 Days #18 tab PRN Reason: Pain Continue hydrOXYzine pamoate [Vistaril] 50 mg PO BID PRN PRN Reason: Anxiety traMADol HCL [Ultram] 50 mg PO DAILY PRN PRN Reason: Pain Ondansetron Odt [Zofran ODT] 4 mg PO Q12HR PRN PRN Reason: Nausea rOPINIRole HCL [Requip] 1 mg PO HS Albuterol Sulfate [Proair Hfa] 2 puff INHALATION RT-QID PRN PRN Reason: Shortness Of Breath Dicyclomine [Bentyl] 20 mg PO QID #120 tablet Gabapentin [Neurontin] 200 mg PO HS Discontinued Dextroamphetamine/Amphetamine [Adderall] 20 mg PO TID Discharge Medication List hydrOXYzine pamoate [Vistaril] 50 mg PO BID PRN 07/28/19 [History] Albuterol Sulfate [Proair Hfa] 2 puff INHALATION RT-QID PRN 09/04/20 [History] rOPINIRole HCL [Requip] 1 mg PO HS 09/04/20 [History] traMADol HCL [Ultram] 50 mg PO DAILY PRN 09/04/20 [History] Dicyclomine [Bentyl] 20 mg PO QID #120 tablet 05/28/21 [Rx] Gabapentin [Neurontin] 200 mg PO HS 06/09/21 [History] Ondansetron Odt [Zofran ODT] 4 mg PO Q12HR PRN 06/09/21 [History] HYDROcodone/APAP 7.5-325MG [Cropwell 7.5-325] 1 tab PO Q4H PRN 3 Days #18 tab 06/11/21 [Rx] Follow up Appointment(s)/Referral(s): Mikaela Rojas MD [Primary Care Provider] - 1-2 days Hortencia Bangura MD [STAFF PHYSICIAN] - 06/25/21 Patient Instructions/Handouts: Acute Abdominal Pain (GEN) Activity/Diet/Wound Care/Special Instructions: Activity: As tolerated. Take breaks as needed. Diet: Heart healthy and carb consistent diet. Avoid salts, or foods with hidden salts such as canned or boxed foods and frozen dinners. Extra salt makes your heart work harder and traps the fluid in your body for longer. Special Instructions: Take all of your medications as directed and remember to keep all of your doctor's appointments and follow-up as needed. Thank you for allowing us to participate in your care, it was truly a pleasure having you for our patient!!! Discharge Disposition: HOME SELF-CARE
--- NOTE | 2021-06-11 11:44 | P.PN ---
Subjective Progress Note Date: 06/11/21 CHIEF COMPLAINT: Abdominal pain HISTORY OF PRESENT ILLNESS: Patient reporting that she is having improvement in her abdominal pain. She's had no further nausea or vomiting. She did require a dose of IV Dilaudid this morning. But she feels that she can manage her pain at home. Medicine service has given her a prescription for [place]. She is having flatus. She tolerated her breakfast. She is afebrile. PHYSICAL EXAM: VITAL SIGNS: Reviewed GENERAL: Well-developed in no acute distress. HEENT: No sclera icterus. Extraocular movements grossly intact. Moist buccal mucosa. Head is atraumatic, normocephalic. Hears conversational speech. No nasal drainage. NECK: Supple without lymphadenopathy. CHEST: Non-labored respirations and equal bilateral excursions. CARDIOVASCULAR: Palpable 2+ radial pulses. ABDOMEN: Soft. Nondistended. Mild tenderness right upper abdomen. Incision sites clean dry and intact MUSCULOSKELETAL: No clubbing or cyanosis. NEUROLOGIC: No focal or lateralizing signs. Cranial nerves II through XII grossly intact. PSYCH: Appropriate affect. Alert and oriented to person, place and time. SKIN: Well perfused. Good skin turgor. ASSESSMENT: 1. Postoperative abdominal pain 2. Recent laparoscopy with closure of 2 mesenteric defects for closed loop obstruction and internal hernia 3. Prior history of Renee-en-Y 4. Multiple abdominal surgeries PLAN: -Patient can be discharged from surgical standpoint -Recommend to continue the gabapentin -Advance diet as tolerated -Continue abdominal binder as needed for support Physician Engraver Set Up Operator note has been reviewed by physician. Signing provider agrees with the documented findings, assessment, and plan of care. Objective - Vital Signs Vital signs: Vital Signs Temp 98.1 F 06/11/21 07:07 Pulse 56 L 06/11/21 07:07 Resp 16 06/11/21 07:07 BP 99/67 06/11/21 07:07 Pulse Ox 97 06/11/21 07:07 Intake & Output 06/10/21 06/11/21 06/11/21 18:59 06:59 18:59 Other: # Voids 4 2 - Labs CBC & Chem 7: 06/10/21 05:32 06/10/21 05:32
== END 2021-06-11 13:07 | disposition home or self-care (01) ==
LOC: EC 20:37 → 4SSUR 06-09 02:13 → 6NMEDSUR 06-09 02:47
PROVIDERS: ADMIT Internal Medicine; ATTEND Internal Medicine
DX: R11.0 Nausea (principal); G89.18 Other acute postprocedural pain; E86.0 Dehydration; E87.1 Hypo-osmolality and hyponatremia; R10.11 Right upper quadrant pain; R42 Dizziness and giddiness; R11.2 Nausea with vomiting, unspecified; E16.2 Hypoglycemia, unspecified; J45.909 Unspecified asthma, uncomplicated; Z86.718 Personal history of other venous thrombosis and embolism; K21.9 Gastro-esophageal reflux disease without esophagitis; F17.200 Nicotine dependence, unspecified, uncomplicated; M19.90 Unspecified osteoarthritis, unspecified site; Z86.711 Personal history of pulmonary embolism; F41.9 Anxiety disorder, unspecified; Z87.19 Personal history of other diseases of the digestive system; I95.9 Hypotension, unspecified; R63.0 Anorexia; G43.909 Migraine, unspecified, not intractable, without status migrainosus; Z85.42 Personal history of malignant neoplasm of other parts of uterus; K52.9 Noninfective gastroenteritis and colitis, unspecified; R22.9 Localized swelling, mass and lump, unspecified; Z90.49 Acquired absence of other specified parts of digestive tract; Z90.710 Acquired absence of both cervix and uterus; Z98.84 Bariatric surgery status; Z98.890 Other specified postprocedural states; F90.9 Attention-deficit hyperactivity disorder, unspecified type; F43.10 Post-traumatic stress disorder, unspecified; Z82.49 Family history of ischemic heart disease and other diseases of the circulatory system; Z82.5 Family history of asthma and other chronic lower respiratory diseases; Z80.52 Family history of malignant neoplasm of bladder; Z79.51 Long term (current) use of inhaled steroids; Z79.899 Other long term (current) drug therapy; Z88.5 Allergy status to narcotic agent; Z88.1 Allergy status to other antibiotic agents; Z91.02 Food additives allergy status; Z91.018 Allergy to other foods; Z88.0 Allergy status to penicillin
CPT/HCPCS: 96376 ×4; 96361 ×5; 96372 ×3; 96374; 96375 ×2; 99285; 36415; 80053 ×2; 82150; 83605; 83690; 85025 ×2; 74177; G0378 ×4; J2405 ×3; J1170 ×4; C9113; Q9967; J1644 ×3

== ENCOUNTER → 2021-09-08 | Outpatient (CLI) | payer OTHER ==
[2021-09-08 18:43] LABS: Basophils # (A) 0.03 X 10*3/uL (0.00-0.10); Basophils % (A) 0.6 %; Eosinophils # (A) 0.08 X 10*3/uL (0.04-0.35); Eosinophils % (A) 1.6 %; Immature Grans, Automated 0.2 %; Lymphocytes % (A) 29.2 %; MCH 26.4 pg (27.0-32.0); MCHC 31.6 g/dL (32.0-37.0); MCV 83.7 fL (80.0-97.0); Mean Platelet Volume 10.3 fL (9.5-12.2); Monocytes # (A) 0.65 X 10*3/uL (0.20-1.00); Monocytes % (A) 12.7 %; NRBC Per 100 WBC 0 /100 WBCS (0.0-0.0); Neutrophils # (A) 2.86 X 10*3/uL (1.80-7.70); Neutrophils % (A) 55.7 %; Platelet Count 326 X 10*3/uL (140-440); RBC 4.54 X 10*6/uL (4.10-5.20); RDW 14.8 % (11.5-14.5); WBC 5.13 X 10*3/uL (4.50-10.00)
[2021-09-08 18:56] LABS: % Iron Saturation 6.47 (12.00-45.00); ALT 14 U/L (8-44); AST 18 U/L (13-35); African American GFR (CKD) 128.5 (60.0-200.0); Albumin 4.1 g/dL (3.8-4.9); Albumin/Globulin Ratio 1.41 (1.60-3.17); Alkaline Phosphatase 66 U/L (41-126); Blood Urea Nitrogen 9.9 mg/dL (9.0-27.0); Calcium 9.1 mg/dL (8.7-10.3); Chloride 106 mmol/L (96-109); Chol/HDL Ratio 2.98 Ratio; Ferritin 5.1 ng/mL (10.0-291.0); Globulin 2.9 g/dL (1.6-3.3); Glucose 95 mg/dL (70-110); Iron 28 ug/dL (50-170); LDL Cholesterol,Calculated 108.2 mg/dL (0.0-131.0); Non-African American GFR(CKD) 110.9 (60.0-200.0); Potassium 4.4 mmol/L (3.5-5.5); Sodium 139 mmol/L (135-145); Total Iron Binding Capacity 434 ug/dL (228-460); VLDL Calculation 19.38 mg/dL (5.00-40.00)
== END | disposition home or self-care (01) ==
LOC: LABWHC1 11:46
PROVIDERS: ATTEND Family Medicine
DX: Z00.00 Encounter for general adult medical examination without abnormal findings (principal); D64.9 Anemia, unspecified; Z11.59 Encounter for screening for other viral diseases
CPT/HCPCS: 36415; 80053; 80061; 82607; 82728; 82746; 83540; 83550; 84439; 84443; 84481; 85025; 86803

== ENCOUNTER 2021-09-22 20:58 | Inpatient (IN) | payer OTHER ==
[2021-09-22] MEDS ORDERED: SODIUM CHLORIDE 0.9% 500 ML 500 ML IV STA (22:26)
[2021-09-22] MEDS ORDERED: HYDROmorphone 1 MG/ML 1 ML SYRINGE IVP STA (22:26)
[2021-09-22] MEDS ORDERED: ONDANSETRON 4 MG/2 ML VIAL IVP STA (22:26)
--- NOTE | 2021-09-22 22:30 | ED ---
Abdominal Pain HPI - General Chief Complaint: Abdominal Pain Stated Complaint: ABDOMINAL PAIN Time Seen by Provider: 09/22/21 21:49 Source: patient Mode of arrival: wheelchair Limitations: no limitations - History of Present Illness Initial Comments: patient is a 46-year-old woman who presents with acute onset of abdominal pain approximately 2 hours prior to arrival. She describes diffuse abdominal pain sharp and cramping. She also has associated nausea. She has not discovered any worsening or relieving factors. Patient states it is similar to pain that she had a couple of months ago when she was diagnosed with a which she believes was an internal hernia. She states that she had to have an emergency surgery at [facility]. She does have history of renal and Y bypass related to intractable ulcers.. MD Complaint: abdominal pain Onset/Timin -: hour(s) Location: diffuse Radiation: none Severity: severe Quality: cramping, sharp Consistency: constant Improves With: nothing Worsens With: nothing Associated Symptoms: nausea - Related Data Patient : No Home Medications Medication Instructions Recorded Confirmed Albuterol Sulfate [Proair Hfa] 2 puff INHALATION RT-Q6H PRN 09/04/20 09/22/21 rOPINIRole HCL [Requip] 1 mg PO HS 09/04/20 09/22/21 Dextroamphetamine/Amphetamine 20 mg PO TID 09/22/21 09/22/21 [Adderall 20 mg Tablet] Dicyclomine [Bentyl] 20 mg PO DAILY 09/22/21 09/22/21 Gabapentin 300 mg PO TID 09/22/21 09/22/21 hydrOXYzine pamoate [Vistaril] 100 mg PO TID PRN 09/22/21 09/22/21 Allergies Allergy/AdvReac Type Severity Reaction Status Date / Time cephalexin monohydrate Allergy Severe Rash/Hives, Verified 09/22/21 23:40 [From Keflex] nausea,sweats,chills morphine Allergy Severe Itching, Verified 09/22/21 23:40 migraines,states "does not help with pain." Penicillins Allergy Severe Rash/Hives, Verified 09/22/21 23:40 nausea,lethargic almond Allergy Anaphylaxis Verified 09/22/21 23:40 almond oil Allergy Anaphylaxis Verified 09/22/21 23:40 mustard Allergy Anaphylaxis Verified 09/22/21 23:40 niacin Allergy hives to Verified 09/22/21 23:40 face walnut Allergy Anaphylaxis Verified 09/22/21 23:40 Gratiot And Derivatives AdvReac Nausea & Verified 09/22/21 23:40 [Grat[place]] Vomiting gluten AdvReac Abdominal Verified 09/22/21 23:40 Pain Review of Systems ROS Statement: Those systems with pertinent positive or pertinent negative responses have been documented in the HPI. ROS Other: All systems not noted in ROS Statement are negative. Constitutional: Denies: fever, chills Respiratory: Denies: cough, dyspnea Cardiovascular: Denies: chest pain, palpitations Gastrointestinal: Reports: abdominal pain, nausea. Denies: vomiting, diarrhea, constipation, melena, hematochezia Genitourinary: Denies: dysuria, hematuria Musculoskeletal: Denies: back pain Skin: Denies: rash Neurological: Denies: headache, weakness Past Medical History Past Medical History: Asthma, Cancer, Chest Pain / Angina, Deep Vein Thrombosis (DVT), GERD/Reflux, Osteoarthritis (OA), Pulmonary Embolus (PE) Additional Past Medical History / Comment(s): HYPOGLYCEMIC. diverticulitis, hypotension, migraines, "food getting stuck"-needs balloon dilation every 6-12 months, hx uterine cancer, colitis, possible crohns, nodule on adrenal gland. History of Any Multi-Drug Resistant Organisms: None Reported Past Surgical History: Appendectomy, Bariatric Surgery, Cholecystectomy, Hysterectomy Additional Past Surgical History / Comment(s): reyna-y gastric bypass with adhesions, rt arm-plate and screws, laparoscopy, umbilical hernia repair, I&D of abd wound,SCOPE RT SHOULDER. swallow study. Revision of RNY r/t complications, Oral surgery. EMERGENCY GI SURGERY PER PT AT [facility] 05/30/21 Past Anesthesia/Blood Transfusion Reactions: Family History of Problems w/ Anesthesia, Motion Sickness, Postoperative Nausea & Vomiting (PONV) Additional Past Anesthesia/Blood Transfusion Reaction / Comment(s): mother has asthma attacks post-op Past Psychological History: ADD/ADHD, Anxiety, PTSD Smoking Status: Current every day smoker Past Alcohol Use History: None Reported Past Drug Use History: None Reported - Past Family History Father Additional Family Medical History / Comment(s): BRAIN ANUERYSM Mother Family Medical History: AFIB, AICD/Pacemaker, Asthma, Cancer Additional Family Medical History / Comment(s): bladder General Exam Limitations: no limitations General appearance: alert, in no apparent distress Head exam: Present: atraumatic, normocephalic Eye exam: Present: normal appearance. Absent: scleral icterus, conjunctival injection ENT exam: Present: normal oropharynx Neck exam: Present: normal inspection Respiratory exam: Present: normal lung sounds bilaterally. Absent: respiratory distress, wheezes, rales, rhonchi, stridor Cardiovascular Exam: Present: regular rate, normal rhythm, normal heart sounds. Absent: systolic murmur, diastolic murmur, rubs, gallop GI/Abdominal exam: Present: soft, tenderness. Absent: distended, guarding, rebound, rigid, mass, pulsatile mass, hernia Extremities exam: Present: normal inspection, normal capillary refill. Absent: pedal edema, calf tenderness Back exam: Present: normal inspection. Absent: CVA tenderness (R), CVA tenderness (L) Neurological exam: Present: alert Skin exam: Present: warm, dry, intact, normal color. Absent: rash Course Vital Signs 09/22/21 09/22/21 09/23/21 21:34 23:12 06:12 Temperature 98.7 F Pulse Rate 97 76 91 Respiratory 18 16 20 Rate Blood Pressure 121/82 102/71 138/94 O2 Sat by Pulse 97 96 98 Oximetry 09/23/21 09/23/21 09/23/21 06:37 09:56 10:40 Temperature Pulse Rate 74 78 74 Respiratory 16 18 20 Rate Blood Pressure 83/60 96/63 100/65 O2 Sat by Pulse 97 98 98 Oximetry Medical Decision Making - Lab Data Result diagrams: 09/22/21 23:12 09/22/21 23:12 Lab Results 09/22/21 09/22/21 09/22/21 Range/Units 23:12 23:12 23:12 WBC 7.6 (3.8-10.6) k/uL RBC 4.45 (3.80-5.40) m/uL Hgb 11.8 (11.4-16.0) gm/dL Hct 36.8 (34.0-46.0) % MCV 82.7 (80.0-100.0) fL MCH 26.6 (25.0-35.0) pg MCHC 32.2 (31.0-37.0) g/dL RDW 14.3 (11.5-15.5) % Plt Count 329 (150-450) k/uL MPV 7.9 Neutrophils % 65 % Lymphocytes % 21 % Monocytes % 9 % Eosinophils % 3 % Basophils % 1 % Neutrophils # 4.9 (1.3-7.7) k/uL Lymphocytes # 1.6 (1.0-4.8) k/uL Monocytes # 0.7 (0-1.0) k/uL Eosinophils # 0.3 (0-0.7) k/uL Basophils # 0.1 (0-0.2) k/uL Sodium 137 (137-145) mmol/L Potassium 4.4 (3.5-5.1) mmol/L Chloride 111 H (98-107) mmol/L Carbon Dioxide 18 L (22-30) mmol/L Anion Gap 8 mmol/L BUN 13 (7-17) mg/dL Creatinine 0.71 (0.52-1.04) mg/dL Est GFR (CKD-EPI)AfAm >90 (>60 ml/min/1.73 sqM) Est GFR (CKD-EPI)NonAf >90 (>60 ml/min/1.73 sqM) Glucose 93 (74-99) mg/dL Plasma Lactic Acid Shlomo 0.7 (0.7-2.0) mmol/L Calcium 8.9 (8.4-10.2) mg/dL Total Bilirubin 0.2 (0.2-1.3) mg/dL AST 43 H (14-36) U/L ALT 47 H (4-34) U/L Alkaline Phosphatase 90 (38-126) U/L C-Reactive Protein <0.5 (<1.0) mg/dL Total Protein 7.2 (6.3-8.2) g/dL Albumin 4.2 (3.5-5.0) g/dL Amylase 63 (30-110) U/L Lipase 172 (23-300) U/L Disposition Clinical Impression: Abdominal pain Disposition: ADMITTED IP TO THIS [facility] Condition: Fair Is patient prescribed a controlled substance at d/c from ED?: No Decision Time: 02:15
[2021-09-22 23:25] LABS: Basophils # (A) 0.1 k/uL (0-0.2); Basophils % (A) 1 %; Eosinophils # (A) 0.3 k/uL (0-0.7); Eosinophils % (A) 3 %; HCT 36.8 % (34.0-46.0); HGB 11.8 gm/dL (11.4-16.0); Lymphocytes # (A) 1.6 k/uL (1.0-4.8); Lymphocytes % (A) 21 %; MCH 26.6 pg (25.0-35.0); MCHC 32.2 g/dL (31.0-37.0); MCV 82.7 fL (80.0-100.0); Mean Platelet Volume 7.9; Monocytes # (A) 0.7 k/uL (0-1.0); Monocytes % (A) 9 %; Neutrophils # (A) 4.9 k/uL (1.3-7.7); Neutrophils % (A) 65 %; Platelet Count 329 k/uL (150-450); RBC 4.45 m/uL (3.80-5.40); RDW 14.3 % (11.5-15.5); WBC 7.6 k/uL (3.8-10.6)
[2021-09-22 23:42] LABS: ALT 47 U/L (4-34); AST 43 U/L (14-36); African American GFR (CKD) >90 (>60 ml/min/1.73 sqM); Albumin 4.2 g/dL (3.5-5.0); Alkaline Phosphatase 90 U/L (38-126); Amylase 63 U/L (30-110); Anion Gap 8 mmol/L; Blood Urea Nitrogen 13 mg/dL (7-17); C Reactive Protein <0.5 mg/dL (<1.0); Calcium 8.9 mg/dL (8.4-10.2); Carbon Dioxide 18 mmol/L (22-30); Chloride 111 mmol/L (98-107); Glucose 93 mg/dL (74-99); Lipase 172 U/L (23-300); Non-African American GFR(CKD) >90 (>60 ml/min/1.73 sqM); Potassium 4.4 mmol/L (3.5-5.1); Sodium 137 mmol/L (137-145); Total Bilirubin 0.2 mg/dL (0.2-1.3); Total Protein 7.2 g/dL (6.3-8.2)
--- NOTE | 2021-09-23 00:21 | CT ---
EXAMINATION TYPE: CT abdomen pelvis wo con DATE OF EXAM: 09/22/2021 COMPARISON: 06/09/2021 HISTORY: Abd pain CT DLP: 768.2 mGycm Automated exposure control for dose reduction was used. Images obtained from the diaphragm to the floor the pelvis with no contrast. Lung bases are clear. No pleural effusion. There is previous gastric surgery. Liver and spleen are in tact. No pancreatic mass. There are clips from cholecystectomy. Heart size is normal. No pericardial effusion. There is no adrenal mass. There is some mild hypertrophy of the left adrenal gland. Kidneys show norm al size and contour. No hydronephrosis. Ureters are not dilated. No retroperitoneal adenopathy. Bladd er distends smoothly. No inguinal hernia. No free fluid in the pelvis. No pelvic mass. Lumbar spine i s intact. No compression fracture. Hip joints are intact. There is no mesenteric edema. No ascites or free air. No bowel obstruction. Appendix not seen. There is no sign of thickened appendix. IMPRESSION: Previous gastric bariatric surgery. Mild sigmoid diverticulosis without diverticulitis. No acute abno rmality in the abdomen and pelvis. No evidence of bowel obstruction. No adverse change compared to ol d exam.
[2021-09-23] MEDS ORDERED: HYDROmorphone 1 MG/ML 1 ML SYRINGE IVP STA (02:04)
[2021-09-23] MEDS ORDERED: ONDANSETRON 4 MG/2 ML VIAL IVP PRN (02:20)
[2021-09-23] MEDS ORDERED: ACETAMINOPHEN TAB 325 MG TAB PO PRN (02:20)
[2021-09-23] MEDS ORDERED: HYDROmorphone 0.5 MG/0.5 ML SYRINGE IVP PRN (02:20)
[2021-09-23] MEDS ORDERED: NALOXONE 0.4 MG/ML 1 ML VIAL IV PRN (02:20)
[2021-09-23] MEDS ORDERED: LORazepam 2 MG/ML INJ IV STA (05:01)
[2021-09-23] MEDS: SODIUM CHLORIDE 0.9% 1,000 ML IV SCH ×3 (05:09→20:15)
[2021-09-23] MEDS: HYDROmorphone 1 MG/ML 1 ML SYRINGE IVP PRN ×4 (06:15→22:00)
[2021-09-23] MEDS ORDERED: SODIUM CHLORIDE 0.9% 1,000 ML IV ONE ×2 (08:30→10:36)
[2021-09-23] MEDS: FAMOTIDINE 20 MG TAB PO SCH ×2 (09:52→20:16)
[2021-09-23] MEDS: ACETAMINOPHEN IV (For NPO) 1,000 MG in EMPTY BAG 1 BAG IVPB SCH ×2 (12:45→19:10)
[2021-09-23] MEDS: ONDANSETRON 4 MG/2 ML VIAL IVP SCH ×2 (12:50→19:10)
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
[2021-09-23 14:25] LABS: Appearance,Urine Cloudy (Clear); Bacteria,Urine Occasional /hpf; Bilirubin,Urine Negative (Negative); Blood,Urine Negative (Negative); Color,Urine Yellow; Glucose,Urine (UA) Negative (Negative); Hyaline Casts,Urine 1 /lpf (0-2); Ketones,Urine Negative (Negative); Leukocyte Esterase,Urine Negative (Negative); Mucus,Urine Few /hpf; Nitrite,Urine Negative (Negative); Protein,Urine Trace (Negative); RBC,Urine <1 /hpf (0-5); Specific Gravity,Urine 1.026 (1.001-1.035); Squamous Epithelial Cell,Urine 8 /hpf (0-4); Urobilinogen,Urine <2.0 mg/dL (<2.0); WBC,Urine 1 /hpf (0-5)
[2021-09-23 14:45] VITALS: BMI 29.9
[2021-09-23] MEDS ORDERED: ALBUTEROL NEBULIZED 2.5 MG/3 ML INHALATION PRN (20:54)
[2021-09-23] MEDS ORDERED: hydrOXYzine pamoate 25 MG CAP PO PRN (20:54)
[2021-09-23] MEDS: NON FORMULARY DRUG (Dextroamphetamine/Amphetamine [Adderall 20 Mg Tablet] 20 MG Tablet) PO SCH (21:12)
[2021-09-23] MEDS: GABAPENTIN 300 MG CAP PO SCH (21:12)
[2021-09-24] MEDS: ACETAMINOPHEN IV (For NPO) 1,000 MG in EMPTY BAG 1 BAG IVPB SCH ×3 (00:13→23:40)
[2021-09-24] MEDS: ONDANSETRON 4 MG/2 ML VIAL IVP SCH ×4 (00:13→20:39)
[2021-09-24] MEDS: LORazepam 1 MG TAB PO PRN (00:19)
[2021-09-24] MEDS: HYDROmorphone 1 MG/ML 1 ML SYRINGE IVP PRN ×4 (02:27→21:39)
[2021-09-24] MEDS: SODIUM CHLORIDE 0.9% 1,000 ML IV SCH ×3 (04:34→19:26)
[2021-09-24] MEDS: FAMOTIDINE 20 MG TAB PO SCH ×2 (08:50→21:39)
[2021-09-24] MEDS: DICYCLOMINE 20 MG TAB PO SCH (08:51)
[2021-09-24] MEDS: GABAPENTIN 300 MG CAP PO SCH ×3 (08:51→21:39)
[2021-09-24 08:56] LABS: Basophils # (A) 0.02 X 10*3/uL (0.00-0.10); Basophils % (A) 0.3 %; Eosinophils # (A) 0.17 X 10*3/uL (0.04-0.35); Eosinophils % (A) 2.7 %; HCT 32.3 % (37.2-46.3); Immature Grans, Automated 0.3 %; Lymphocytes % (A) 22.5 %; MCV 83.9 fL (80.0-97.0); Mean Platelet Volume 10.7 fL (9.5-12.2); Monocytes # (A) 0.55 X 10*3/uL (0.20-1.00); Monocytes % (A) 8.8 %; NRBC Per 100 WBC 0 /100 WBCS (0.0-0.0); Neutrophils # (A) 4.07 X 10*3/uL (1.80-7.70); Neutrophils % (A) 65.4 %; Platelet Count 260 X 10*3/uL (140-440); RBC 3.85 X 10*6/uL (4.10-5.20); RDW 15.2 % (11.5-14.5); WBC 6.23 X 10*3/uL (4.50-10.00)
[2021-09-24] MEDS: SODIUM FERRIC GLUCONAT-SUCROSE 125 MG in SODIUM CHLORIDE 0.9% 100 ML IVPB SCH (10:50)
[2021-09-24] MEDS: CYANOCOBALAMIN 1,000 MCG/ML 1 ML VIAL IM SCH (10:51)
[2021-09-24 10:52] LABS: African American GFR (CKD) 136.4 (60.0-200.0); Albumin 3.4 g/dL (3.8-4.9); Albumin/Globulin Ratio 1.55 (1.60-3.17); Anion Gap 7.2 mmol/L (10.00-18.00); BUN/Creat Ratio 13.2 Ratio (12.00-20.00); Blood Urea Nitrogen 6.6 mg/dL (9.0-27.0); Carbon Dioxide 19.8 mmol/L (20.0-27.5); Globulin 2.2 g/dL (1.6-3.3); Non-African American GFR(CKD) 117.7 (60.0-200.0); Potassium 4.7 mmol/L (3.5-5.5); Total Bilirubin 0.2 mg/dL (0.30-1.20); Total Protein 5.6 g/dL (6.2-8.2)
[2021-09-24] MEDS: NON FORMULARY DRUG (Dextroamphetamine/Amphetamine [Adderall 20 Mg Tablet] 20 MG Tablet) PO SCH ×3 (10:59→22:03)
[2021-09-24] MEDS ORDERED: IV FLUID CONTINUATION 1,000 ML IV ONE (14:56)
--- NOTE | 2021-09-24 15:40 | P.HPADDEND ---
H&P Addendum H&P Addendum Date: 09/24/21 Patient presents with moderate to severe abdominal pain with prior history of peritoneal adhesions. She reports pain is worse than prior bowel obstructiion. Will proceed with robotic lysis of adhesions. Abdomen marked for areas of pain.
[2021-09-24] MEDS ORDERED: MIDAZOLAM 2 MG/2 ML VIAL IVP ONE (15:50)
[2021-09-24] MEDS ORDERED: fentaNYL (PF) 50 MCG/ML 2 ML AMP IVP ONE (15:50)
[2021-09-24] MEDS ORDERED: HYDROmorphone (PF) 1 MG/ML ONE (15:54)
[2021-09-24] MEDS ORDERED: SODIUM CHLORIDE 0.9% (PF) 10 ML VIAL ONE (15:54)
[2021-09-24] MEDS ORDERED: LIDOCAINE 2% INJ 20 MG/ML (2 ML VIAL) ONE (15:54)
[2021-09-24] MEDS ORDERED: ONDANSETRON 4 MG/2 ML VIAL ONE (15:54)
[2021-09-24] MEDS ORDERED: CLINDAMYCIN 150 MG/ML 4 ML VIAL ONE (15:54)
[2021-09-24] MEDS ORDERED: GLYCOPYRROLATE 0.2 MG/ML 2 ML VIAL ONE (15:54)
[2021-09-24] MEDS ORDERED: ROCURONIUM 10 MG/ML (5 ML VIAL) IV ONE (15:54)
[2021-09-24] MEDS ORDERED: NEOSTIGMINE 1 MG/ML 10 ML VIAL ONE (15:54)
[2021-09-24] MEDS ORDERED: ePHEDrine 50 MG/ML 1 ML VIAL ONE (15:54)
[2021-09-24] MEDS ORDERED: PROPOFOL 10 MG/ML 20 ML VIAL IV ONE (15:54)
[2021-09-24] MEDS ORDERED: ROPIVACAINE 5 MG/ML 30 ML VIAL ONE (15:54)
[2021-09-24] MEDS ORDERED: SUCCINYLCHOLINE CHLORIDE 100 MG/5 ML SYR IV ONE (15:54)
[2021-09-24] MEDS ORDERED: SODIUM CHLORIDE 0.9% 100 ML with CLINDAMYCIN 600 MG/50 ML-D5W 600 MG IV ONE ×2 (16:20)
[2021-09-24] MEDS ORDERED: BUPIVACAIN-EPI 0.25%-1:200,000 30 ML VIAL SQ ONE (16:42)
[2021-09-24] MEDS ORDERED: LACTATED RINGERS 1,000 ML IV ONE (17:20)
--- NOTE | 2021-09-24 18:39 | P.ANPRN ---
Procedure Note - Anesthesia - Nerve Block Performed Bilateral Transversus Abdominis Single Time Out Performed: Yes ([id number]) Date of Procedure: 09/24/21 Procedure Start Time: 15:50 Procedure Stop Time: 15:56 Location of Patient: PreOp Indication: Acute Post-Operative Pain, Requested by Surgeon Specifically requested for management of pain by : Hortencia Bangura Sedation Type: Sedate with meaningful contact maintained Preparation: Sterile Prep, Sterile Dressing Position: Supine Catheter: None Needle Types: Pajunk Needle Gauge: 21 Ultrasound used to visualize needle placement: Yes Ultrasound used to observe medication spread: Yes Injectate: 0.5% Ropivacaine (see comment for volume) (20cc each side + 10cc nacl) Blood Aspirated: No Pain Paresthesia on Injection Noted: No Resistance on Injection: Normal Image Stored and Saved: Yes Events: Uneventful and Well Tolerated
[2021-09-24] MEDS ORDERED: HYDROmorphone 0.5 MG/0.5 ML SYRINGE IVP ONE (18:59)
[2021-09-24] MEDS ORDERED: MAGNESIUM HYDROXIDE 2,400 MG/10 ML CUP PO PRN (19:02)
[2021-09-24] MEDS ORDERED: diphenhydrAMINE 50 MG/ML 1 ML VIAL IVP PRN (19:02)
[2021-09-24] MEDS ORDERED: HYDROmorphone PCA 10 MG/50 ML BAG IV PRN (19:02)
[2021-09-24] MEDS ORDERED: MEPERIDINE 50 MG/ML SYRINGE IVP PRN (19:02)
[2021-09-24] MEDS ORDERED: TAMSULOSIN 0.4 MG CAP.ER.24H PO STA (19:02)
--- NOTE | 2021-09-24 19:14 | P.OP ---
Date of Procedure: 09/24/21 Description of Procedure: SURGEON: ALEXANDRIA RENTERIA MD PREOPERATIVE DIAGNOSES: 1. Intractable abdominal pain 2. History of gastric bypass 3. History of multiple abdominal surgeries of peritoneal adhesions POSTOPERATIVE DIAGNOSES: 1. Intractable abdominal pain due to peritoneal adhesions OPERATION: 1. Robotic-assisted da Shazia Xi laparoscopic with extensive lysis of adhesions over 1.5 hrs ESTIMATED BLOOD LOSS: 5 mL. SPECIMENS REMOVED: None. COMPLICATIONS: None. OPERATIVE FINDINGS: 1. Scarred jejunojejunostomy defect 2. Scarred Petersons defect 3. Previously reconstructed jejunojejunostomy with densely inherent retroperitoneal adhesions causing intractable abdominal pain 4. Gastric bypass Renee limb with interloop adhesions sharply lysed vessel sealer 5. Jejunojejunostomy reconstruction identified with renee limb entering common channel distal to biliary pancreatic limb reconstruction 6. Biliary pancreatic limb reconstruction with multiple adhesions contributing to intractable abdominal pain also lysed 7. Additional fourth arm docked at the right upper quadrant to address retroperitoneal adhesion of the left upper quadrant. INDICATIONS: The patient is a 46-year-old female with gastric bypass who presents with intractable periumbilical of the left upper quadrant and right upper quadrant abdominal pain. She has recent bowel obstruction treated at an outside institution. She returns with acute onset abdominal pain first in her bowel obstruction. Surgical intervention with diagnostic laparoscopy, lysis of adhesions were described. Informed consent was obtained. Robotic assisted laparoscopic approach was described. Benefits and risks of the procedure including but not limited to bleeding, infection, injury to the small bowel was described. Informed consent was obtained. DESCRIPTION OF PROCEDURE: Patient was brought to the operating room, placed in supine position. After general induction, the abdomen had been prepped and draped in standard sterile fashion. The robotic da Shazia XI system was primed. After a timeout protocol was performed, the patient had been prepped and draped in standard sterile fashion. The robot was docked along the right lateral abdomen. The patient was repositioned in with right side up. Please note prior to docking of the robot; however, a 5 mm 0 degrees laparoscopic trocar entry was performed along the left upper quadrant. The abdomen was insufflated to 15 mmHg pressure which she tolerated well. Diagnostic laparoscopy was performed. Next, three 8 mm robotic ports were placed along the right lateral abdominal wall. The camera 8-mm port was maintained along mid-lateral abdomen. Please note that the ports were placed at least 10 to 15 cm away from the target anatomy. Instruments including graspers and vessel sealer were interchanged by the data assistant. I had sat at the console. No evidence of incisional hernia was identified. The small bowel from the renee limb to distal ileum was inspected. The small bowel was investigated from the terminal ileum to the jejunojejunostomy. No open jejunojejunostomy mesenteric defect or Petersons defect was found. Abnormal adhesions of the reconstructed jejunojejunostomy was identified and divided. Interloop adhesions involving the renee limb was identified. At the left upper quadrant, reconstructed biliopancreatic limb to the jejunojejunostomy mesenteric defect was found with a deep retroperitoneal adhesion causing partial obstruction consistent with the patient's intractable abdominal pain. The terminal ileum and cecum was unremarkable. Extensive lysis of adhesions over 1.5 hr was performed. The small bowel was viable.The robot was undocked. All pneumoperitoneum instruments were evacuated from the abdominal cavity. The incisions were reapproximated using 4-0 Monocryl in an interrupted subcuticular fashion. Please note along the trocar sites, local anesthetic was placed as a field block prior to insertion of all instruments. Exofin was applied to the skin. At the end of the procedure needle, sponge, and instrument count had been verified correct by the surgical pathologist. The patient was transferred to postanesthesia care unit in stable condition.
[2021-09-24] MEDS: HEPARIN SODIUM,PORCINE/PF 5,000 UNIT/0.5 ML SYRINGE SQ SCH (21:39)
[2021-09-25] MEDS: ONDANSETRON 4 MG/2 ML VIAL IVP SCH ×4 (02:31→17:54)
[2021-09-25] MEDS: HYDROmorphone 1 MG/ML 1 ML SYRINGE IVP PRN ×6 (02:31→21:08)
[2021-09-25] MEDS: SODIUM CHLORIDE 0.9% 1,000 ML IV SCH ×4 (02:32→21:15)
[2021-09-25] MEDS: LORazepam 1 MG TAB PO PRN ×2 (04:00→21:25)
[2021-09-25] MEDS: ACETAMINOPHEN IV (For NPO) 1,000 MG in EMPTY BAG 1 BAG IVPB SCH ×3 (05:49→21:07)
[2021-09-25] MEDS: TAMSULOSIN 0.4 MG CAP.ER.24H PO SCH (08:49)
[2021-09-25] MEDS: PANTOPRAZOLE 40 MG/10 ML VIAL IV SCH (08:49)
[2021-09-25] MEDS: DICYCLOMINE 20 MG TAB PO SCH (08:49)
[2021-09-25] MEDS: FAMOTIDINE 20 MG TAB PO SCH ×2 (08:49→21:15)
[2021-09-25] MEDS: CYANOCOBALAMIN 1,000 MCG/ML 1 ML VIAL IM SCH (08:50)
[2021-09-25] MEDS: HEPARIN SODIUM,PORCINE/PF 5,000 UNIT/0.5 ML SYRINGE SQ SCH ×2 (08:50→21:16)
[2021-09-25] MEDS: NON FORMULARY DRUG (Dextroamphetamine/Amphetamine [Adderall 20 Mg Tablet] 20 MG Tablet) PO SCH ×3 (08:51→21:17)
[2021-09-25] MEDS: SODIUM FERRIC GLUCONAT-SUCROSE 125 MG in SODIUM CHLORIDE 0.9% 100 ML IVPB SCH (08:55)
[2021-09-25] MEDS: GABAPENTIN 300 MG CAP PO SCH ×3 (08:55→21:16)
[2021-09-25 08:59] LABS: Basophils # (A) 0.02 X 10*3/uL (0.00-0.10); Basophils % (A) 0.3 %; Eosinophils # (A) 0.07 X 10*3/uL (0.04-0.35); HCT 32.7 % (37.2-46.3); HGB 9.8 g/dL (12.0-15.0); Immature Grans, Automated 0.3 %; Lymphocytes # (A) 1.41 X 10*3/uL (0.90-5.00); Lymphocytes % (A) 20.7 %; MCH 25.5 pg (27.0-32.0); MCV 85.2 fL (80.0-97.0); Monocytes # (A) 0.48 X 10*3/uL (0.20-1.00); Monocytes % (A) 7.1 %; NRBC Per 100 WBC 0 /100 WBCS (0.0-0.0); Neutrophils % (A) 70.6 %; Platelet Count 248 X 10*3/uL (140-440); RBC 3.84 X 10*6/uL (4.10-5.20); RDW 14.9 % (11.5-14.5)
[2021-09-25 09:05] LABS: African American GFR (CKD) 128.5 (60.0-200.0); Anion Gap 10.7 mmol/L (10.00-18.00); BUN/Creat Ratio 7.67 Ratio (12.00-20.00); Blood Urea Nitrogen 4.6 mg/dL (9.0-27.0); Carbon Dioxide 17.3 mmol/L (20.0-27.5); Non-African American GFR(CKD) 110.9 (60.0-200.0); Potassium 4.4 mmol/L (3.5-5.5)
--- NOTE | 2021-09-25 12:37 | P.PN ---
Subjective Progress Note Date: 09/25/21 CHIEF COMPLAINT: Abdominal pain HISTORY OF PRESENT ILLNESS: Patient is status post robotic-assisted da Shazia laparoscopic with extensive lysis of adhesions. Postop day #1. Patient does complain of abdominal pain. However, she reports that her pain is different than the pain prior to surgery. She reports the pain medication is helping. She did receive a nerve block. She denies any nausea or vomiting. Denies any flatus. Denies any difficulty with urinating. She is lying in bed comfortably. Afebrile. Blood pressure 93/63. WBC is 6.80 hemoglobin 9.8 platelets 248 sodium 136 potassium is 4.4 creatinine 0.6 PHYSICAL EXAM: VITAL SIGNS: Reviewed GENERAL: Well-developed in no acute distress. HEENT: No sclera icterus. Extraocular movements grossly intact. Moist buccal mucosa. Head is atraumatic, normocephalic. Hears conversational speech. No nasal drainage. NECK: Supple without lymphadenopathy. CHEST: Non-labored respirations and equal bilateral excursions. CARDIOVASCULAR: Palpable 2+ radial pulses. ABDOMEN: Soft. Nondistended. Incision sites clean dry and intact MUSCULOSKELETAL: No clubbing or cyanosis. NEUROLOGIC: No focal or lateralizing signs. Cranial nerves II through XII grossly intact. PSYCH: Appropriate affect. Alert and oriented to person, place and time. SKIN: Well perfused. Good skin turgor. ASSESSMENT: 1. Intractable abdominal pain due to peritoneal adhesions 2. Hypotension PLAN: -Advance diet to carb consistent -Consult cardiology for hypotension. Patient having symptomatic hypotension at home with falls and unsteadiness -Patient educated on low-carb diet for home, no smoking or alcohol use -Continue pain management -Continue IV fluids to help with BP -Continue supportive care -Encouraged patient to use incentive spirometer -Encouraged patient to ambulate -Continue IV iron -Patient receives B12 injection due to extreme fatigue -Anticipate discharge possibly tomorrow -GI prophylaxis Protonix and DVT prophylaxis subcu heparin Physician Teacher Specialist note has been reviewed by physician. Signing provider agrees with the documented findings, assessment, and plan of care. Objective - Vital Signs Vital signs: Vital Signs Temp 97.9 F 09/25/21 07:00 Pulse 66 09/25/21 07:00 Resp 16 09/25/21 07:28 BP 93/63 09/25/21 07:00 Pulse Ox 96 09/25/21 07:00 FiO2 Intake & Output 09/24/21 09/25/21 09/25/21 18:59 06:59 18:59 Intake Total 1300 400 118 Output Total 20 Balance 1280 400 118 Intake: IV 1300 400 Oral 118 Output: Estimated Blood Loss 20 Other: Voiding Method Toilet Toilet Toilet # Voids 2 1 - Labs CBC & Chem 7: 09/25/21 04:16 09/25/21 04:16 Labs: Abnormal Lab Results - Last 24 Hours (Table) 09/25/21 09/25/21 Range/Units 04:16 04:16 RBC 3.84 L (4.10-5.20) X 10*6/uL Hgb 9.8 L (12.0-15.0) g/dL Hct 32.7 L (37.2-46.3) % MCH 25.5 L (27.0-32.0) pg MCHC 30.0 L (32.0-37.0) g/dL RDW 14.9 H (11.5-14.5) % Carbon Dioxide 17.3 L (20.0-27.5) mmol/L BUN 4.6 L (9.0-27.0) mg/dL BUN/Creatinine Ratio 7.67 L (12.00-20.00) Ratio Calcium 8.0 L (8.7-10.3) mg/dL
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
[2021-09-26] MEDS: ONDANSETRON 4 MG/2 ML VIAL IVP SCH ×3 (00:43→12:55)
[2021-09-26] MEDS: HYDROmorphone 1 MG/ML 1 ML SYRINGE IVP PRN ×5 (00:43→14:02)
[2021-09-26 04:03] VITALS: RESP 18
--- NOTE | 2021-09-26 07:30 | CA ---
Transthoracic Echo Report Name: Dorie Morales Age: 46 Gender: F : 1975 Exam Date: 09/25/2021 13:53 Exam Location: [facility] Ht (in): 65 Wt (lb): 180 Ordering Physician: Caroline Tanner Attending/Referring Phys: Telecommunications Project Manager Stella Hernandez RDCS Procedure CPT: Indications: LV function, hypotension Cardiac Hx: Technical Quality: Good Contrast 1: Total Dose (mL): Contrast 2: Total Dose (mL): MEASUREMENTS (Male / Female) Normal Values 2D ECHO LV Diastolic Diameter PLAX 4.8 cm 4.2 - 5.9 / 3.9 - 5.3 cm LV Systolic Diameter PLAX 2.8 cm IVS Diastolic Thickness 1.2 cm 0.6 - 1.0 / 0.6 - 0.9 cm LVPW Diastolic Thickness 1.0 cm 0.6 - 1.0 / 0.6 - 0.9 cm LV Relative Wall Thickness 0.5 RV Internal Dim ED PLAX 3.2 cm LA Systolic Diameter LX 3.9 cm 3.0 - 4.0 / 2.7 - 3.8 cm LA Volume 64.9 cm??? 18 - 58 / 22 - 52 cm??? M-MODE Aortic Root Diameter MM 3.1 cm MV E Point Septal Separation 0.3 cm AV Cusp Separation MM 2.2 cm DOPPLER AV Peak Velocity 148.2 cm/s AV Peak Gradient 8.8 mmHg MV Area PHT 3.5 cm??? Mitral E Point Velocity 107.4 cm/s Mitral A Point Velocity 88.5 cm/s Mitral E to A Ratio 1.2 MV Deceleration Time 217.0 ms MV E' Velocity 12.7 cm/s Mitral E to MV E' Ratio 8.5 TR Peak Velocity 213.5 cm/s TR Peak Gradient 18.2 mmHg Right Ventricular Systolic Press 22.7 mmHg FINDINGS Left Ventricle Left ventricular ejection fraction is estimated at 55-60 %. Left ventricular cavity size normal. Borderline left ventricular hypertrophy. Mildly increased septal wall thickness. Right Ventricle Normal right ventricular size and function. Right ventricular systolic pressure within normal limits. Right Atrium Normal right atrial size. Left Atrium Mildly increased left atrial diameter. Moderately increased left atrial volume. No evidence for an atrial septal defect. Mitral Valve Structurally normal mitral valve. Mild mitral regurgitation Aortic Valve Trileaflet aortic valve. No aortic valve stenosis or regurgitation. Tricuspid Valve Mild tricuspid regurgitation.structurally normal tricuspid valve. Pulmonic Valve Trace pulmonic regurgitation. Pericardium Normal pericardium. No pericardial effusion. Aorta Normal size aortic root and proximal ascending aorta. CONCLUSIONS 1. Normal left ventricle size and systolic function 2. Mild mitral and tricuspid regurgitation Previewed by: Dr. Gunjan Lyles MD (Electronically Signed) Final Date: 26 September 2021 07:29
[2021-09-26 07:51] VITALS: TEMP 98.6
[2021-09-26 08:27] VITALS: BP 113/81; PULSE 79
[2021-09-26] MEDS: SODIUM FERRIC GLUCONAT-SUCROSE 125 MG in SODIUM CHLORIDE 0.9% 100 ML IVPB SCH (10:20)
[2021-09-26] MEDS: FAMOTIDINE 20 MG TAB PO SCH (10:21)
[2021-09-26] MEDS: DICYCLOMINE 20 MG TAB PO SCH (10:21)
[2021-09-26] MEDS: TAMSULOSIN 0.4 MG CAP.ER.24H PO SCH (10:21)
[2021-09-26] MEDS: HEPARIN SODIUM,PORCINE/PF 5,000 UNIT/0.5 ML SYRINGE SQ SCH (10:21)
[2021-09-26] MEDS: CYANOCOBALAMIN 1,000 MCG/ML 1 ML VIAL IM SCH (10:21)
[2021-09-26] MEDS: SODIUM CHLORIDE 0.9% 1,000 ML IV SCH (10:22)
[2021-09-26] MEDS: NON FORMULARY DRUG (Dextroamphetamine/Amphetamine [Adderall 20 Mg Tablet] 20 MG Tablet) PO SCH (10:22)
[2021-09-26] MEDS: PANTOPRAZOLE 40 MG/10 ML VIAL IV SCH (10:22)
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
[2021-09-26] MEDS: GABAPENTIN 300 MG CAP PO SCH (10:57)
--- NOTE | 2021-09-26 11:38 | P.DS ---
Providers Date of admission: 09/24/21 19:04 Expected date of discharge: 09/26/21 Attending physician: Hortencia Bangura Consults: 09/25/21 12:28 Consult Physician Routine Consulting Provider: Gunjan Lyles Consult Reason/Comments: hypotension Do you want consulting provider notified?: Yes Primary care physician: Danis Gould Hospital Course: Discharge diagnosis 1. Intractable abdominal pain due to peritoneal adhesions 2. Hypotensionlikely vasovagal Hospital course The patient is a 46-year-old female with gastric bypass who presents with intractable periumbilical of the left upper quadrant and right upper quadrant abdominal pain. Patient is status post Robotic-assisted da Shazia Xi laparoscopic with extensive lysis of adhesions. Patient tolerated surgery well. Her pain is controlled. She is tolerating diet. She has been up and ambulating. She is having flatus. She is afebrile. She denies any difficulty urinating. She also seen by cardiology service regarding her chronic hypotension. They felt it was likely vasovagal related. And they have cleared her for discharge. Patient is stable for discharge. Physician Security Rep note has been reviewed by physician. Signing provider agrees with the documented findings, assessment, and plan of care. Patient Condition at Discharge: Stable Plan - Discharge Summary Discharge Rx Participant: No New Discharge Prescriptions: New Simethicone [Gas-X] 125 mg PO AC-TID PRN #20 capsule PRN Reason: Pain Acetaminophen Tab [Tylenol Tab] 1,000 mg PO Q6HR PRN #30 tablet PRN Reason: Pain Continue Dextroamphetamine/Amphetamine [Adderall 20 mg Tablet] 20 mg PO TID Dicyclomine [Bentyl] 20 mg PO DAILY Gabapentin 300 mg PO TID hydrOXYzine pamoate [Vistaril] 100 mg PO TID PRN PRN Reason: Anxiety rOPINIRole HCL [Requip] 1 mg PO HS Albuterol Sulfate [Proair Hfa] 2 puff INHALATION RT-Q6H PRN PRN Reason: Shortness Of Breath Discharge Medication List Albuterol Sulfate [Proair Hfa] 2 puff INHALATION RT-Q6H PRN 09/04/20 [History] rOPINIRole HCL [Requip] 1 mg PO HS 09/04/20 [History] Dextroamphetamine/Amphetamine [Adderall 20 mg Tablet] 20 mg PO TID 09/22/21 [History] Dicyclomine [Bentyl] 20 mg PO DAILY 09/22/21 [History] Gabapentin 300 mg PO TID 09/22/21 [History] hydrOXYzine pamoate [Vistaril] 100 mg PO TID PRN 09/22/21 [History] Acetaminophen Tab [Tylenol Tab] 1,000 mg PO Q6HR PRN #30 tablet 09/26/21 [Rx] Simethicone [Gas-X] 125 mg PO AC-TID PRN #20 capsule 09/26/21 [Rx] Follow up Appointment(s)/Referral(s): Danis Gould MD [Primary Care Provider] - 1-2 Days Gunjan Lyles MD [STAFF PHYSICIAN] - 4 Weeks Bariatric [place], [place] [NON-STAFF] - 10/01/21 Patient Instructions/Handouts: *Surgery [facility] - Managing Your Pain After Surgery Without Opioids, Abdominal Binder (DC), Lysis of Abdominal Adhesions (DC) Activity/Diet/Wound Care/Special Instructions: No lifting over 10 pounds in 2 weeks until October 08. May shower. No bath tub soaks for two weeks until October 08. Diet as tolerated. Wear abdominal binder for comfort Use Tylenol, simethicone scheduled for the next 24-48 hours for best pain relief. Use ice along incisions for today to prevent swelling. Discharge Disposition: HOME SELF-CARE
[2021-09-27] MEDS ORDERED: PANTOPRAZOLE 40 MG TABLET PO SCH (07:30)
== END 2021-09-26 14:53 | disposition home or self-care (01) | DRG 336 ==
LOC: EC 20:58 → 6NMEDSUR 09-23 02:20 → OBSVTOIN 09-24 19:04
PROVIDERS: ADMIT Surgery Plastic and Reconstructive Surgery; ATTEND Surgery Plastic and Reconstructive Surgery
PROC: 8E0W4CZ Robotic Assisted Procedure of Trunk Region, Percutaneous Endoscopic Approach (ICD-10-PCS; principal; 2021-09-24 08:50)
PROC: 0DNW4ZZ Release Peritoneum, Percutaneous Endoscopic Approach (ICD-10-PCS; principal; 2021-09-24 08:50)
DX: R10.9 Unspecified abdominal pain (principal); K56.50 Intestinal adhesions [bands], unspecified as to partial versus complete obstruction; K57.30 Diverticulosis of large intestine without perforation or abscess without bleeding; M06.9 Rheumatoid arthritis, unspecified; J45.909 Unspecified asthma, uncomplicated; I95.89 Other hypotension; F43.10 Post-traumatic stress disorder, unspecified; F17.210 Nicotine dependence, cigarettes, uncomplicated; F41.9 Anxiety disorder, unspecified; D50.9 Iron deficiency anemia, unspecified; Z79.899 Other long term (current) drug therapy; Z86.711 Personal history of pulmonary embolism; Z90.49 Acquired absence of other specified parts of digestive tract; Z90.710 Acquired absence of both cervix and uterus; Z98.84 Bariatric surgery status; Z85.42 Personal history of malignant neoplasm of other parts of uterus; Z92.3 Personal history of irradiation; Z92.21 Personal history of antineoplastic chemotherapy; Z88.0 Allergy status to penicillin; Z88.1 Allergy status to other antibiotic agents; Z88.5 Allergy status to narcotic agent; Z91.018 Allergy to other foods; Z87.442 Personal history of urinary calculi
CPT/HCPCS: 36415; 74176; 80048; 80053; 81001; 81025; 82150; 83605; 83690; 85025; 86140; 86850; 86900; 86901; 93306; 96361; 96374; 96375; 96376; 99285

== ENCOUNTER → 2021-10-01 | Outpatient (CLI) | payer OTHER ==
[2021-10-01 15:27] VITALS: BP 105/75; PULSE 80; TEMP 98.6; BMI 31.4
--- NOTE | 2021-10-01 15:48 | P.BASOAP ---
Subjective Progress Note Date: 10/01/21 DATE OF SERVICE: 10/01/2021 CHIEF COMPLAINT: Follow up gastric bypass HISTORY OF PRESENT ILLNESS: Dorie Morales is a 46-year-old female with history of a gastric bypass in October 2012. She is over 9 years out. She is status post lysis of adhesions 09/24/2021. She is postoperative day 7, now 1 week. Her abdominal pain has improved. She is not taking protein. She is on anxiety medications and medications for depression. She is doing much better. Recommend salt for low blood pressure and increase protein to 75 grams daily. At her height of 5 foot 5 pounds, her ideal body weight is 149 pounds. Her highest personal weight was 268 pounds. Today she comes in weighing 189 pounds from 192 pounds, 2 months ago. She lost 3 pounds in 2 months. Her lifetime weight loss is 79 pounds. Her percent excess weight loss lifetime is 67 %. Body mass index is reduced from 44.7 down to 31.5. PHYSICAL EXAM: VITAL SIGNS: 5 foot 5, 189 pounds. Body mass index is 31.5 Vital Signs Temp 98.6 F 10/01/21 15:22 Pulse 80 10/01/21 15:22 Resp BP 105/75 10/01/21 15:22 Pulse Ox FiO2 ABDOMEN: Incisions are healing. GENERAL: Well-developed female no acute distress. HEENT: No scleral icterus. Extraocular movements grossly intact. NECK: Supple without lymphadenopathy. CHEST: Unlabored respirations. Equal bilateral excursions. CARDIOVASCULAR: 2+ pulses. Tachycardic MUSCULOSKELETAL: No clubbing, cyanosis, or edema. NEURO: No focal or lateralizing signs. Cranial nerves II through XII grossly intact. SKIN: Well perfused. Good skin turgor. ASSESSMENT: 1. Morbid obesity due to excess calories 2. Body mass index reduced from 44.7 down to 31.5 3. Status post Renee-en-Y gastric bypass. 4. Status post jejunojejunostomy revision. 5. Prior history of chronic abdominal pain. 6. Dysphagia 7. Dietary surveillance and counseling. 8. History of thyroid goiter. 9. History of vitamin B12 deficiency. 10. Chronic pain syndrome. 11. Panniculitis of the abdomen, refractory to treatment. 12. Lower back pain secondary to panniculitis. 13. Tobacco use 14. Dysphagia 15. Hypercholesterolemia 16. Elevated liver enzymes 17. Iron deficiency anemia 18. Left upper quadrant abdominal pain. 19. Peritoneal adhesions PLAN: 1. Recommend protein intake described. She is not taking protein. 2. Recommend salt for low blood pressure and increase protein to 75 grams daily. Objective - Vital Signs Vital signs: Vital Signs Temp 98.6 F 10/01/21 15:22 Pulse 80 10/01/21 15:22 Resp BP 105/75 10/01/21 15:22 Pulse Ox FiO2 Intake & Output 09/30/21 10/01/21 10/01/21 18:59 06:59 18:59 Weight 85.729 kg Assessment/Plan Plan: Date: 10/01/21 Initial Weight: 91.807 kg Initial BMI: 33.7 Current Weight: 85.729 kg Current BMI: 31.4 Type of Surgery: Total Volume in Band: Previous Volume: Volume Removed: Volume Added: Band Size:
== END ==
LOC: BARWHC3 14:24
PROVIDERS: ATTEND Surgery Plastic and Reconstructive Surgery
DX: D50.9 Iron deficiency anemia, unspecified (principal); E66.01 Morbid (severe) obesity due to excess calories; Z68.31 Body mass index [BMI] 31.0-31.9, adult; Z87.891 Personal history of nicotine dependence; Z88.0 Allergy status to penicillin; Z88.5 Allergy status to narcotic agent; Z88.1 Allergy status to other antibiotic agents; Z91.018 Allergy to other foods; Z88.3 Allergy status to other anti-infective agents; Z98.84 Bariatric surgery status; Z93.4 Other artificial openings of gastrointestinal tract status; Z71.3 Dietary counseling and surveillance; R13.10 Dysphagia, unspecified; Z86.39 Personal history of other endocrine, nutritional and metabolic disease; Z86.2 Personal history of diseases of the blood and blood-forming organs and certain disorders involving the immune mechanism; G89.4 Chronic pain syndrome; E65 Localized adiposity; M54.59 Other low back pain; E78.00 Pure hypercholesterolemia, unspecified; R74.01 Elevation of levels of liver transaminase levels; R10.12 Left upper quadrant pain; K66.0 Peritoneal adhesions (postprocedural) (postinfection)
CPT/HCPCS: 99211

== ENCOUNTER → 2022-02-10 | Outpatient (CLI) | payer OTHER ==
[2022-02-10 09:20] LABS: INR 0.9 (<1.2); Partial Thromboplastin Time 24.9 sec (22.0-30.0); Prothrombin Time 9.5 sec (9.0-12.0)
[2022-02-10 14:31] LABS: HCT 39.1 % (37.2-46.3); HGB 12.8 g/dL (12.0-15.0); MCH 28.4 pg (27.0-32.0); MCHC 32.7 g/dL (32.0-37.0); MCV 86.9 fL (80.0-97.0); Mean Platelet Volume 10.8 fL (9.5-12.2); NRBC Per 100 WBC 0 /100 WBCS (0.0-0.0); Platelet Count 288 X 10*3/uL (140-440); RDW 14.8 % (11.5-14.5); WBC 8.24 X 10*3/uL (4.50-10.00)
[2022-02-10 14:51] LABS: % Iron Saturation 13.95 (12.00-45.00); ALT 10 U/L (8-44); AST 16 U/L (13-35); African American GFR (CKD) 122.1 (60.0-200.0); Albumin 3.7 g/dL (3.8-4.9); Albumin/Globulin Ratio 1.42 (1.60-3.17); Alkaline Phosphatase 52 U/L (41-126); Blood Urea Nitrogen 8.4 mg/dL (9.0-27.0); Calcium 8.7 mg/dL (8.7-10.3); Carbon Dioxide 19.2 mmol/L (20.0-27.5); Chloride 106 mmol/L (96-109); Ferritin 15.7 ng/mL (10.0-291.0); Globulin 2.6 g/dL (1.6-3.3); Glucose 85 mg/dL (70-110); Iron 54 ug/dL (50-170); Magnesium 1.9 mg/dL (1.5-2.4); Non-African American GFR(CKD) 105.4 (60.0-200.0); Phosphorus 3.2 mg/dL (2.4-5.1); Potassium 3.8 mmol/L (3.5-5.5); Sodium 137 mmol/L (135-145); Total Iron Binding Capacity 386 ug/dL (228-460); Total Protein 6.3 g/dL (6.2-8.2)
[2022-02-10 15:46] LABS: Chol/HDL Ratio 2.55 Ratio; Prealbumin 18.6 mg/dL (18.0-42.0); VLDL Calculation 18.34 mg/dL (5.00-40.00)
[2022-02-11 15:29] LABS: Zinc, Serum 62 ug/dL (60-130)
[2022-02-12 09:16] LABS: Vitamin A 44 ug/dL (38-106)
== END | disposition home or self-care (01) ==
LOC: LABWHC1 08:13
PROVIDERS: ATTEND Surgery Plastic and Reconstructive Surgery
DX: E89.1 Postprocedural hypoinsulinemia (principal); E66.01 Morbid (severe) obesity due to excess calories; D50.8 Other iron deficiency anemias; K90.89 Other intestinal malabsorption; E55.9 Vitamin D deficiency, unspecified; K74.1 Hepatic sclerosis; N19 Unspecified kidney failure; T56.894A Toxic effect of other metals, undetermined, initial encounter; K50.90 Crohn's disease, unspecified, without complications
CPT/HCPCS: 36415; 80053; 80061; 82306; 82525; 82607; 82728; 82746; 83036; 83540; 83550; 83735; 83970; 84100; 84134; 84255; 84425; 84443; 84590; 84630; 85027; 85610; 85730

== ENCOUNTER 2022-03-29 17:11 | Emergency (ER) | payer OTHER ==
[2022-03-29 17:22] VITALS: BP 108/77; PULSE 66; RESP 18; TEMP 98.1
[2022-03-29] MEDS ORDERED: KETOROLAC 15 MG/ML 1 ML VIAL IM STA (17:32)
--- NOTE | 2022-03-29 18:01 | XR ---
EXAMINATION TYPE: XR hand complete RT DATE OF EXAM: 03/29/2022 COMPARISON: NONE HISTORY: Pain TECHNIQUE: 3 views FINDINGS: I see no fracture nor dislocation. Joint spaces are normal. There are no erosions. IMPRESSION: Negative right hand exam. No fracture.
--- NOTE | 2022-03-29 18:01 | XR ---
EXAMINATION TYPE: XR forearm RT DATE OF EXAM: 03/29/2022 COMPARISON: NONE HISTORY: Pain TECHNIQUE: 2 views FINDINGS: There is plate with screws fixing old fracture of the distal radius. I see no acute fractur e nor dislocation. Elbow joint and wrist joint appear intact. IMPRESSION: No acute abnormality of the right forearm.
--- NOTE | 2022-03-29 18:02 | XR ---
EXAMINATION TYPE: XR wrist complete RT DATE OF EXAM: 03/29/2022 COMPARISON: NONE HISTORY: Pain TECHNIQUE: 4 views FINDINGS: The carpal bones are intact. Radiocarpal joint is anatomic. Joint spaces are normal. IMPRESSION: Negative right wrist exam.
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
== END 2022-03-29 18:36 | disposition home or self-care (01) ==
LOC: EC 17:11
DX: S63.501A Unspecified sprain of right wrist, initial encounter (principal); J45.909 Unspecified asthma, uncomplicated; F41.9 Anxiety disorder, unspecified; Z87.891 Personal history of nicotine dependence; Z88.0 Allergy status to penicillin; Z88.1 Allergy status to other antibiotic agents; Z88.8 Allergy status to other drugs, medicaments and biological substances; W00.0XXA Fall on same level due to ice and snow, initial encounter
CPT/HCPCS: 73090; 73110; 73130; 99283; 96372; J1885

== ENCOUNTER 2022-06-01 08:05 | Day surgery (SDC) | payer OTHER ==
[2022-05-27 11:57] VITALS: BMI 24.5
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
[2022-06-01] MEDS ORDERED: LIDOCAINE 1% (10MG/ML) FOR IV START INTRADERMA PRN (08:33)
[2022-06-01] MEDS ORDERED: ONDANSETRON 4 MG/2 ML VIAL IVP PRN (08:33)
[2022-06-01] MEDS ORDERED: LACTATED RINGERS 1,000 ML IV SCH (08:33)
[2022-06-01 08:54] LABS: Glucose,Whole Blood 95 mg/dL (70-110)
[2022-06-01 08:57] VITALS: RESP 16; TEMP 97.3
[2022-06-01] MEDS ORDERED: PROPOFOL 10 MG/ML 20 ML VIAL IV ONE (09:31)
[2022-06-01] MEDS ORDERED: LIDOCAINE 2% INJ 20 MG/ML (2 ML VIAL) ONE (09:31)
[2022-06-01 10:07] VITALS: BP 100/73; PULSE 74
--- NOTE | 2022-06-01 10:11 | P.PCN ---
Date of Procedure: 06/01/22 Description of Procedure: PREOPERATIVE DIAGNOSIS: Dysphagia. s/p Renee-en-y gastric bypass. POSTOPERATIVE DIAGNOSIS: Dysphagia. s/p Renee-en-y gastric bypass. 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 SURGEON: Hortencia Bangura MD ANESTHESIA: MAC. INDICATIONS: The patient is a 47-year-old female who presents with a history of dysphagia, gastric bypass including new-onset nausea and vomiting. Benefits and risks of the procedure were described. Informed consent was obtained. DESCRIPTION: The patient was brought into the endoscopy suite and laid in the left lateral decubitus position. After a timeout was confirmed, the procedure was initiated. An Olympus gastroscope was passed along the posterior oropharynx down to the distal esophagus where the squamocolumnar junction was unremarkable. The gastric pouch was entered. 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 A Caring in Place balloon dilator was placed through the scope. Final insufflation up to 20 mm was performed with a total of 2 minutes. The scope was advanced up to 60 cm from the incisors into the Renee limb. The mucosa of the gastrojejunal anastomosis was intact. Sliding diaphragmatic hiatal hernia, 3 cm identified. No chronic gastrojejunal marginal ulcer was encountered. No full-thickness injury was encountered. The GI tract was desufflated. The patient tolerated the procedure well. FINDINGS: Squamocolumnar junction unremarkable at 37 cm. Diaphragmatic hiatal hernia, 3 cm, sliding Stricture of approximately 15 mm encountered. No chronic gastrojejunal ulceration encountered. Successful balloon dilatation to 20 mm. Diaphragmatic hiatus at 40 cm. Gastric pouch 3 cm. RECOMMENDATIONS: Recommend diaphragmatic hiatal hernia repair Plan - Discharge Summary Discharge Rx Participant: No New Discharge Prescriptions: Continue Dextroamphetamine/Amphetamine [Adderall] 20 mg PO TID Dicyclomine [Bentyl] 20 mg PO DAILY hydrOXYzine pamoate [Vistaril] 100 mg PO TID PRN PRN Reason: Anxiety Simethicone [Gas-X] 125 mg PO AC-TID PRN #20 capsule PRN Reason: Pain Acetaminophen Tab [Tylenol] 1,000 mg PO Q6HR PRN #30 tablet PRN Reason: Pain rOPINIRole HCL [Requip] 1 mg PO HS Albuterol Sulfate [Proair Hfa] 2 puff INHALATION RT-Q6H PRN PRN Reason: Shortness Of Breath Discharge Medication List Albuterol Sulfate [Proair Hfa] 2 puff INHALATION RT-Q6H PRN 09/04/20 [History] rOPINIRole HCL [Requip] 1 mg PO HS 09/04/20 [History] Dextroamphetamine/Amphetamine [Adderall] 20 mg PO TID 09/22/21 [History] Dicyclomine [Bentyl] 20 mg PO DAILY 09/22/21 [History] hydrOXYzine pamoate [Vistaril] 100 mg PO TID PRN 09/22/21 [History] Acetaminophen Tab [Tylenol] 1,000 mg PO Q6HR PRN #30 tablet 09/26/21 [Rx] Simethicone [Gas-X] 125 mg PO AC-TID PRN #20 capsule 09/26/21 [Rx] [facility] [place] [place] [facility] [place] [facility] Patient Instructions/Handouts: *Surgery [facility] - (Anesthesia) Endoscopy Discharge Instructions Discharge Disposition: HOME SELF-CARE
== END 2022-06-01 11:04 | disposition home or self-care (01) ==
LOC: ORWHC2ENDO 08:05
PROVIDERS: ATTEND Surgery Plastic and Reconstructive Surgery
DX: K91.89 Other postprocedural complications and disorders of digestive system (principal); K44.9 Diaphragmatic hernia without obstruction or gangrene; I25.10 Atherosclerotic heart disease of native coronary artery without angina pectoris; I26.99 Other pulmonary embolism without acute cor pulmonale; J45.909 Unspecified asthma, uncomplicated; N28.9 Disorder of kidney and ureter, unspecified; Z87.442 Personal history of urinary calculi; M06.9 Rheumatoid arthritis, unspecified; G43.909 Migraine, unspecified, not intractable, without status migrainosus; Z88.0 Allergy status to penicillin; Z91.018 Allergy to other foods; Z88.3 Allergy status to other anti-infective agents; Z88.8 Allergy status to other drugs, medicaments and biological substances; Z88.6 Allergy status to analgesic agent; Z88.1 Allergy status to other antibiotic agents; Z87.19 Personal history of other diseases of the digestive system; Z85.42 Personal history of malignant neoplasm of other parts of uterus; Z98.84 Bariatric surgery status; Z79.51 Long term (current) use of inhaled steroids; Z79.899 Other long term (current) drug therapy
CPT/HCPCS: 43245; J2704; J2001; C1726

== ENCOUNTER → 2022-07-08 | Outpatient (CLI) | payer OTHER ==
[2022-07-08 17:22] VITALS: BP 112/80; PULSE 73; TEMP 98.3; BMI 23.4
--- NOTE | 2022-07-08 17:55 | P.BASOAP ---
Subjective Progress Note Date: 07/08/22 She is losing weight. SHe has lost 10 pounds in 2 months. Need urine nicotine. Get pictures. Labs. recommend panniculectomy. Objective - Vital Signs Vital signs: Vital Signs Temp 98.3 F 07/08/22 17:19 Pulse 73 07/08/22 17:19 Resp BP 112/80 07/08/22 17:19 Pulse Ox FiO2 Intake & Output 07/07/22 07/08/22 07/08/22 18:59 06:59 18:59 Weight 63.957 kg Assessment/Plan Plan: Date: 07/08/22 Initial Weight: 91.807 kg Initial BMI: 33.7 Current Weight: 63.957 kg Current BMI: 23.4 Type of Surgery: Total Volume in Band: Previous Volume: Volume Removed: Volume Added: Band Size:
== END ==
LOC: BARWHC3 17:14
PROVIDERS: ATTEND Surgery Plastic and Reconstructive Surgery
DX: E66.01 Morbid (severe) obesity due to excess calories (principal); Z68.23 Body mass index [BMI] 23.0-23.9, adult; Z88.1 Allergy status to other antibiotic agents; Z88.5 Allergy status to narcotic agent; Z91.018 Allergy to other foods; Z88.8 Allergy status to other drugs, medicaments and biological substances; Z87.891 Personal history of nicotine dependence
CPT/HCPCS: 99211

== ENCOUNTER → 2023-04-26 | Outpatient (CLI) | payer OTHER ==
[2023-04-26 08:24] LABS: INR 0.9 (<1.2); Partial Thromboplastin Time 25.5 sec (22.0-30.0); Prothrombin Time 9.9 sec (10.0-12.5)
[2023-04-26 10:59] LABS: HCT 41.4 % (37.2-46.3); HGB 13.5 g/dL (12.0-15.0); MCH 28.9 pg (27.0-32.0); MCHC 32.6 g/dL (32.0-37.0); MCV 88.7 FL (80.0-97.0); Mean Platelet Volume 10.9 FL (9.5-12.2); NRBC Per 100 WBC 0 X 10*3/uL (0.00-0.01); Platelet Count 266 X 10*3/uL (140-440); RBC 4.67 X 10*6/uL (4.10-5.20); RDW 14.2 % (11.5-14.5); WBC 5.84 X 10*3/uL (4.50-10.00)
[2023-04-26 11:13] LABS: Prealbumin 21.3 mg/dL (18.0-42.0)
[2023-04-26 11:38] LABS: % Iron Saturation 8.11 (12.00-45.00); ALT 17 U/L (8-44); AST 17 U/L (13-35); Albumin 4.3 g/dL (3.8-4.9); Albumin/Globulin Ratio 1.65 Ratio (1.60-3.17); Alkaline Phosphatase 66 U/L (41-126); BUN/Creat Ratio 22.83 Ratio (12.00-20.00); Blood Urea Nitrogen 13.7 mg/dL (9.0-27.0); Calcium 9.5 mg/dL (8.7-10.3); Carbon Dioxide 23.1 mmol/L (21.6-31.8); Chloride 102 mmol/L (96-109); Chol/HDL Ratio 2.48 Ratio; Ferritin 9.3 ng/mL (10.0-291.0); Globulin 2.6 g/dL (1.6-3.3); Glucose 99 mg/dL (70-110); Iron 36 UG/DL (50-170); LDL Cholesterol,Calculated 111.4 mg/dL (0.0-131.0); Magnesium 1.8 mg/dL (1.5-2.4); Phosphorus 3.6 mg/dL (2.4-5.1); Potassium 4.3 mmol/L (3.5-5.5); Sodium 138 mmol/L (135-145); Total Bilirubin 0.3 mg/dL (0.3-1.2); Total Iron Binding Capacity 444 UG/DL (228-460); Total Protein 6.9 g/dL (6.2-8.2); VLDL Calculation 13.92 mg/dL (5.00-40.00)
[2023-04-27 12:40] LABS: Zinc, Serum 87 ug/dL (60-130)
[2023-04-28 06:16] LABS: Vitamin A 45 ug/dL (38-106)
[2023-04-28 09:33] LABS: Vit B1(Thiamine) 67 ug/L (38-122)
== END | disposition home or self-care (01) ==
LOC: LABWHC1 07:03
PROVIDERS: ATTEND Surgery Plastic and Reconstructive Surgery
DX: E66.01 Morbid (severe) obesity due to excess calories (principal); E89.1 Postprocedural hypoinsulinemia; D50.8 Other iron deficiency anemias; E44.0 Moderate protein-calorie malnutrition; E44.1 Mild protein-calorie malnutrition; E45 Retarded development following protein-calorie malnutrition; E46 Unspecified protein-calorie malnutrition; K91.2 Postsurgical malabsorption, not elsewhere classified; E55.9 Vitamin D deficiency, unspecified; K74.1 Hepatic sclerosis; N19 Unspecified kidney failure; T56.894A Toxic effect of other metals, undetermined, initial encounter; K50.90 Crohn's disease, unspecified, without complications
CPT/HCPCS: 36415; 80053; 80061; 82306; 82525; 82607; 82728; 82746; 83036; 83540; 83550; 83735; 83970; 84100; 84134; 84255; 84425; 84443; 84590; 84630; 85027; 85610; 85730

== ENCOUNTER 2023-05-07 11:11 | Day surgery (SDC) | payer OTHER ==
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
[~2023-05-07 11:11] MED LIST changes: -LACTATED RINGERS 1,000 ML IV SCH; -LIDOCAINE 1% (10MG/ML) FOR IV START INTRADERMA PRN; +Pre Op ABX Message 1 EACH MISC MISCELLANE ONE; +TAMSULOSIN 0.4 MG CAP.ER.24H PO STA; +fentaNYL (PF) 50 MCG/ML 2 ML AMP IV PRN
[2023-05-07] MEDS: LACTATED RINGERS 1,000 ML IV SCH (12:00)
[2023-05-07 12:06] VITALS: RESP 16; TEMP 96.7
[2023-05-07 12:21] LABS: Glucose,Whole Blood 89 mg/dL (70-110)
[2023-05-07] MEDS: DEXAMETHASONE SOD PHOSPHATE 4 MG/ML 1 ML VIAL IVP ONE (12:23)
[2023-05-07] MEDS: ONDANSETRON 4 MG/2 ML VIAL ONE (12:23)
[2023-05-07] MEDS: SCOPOLAMINE 1 MG/72 HR PATCH TRANSDERM ONE (12:24)
[2023-05-07] MEDS: MIDAZOLAM 2 MG/2 ML VIAL IV PRN (12:31)
[2023-05-07] MEDS: ACETAMINOPHEN TAB 500 MG TAB ONE (14:00)
[2023-05-07] MEDS: HEPARIN SODIUM,PORCINE 5,000 UNIT/ML 1 ML VIAL SQ ONE (14:00)
[2023-05-07] MEDS ORDERED: HYDROmorphone (PF) 1 MG/ML ONE (14:15)
[2023-05-07] MEDS ORDERED: LIDOCAINE 1% INJ 10MG/ML (20 ML MDV) ONE (14:15)
[2023-05-07] MEDS ORDERED: GLYCOPYRROLATE 0.2 MG/ML 2 ML VIAL ONE (14:15)
[2023-05-07] MEDS ORDERED: NEOSTIGMINE 1 MG/ML 10 ML VIAL ONE (14:15)
[2023-05-07] MEDS ORDERED: PHENYLEPHRINE-0.9% NACL SYG 1,000 MCG/10 ML SYRINGE ONE (14:15)
[2023-05-07] MEDS ORDERED: SUCCINYLCHOLINE CHLORIDE 200 MG/10 ML VIAL IV ONE (14:15)
[2023-05-07] MEDS ORDERED: ESMOLOL 100 MG/10 ML VIAL ONE (14:15)
[2023-05-07] MEDS ORDERED: ceFAZolin 1 GM/50 ML BAG (PMX) ONE (14:15)
[2023-05-07] MEDS ORDERED: MIDAZOLAM 2 MG/2 ML VIAL ONE (14:15)
[2023-05-07] MEDS ORDERED: DEXAMETHASONE SOD PHOSPHATE 10 MG/ML 1 ML VIAL ONE (14:15)
[2023-05-07] MEDS ORDERED: diphenhydrAMINE 50 MG/ML 1 ML VIAL ONE (14:15)
[2023-05-07] MEDS ORDERED: PROPOFOL 10 MG/ML 20 ML VIAL IV ONE (14:15)
[2023-05-07] MEDS ORDERED: ROCURONIUM 10 MG/ML (5 ML VIAL) IV ONE (14:15)
[2023-05-07] MEDS: SODIUM CHLORIDE 0.9% 100 ML with ceFAZolin 1,000 MG IV ONE (14:20)
[2023-05-07] MEDS: LIDOCAINE 1%-EPI 1:100,000 50 ML VIAL SQ ONE ×2 (14:40→14:55)
[2023-05-07] MEDS: HYDROmorphone 0.5 MG/0.5 ML SYRINGE IVP ONE (17:25)
[2023-05-07 18:35] VITALS: BP 94/72; PULSE 72
--- NOTE | 2023-05-15 16:24 | P.OP ---
Date of Procedure: 05/07/23 Description of Procedure: SURGEON: ALEXANDRIA RENTERIA MD PREOPERATIVE DIAGNOSES: 1. Left upper quadrant abdominal pain with intractable abdominal pain 2. History of gastric bypass 3. History of small bowel obstruction due to adhesions 4. Postural orthostatic tachycardia syndrome 5. Generalized anxiety disorder 6. Asthma 7. History of uterine cancer status post hysterectomy 8. Gastroesophageal reflux disease 9. Rheumatoid arthritis 10. History of multiple abdominal surgeries POSTOPERATIVE DIAGNOSES: 1. Left upper quadrant abdominal pain with intractable abdominal pain due to adhesions 2. History of gastric bypass 3. History of small bowel obstruction 4. Postural orthostatic tachycardia syndrome 5. Generalized anxiety disorder 6. Asthma 7. History of uterine cancer status post hysterectomy 8. Gastroesophageal reflux disease 9. Rheumatoid arthritis OPERATION: 1. Robotic-assisted da Shazia Xi laparoscopic with extensive lysis of adhesions over 1 hr ESTIMATED BLOOD LOSS: 5 mL. SPECIMENS REMOVED: None. COMPLICATIONS: None. OPERATIVE FINDINGS: 1. Moderate interloop adhesions left upper quadrant involving reconstructed jejunojejunostomy 2. Interloop adhesions distal ileum 3. Diastases recti lower abdomen INDICATIONS: The patient is a 48-year-old female who presents with intractable left upper quadrant abdominal pain after eating. Surgical intervention with diagnostic laparoscopy, lysis of adhesions were described. Informed consent was obtained. Robotic assisted laparoscopic approach was described. Benefits and risks of the procedure including but not limited to bleeding, infection, injury to the small bowel was described. Informed consent was obtained. DESCRIPTION OF PROCEDURE: Patient was brought to the operating room, placed in supine position. After general induction, the abdomen had been prepped and draped in standard sterile fashion. The robotic da Shazia XI system was primed. After a timeout protocol was performed, the patient had been prepped and draped in standard sterile fashion. The robot was docked along the right lateral abdomen. Please note prior to docking of the robot; however, a 5 mm 0 degrees laparoscopic trocar entry was performed along the left upper quadrant. The abdomen was insufflated to 15 mmHg pressure which she tolerated well. Diagnostic laparoscopy was performed. Next, three 8 mm robotic ports were placed along the right lateral abdominal wall. The camera 8-mm port was maintained along mid-lateral abdomen. Please note that the ports were placed at least 10 to 15 cm away from the target anatomy. Instruments including graspers and vessel sealer were interchanged by the refinery operator assistant. I had sat at the console. No incisional hernia was identified. The small bowel from the reyna limb to distal ileum was inspected. The small bowel was investigated from the terminal ileum to the ligament of Treitz with finding of redundant mesentery. Abnormal adhesions to the jejunojejunostomy was identified and divided due to reconstruction jejunojejunostomy. Prior internal hernia closure was creating functional intermittent small bowel obstruction and released without internal hernia. No herniation of bowel was found along the Evans defect or jejunojejunostomy mesenteric defect. Interloop adhesions of the ileum was found and divided using scissors. Extensive lysis of adhesions over 1 hr was performed. Redundant blind limbs were found at the left upper quadrant with risk of intussusception. Small bowel was tacked together using 2-0 VLOC. The small bowel was viable.The robot was undocked. All pneumoperitoneum instruments were evacuated from the abdominal cavity. The incisions were reapproximated using 4-0 Monocryl in an interrupted subcuticular fashion. Please note along the trocar sites, local anesthetic was placed as a field block prior to insertion of all instruments. Exofin was applied to the skin. At the end of the procedure needle, sponge, and instrument count had been verified correct by the nursing surgical services director. The patient was transferred to postanesthesia care unit in stable condition. Plan - Discharge Summary Discharge Rx Participant: No New Discharge Prescriptions: New Simethicone [Gas-X] 125 mg PO AC-TID PRN #20 capsule PRN Reason: Pain Acetaminophen Tab [Tylenol Tab] 500 mg PO Q6H PRN #30 tablet PRN Reason: Pain Continue Dextroamphetamine/Amphetamine [Adderall] 20 mg PO TID Dicyclomine [Bentyl] 20 mg PO DAILY PRN PRN Reason: cramping hydrOXYzine pamoate [Vistaril] 100 mg PO TID PRN PRN Reason: Anxiety Acetaminophen Tab [Tylenol] 1,000 mg PO Q6HR PRN #30 tablet PRN Reason: Pain rOPINIRole HCL [Requip] 1 mg PO HS Albuterol Sulfate [Proair Hfa] 2 puff INHALATION RT-Q6H PRN PRN Reason: Shortness Of Breath Ondansetron [Ondansetron Odt] 4 mg PO DAILY PRN PRN Reason: Nausea No Action Ondansetron Odt [Zofran ODT] 4 mg PO Q8HR PRN #30 tab PRN Reason: Nausea Discharge Medication List Albuterol Sulfate [Proair Hfa] 2 puff INHALATION RT-Q6H PRN 09/04/20 [History] rOPINIRole HCL [Requip] 1 mg PO HS 09/04/20 [History] Dextroamphetamine/Amphetamine [Adderall] 20 mg PO TID 09/22/21 [History] Dicyclomine [Bentyl] 20 mg PO DAILY PRN 09/22/21 [History] hydrOXYzine pamoate [Vistaril] 100 mg PO TID PRN 09/22/21 [History] Acetaminophen Tab [Tylenol] 1,000 mg PO Q6HR PRN #30 tablet 09/26/21 [Rx] Ondansetron [Ondansetron Odt] 4 mg PO DAILY PRN 05/04/23 [History] Acetaminophen Tab [Tylenol Tab] 500 mg PO Q6H PRN #30 tablet 05/07/23 [Rx] Simethicone [Gas-X] 125 mg PO AC-TID PRN #20 capsule 05/07/23 [Rx] Ondansetron Odt [Zofran ODT] 4 mg PO Q8HR PRN #30 tab 05/12/23 [Rx] [place] [facility] [facility]12/23 2:00 pm Patient Instructions/Handouts: *Surgery [facility] - (Anesthesia) Discharge Instructions Outpatient Surgery, *Surgery [facility] - Scopalamine Patch Instructions, Lysis of Abdominal Adhesions (DC) Activity/Diet/Wound Care/Special Instructions: Using antibacterial soap. No lifting over 10 pounds 2 weeks, May 20July shower. No bathtub soaks for 2 weeks, May 20 Use ice along incisions for today to prevent swelling. Take tylenol, simethicone scheduled for 3 days for best pain relief Discharge Disposition: HOME SELF-CARE
== END 2023-05-07 18:40 | disposition home or self-care (01) ==
LOC: OR 11:11
PROVIDERS: ATTEND Surgery Plastic and Reconstructive Surgery
DX: K66.0 Peritoneal adhesions (postprocedural) (postinfection) (principal); J45.909 Unspecified asthma, uncomplicated; K21.9 Gastro-esophageal reflux disease without esophagitis; M06.9 Rheumatoid arthritis, unspecified; F41.1 Generalized anxiety disorder; G90.A Postural orthostatic tachycardia syndrome [POTS]; Z85.42 Personal history of malignant neoplasm of other parts of uterus; Z86.711 Personal history of pulmonary embolism; Z87.891 Personal history of nicotine dependence; Z88.0 Allergy status to penicillin; Z88.1 Allergy status to other antibiotic agents; Z88.5 Allergy status to narcotic agent; Z90.49 Acquired absence of other specified parts of digestive tract; Z98.84 Bariatric surgery status; Z87.442 Personal history of urinary calculi; Z90.710 Acquired absence of both cervix and uterus; Z91.018 Allergy to other foods; Z88.8 Allergy status to other drugs, medicaments and biological substances; Z91.048 Other nonmedicinal substance allergy status
CPT/HCPCS: 44180; S2900

== ENCOUNTER → 2023-05-12 | Outpatient (CLI) | payer OTHER ==
[2023-05-12 14:51] VITALS: BP 100/69; PULSE 83; TEMP 97.8; BMI 23.3
--- NOTE | 2023-05-12 15:04 | P.BASOAP ---
Subjective Progress Note Date: 05/12/23 She reports pain along the abdomen. She has gas pains in the shoulder. She is using gas x. She has splinting. She reports incisional pain. She is peeing. She has excess small bowel risk of scarring and intussception. May need JJ revision. Recommend B-12 shot for chronic vit b12 deficiency. Objective - Vital Signs Vital signs: Vital Signs Temp 97.8 F 05/12/23 14:42 Pulse 83 05/12/23 14:42 Resp BP 100/69 05/12/23 14:42 Pulse Ox FiO2 Intake & Output 05/11/23 05/12/23 05/12/23 18:59 06:59 18:59 Weight 63.503 kg Assessment/Plan Plan: Date: 05/12/23 Initial Weight: 91.807 kg Initial BMI: 33.7 Current Weight: 63.503 kg Current BMI: 23.3 Type of Surgery: Total Volume in Band: Previous Volume: Volume Removed: Volume Added: Band Size:
== END ==
LOC: BARWHC3 14:22
PROVIDERS: ATTEND Surgery Plastic and Reconstructive Surgery
DX: Z53.9 Procedure and treatment not carried out, unspecified reason (principal)
CPT/HCPCS: 99211

== ENCOUNTER → 2023-06-16 | Outpatient (CLI) | payer OTHER ==
--- NOTE | 2023-06-16 15:13 | P.BASOAP ---
Subjective Progress Note Date: 06/16/23 She is on gabapentin 800 mg TID. She has pain at the internal hernia. Revision jejunostomy and needs panniculectomy. She can qualify for panniculectomy. Vascular Radiologist note needed. Add next Wednesday. Assessment/Plan Plan: Date: Initial Weight: 91.807 kg Initial BMI: Current Weight: Current BMI: Type of Surgery: Total Volume in Band: Previous Volume: Volume Removed: Volume Added: Band Size:
[2023-06-16 15:49] VITALS: BP 116/82; PULSE 94; RESP 16; TEMP 98.1; BMI 23.1
== END | disposition home or self-care (01) ==
LOC: BARWHC3 13:26
PROVIDERS: ATTEND Surgery Plastic and Reconstructive Surgery
DX: E66.01 Morbid (severe) obesity due to excess calories (principal); K46.9 Unspecified abdominal hernia without obstruction or gangrene; Z88.1 Allergy status to other antibiotic agents; Z88.0 Allergy status to penicillin; Z91.018 Allergy to other foods; Z88.8 Allergy status to other drugs, medicaments and biological substances; Z98.84 Bariatric surgery status; Z87.891 Personal history of nicotine dependence; Z68.23 Body mass index [BMI] 23.0-23.9, adult
CPT/HCPCS: 99211

== ENCOUNTER → 2023-07-09 | Outpatient (CLI) | payer OTHER ==
[2023-07-09 15:34] LABS: Basophils # (A) 0.02 X 10*3/uL (0.00-0.10); Basophils % (A) 0.4 %; Eosinophils # (A) 0.14 X 10*3/uL (0.04-0.35); HCT 43.5 % (37.2-46.3); HGB 14.1 g/dL (12.0-15.0); Lymphocytes # (A) 1.53 X 10*3/uL (0.90-5.00); Lymphocytes % (A) 33.2 %; MCH 29.7 pg (27.0-32.0); MCHC 32.4 g/dL (32.0-37.0); MCV 91.8 FL (80.0-97.0); Mean Platelet Volume 10.3 FL (9.5-12.2); Monocytes # (A) 0.56 X 10*3/uL (0.20-1.00); Monocytes % (A) 12.1 %; NRBC Per 100 WBC 0.02 X 10*3/uL (0.00-0.01); Neutrophils # (A) 2.34 X 10*3/uL (1.80-7.70); Neutrophils % (A) 50.9 %; Platelet Count 269 X 10*3/uL (140-440); RBC 4.74 X 10*6/uL (4.10-5.20); RDW 15.3 % (11.5-14.5); WBC 4.61 X 10*3/uL (4.50-10.00)
[2023-07-09 15:58] LABS: ALT 18 U/L (8-44); AST 23 U/L (13-35); Albumin 4.2 g/dL (3.8-4.9); Albumin/Globulin Ratio 1.62 Ratio (1.60-3.17); Alkaline Phosphatase 67 U/L (41-126); BUN/Creat Ratio 16.17 Ratio (12.00-20.00); Blood Urea Nitrogen 9.7 mg/dL (9.0-27.0); Calcium 9.1 mg/dL (8.7-10.3); Carbon Dioxide 24.6 mmol/L (21.6-31.8); Chloride 106 mmol/L (96-109); Globulin 2.6 g/dL (1.6-3.3); Glucose 94 mg/dL (70-110); Potassium 4.3 mmol/L (3.5-5.5); Sodium 139 mmol/L (135-145); Total Bilirubin 0.3 mg/dL (0.3-1.2); Total Protein 6.8 g/dL (6.2-8.2)
== END | disposition home or self-care (01) ==
LOC: LABPAT 11:02
PROVIDERS: ATTEND Surgery Plastic and Reconstructive Surgery
DX: Z01.812 Encounter for preprocedural laboratory examination (principal)
CPT/HCPCS: 80053; 85025; 86850; 86900; 86901

== ENCOUNTER 2023-07-12 07:56 | Inpatient (IN) | payer OTHER ==
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
[~2023-07-12 07:56] MED LIST changes: +HEPARIN SODIUM,PORCINE 5,000 UNIT/ML 1 ML VIAL SQ PRN; -Pre Op ABX Message 1 EACH MISC MISCELLANE ONE; -TAMSULOSIN 0.4 MG CAP.ER.24H PO STA
[2023-07-12] MEDS: LACTATED RINGERS 1,000 ML IV SCH (08:34)
[2023-07-12] MEDS: ACETAMINOPHEN TAB 500 MG TAB PO PRN (08:50)
[2023-07-12] MEDS: ONDANSETRON 4 MG/2 ML VIAL IVP PRN (08:50)
[2023-07-12] MEDS: ALVIMOPAN 12 MG CAPSULE PO PRN (08:50)
[2023-07-12] MEDS: DEXAMETHASONE SOD PHOSPHATE 4 MG/ML 1 ML VIAL IV ONE (08:50)
[2023-07-12] MEDS: MIDAZOLAM 2 MG/2 ML VIAL IVP ONE (09:01)
[2023-07-12] MEDS ORDERED: NALOXONE 0.4 MG/ML 1 ML VIAL IV PRN ×2 (09:23→12:00)
[2023-07-12] MEDS ORDERED: ROPIVACAINE 250 MG, HYDROMORPHONE (PF) 5 MG in SODIUM CHLORIDE 0.9% 200 ML EPIDURAL PRN (09:23)
--- NOTE | 2023-07-12 09:25 | P.ANPRN ---
Procedure Note - Anesthesia - Epidural/Spinal Epidural Continuous Time Out Performed: Yes Date of Procedure: 07/12/23 Procedure Start Time: : Procedure Stop Time: :09 Location of Patient: PreOp Indication: Acute Post-Operative Pain, Requested by Surgeon Sedation Type: Sedate with meaningful contact maintained Preparation: Sterile Dressing Position: Sitting Catheter: Indwelling Needle Guage: 18 Blood Aspirated: No Pain Paresthesia on Injection Noted: No Events: Uneventful and Well Tolerated
[2023-07-12] MEDS: TAMSULOSIN 0.4 MG CAP.ER.24H PO ONE (09:38)
[2023-07-12] MEDS ORDERED: SUCCINYLCHOLINE CHLORIDE 200 MG/10 ML VIAL IV ONE (09:40)
[2023-07-12] MEDS ORDERED: ROCURONIUM 10 MG/ML (5 ML VIAL) IV ONE (09:40)
[2023-07-12] MEDS ORDERED: LIDOCAINE 1% INJ 10MG/ML (20 ML MDV) ONE (09:40)
[2023-07-12] MEDS ORDERED: MIDAZOLAM 2 MG/2 ML VIAL ONE (09:40)
[2023-07-12] MEDS ORDERED: SUGAMMADEX SODIUM 200 MG/2 ML SDV IV ONE (09:40)
[2023-07-12] MEDS ORDERED: PHENYLEPHRINE 10 MG/ML VIAL ONE (09:40)
[2023-07-12] MEDS ORDERED: HYDROmorphone (PF) 1 MG/ML ONE (09:40)
[2023-07-12] MEDS ORDERED: PHENYLEPHRINE-0.9% NACL SYG 1,000 MCG/10 ML SYRINGE ONE (09:40)
[2023-07-12] MEDS ORDERED: PROPOFOL 10 MG/ML 20 ML VIAL IV ONE (09:40)
[2023-07-12] MEDS: LIDOCAINE 1%-EPI 1:100,000 20 ML VIAL SQ ONE (09:44)
[2023-07-12] MEDS: LACTATED RINGERS 1,000 ML IV ONE (11:28)
[2023-07-12] MEDS ORDERED: diphenhydrAMINE 50 MG/ML 1 ML VIAL IVP PRN (12:00)
[2023-07-12] MEDS ORDERED: ALBUTEROL NEBULIZED 2.5 MG/3 ML INHALATION PRN (12:03)
[2023-07-12] MEDS: droPERidol 5 MG/2 ML VIAL IVP ONE (12:10)
--- NOTE | 2023-07-12 12:20 | P.OP ---
Date of Procedure: 07/12/23 Description of Procedure: SURGEON: ALEXANDRIA RENTERIA MD PREOPERATIVE DIAGNOSES: 1. Intractable abdominal pain with intussusception 2. History of gastric bypass 3. History of small bowel obstruction due to adhesions 4. Postural orthostatic tachycardia syndrome 5. Generalized anxiety disorder 6. Asthma 7. History of uterine cancer status post hysterectomy 8. Gastroesophageal reflux disease 9. Rheumatoid arthritis 10. History of multiple abdominal surgeries POSTOPERATIVE DIAGNOSES: 1. Intussusception involving jejunojejunostomy reconstruction 2. Pelvic adhesions, left 3. Left upper quadrant adhesions 4. Postural orthostatic tachycardia syndrome 5. Generalized anxiety disorder 6. Asthma 7. History of uterine cancer status post hysterectomy 8. Gastroesophageal reflux disease 9. Rheumatoid arthritis 10. History of small bowel obstruction due to adhesions 11. History of gastric bypass OPERATION: 1. Robotic-assisted da Shazia Xi laparoscopic revision of jejunojejunostomy with small bowel resection x 2 2. Robotic-assisted da Shazia Xi laparoscopic with extensive lysis of adhesions over 1 hr ESTIMATED BLOOD LOSS: 5 mL. SPECIMENS REMOVED: None. COMPLICATIONS: None. OPERATIVE FINDINGS: 1. Intussusception involving jejunojejunostomy reconstruction requiring small bowel resection x 2 2. Left pelvic adhesions involving left ovary status post prior hysterectomy lysed 3. Interloop adhesions involving gastrojejunostomy and jejunojejunostomy lysed INDICATIONS: The patient is a 48-year-old female who presents with intractable abdominal pain include up to left upper quadrant after eating for over 6 months. She has intermittent intussusception of her jejunojejunostomy. Surgical intervention with diagnostic laparoscopy, small bowel resection with revision of jejunojejunostomy, lysis of adhesions were described. Informed consent was obtained. Robotic assisted laparoscopic approach was described. Benefits and risks of the procedure including but not limited to bleeding, infection, injury to the small bowel was described. Informed consent was obtained. DESCRIPTION OF PROCEDURE: Patient was brought to the operating room, placed in supine position. After general induction, the abdomen had been prepped and draped in standard sterile fashion. The robotic da Shazia XI system was primed. After a timeout protocol was performed, the patient had been prepped and draped in standard sterile fashion. The robot was docked along the right lateral abdomen. Please note prior to docking of the robot; however, a 5 mm 0 degrees laparoscopic trocar entry was performed along the left upper quadrant. The abdomen was insufflated to 15 mmHg pressure which she tolerated well. Diagnostic laparoscopy was performed without injury to solid organs and small bowel viscera. Next, three 8 mm and 12-mm robotic ports were placed along the right lateral abdominal wall. The camera 8-mm port was maintained along mid-lateral abdomen. Please note that the ports were placed at least 10 to 15 cm away from the target anatomy. Instruments including graspers and vessel sealer and stapler were interchanged by the medical assistant instructor. I had sat at the console. The small bowel was investigated from the terminal ileum to the ligament of Treitz with finding of redundant mesentery. The cecum was found within the pelvis posterior to the bladder. Abnormal adhesions to the jejunojejunostomy causing retraction to the retroperitoneum was identified and divided using hook cautery and vessel sealer. Abnormal adhesions involving the gastrojejunostomy and interloop adhesions were lysed using vessel sealer relieving any retraction towards the retroperitoneum aggravating her left upper quadrant abdominal pain. Intermittent intussusception involving the reconstructed Renee limb and common channel were found with redundant excess small bowel. The afferent limb of the Renee was divided using 60 mm white robotic staple load in excess of 2 cm resection of redundant small bowel. Next, attention was brought to the common channel where redundancy of 5 cm small bowel was resected using 60 mm blue robotic staple load. Hemostasis was checked with hook cautery. No recurrent jejunojejunostomy mesenteric defect was found. Petersons defect was reassessed where a small window 3 cm was identified and closed using 2-0 VLOC. Pelvic adhesions involving the left ovary and small bowel was found creating a internal hernia. These adhesions were sharply lysed using vessel sealer. Extensive lysis of adhesions over 1 hr was performed. The small bowel was viable.The robot was undocked. All pneumoperitoneum instruments were evacuated from the abdominal cavity. The incisions were reapproximated using 4-0 Monocryl in an interrupted subcuticular fashion. Please note along the trocar sites, local anesthetic was placed as a field block prior to insertion of all instruments. Exofin was applied to the skin. At the end of the procedure needle, sponge, and instrument count had been verified correct by the surgical scrub technician. The patient was transferred to stanesthesia care unit in stable condition.
[2023-07-12] MEDS: HYDROmorphone 0.5 MG/0.5 ML SYRINGE IVP ONE (12:25)
[2023-07-12] MEDS: ACETAMINOPHEN IV (For NPO) 650 MG in EMPTY BAG 1 BAG IVPB ONE (14:30)
[2023-07-12] MEDS: TAMSULOSIN 0.4 MG CAP.ER.24H PO STA (15:06)
[2023-07-12] MEDS: HYDROmorphone 1 MG/ML 1 ML SYRINGE IM PRN (15:51)
[2023-07-12] MEDS: 0.9% NACL WITH KCL 20 MEQ/L 1,000 ML IV SCH (17:27)
[2023-07-12] MEDS: SIMETHICONE 80 MG CHEWABLE PO SCH (18:39)
[2023-07-12] MEDS: ONDANSETRON 4 MG/2 ML VIAL IVP SCH (19:15)
[2023-07-12] MEDS: ACETAMINOPHEN IV (For NPO) 650 MG in EMPTY BAG 1 BAG IVPB SCH (20:23)
[2023-07-13] MEDS: PANTOPRAZOLE 40 MG/10 ML VIAL IV SCH (07:53)
[2023-07-13] MEDS: 0.9% NACL WITH KCL 20 MEQ/L 1,000 ML IV SCH (07:58)
--- NOTE | 2023-07-13 11:11 | P.PN ---
Subjective Progress Note Date: 07/13/23 Patient tolerating liquids. Will however Seth present. Advance to full liquid diet. Remove Seth catheter. Discharge pending tolerating full liquid diet with close outpatient follow-up and 3 to 4 days at the bariatric center. Objective - Vital Signs Vital signs: Vital Signs Temp 97.6 F 07/13/23 07:06 Pulse 62 07/13/23 07:06 Resp 18 07/13/23 07:06 BP 95/66 07/13/23 07:06 Pulse Ox 92 L 07/13/23 07:06 FiO2 Intake & Output 07/12/23 07/13/23 07/13/23 18:59 06:59 18:59 Intake Total 2100 Output Total 380 2975 900 Balance 1720 -2975 -900 Weight 63.1 kg Intake: IV 1850 Intake, IV Titration 250 Amount 0.9% NaCl with KCl 20 Meq 150 /l 1,000 ml @ 75 mls/hr IV .[id number] [facility] Rx#: [id number] ACETAMINOPHEN IV (For NPO 100 ) 650 mg In Empty Bag 1 bag @ 400 mls/hr IVPB ONCE ONE Rx#:[id number] Output: Urine 375 2975 900 Estimated Blood Loss 5 Other: Voiding Method Indwelling Catheter Indwelling Catheter
--- NOTE | 2023-07-13 11:23 | FL ---
EXAMINATION TYPE: FL UGI DATE OF EXAM: 07/13/2023 COMPARISON: NONE HISTORY: Pain TECHNIQUE: A single contrast UGI study is performed. A total of 41 seconds of fluoroscopic time was utilized during procedure and 6 images obtained. Total dose area product (DAP) in uGy*m?, mGy*cm? (o r similar): Not provided. FINDINGS: Correspondence Dictator image of the abdomen shows no gross abnormality. The esophagus shows normal motility and emptying into the stomach. There is a moderate amount of free intraperitoneal likely related the patient's postsurgical status. There is no evidence of contrast e xtravasation. Contrast is seen to easily pass into the remaining stomach pouch and through the suspec jorge Renee-en-Y into the small bowel without obstruction. IMPRESSION: 1. No evidence of obstruction or extravasation. 2. Free intraperitoneal air likely related the patient's recent postoperative status. Correlate clini uvaldo.
[2023-07-13 11:24] LABS: Basophils # (A) 0.03 X 10*3/uL (0.00-0.10); Basophils % (A) 0.4 %; Eosinophils % (A) 1.4 %; HCT 36.3 % (37.2-46.3); Lymphocytes % (A) 26.4 %; MCH 30.4 pg (27.0-32.0); MCHC 33.1 g/dL (32.0-37.0); MCV 91.9 FL (80.0-97.0); Mean Platelet Volume 10.8 FL (9.5-12.2); Monocytes # (A) 0.45 X 10*3/uL (0.20-1.00); Monocytes % (A) 6.3 %; NRBC Per 100 WBC 0 X 10*3/uL (0.00-0.01); Neutrophils # (A) 4.71 X 10*3/uL (1.80-7.70); Neutrophils % (A) 65.4 %; Platelet Count 219 X 10*3/uL (140-440); RBC 3.95 X 10*6/uL (4.10-5.20); RDW 14.8 % (11.5-14.5)
[2023-07-13 11:26] LABS: Blood Urea Nitrogen 6.1 mg/dL (9.0-27.0); Calcium 8.5 mg/dL (8.7-10.3); Carbon Dioxide 23.7 mmol/L (21.6-31.8); Chloride 105 mmol/L (96-109); Magnesium 1.9 mg/dL (1.5-2.4); Phosphorus 3.5 mg/dL (2.4-5.1); Potassium 4.2 mmol/L (3.5-5.5); Sodium 135 mmol/L (135-145)
[2023-07-13 12:36] VITALS: BMI 23.1
[2023-07-13] MEDS: TAMSULOSIN 0.4 MG CAP.ER.24H PO SCH (13:34)
[2023-07-14] MEDS ORDERED: bisacodyL 5 MG TABLET.DR PO PRN (08:00)
[2023-07-14 08:58] VITALS: BP 94/65; PULSE 59; RESP 16; TEMP 97.8
[2023-07-14] MEDS: LORazepam 2 MG/ML INJ IV PRN (10:18)
--- NOTE | 2023-07-14 10:44 | P.DS ---
Providers Date of admission: 07/12/23 12:00 Expected date of discharge: 07/14/23 Attending physician: Hortencia Bangura Primary care physician: Danis Gould Hospital Course: Discharge diagnosis 1. Intussusception involving jejunojejunostomy reconstruction 2. Pelvic adhesions, left 3. Left upper quadrant adhesions 4. Postural orthostatic tachycardia syndrome 5. Generalized anxiety disorder 6. Asthma 7. History of uterine cancer status post hysterectomy 8. Gastroesophageal reflux disease 9. Rheumatoid arthritis 10. History of small bowel obstruction due to adhesions 11. History of gastric bypass Hospital course The patient is a 48-year-old female who presents with intractable abdominal pain include up to left upper quadrant after eating for over 6 months. She has intermittent intussusception of her jejunojejunostomy. She is status post robotic assisted laparoscopic revision of jejunojejunostomy with small bowel resection x 2 and lysis of adhesions. Patient is tolerating diet. Her pain is controlled. She urinating without difficulty. She is having flatus. She has been up and ambulating. She is afebrile. She is stable for discharge. Physician Brick Wheeler note has been reviewed by physician. Signing provider agrees with the documented findings, assessment, and plan of care. Patient Condition at Discharge: Stable Plan - Discharge Summary Discharge Rx Participant: No New Discharge Prescriptions: New Acetaminophen Tab [Tylenol] 1,000 mg PO Q6HR PRN #30 tablet PRN Reason: Pain Continue Dextroamphetamine/Amphetamine [Adderall] 20 mg PO TID hydrOXYzine pamoate [Vistaril] 100 mg PO TID PRN PRN Reason: Anxiety Ondansetron Odt [Zofran ODT] 4 mg PO Q8HR PRN #30 tab PRN Reason: Nausea rOPINIRole HCL [Requip] 1 mg PO HS Albuterol Sulfate [Proair Hfa] 2 puff INHALATION RT-Q6H PRN PRN Reason: Shortness Of Breath Discontinued Dicyclomine [Bentyl] 20 mg PO DAILY PRN PRN Reason: cramping Zinc Gluconate [Zinc] 50 mg PO DAILY Magnesium 200 mg PO DAILY Cyanocobalamin (Vitamin B-12) [Vitamin B-12] 1,000 mcg PO DAILY Calcium Carbonate [Calcium] 600 mg PO DAILY Multivit with Calcium,Iron,Min [Women's Multivitamin] 1 each PO DAILY Discharge Medication List Albuterol Sulfate [Proair Hfa] 2 puff INHALATION RT-Q6H PRN 09/04/20 [History] rOPINIRole HCL [Requip] 1 mg PO HS 09/04/20 [History] Dextroamphetamine/Amphetamine [Adderall] 20 mg PO TID 09/22/21 [History] hydrOXYzine pamoate [Vistaril] 100 mg PO TID PRN 09/22/21 [History] Ondansetron Odt [Zofran ODT] 4 mg PO Q8HR PRN #30 tab 05/12/23 [Rx] Acetaminophen Tab [Tylenol] 1,000 mg PO Q6HR PRN #30 tablet 07/14/23 [Rx] Follow up [facility]16/23 9:00 am Activity/Diet/Wound Care/Special Instructions: No lifting over 4 pounds in 4 weeks You May shower. No bath tub soaks for two weeks Use Tylenol scheduled for the next 24-48 hours for best pain relief. Use ice along incisions for the today to prevent swelling. No straws or carbonated beverages Continue Bariatric full liquid diet until seen by surgeon Hold on taking vitamins until seen by surgeon do to increase bleeding risk Discharge Disposition: HOME SELF-CARE
== END 2023-07-14 13:15 | disposition home or self-care (01) | DRG 230 ==
LOC: OR 07:56 → 5NMEDONC 12:00
PROVIDERS: ADMIT Surgery Plastic and Reconstructive Surgery; ATTEND Surgery Plastic and Reconstructive Surgery
PROC: 0DBA4ZZ Excision of Jejunum, Percutaneous Endoscopic Approach (ICD-10-PCS; 2023-07-12)
PROC: 0D1A4ZA Bypass Jejunum to Jejunum, Percutaneous Endoscopic Approach (ICD-10-PCS; principal; 2023-07-12 12:00)
DX: K56.1 Intussusception (principal); M06.9 Rheumatoid arthritis, unspecified; G90.A Postural orthostatic tachycardia syndrome [POTS]; J45.909 Unspecified asthma, uncomplicated; N73.6 Female pelvic peritoneal adhesions (postinfective); G89.18 Other acute postprocedural pain; F41.1 Generalized anxiety disorder; K21.9 Gastro-esophageal reflux disease without esophagitis; K66.0 Peritoneal adhesions (postprocedural) (postinfection); F41.0 Panic disorder [episodic paroxysmal anxiety]; Z98.84 Bariatric surgery status; Z87.891 Personal history of nicotine dependence; Z85.42 Personal history of malignant neoplasm of other parts of uterus
CPT/HCPCS: 74240; 80051; 82310; 82565; 83735; 84100; 84520; 85025; 88304

== ENCOUNTER → 2023-07-16 | Outpatient (CLI) | payer OTHER ==
[2023-07-16 12:34] VITALS: BP 93/68; PULSE 76; TEMP 97.9; BMI 22.8
--- NOTE | 2023-07-23 11:04 | P.BASOAP ---
Subjective Progress Note Date: 07/16/23 She reports generalized incisional soreness. She is tolerating liquids. No abdominal pain with liquids. Recommend follow-up in 2 weeks. May adjust diet to pured diet. Follow bariatric diet. No infection on exam. Objective - Vital Signs Vital signs: Vital Signs Temp 97.9 F 07/16/23 12:13 Pulse 76 07/16/23 12:13 Resp BP 93/68 07/16/23 12:13 Pulse Ox FiO2 Assessment/Plan Plan: Date: 07/16/23 Initial Weight: 91.807 kg Initial BMI: 33.7 Current Weight: 62.142 kg Current BMI: 22.8 Type of Surgery: Total Volume in Band: Previous Volume: Volume Removed: Volume Added: Band Size:
== END ==
LOC: BARWHC3 08:44
PROVIDERS: ATTEND Surgery Plastic and Reconstructive Surgery
DX: E66.01 Morbid (severe) obesity due to excess calories (principal); Z87.891 Personal history of nicotine dependence; Z88.1 Allergy status to other antibiotic agents; Z88.0 Allergy status to penicillin; Z91.018 Allergy to other foods; Z88.8 Allergy status to other drugs, medicaments and biological substances; Z68.22 Body mass index [BMI] 22.0-22.9, adult
CPT/HCPCS: 99211

== ENCOUNTER → 2023-07-28 | Outpatient (CLI) | payer OTHER ==
[2023-07-28 17:00] VITALS: BP 110/79; PULSE 90; RESP 14; TEMP 97.8
--- NOTE | 2023-07-28 17:22 | P.BASOAP ---
Subjective Progress Note Date: 07/28/23 She reports new swelling along the left upper abdomen. She can eat solid foods. She has bowel movement. She has pain with walking. Recommend Abdominal xray. Recommend binder. Needs urine niotine. She can take dilaudid. Will remove morphine, fentanyl. Skin removal surgery. She has reflux has hiatal hernia. Objective - Vital Signs Vital signs: Vital Signs Temp 97.8 F 07/28/23 16:26 Pulse 90 07/28/23 16:26 Resp 14 07/28/23 16:26 BP 110/79 07/28/23 16:26 Pulse Ox FiO2 Intake & Output 07/27/23 07/28/23 07/28/23 18:59 06:59 18:59 Weight 62.596 kg Assessment/Plan Plan: Date: 07/28/23 Initial Weight: 91.807 kg Initial BMI: Current Weight: 62.596 kg Current BMI: Type of Surgery: Total Volume in Band: Previous Volume: Volume Removed: Volume Added: Band Size:
== END ==
LOC: BARWHC3 16:26
PROVIDERS: ATTEND Surgery Plastic and Reconstructive Surgery
DX: E66.9 Obesity, unspecified (principal); K44.9 Diaphragmatic hernia without obstruction or gangrene; Z87.891 Personal history of nicotine dependence; Z88.1 Allergy status to other antibiotic agents; Z88.0 Allergy status to penicillin; Z91.018 Allergy to other foods; Z88.3 Allergy status to other anti-infective agents; Z88.8 Allergy status to other drugs, medicaments and biological substances
CPT/HCPCS: 99211

== ENCOUNTER → 2023-07-29 | Outpatient (CLI) | payer OTHER ==
--- NOTE | 2023-07-30 08:23 | XR ---
EXAMINATION TYPE: XR abdomen 2V DATE OF EXAM: 07/29/2023 5:55 PM CLINICAL INDICATION:Female, 48 years old with history of R10.0 ACUTE ABDOMEN COMPARISON: None. TECHNIQUE: Two views of the abdomen were obtained. FINDINGS: Surgical suture projects over the left abdomen. Right upper quadrant: Discectomy clip. Pelv ic phleboliths. Moderate amount stool in the left. The bowel gas pattern is nonspecific without dilat ed loops of small or large bowel. There is no evidence for organomegaly or pneumoperitoneum. The oss eous structures are intact. Fecal material and gas are demonstrated throughout the colon and rectum . IMPRESSION: Moderate amount stool in the colon with postsurgical suture identified, otherwise Nonspecific bowel g as pattern without radiographic evidence for acute process.
== END | disposition home or self-care (01) ==
LOC: RADXRMAIN 17:25
PROVIDERS: ATTEND Surgery Plastic and Reconstructive Surgery
DX: R10.0 Acute abdomen (principal)
CPT/HCPCS: 74019

== ENCOUNTER 2023-10-03 11:10 | Emergency (ER) | payer OTHER ==
[2023-10-03 11:15] VITALS: RESP 18
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
--- NOTE | 2023-10-03 12:01 | XR ---
EXAMINATION TYPE: XR hand complete LT DATE OF EXAM: 10/03/2023 11:44 AM CLINICAL INDICATION:Female, 48 years old with history of middle finger injury; COMPARISON: None TECHNIQUE: XR hand complete LT Frontal, lateral and oblique views were obtained. FINDINGS: Normal alignment of the visualized joints. No acute osseous pathology is identified. No e vidence of soft tissue swelling. No significant degeneration IMPRESSION: No acute osseous pathology.
[2023-10-03 13:00] VITALS: BP 136/68; PULSE 96; TEMP 98.1
== END 2023-10-03 13:01 | disposition home or self-care (01) ==
LOC: EC 11:10
DX: S63.633A Sprain of interphalangeal joint of left middle finger, initial encounter (principal); Z87.891 Personal history of nicotine dependence; Z88.1 Allergy status to other antibiotic agents; Z88.0 Allergy status to penicillin; Z91.018 Allergy to other foods; Z91.011 Allergy to milk products; Z88.8 Allergy status to other drugs, medicaments and biological substances; W22.8XXA Striking against or struck by other objects, initial encounter; Y92.009 Unspecified place in unspecified non-institutional (private) residence as the place of occurrence of the external cause
CPT/HCPCS: 99283

== ENCOUNTER 2024-09-04 07:50 | Day surgery (SDC) | payer OTHER ==
[2024-09-04] MEDS: IV FLUID CONTINUATION 1,000 ML IV ONE (08:11)
[2024-09-04] MEDS: LACTATED RINGERS 1,000 ML IV SCH (08:27)
[2024-09-04 08:31] LABS: Glucose,Whole Blood 82 mg/dL (70-110)
[2024-09-04 08:34] VITALS: TEMP 97.7
[2024-09-04] MEDS ORDERED: LIDOCAINE 2% (PF) 20 MG/ML 5 ML VIAL ONE (08:37)
[2024-09-04] MEDS ORDERED: MIDAZOLAM 2 MG/2 ML VIAL ONE (08:37)
[2024-09-04] MEDS ORDERED: PROPOFOL 10 MG/ML 20 ML VIAL IV ONE (08:37)
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
--- NOTE | 2024-09-04 09:08 | P.PCN ---
Date of Procedure: 09/04/24 Description of Procedure: PREOPERATIVE DIAGNOSIS: Dysphagia. Atypical chest pain POSTOPERATIVE DIAGNOSIS: Dysphagia. Gastrojejunal stricture without chronic ulcer without perforation Gastric stenosis OPERATION: Esophagogastrojejunoscopy with balloon dilatation from 18 to 20 mm for gastric stricture SURGEON: Hortencia Bangura MD ANESTHESIA: MAC. INDICATIONS: The patient is a 62-year-old female who presents with atypical chest pain and of the esophagus dysphagia. Benefits and risks of the procedure were described. Informed consent was obtained. DESCRIPTION: The patient was brought into the endoscopy suite and laid in the left lateral decubitus position. After a timeout was confirmed, the procedure was initiated. An Olympus gastroscope was passed along the posterior oropharynx down to the distal esophagus where the squamocolumnar junction was unremarkable. The gastric pouch was entered. 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 The scope was entered for balloon dilation of the gastrojejunal anastomosis. Final insufflation from 18 to 20 mm was performed with a total of 2 minutes. The scope was advanced up to 60 cm from the incisors into the Renee limb. The mucosa of the gastrojejunal anastomosis was intact. No chronic gastrojejunal marginal ulcer was encountered. No full-thickness injury was encountered. The GI tract was desufflated. The patient tolerated the procedure well. FINDINGS: Squamocolumnar junction unremarkable at 37 cm. Stricture of approximately 18 mm encountered. No chronic gastrojejunal ulceration encountered. Successful balloon dilatation to 20 mm. RECOMMENDATIONS: Upper endoscopy as needed. Plan - Discharge Summary Discharge Rx Participant: No New Discharge Prescriptions: Continue Dextroamphetamine/Amphetamine [Adderall] 15 mg PO TID hydrOXYzine pamoate [Vistaril] 100 mg PO TID PRN PRN Reason: Anxiety Ondansetron Odt [Zofran ODT] 4 mg PO Q8HR PRN #30 tab PRN Reason: Nausea Acetaminophen Tab [Tylenol] 1,000 mg PO Q6HR PRN #30 tablet PRN Reason: Pain FLUoxetine HCL 20 mg PO DAILY Pregabalin [Lyrica] 25 mg PO TID Baclofen 10 mg PO HS PRN PRN Reason: muscle relaxer Unk Zinc 1 tab PO DAILY Unk Vitamin B12 1 tab PO DAILY Cyanocobalamin [Vitamin B-12 Injection] 1,000 mcg SQ Q30D rOPINIRole HCL [Requip] 2 mg PO HS Albuterol Sulfate [Proair Hfa] 2 puff INHALATION RT-Q6H PRN PRN Reason: Shortness Of Breath OLANZapine [ZyPREXA] 2.5 mg PO HS Multi Vitamin 1 tab PO DAILY Unk Magnesium 1 tab PO DAILY Discharge Medication List Albuterol Sulfate [Proair Hfa] 2 puff INHALATION RT-Q6H PRN 09/04/20 [History] rOPINIRole HCL [Requip] 2 mg PO HS 09/04/20 [History] Dextroamphetamine/Amphetamine [Adderall] 15 mg PO TID 09/22/21 [History] hydrOXYzine pamoate [Vistaril] 100 mg PO TID PRN 09/22/21 [History] Ondansetron Odt [Zofran ODT] 4 mg PO Q8HR PRN #30 tab 05/12/23 [Rx] Acetaminophen Tab [Tylenol] 1,000 mg PO Q6HR PRN #30 tablet 07/14/23 [Rx] Baclofen 10 mg PO HS PRN 08/09/24 [History] FLUoxetine HCL 20 mg PO DAILY 08/09/24 [History] OLANZapine [ZyPREXA] 2.5 mg PO HS 08/09/24 [History] Pregabalin [Lyrica] 25 mg PO TID 08/09/24 [History] Unk Magnesium 1 tab PO DAILY 08/31/24 [History] Cyanocobalamin [Vitamin B-12 Injection] 1,000 mcg SQ Q30D 08/31/24 [History] Multi Vitamin 1 tab PO DAILY 08/31/24 [History] Unk Vitamin B12 1 tab PO DAILY 08/31/24 [History] Unk Zinc 1 tab PO DAILY 08/31/24 [History] [facility]Ref[facility] [place] [facility] [place] [facility]20[facility]24 3:00 pm Patient Instructions/Handouts: *Surgery [facility] - (Anesthesia) Discharge Instructions Outpatient Surgery, Upper Endoscopy (DC), Esophageal Dilation (DC) Activity/Diet/Wound Care/Special Instructions: Medications including Zyprexa, Vistaril, and Lyrica combined can contribute to abdominal pain Discharge Disposition: HOME SELF-CARE
[2024-09-04 09:18] VITALS: BP 104/74; PULSE 67; RESP 14
== END 2024-09-04 09:33 | disposition home or self-care (01) ==
LOC: ORWHC2ENDO 07:50
PROVIDERS: ATTEND Surgery Plastic and Reconstructive Surgery
DX: R13.10 Dysphagia, unspecified (principal); K91.89 Other postprocedural complications and disorders of digestive system; K31.2 Hourglass stricture and stenosis of stomach; K21.9 Gastro-esophageal reflux disease without esophagitis; J45.909 Unspecified asthma, uncomplicated; M06.9 Rheumatoid arthritis, unspecified; Z79.899 Other long term (current) drug therapy; Z87.891 Personal history of nicotine dependence; Z88.0 Allergy status to penicillin; Z88.1 Allergy status to other antibiotic agents; Z88.5 Allergy status to narcotic agent
CPT/HCPCS: 43249; J2250; J2704; J2003; C1726

== ENCOUNTER → 2024-09-27 | Outpatient (CLI) | payer OTHER ==
[2024-09-27 13:38] VITALS: BP 102/74; PULSE 80; RESP 16; TEMP 98.2; BMI 22.8
--- NOTE | 2024-09-27 21:46 | P.PN ---
Progress Note - Text Progress Note Date: 09/27/24 Patient left without being seen
== END | disposition home or self-care (01) ==
LOC: BARWHC3 12:55
PROVIDERS: ATTEND Surgery Plastic and Reconstructive Surgery
DX: E66.01 Morbid (severe) obesity due to excess calories (principal); F12.90 Cannabis use, unspecified, uncomplicated; Z68.22 Body mass index [BMI] 22.0-22.9, adult; Z88.0 Allergy status to penicillin; Z91.018 Allergy to other foods; Z88.1 Allergy status to other antibiotic agents; Z88.5 Allergy status to narcotic agent; Z88.8 Allergy status to other drugs, medicaments and biological substances; Z87.891 Personal history of nicotine dependence
CPT/HCPCS: 99211